=== PATIENT | female | born 1960 | race Caucasian/White ===

== ENCOUNTER 2017-06-20 10:42 | Inpatient (IN) | payer MEDICARE, MEDICAID ==
[2017-06-20] VITALS (9 sets, daily range): BP systolic 99–150; BP diastolic 26–81; PULSE 93–111; RESP 14–24; O2SAT 90–97
[~2017-06-20] VITALS: Ht 162.6 cm; Wt 256.0 kg
--- NOTE | 2017-06-20 10:43 | ED.REPORT ---
HPI-General Illness Date of Service Jun 20, 2017 ED Provider: Black Kemp DO The pt is a 57 y/o female w/ a hx of arthritis and depression presenting to the ED via EMS due to a GLF. She reports her R knee going out causing her to fall and hit her head on a cabinet. There was no LOC. She reports hitting her head twice which caused a headache that she describes as a band going from my eyes to my back of head as well as some blurry vision. She also reports intermittent SOB. She fell once at 0630 and once at 0930. The pt takes 625 MG of Tylenol every 4 hours for her arthritis. EMS reports that the pt has not left the house since March (2 months ago). Nursing Notes Stated Complaint: R KNEE PAIN Chief Complaint: R knee pain Nursing Notes Reviewed: Yes Allergies: Coded Allergies: No Known Allergies (Unverified Allergy, Unknown, 06/20/17) Scheduled Acetaminophen/Diphenhydramine (Tylenol Pm Ex-Strength Caplet) 500 Mg-25 Mg Tablet 2 EACH PO HS Scheduled PRN Acetaminophen (Tylenol Arthritis) 650 Mg Tablet.er 650 MG PO Q4H PRN PRN For Pain Loperamide HCl (Imodium A-D) 2 Mg Capsule 8 MG PO DAILY PRN PRN For Diarrhea or Loose Stool General Time Seen by MD: 10:43 Chief Complaint Other (R knee pain ) Hx Obtained From: Patient Sudden in Onset?: Yes Onset Occurred: Just prior to arrival Symptom Duration: Since onset Recent Healthcare: No recent doctor visit, No recent hospitalization Similar Sx Previous: No Past Medical History Past Medical History Arthritis IBS Depression Past Surgical History Adjustable Lap band surgery in 2006 Tubal ligation Tonsillectomy Head Cyst surgery Social History Alcohol Use: Denies alcohol use Drug Use: Denies drug use Other Social History: Good social support Ambulatory Status Independent Review of Systems Full Review of Systems Respiratory: Reports: Shortness of breath Musculoskeletal: Reports: Joint pain (R knee ) Neurologic: Reports: Headache Complete sys rev & neg: except as marked. Physical Exam Vital Signs Vital Signs Date Time Temp Pulse Resp B/P Pulse Ox O2 Delivery O2 Flow Rate FiO2 06/20/17 10:42 37.6 111 20 99/26 90 Nasal Cannula 5 Initial VS: Reviewed Head / Eyes: Atraumatic, Normocephalic, PERRL ENT: Mucous membranes moist, Conjunctiva normal, No scleral icterus Neck: Supple, Non-tender, Full range of motion Abdomen / GI: Soft, Non-tender, No guarding, No rebound, No distention Extremities: Vascular intact, Neuro intact Skin: Warm, Dry, No cyanosis Neurologic: Alert, Oriented, Nonfocal Psychiatric: Mood/affect normal, Behavior normal, Normal thought content General/Constitutional: Awake, Alert Appearance / Presentation: Positive: Obese, morbidly Respiratory / Chest: Breath sounds NL, Breath sounds = bilat Hypoxic Cardiovascular: Regular rhythm, Heart sounds NL Heart Rate / Rhythm: Positive: Tachycardia Hypotensive Interpretation & Diagnostics Lab Results Interpretation Result Diagram: 06/20/17 1155 06/20/17 1155 Test 06/20/17 11:55 White Blood Count 8.0th/mm3 (3.8-10.1) Red Blood Count 4.52mil/mm3 (3.90-5.20) Hemoglobin 13.6g/dL (12.0-15.6) Hematocrit 42.6% (35.0-46.0) Mean Corpuscular Volume 94.2fL (81-100) Mean Corpuscular Hemoglobin 30.1pg (27.0-35.0) Mean Corpuscular Hemoglobin Concent 31.9% (32.0-37.0) Red Cell Distribution Width 16.0% (12.3-15.4) Platelet Count 215bil/L (150-400) Neutrophils (%) (Auto) 81.8% (40-74) Lymphocytes (%) (Auto) 8.3% (14-46) Monocytes (%) (Auto) 9.4% (4-12) Eosinophils (%) (Auto) 0% (0-5) Basophils (%) (Auto) 0.1% (0-3) Prothrombin Time 11.9sec (8.1-12.5) Prothromb Time International Ratio 1.11ratio Activated Partial Thromboplast Time 26.1sec (22.8-33.0) D-Dimer 8.07mg/L FEU (<0.50) Sodium Level 137mEq/L (134-144) Potassium Level 4.2mEq/L (3.5-5.2) Chloride Level 97mEq/L (97-108) Carbon Dioxide Level 28mmol/L (18-29) Blood Urea Nitrogen 14mg/dL (6-24) Creatinine 0.66mg/dL (0.57-1.00) Estimat Glomerular Filtration Rate 133mL/min (>59) Glucose Level 113mg/dL (60-99) Calcium Level 8.8mg/dL (8.5-10.1) Magnesium Level 1.7mg/dL (1.6-2.6) Total Bilirubin 0.8mg/dL (0.0-1.2) Aspartate Amino Transf (AST/SGOT) 35U/L (0-50) Alanine Aminotransferase (ALT/SGPT) 23U/L (0-32) Alkaline Phosphatase 83U/L (25-150) Troponin T 0.010ug/L (0.0-0.011) Pro-B-Type Natriuretic Peptide 806.4pg/mL (0-287) Total Protein 7.3g/dL (6.4-8.4) Albumin 3.6g/dL (3.4-5.0) Hold Rose Top Tube Received (Received) ECG Interpretation ECG Interpretation: Rate 107 Sinus tachycardia Low voltage, precordial leads Time: 11:16 Interpreted by: ED physician X-Ray Chest Interpretation Chest Xray Interpretation: IMPRESSION: 1. Pulmonary vascular prominence suggesting mild edema. Dictated by: Christopher Stephen M.D. on 06/20/2017 at 12:16 Approved by: Christopher Stephen M.D. on 06/20/2017 at 12:17 View: Portable, 1 view Interpretation / Wet Read by: Interpret - Radiologist X-Ray Interpretation Xray Interpretation: 1. Limited study demonstrates no definite fracture or dislocation. If clinical concern persists, consider further evaluation with CT. Dictated by: Christopher Stephen M.D. on 06/20/2017 at 12:15 Approved by: Christopher Stephen M.D. on 06/20/2017 at 12:16 X-Ray Ordered: Knee right Re-Eval/Medical Decision Med Decision/Clinical Course Patient presents with hypoxic respiratory failure, oxygen saturation as low as 70% on room air, confirmed via arterial blood gas. Oxygen is rapidly titrated up to stabilize her oxygen saturation over 93%. She was initially hypoxic, she is tachycardic. Her blood pressure was low however has stabilized. Her EKG shows nonspecific changes. Her d-dimer is elevated however given limitations of imaging due to body habitus we are unable to fully confirm diagnosis of pulmonary embolism. She will be admitted. IV heparin is initiated in the ER. Additionally, she did injure her right knee, she has limited range of motion, x-rays were negative for acute fracture. Again given limitations due to body habitus and knee immobilizer was not placed however her knee has been placed in position of comfort. Time of Eval: 11:11 Re-Evaluation/Progress Note: Pt rechecked. Pt states that her vision is blurry again and can only breathe shallowly. Time of Eval: 11:30 Re-Evaluation/Progress Note: Discussed low oxygen saturation levels. Time of Eval: 12:27 Re-Evaluation/Progress Note: Pt rechecked. Informed pt of need for admission. Pt understands and agrees with plan for admission. All questions addressed. Consultation : Referral / Consult Name: Sonny Silva MD Consulted With: Hospitalist Call Returned at: 12:55 Nuclear Design Engineer: Will see patient, Agrees with eval, Agrees with plan, Accepts admit Counseled Regarding: Diagnosis, Lab results, Need for admission Discharge & Departure Primary Impression: Hypoxic Additional Impressions: Respiratory failure Chronicity: unspecified Respiratory failure complication: unspecified whether with hypoxia or hypercapnia Qualified Code: J96.90 - Respiratory failure, unspecified, unspecified whether with hypoxia or hypercapnia Obesity Obesity type: unspecified obesity type Obesity severity: unspecified obesity severity Qualified Code: E66.9 - Obesity, unspecified Disposition: ADMITTED TO HOSPITAL Discharge Condition All VS Reviewed: Yes Condition: Stable Referrals: [facility] Crit Care Except Billable Proc Time Spent: 30-74 minutes Services Performed: Patient management by me, Time spent at bedside, Reviewing test results, Reviewing imaging, Discussing patient care, Documentation in record, Time with fam/surrogate Critical Care Notes: See MDM Scribe Attestation Portions of this note were transcribed by Kapil Cifuentes. I, Dr. Kemp personally performed the history, physical exam and medical decision-making; I reviewed and confirmed the accuracy of the information in the transcribed note. Signed by : Juan Diego Mancia. copies to: [facility] Black Calixto DO Jun 20, 2017 10:43 Kapil Cifuentes Jun 20, 2017 11:01
--- NOTE | 2017-06-20 11:19 | ABG ---
DateTimeAnalyzed 11:12:00 -_ pH ____7.371 - 7.350 7.450 pCO2 ___50.6__ -mmHg 35.0 45.0 pO2 ___35.7__ -mmHg 70.0 100 HCO3- ___28.6__ -mmol/L 22.0 26.0 ABE ____2.9__ -mmol/L -2.0 2.0 tHb ___13.7__ -g/dL 12.0 18.0 O2Hb ___65.2__ -% 95.0 COHb ____1.4__ -% 1.5 MetHb ____0.9__ -% 0.4 1.5 sO2 ___66.7__ -% FIO2 ___21.0__ -% Drawn By lw - Date/Time Notified____ 11:19:00 -_ Oxygen Device 1 RA - Notified By lw - Notified Whom ___Dr. Okelley - B 760 -mmHg tO2 ___12.5__ -Vol% Regis test _Positive -
--- NOTE | 2017-06-20 12:18 | DRSVH ---
PROCEDURE: X-RAY RIGHT KNEE, ONE OR TWO VIEWS ([id number]) INDICATIONS: FALL TECHNIQUE: 3 views of the knee were acquired. COMPARISON: None. FINDINGS: Bones: Evaluation is limited due to body habitus and suboptimal positioning. No definite fracture o r dislocation. There is moderate joint space narrowing in the medial compartment with subchondral sc lerosis and osteophytosis. There is also osteophytosis in the patellofemoral compartment which is in completely evaluated. Soft tissues: Evaluation for joint effusion and of the soft tissues is limited due to body habitus. IMPRESSION: 1. Limited study demonstrates no definite fracture or dislocation. If clinical concern persists, co nsider further evaluation with CT. Dictated by: Christopher Stephen M.D. on 06/20/2017 at 12:15 Approved by: Christopher Stephen M.D. on 06/20/2017 at 12:16
--- NOTE | 2017-06-20 12:19 | DRSVH ---
PROCEDURE: X-RAY CHEST ONE VIEW, PORTABLE ([id number]) INDICATIONS: hypoxia, TECHNIQUE: One view of the chest was acquired. COMPARISON: [facility], CR, CHEST 2VW, 03/26/2014, 20:04. FINDINGS: Surgical changes and devices: None. Lungs and pleura: No pleural effusions or pneumothorax. There is pulmonary vascular prominence sugg esting mild edema. Mediastinum: Mediastinal contours appear normal. Heart size is normal. Bones and chest wall: No suspicious bony lesions. Overlying soft tissues appear unremarkable. IMPRESSION: 1. Pulmonary vascular prominence suggesting mild edema. Dictated by: Christopher Stephen M.D. on 06/20/2017 at 12:16 Approved by: Christopher Stephen M.D. on 06/20/2017 at 12:17
[2017-06-20] MEDS: fentaNYL-PF 50 mCg/mL 2 mL Inj IVPUSH PRN ×2 (12:25→16:08)
[2017-06-20] MEDS: Ondansetron 2 mg/mL 2 mL Inj IVPUSH PRN ×3 (12:25→14:26)
[2017-06-20 12:28] LABS: Mean Corpuscular Volume 94.2 fL (81-100)
[2017-06-20 12:29] LABS: BASOPHILS % (AUTO) 0.1 % (0-3); EOSINOPHILS % (AUTO) 0 % (0-5); MONOCYTES % (AUTO) 9.4 % (4-12); Mean Corpuscular Hemoglobin 30.1 pg (27.0-35.0); NEUTROPHILS % (AUTO) 81.8 % (40-74); Platelet Count 215 bil/L (150-400)
[2017-06-20 13:00] LABS: TROPONIN T 0.01 ug/L (0.0-0.011)
[2017-06-20] MEDS ORDERED: Polyethylene Glycol (PEG) 17 Gm Powder PO PRN (13:00)
[2017-06-20] MEDS ORDERED: Ondansetron 2 mg/mL 2 mL Inj IVPUSH PRN (13:00)
[2017-06-20] MEDS ORDERED: Alum-Mag Hydrox-Simeth 30 mL Suspension PO PRN (13:00)
[2017-06-20] MEDS ORDERED: ACET-2766 PO (13:12)
[2017-06-20] MEDS ORDERED: LOPE-147 PO (13:12)
[2017-06-20] MEDS ORDERED: ACET-2605 PO (13:12)
[2017-06-20 13:27] LABS: INR 1.11 ratio
[2017-06-20] MEDS ORDERED: Heparin 5,000 Unit/mL Inj IVPUSH ONE (14:15)
[2017-06-20] MEDS ORDERED: Heparin 25K Unit/500mL 0.45 NS 25,000 UNIT in IV Premix 1 EACH IV ONE (14:15)
--- NOTE | 2017-06-20 15:13 | DRSVH ---
PROCEDURE: US VENOUS LEG DUPLEX BILATERAL INDICATIONS: hypoxia TECHNIQUE: Real-time imaging, as well as color and pulse Doppler interrogation, were performed of the deep veins of both legs from the inguinal ligament to the popliteal fossa. COMPARISON: None. FINDINGS: The deep veins are normally compressible, and free of intraluminal thrombus. Color and pu lse Doppler demonstrate normal phasic intravascular flow. There is normal augmentation response to d istal compression maneuver. IMPRESSION: Limited quality of visualization of the lower extremity venous vasculature due to body moe bitus. No DVT found. Dictated by: Emigdio King M.D. on 06/20/2017 at 15:10 Approved by: Emigdio King M.D. on 06/20/2017 at 15:11
[2017-06-20] MEDS: Sodium Chloride LOK Flush 10 mL Syringe IVFLUSH SCH ×2 (16:30→23:59)
--- NOTE | 2017-06-20 16:41 | PCM.HPMED ---
Subjective Date of Service Jun 20, 2017 Primary Provider: Admitting Physician: Sonny Silva MD Primary Care Physician: Nopcp Attending Physician: Sonny Silva MD Chief Complaint: Ground level fall. History of Present Illness: Ms. Negrita Morales is a 57 year old lady with arthritis, sleep apnea, and depression presenting to the ED after two ground level falls with minor head trauma at 630 and 930 AM and a 5 day history of "breathing just not right." She reports the fall was due to her Right knee locking and buckling. She also reports some musculoskeletal type pain in her left shoulder and left elbow. Over the last 5 days her "breathing troubles" were associated with change in vision from "color to fair", dizziness and feelings of "head floating", and decreased energy. She is a super-super morbidly obese lady who has been disabled for 5 years due to weight and difficulty with mobility. She sleeps and spends most of the day in the lift chair, only getting up to use the bathroom. She does not use oxygen at home. She has not visited a PCP in 7 years. She denies every smoking. She denies Etoh, illicit/recreational drugs. She is not on any home prescription medications. She reports multiple slow healing wounds on her buttocks and lower extremities. She sleeps with a CPAP machine every night. She denies Chest pain, cough, nausea, vomiting, fever, abdominal pain, constipation, diarrhea, dysuria. She reports chills, headache, left shoulder/ elbow pain, right knee pain, shortness of breath. Review of Systems: A comprehensive review of systems was conducted with the patient and found to be negative except as above in the History of Present Illness. Allergies Coded Allergies: No Known Allergies (Unverified Allergy, Unknown, 06/20/17) Home Medications NONE. PMH Arthritis Depression Obesity Surgical History Tubal ligation in 1984 Lab band surgery 2006 Family History Mother Pacemaker Brother has a hx of DVTs and PE's Social History Occupation: Disability for 5 years Hx Alcohol Use: No Hx Substance Use: No Hx Tobacco Use: No Smoking Status: Never Smoker Living Arrangement: with Family (Lives with in [place]) Exam Vital Signs Vital Sign - Last Date Time Temp Pulse Resp B/P Pulse Ox O2 Delivery O2 Flow Rate FiO2 06/20/17 14:50 99 22 140/51 96 Venturi Mask 06/20/17 12:20 6 7/26/17 10:42 37.6 Exam General: No acute distress, Very obese, well-developed, well-nourished, appropriately interactive HEENT: Normocephalic, atraumatic. External ears without defect. Pupils equal, round, and reactive to light and accommodation. Anicteric sclerae, moist conjunctivae, and no lid lag. Oropharynx free of erythema and cobble stoning with moist mucosa. Neck: Supple with full range of motion. Jugular venous distension was very difficult to determine due to girth of neck. No bruits. No lymphadenopathy or thyromegaly. Cardiovascular: Tachycardic rate and regular rhythm with no murmurs, rubs, or gallops appreciated Pulmonary: Very decreased lung sounds due to body habitus. Non rebreather oxy mask in place with 5L flow rate. Abdomen: Bowel tones present. Soft, Very obese, nontender, nondistended. No hepatosplenomegaly or masses appreciated. Extremities: No clubbing, cyanosis, Large lower extremities with multiple slow healing wounds on medial portions bilaterally, or lymphadenopathy appreciated. Skin: Normal temperature, turgor, and texture; no rash, ulcers, or subcutaneous nodules appreciated. Neurological: Cranial nerves grossly intact. Normal muscle strength, tone, and bulk. Reflexes, coordination, and sensory function within normal limits. No known gait impairment. Psychiatric: Normal mood and affect. Alert and oriented to person, place, and time. Lab and Diagnostics Result Diagram: 06/20/17 1155 06/20/17 1155 X-Rays, CTs and MRIs ABG DateTimeAnalyzed 11:12:00 -_ pH ____7.371 - 7.350 7.450 pCO2 ___50.6__ -mmHg 35.0 45.0 pO2 ___35.7__ -mmHg 70.0 100 HCO3- ___28.6__ -mmol/L 22.0 26.0 X-RAY CHEST ONE VIEW, PORTABLE IMPRESSION: 1. Pulmonary vascular prominence suggesting mild edema. Approved by: Christopher Stephen M.D. on 06/20/2017 at 12:17 X-RAY RIGHT KNEE, ONE OR TWO VIEWS IMPRESSION: 1. Limited study demonstrates no definite fracture or dislocation. If clinical concern persists, consider further evaluation with CT. Dictated by: Christopher Stephen M.D. on 06/20/2017 at 12:15 Additional Diagnostics: US VENOUS LEG DUPLEX BILATERAL FINDINGS: The deep veins are normally compressible, and free of intraluminal thrombus. Color and pulse Doppler demonstrate normal phasic intravascular flow. There is normal augmentation response to distal compression maneuver. IMPRESSION: Limited quality of visualization of the lower extremity venous vasculature due to body habitus. No DVT found. Approved by: Emigdio King M.D. on 06/20/2017 at 15:11 Assessment & Plan Ms. Negrita Morales is a 57 year old lady with arthritis, sleep apnea, and depression presenting to the ED after two ground level falls with minor head trauma at 630 and 930 AM and a 5 day history of "breathing just not right." She reports the fall was due to her Right knee locking and buckling. She also reports some musculoskeletal type pain in her left shoulder and left elbow. Over the last 5 days her "breathing troubles" were associated with change in vision from "color to afir", dizziness and feelings of "head floating", and decreased energy. Acute Hypoxemic respiratory failure, present on admission. Active. - Likely 2nd to PE with D-Dimer 8, too large to do Chest CT PE scan. - ABG per above. - D-Dimer 8.07, Too large to CT scan. - Echo ordered. - Heparin PE ggt. - Cardiology consulted, appreciate recommendations regarding pulmonary angiography under fluoroscopy and localized treatment of possible PE. - Continue O2 supplementation as needed. to keep O2 sats > 92%. Super-Super Morbid obesity. - BMI 86.5 Multiple pressure ulcers, present on admission. Active. - Reported to have several on buttocks and several on inner lower legs bilaterally. - Wound care consulted. Obstructive sleep apnea - CPAP at night with supplemental Acetaminophen for mild pain when necessary. Bowel regimen Senna and MiraLAX scheduled and PRN. Zofran when necessary for nausea and vomiting. SubQ heparin held for now. SCDs in place. High-risk medications: Heparin ggt. Patient Status: Patient is admitted under inpatient status with expected length of stay greater than 2 midnights due to severity of presenting symptoms, risk of adverse event, and complexity of treatment plan. Pain Evaluation: Adequate Pain Control Resuscitation Status: CPR: Attempt Resuscitation Attending Statement I interviewed and examined the patient at time of admission. High probability pulmonary embolism. I agree with the assessment and plan as stated above. PENNY CABA DO Jun 20, 2017 16:41 Sonny Silva MD Jun 22, 2017 07:08
--- NOTE | 2017-06-20 18:05 | DRSVH ---
Located Within [facility] [address] [place] [address] Echocardiogram Report Name: DEANA ALEX KStudy Date : 06/20/2017 Height: 64 in Hospital Exam Location: [facility] Weight: 504 lb Gender: Female BSA: 2.9 m2 : 1960 Age: 57 yrs BP: 99/26 m mHg Reason For Study: Hypoxia Performed By: Madan Ruiz Referring Physician: CAIT LARSEN Interpretation Summary This was a technically difficult study. 1. Grossly normal left ventricular size with grossly normal systolic function. 2. The right ventricle was not visualized. The estimated RVSP is 47 mm plus CVP 3. Valves were not optimally visualized Procedure: A two-dimensional transthoracic echocardiogram with color flow and Doppler was performed. The study quality was technically difficult. A contrast injection of Definity was performed to improve assessment of LV function. There is no prior echocardiogram noted for this patient. The patient was in normal sinus rhythm during the exam. Left Ventricle: The left ventricle is grossly normal size. The left ventricular ejection fraction is grossly normal. Right Ventricle: The right ventricle is not well visualized. Atria: The left atrium grossly appears normal in size. Right atrium not well visualized. Mitral Valve: The mitral valve is not well visualized. Aortic Valve: The aortic valve is not well visualized. No doppler evidence for hemodynamically significant valvular stenosis. Tricuspid Valve: The tricuspid valve is not well visualized. There is moderate tricuspid regurgitation. Right ventricular systolic pressure is estimated to be 47 mmHg plus the clinically estimated CVP which cannot be estimated on this exam. Pulmonic Valve: The pulmonic valve is not well seen, but is grossly normal. Great Vessels: The aortic root is not well visualized. The ascending aorta is normal in size. The aortic arch could not be visualized. The inferior vena cava was not visualized. MMode/2D Measurements & Calculations asc Aorta Diam: 3.2 cm LA A4 area: 18.7 cm LA length (vol): 5.5 cm Doppler Measurements & Calculations Ao V2 max MV E max wade MV E/A: 1.5 TR max wade : 185.8 cm/sec : 97.5 cm/sec Med Peak E' Wade : 342.5 cm/sec Ao max PG MV A max wade TR max PG : 14.0 mmHg : 65.0 cm/sec E/E' med: 10.6 : 47.0 mmHg Ao mean PG Lat Peak E' Wade PA V2 max : 99.2 cm/sec LVOT Max Wade E/E' lat: 10.9 PA mean PG : 153.8 cm/sec E/e' average: 10.8 sev ratio: 0.84 PA Accel Time : 0.06 sec MV dec time Ao V2 mean LV V1 max PG PA V2 mean : 0.14 sec : 138.7 cm/sec : 67.7 cm/sec Ao V2 VTI: 32.6 cm LV V1 VTI: 27.3 cm Reading Physician:06:04 PM
[2017-06-20] MEDS ORDERED: [UNRECOGNIZED DRUG - OTHER] IVPUSH PRN (19:00)
--- NOTE | 2017-06-20 19:14 | NUR ---
Admit: Patient arrived to PCC room 2030 from ER via stretcher @ 1710 and was transferred to bariatric striker bed with use of slide sheet and assistance from 6-7 people (took about 45 minutes to transfer patient to new bed). Pt is A&O X3. Tele: Sinus 90's. VSS. SpO2: mid 90's on 6L NC. Patient states she feels urge to urinate, but is unable to. ER staff attempted to place kern catheter X2 attempts without success. Patient denies CP, or SOB at this time. at bedside. Report given to NOC shift RN.
[2017-06-21] VITALS (10 sets, daily range): BP systolic 118–141; BP diastolic 55–81; PULSE 94–107; RESP 20–30; O2SAT 92–99
--- NOTE | 2017-06-21 06:13 | ABG ---
DateTimeAnalyzed 06:05:00 -_ pH ____7.251 - 7.350 7.450 pCO2 ___74.6__ -mmHg 35.0 45.0 pO2 ___93.9__ -mmHg 69.0 116 HCO3- ___31.6__ -mmol/L 22.0 26.0 ABE ____2.5__ -mmol/L -2.0 2.0 tHb ___13.4__ -g/dL O2Hb ___94.4__ -% COHb ____1.2__ -% MetHb ____0.8__ -% sO2 ___96.3__ -% FIO2 ___21.0__ -% Drawn By TLA - Date/Time Notified____ 06:13:00 -_ Liter_Flow ____4.0__ -L/min Oxygen Device 1 SIMP MASK - Notified By TLA - Notified Whom Liam W.-RN - B 761 -mmHg tO2 ___17.8__ -Vol% Regis test _Positive -
--- NOTE | 2017-06-21 06:17 | ABG ---
DateTimeAnalyzed 06:05:00 -_ pH ____7.251 - 7.350 7.450 pCO2 ___74.6__ -mmHg 35.0 45.0 pO2 ___93.9__ -mmHg 69.0 116 HCO3- ___31.6__ -mmol/L 22.0 26.0 ABE ____2.5__ -mmol/L tHb ___13.4__ -g/dL O2Hb ___94.4__ -% COHb ____1.2__ -% MetHb ____0.8__ -% sO2 ___96.3__ -% FIO2 ___32.0__ -% Drawn By TLA - Date/Time Notified____ 06:13:00 -_ Notified By TLA - Notified Whom Liam W.-RN - B 761 -mmHg tO2 ___17.8__ -Vol% Regis test _Positive -
--- NOTE | 2017-06-21 06:23 | NUR ---
Salcedo/Respiratory/Skin/Critical PTT Salcedo placed with assistance from multiple nurses to protect skin integrity and patient unable to tolerate bedpan or get to BSC. Over 1 Liter of urine output upon placement. Increased respiratory difficulty noted throughout shift despite SpO2 high 90's on 5L NC while awake and 5L Oxymask while asleep. RT and MD consulted and patient being placed on VPAP. ABG's also obtained prior to initiating treatment. Family member updated regarding patient status. Multiple red yeasty areas noted in skin folds throughout body. Unable to tolerate turning to side for significant amount of time r/t respiratory distress. Skin breakdown vs abnormal skin growth noted on buttock/coccyx area. Wound care to evaluate. Bed bath and skin care provided as much as patient could tolerate. Critical PTT 215 from lab. Heparin gtt placed on standby, STAT PTT ordered and MD notified per protocol. Awaiting response. No active s/s bleeding noted.
[2017-06-21] MEDS: Sodium Chloride LOK Flush 10 mL Syringe IVFLUSH SCH ×2 (08:30→16:30)
--- NOTE | 2017-06-21 14:35 | NUR ---
Social Work: Initial Assessment/Multidisciplinary Rounds D: Per EMR review, pt is a 57 year old female admitted for Hypoxic, Respiratory Failure, Obesity. Pt is Medicare with HS supplement; pt has no LTC or VA benefits. BITAK is is Dino Moralse, spouse, . Advanced directives not completed. Information provided. Readmit score not entered at this time. Pt discussed in am rounds. Pt is on day 1 of stay. Pt to likely require transfer to a higher level of care for further diagnostic testing; this cannot be completed at [facility] due to pt's morbid obesity. FAMILY CENTERED SPECIALIST met with the patient's spouse at bedside. Sw role explained, sw role and dcp checklist provided. Pt previously was living at home in [place] with her spouse. Pt has been primarily homebound and confined to her bed except for brief transfers to the toilet with assistance from her spouse. The pt has a w/c for use and has ramp access to the home. The spouse states that they are currently working with HCS Worker Evelin Zhoujuanita [phone] to complete a FR[facility]ERICK assessment. They were originally planning for in home [facility] however the spouse states that he no longer can support this plan based on the condition of the patient's wounds. He would like to explore SNF options for RN and PT. He hopes that the patient may possibly be able to come home at some point but also states that he is being "realistic" and knows that she may require supervisor blood donor recruiters placement under [facility]. FAMILY CENTERED SPECIALIST provided him with the SNF CHOICE LIST and requested that he pick several facilities that he might want the patient placed at if the MD orders for SNF placement. He agrees and will discuss this with the patient. A: Pt who will likely require skilled rehab and RN care at time of discharge P: [facility]; FAMILY CENTERED SPECIALIST to continue to follow to assess for d/c needs and coordinate possible discharge to SNF if ordered by MD team. BRENDA Ledbetter Addendum: 06/21/17 at 1450 by CHERRIE GOOD SS Amended: Links added.
--- NOTE | 2017-06-21 15:03 | NUR ---
Inpatient Wound Nurse Wound assessment ordered for multiple skin issues. Patient seen by CWON and multiple open areas observed in BLE, panniculus, under breasts, and buttocks. Patient has extensive and severe intertrigous dermatitis with fibrotic skin changes noted to BLE and abdomen; Wounds inside skin folds bleed easily and cleansing elicited complaints of pain. Severe shred-type wounds over intergluteal fold, 6 cm L x 6 cm W, bleed easily, erythemic, and painful to touch. Wounds were cleansed and dried, then covered with non-bordered Mepilex sheet foam dressing placed into folds. Mepilex sheet foam dressing was placed over intergluteal fold. Patient is clearly unable to care for herself at home and it would appear that 's efforts are inadequate. Patient stated that she is aware that "something has to change," but insinuated that she is powerless to make changes. Conversation was completed regarding controlled environment of SNF-type setting in which patient's exposure to food would be limited, a team would be available to assist with skin care, hygiene, and mobility, all of which without patient will continue to deteriorate. Patient agreeable to further exploration of change to current living environment. Nursing staff to keep wounds clean and dry. Mepilex sheet foam dressing to skin folds with draining wounds to be changed PRN.
--- NOTE | 2017-06-21 18:17 | NUR ---
respiratory/Heparin drip Pt sustaining SpO2 above 94% on bibap with 45% FiO2. pt able to transition to oxymask at 4L for meal, Tolerating well through the day. Family in room all day helping with care. Heparin now at 17unit/kg/hr per DVT/PE protocol. awaiting next PTT for adjustment. Pharmacist consulted about dosing. Awaiting feedback. Will report to oncoming RN.
[2017-06-21] MEDS: Heparin 25K Unit/500mL 0.45 NS 25,000 UNIT in IV Premix 1 EACH IV SCH (21:24)
[2017-06-22] VITALS (10 sets, daily range): BP systolic 125–162; BP diastolic 67–84; PULSE 64–111; RESP 5–28; O2SAT 87–98
[2017-06-22] MEDS: Sodium Chloride LOK Flush 10 mL Syringe IVFLUSH SCH ×3 (00:30→16:30)
[2017-06-22] MEDS: Nystatin 100,000 Unit/Gm 15 Gm Powder TOPICAL SCH ×3 (00:51→23:07)
--- NOTE | 2017-06-22 01:51 | NUR ---
PTT/GTT/Pain Ptt heparin 127, stopped Gtt for 1 hour, decreased Gtt by 4 to 13 U/Kg/hr. pt is resting comfortably , asked for tylenol for pain , Gave 975. Is on BIPap for sleeping , was able to maintain Sat w 4 L Oxy while awake. Has yeast in the many skin folds , ordered Nystatin Powder. Very edematous, , good pulses . A&O x3 using call light appropriately. Tele: [phone]
--- NOTE | 2017-06-22 05:57 | PCM.PNMED ---
Subjective Date of Service Jun 21, 2017 Subjective Ms. Negrita Morales is a 57 year old lady with arthritis, sleep apnea, and depression presenting to the ED after two ground level falls with minor head trauma at 630 and 930 AM and a 5 day history of "breathing just not right." She reports the fall was due to her Right knee locking and buckling. She also reports some musculoskeletal type pain in her left shoulder and left elbow. Over the last 5 days her "breathing troubles" were associated with change in vision from "color to fair", dizziness and feelings of "head floating", and decreased energy. No Overnight events. She tolerated BiPAP with O2 throughout the night. Today she was sleeping quite deeply, with some effort she awoke and was drowsy. She reported feeling okay however her vocal strength was weak. She denies Chest pain, cough, nausea, vomiting, fever, abdominal pain, constipation, diarrhea, dysuria. She reports chills, headache, left shoulder/ elbow pain, right knee pain, shortness of breath. Exam Vital Signs Vital Sign - Last Date Time Temp Pulse Resp B/P Pulse Ox O2 Delivery O2 Flow Rate FiO2 06/22/17 04:27 37.9 111 24 162/84 96 BiPAP 45 06/21/17 21:33 6.00 Intake and Output 06/21/17 06/21/17 06/22/17 Cumulative From/Thru 15:00 23:00 07:00 06/20/17 10:42 - 06/22/17 04:27 Intake Total 1717 ml 1717 ml Output Total 650 ml 2760 ml Balance 1067 ml -1043 ml Intake Oral 300 ml 300 ml IV Total 1417 ml 1417 ml Output Urine Total 650 ml 2760 ml # Bowel Movements 0 0 Exam General: No acute distress, Very obese, well-developed, well-nourished, appropriately interactive HEENT: Normocephalic, atraumatic. External ears without defect. Pupils equal, round, and reactive to light and accommodation. Anicteric sclerae, moist conjunctivae, and no lid lag. Oropharynx free of erythema and cobble stoning with moist mucosa. Neck: Supple with full range of motion. Jugular venous distension was very difficult to determine due to girth of neck. No bruits. No lymphadenopathy or thyromegaly. Cardiovascular: Tachycardic rate and regular rhythm with no murmurs, rubs, or gallops appreciated Pulmonary: Very decreased lung sounds due to body habitus. Non rebreather oxy mask in place with 5L flow rate. Abdomen: Bowel tones present. Soft, Very obese, nontender, nondistended. No hepatosplenomegaly or masses appreciated. Extremities: No clubbing, cyanosis, Large lower extremities with multiple slow healing wounds on medial portions bilaterally, or lymphadenopathy appreciated. Skin: Normal temperature, turgor, and texture; no rash, ulcers, or subcutaneous nodules appreciated. Neurological: Cranial nerves grossly intact. Normal muscle strength, tone, and bulk. Reflexes, coordination, and sensory function within normal limits. No known gait impairment. Psychiatric: Normal mood and affect. Alert and oriented to person, place, and time. IVs and Medications Medications Reviewed: Medications were reviewed in detail Lab and Diagnostics Result Diagram: 06/20/17 1155 06/20/17 1155 X-Rays, CTs and MRIs ABG DateTimeAnalyzed 11:12:00 -_ pH ____7.371 - 7.350 7.450 pCO2 ___50.6__ -mmHg 35.0 45.0 pO2 ___35.7__ -mmHg 70.0 100 HCO3- ___28.6__ -mmol/L 22.0 26.0 X-RAY CHEST ONE VIEW, PORTABLE IMPRESSION: 1. Pulmonary vascular prominence suggesting mild edema. Approved by: Christopher Stephen M.D. on 06/20/2017 at 12:17 X-RAY RIGHT KNEE, ONE OR TWO VIEWS IMPRESSION: 1. Limited study demonstrates no definite fracture or dislocation. If clinical concern persists, consider further evaluation with CT. Dictated by: Christopher Stephen M.D. on 06/20/2017 at 12:15 Additional Diagnostics US VENOUS LEG DUPLEX BILATERAL FINDINGS: The deep veins are normally compressible, and free of intraluminal thrombus. Color and pulse Doppler demonstrate normal phasic intravascular flow. There is normal augmentation response to distal compression maneuver. IMPRESSION: Limited quality of visualization of the lower extremity venous vasculature due to body habitus. No DVT found. Approved by: Emigdio King M.D. on 06/20/2017 at 15:11 Assessment & Plan Ms. Negrita Morales is a 57 year old lady with arthritis, sleep apnea, and depression presenting to the ED after two ground level falls with minor head trauma at 630 and 930 AM and a 5 day history of "breathing just not right." She reports the fall was due to her Right knee locking and buckling. She also reports some musculoskeletal type pain in her left shoulder and left elbow. Over the last 5 days her "breathing troubles" were associated with change in vision from "color to fair", dizziness and feelings of "head floating", and decreased energy. Acute Hypoxemic respiratory failure, present on admission. Active. - Likely 2nd to PE with D-Dimer 8, too large to do Chest CT PE scan. - ABG per above. - D-Dimer 8.07, Too large to CT scan. - Echo ordered. - Heparin PE ggt. - Cardiology consulted, appreciate recommendations regarding pulmonary angiography under fluoroscopy and localized treatment of possible PE. The table will not tolerate the patients dimensions or weight. - Continue O2 supplementation as needed. to keep O2 sats > 92%. - Attempted transfer today to [facility] and [facility] both of which could not accept due to the patients width being larger than their 70 cm limit, hers was 97cm. Super-Super Morbid obesity. - BMI 86.5 Multiple pressure ulcers, present on admission. Active. - Reported to have several on buttocks and several on inner lower legs bilaterally. - Wound care consulted. Obstructive sleep apnea - CPAP/BiPAP at night with supplemental O2 Acetaminophen for mild pain when necessary. Bowel regimen Senna and MiraLAX scheduled and PRN. Zofran when necessary for nausea and vomiting. SubQ heparin held for now. SCDs in place. High-risk medications: Heparin ggt. Patient Status: Patient is admitted under inpatient status with expected length of stay greater than 2 midnights due to severity of presenting symptoms, risk of adverse event, and complexity of treatment plan. Pain Evaluation: Adequate Pain Control Resuscitation Status: CPR: Attempt Resuscitation Time spent 65 minutes Attending Statement I interviewed and examined the patient on rounds today. Counseled family at bedside. Considerable effort in care coordination to identify CT scanner capable of confirming her diagnosis, unsuccessfully. I agree with the assessment and plan as stated above. PENNY CABA DO Jun 22, 2017 05:56 Sonny Silva MD Jun 22, 2017 07:17
[2017-06-22 07:08] LABS: Mean Corpuscular Hemoglobin 30.1 pg (27.0-35.0); Mean Corpuscular Volume 99.8 fL (81-100)
[2017-06-22] MEDS: Heparin 25K Unit/500mL 0.45 NS 25,000 UNIT in IV Premix 1 EACH IV SCH ×2 (07:26→18:19)
[2017-06-22 07:40] LABS: Phosphorus 3.4 mg/dL (2.5-4.9)
--- NOTE | 2017-06-22 10:51 | NUR ---
Social Work: Continued Discharge Planning/Multidisciplinary Rounds D: Pt discussed in am rounds. Pt will likely be discharge to a skilled rehab tomorrow. Pt is not a candidate for transfer to a high level of care for further diagnostic due to her morbid obesity. HISTOLOGICAL ILLUSTRATOR met with the patient and spouse to discuss discharge planning. Spouse and patient both agree that a discharge home is not safe. HISTOLOGICAL ILLUSTRATOR explained that the patient's medical complexities and her obese size make placement somewhat challenging. They would like for HISTOLOGICAL ILLUSTRATOR to make referrals to all the local facilities so that they can have a better idea who can meet her needs. Once they know what facilities can accept her, they will pick their preference. MD has placed a SNF Placement referral order. Manager Lab is aware and is placing referrals. A: Pt who will require skilled care for RN and Rehab. P: [facility]; [facility] providing referrals to local facilities. BRENDA Ledbetter Addendum: 06/22/17 at 1333 by CHERRIE GOOD HISTOLOGICAL ILLUSTRATOR received notification from Morena Thomson at [facility]. They are considering accepting the patient but having the DNS review. They would like to know what specific DME the patient has at home. They also need to know what specific bariatric bed size the patient is currently using. HISTOLOGICAL ILLUSTRATOR met with the patient and spouse at bedside. The pt owns a Bariatric Cane and Wheelchair. Pt would likely require a bariatric BSC and FWW along with bariatric bed. SILK SCREEN PRINTER HELPER is attempting to find the specific size of bariatric bed the pt is currently using.
--- NOTE | 2017-06-22 11:35 | NUR ---
Gave access to [facility], [facility] and [facility]. Per TOOL AND DIE TECHNICIAN and MD orders. Addendum: 06/22/17 at 1506 by SHERMAN VARELA CM Jail[facility] Nolan is not able to accommodate patient due to patient's size. [facility] is reviewing and will need to have their account development executive review as well. [facility] is still reviewing and they are working on what the costs will be for specialized equipment. Updated TOOL AND DIE TECHNICIAN Addendum: 06/22/17 at 1554 by SHERMAN VARELA [facility] is not able to accept patient due to weight and can not meet needs. Updated TOOL AND DIE TECHNICIAN
--- NOTE | 2017-06-22 11:54 | NUR ---
Inpatient Wound Nurse Patient seen by [facility] for wound care to gluteal wound. Wound appears slightly dryer than at yesterday's assessment and did not bleed with cleansing. Patient has indwelling Salcedo which will promote dryness to entire perineum. Patient is menstruating and so this is a contributing moisture factor although temporary. Wound was cleansed and blotted dry, then covered with Mepilex foam sheet. Wounds under panniculus were cleansed and dry Medline lift sheet was placed within folds. Care staff to replace Mepilex foam sheets in folds along BLE PRN.
--- NOTE | 2017-06-22 15:56 | NUR ---
APS Report Made [employer] CONSULTANT spoke with Resident and Attending MD about pt's medical condition and possible self neglect. They are both in agreement that pt meets criteria for self-neglect. [employer] CONSULTANT has made an online report: Reference code# [id number]. BRENDA Ledbetter
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
--- NOTE | 2017-06-22 17:35 | ABG ---
DateTimeAnalyzed 17:27:00 -_ pH ____7.260 - 7.350 7.450 pCO2 ___76.3__ -mmHg 35.0 45.0 pO2 ___93.8__ -mmHg 69.0 116 HCO3- ___33.1__ -mmol/L 22.0 26.0 ABE ____4.0__ -mmol/L -2.0 2.0 tHb ___13.1__ -g/dL O2Hb ___95.4__ -% COHb ____1.3__ -% MetHb ____0.4__ -% sO2 ___97.1__ -% FIO2 ___45.0__ -% CPAP ___16.0__ -cmH2O PEEP ____8.0__ -cmH2O Vt __350.0__ -L Drawn By NB - Date/Time Notified____ 17:34:00 -_ Spontaneous_RR ___24.0__ -b/min Oxygen Device 1 ____BIPAP - Notified By nb - Notified Whom DR Silva - B 759 -mmHg tO2 ___17.6__ -Vol% Regis test _Positive -
[2017-06-22 18:06] LABS: APPEARANCE,URINE CLEAR (CLEAR,HAZY); COLOR,URINE YELLOW (YELLOW); OCCULT BLOOD,URINE LARGE (NEGATIVE)
--- NOTE | 2017-06-22 18:09 | PCM.CONPHA ---
Subjective Requesting Provider: PENNY CABA DO Ground level fall. Reason for Pharmacy Consult: Anticoagulation Management Assessment/Plan Assessment/Plan Pharmacy to Dose Warfarin for presumed PE, with goal INR 2-3: Patient currently on heparin bridging to warfarin. INR 06/20/17 was 1.11 HCT 45 PLT 186 Will give warfarin 10mg today and order serial INRs. Pharmacy will continue to monitor and dose daily. Kaci Kulkarni [facility] Jun 22, 2017 18:09
--- NOTE | 2017-06-22 18:33 | DRSVH ---
PROCEDURE: X-RAY CHEST ONE VIEW, PORTABLE ([id number]) INDICATIONS: 57 year-old female with shortness of breath and fevers. TECHNIQUE: One view of the chest was acquired. COMPARISON: [facility], CR, XR CHEST 1VW (PORTABLE), 06/20/2017, 11:11. [facility], CR, CHEST 2VW, 03/26/2014, 20:04. FINDINGS: Patient is mildly rotated on the film. Surgical changes and devices: None. Lungs and pleura: No pleural effusions or pneumothorax. Lungs are clear. Mediastinum: Mediastinal contours appear normal. Heart size is normal. Bones and chest wall: No suspicious bony lesions. Overlying soft tissues appear unremarkable. IMPRESSION: No acute cardiopulmonary disease. Dictated by: Yohan Hung M.D. on 06/22/2017 at 18:29 Approved by: Yohan Hung M.D. on 06/22/2017 at 18:30
--- NOTE | 2017-06-22 19:39 | NUR ---
Mentation/Respiratory pt getting very drowsy through the day, made aware. New order for ABGs. See blood gas report. RT decreased pt Bipap FiO2 from 45 to 35%. Report given to oncoming RN.
[2017-06-23] VITALS (13 sets, daily range): BP systolic 131–163; BP diastolic 69–81; PULSE 94–103; RESP 12–32; O2SAT 95–97
[2017-06-23] MEDS: Sodium Chloride LOK Flush 10 mL Syringe IVFLUSH SCH ×3 (00:30→16:30)
--- NOTE | 2017-06-23 00:39 | NUR ---
BiPap/fever Spiked fever, 38.4, gave 975 tylenol, very warm slightly diaphoretic , applied nystatin to skin folds, A&O x3 easily aroused , Heparin gtt @ 10u/kg/hr BiPap- 35% FiO2, 20/10 Tele SR-S-Tach
[2017-06-23 05:08] LABS: Mean Corpuscular Volume 97.9 fL (81-100)
[2017-06-23 05:28] LABS: INR 1.25 ratio
[2017-06-23] MEDS: Heparin 25K Unit/500mL 0.45 NS 25,000 UNIT in IV Premix 1 EACH IV SCH (06:07)
[2017-06-23] MEDS: Nystatin 100,000 Unit/Gm 15 Gm Powder TOPICAL SCH ×2 (08:24→21:27)
[2017-06-23] MEDS ORDERED: Tetrahydrozoline 0.05% 15 mL Ophthalmic Solution BOTH_EYES PRN (11:10)
[2017-06-23] MEDS ORDERED: Vancomycin Dose per Pharmacist XX SCH (11:10)
--- NOTE | 2017-06-23 12:43 | NUR ---
NUTRITION ASSESSMENT: ASSESS:57 YO female admitted with hypoxemia, advanced respiratory failure, presumed PE. This patient has Class III obesity, weighing approx. 613 pounds. Per Bias Binding Folder, there are multiple open areas observed in BLE, panniculus, under breasts, and buttocks. Patient has extensive and severe intertrigous dermatitis with fibrotic skin changes noted to BLE and abdomen. Wounds inside skin folds bleed easily and cleansing elicited complaints of pain. Severe shred-type wounds over intergluteal fold, 6 cm L x 6 cm W, bleed easily, erythemic, and painful to touch. Patient is clearly unable to care for herself at home, and it would appear that 's efforts are inadequate. Patient stated that she is aware that "something has to change," but insinuated that she is powerless to make changes. Conversation was completed regarding controlled environment of SNF-type setting in which patient's exposure to food would be limited, a team would be available to assist with skin care, hygiene, and mobility, all of which without patient will continue to deteriorate. Patient agreeable to further exploration of change to current living environment. Per case management rounds this morning, it was discussed that [place] might possibly be an appropriate initial sub-acute care environment for wound healing. PMHx:Arthritis, FRANK, depression, advanced respiratory failure, class III obesity. DIET:Heart healthy. PO intake 0 - 100% trays. LABS: Reviewed. Cr 0.49, Ca 8.4, Procalcitonin 0.10. MEDICATIONS: Reviewed. Coumadin initiated for presumed PE. NUTRITION FOCUSED PHYSICAL ASSESSMENT: GI symptoms / stool: No stool reported.Patel: 14. Skin Integrity: See assessment. ANTHROPOMETRICS: Current Wt: 280.5 kg BMI: 106.0 kg/mw.Admit weight: 278.2 kg IBW: 54.5 kg (510% IBW) ESTIMATED NEEDS (CLASS III OBESITY, WOUNDS): Calories: 1636 - 1909 kcal (30 - 35 kcal / kg IBW) Protein: 98 - 109 g protein (1.8 - 2.0 g / kg IBW) NUTRITION DIAGNOSIS: 1)Increased nutrient needs related to increased demand for nutrients, as evidenced by multiple wound issues noted by Bias Binding Folder. 2)Knowledge deficit related to Class III obesity, as evidenced by patient's statement that she feels powerless to make changes. INTERVENTION: 1) Change of living situation is adam to this patient's survival. 2) Will monitor for wound healing and recommend Francis be consumed in diet soda two times per day. 3)Will provide Coumadin education prior to discharge. MONITOR/EVALUATE: Wound status, PO intake, labs. Follow up per moderate nutrition risk guidelines. Addendum: 06/23/17 at [address] Pt[address] willing to take Francis two times per day with diet soda; will be sent on her trays. Coumadin education provided.
--- NOTE | 2017-06-23 15:56 | NUR ---
KAILEY signed by pt
[2017-06-23] MEDS ORDERED: PIPERACILLIN TAZO IV SCH (16:30)
[2017-06-23] MEDS ORDERED: DEXTROSE 5% IV SCH (16:30)
--- NOTE | 2017-06-23 17:14 | PCM.PNMED ---
Subjective Date of Service Jun 23, 2017 Subjective 57 year old woman with super morbid obesity, arthritis, hypoventilation, and depression presenting after two ground level falls with minor head trauma and found to have acute hypoxic respiratory failure and likely pulmonary embolism. No recurrence of episodes of encephalopathy and diplopia now that she is on a AVAP respiratory support. She feels some general malaise but no focal check symptoms. Exam Vital Signs Vital Sign - Last Date Time Temp Pulse Resp B/P Pulse Ox O2 Delivery O2 Flow Rate FiO2 06/23/17 16:00 95 26 96 35 06/23/17 15:45 36.9 163/81 BiPAP 06/22/17 08:05 5.50 Intake and Output 06/22/17 06/22/17 06/23/17 Cumulative From/Thru 15:00 23:00 07:00 06/20/17 10:42 - 06/23/17 06:58 Intake Total 1727 ml 518 ml 4452 ml Output Total 400 ml 1300 ml 4960 ml Balance 1327 ml -782 ml -508 ml Intake Oral 1100 ml 50 ml 1650 ml IV Total 627 ml 468 ml 2802 ml Output Urine Total 400 ml 1300 ml 4960 ml # Bowel Movements 0 0 Exam General: Obese immobilized in supine bedrest, no acute distress HEENT: sclerae anicteric, oral mucosa moist Chest: clear to auscultation anterolaterally Cardiac: S1S2, regular, no apparent murmur Abdomen: BS present, non-tender Extremities: Obese legs with stasis dermatitis and mild pitting edema; right forearm ecchymosis Neuro: A&O, cranial nerves symmetric, motor strength 5/5 IVs and Medications Medications Reviewed: Medications were reviewed in detail Lab and Diagnostics Result Diagram: 06/23/17 0455 06/23/17 0455 X-Rays, CTs and MRIs ABG DateTimeAnalyzed 11:12:00 -_ pH ____7.371 - 7.350 7.450 pCO2 ___50.6__ -mmHg 35.0 45.0 pO2 ___35.7__ -mmHg 70.0 100 HCO3- ___28.6__ -mmol/L 22.0 26.0\ FIO2 ___21.0__ -% DateTimeAnalyzed 06:05:00 -_ pH ____7.251 - 7.350 7.450 pCO2 ___74.6__ -mmHg 35.0 45.0 pO2 ___93.9__ -mmHg 69.0 116 HCO3- ___31.6__ -mmol/L 22.0 26.0 X-RAY CHEST ONE VIEW, PORTABLE IMPRESSION: 1. Pulmonary vascular prominence suggesting mild edema. Approved by: Christopher Stephen M.D. on 06/20/2017 at 12:17 X-RAY RIGHT KNEE, ONE OR TWO VIEWS IMPRESSION: 1. Limited study demonstrates no definite fracture or dislocation. If clinical concern persists, consider further evaluation with CT. Dictated by: Christopher Stephen M.D. on 06/20/2017 at 12:15 Cardiac Echo Impressions Echocardiogram Report Interpretation Summary This was a technically difficult study. 1. Grossly normal left ventricular size with grossly normal systolic function. 2. The right ventricle was not visualized. The estimated RVSP is 47 mm plus CVP 3. Valves were not optimally visualized Reading Physician:06:04 PM Additional Diagnostics US VENOUS LEG DUPLEX BILATERAL FINDINGS: The deep veins are normally compressible, and free of intraluminal thrombus. Color and pulse Doppler demonstrate normal phasic intravascular flow. There is normal augmentation response to distal compression maneuver. IMPRESSION: Limited quality of visualization of the lower extremity venous vasculature due to body habitus. No DVT found. Approved by: Emigdio King M.D. on 06/20/2017 at 15:11 Assessment & Plan Acute Hypoxemic respiratory failure, present on admission. Active. Initial ABG revealed severe hypoxic deficit despite compensated chronic hypercarbia. Acute hypoxia is deemed likely 2nd to PE, the absence of other respiratory traction or pathology. D-Dimer 8, albeit with bruise on right forearm. She is too large to do Chest CT PE scan. Decision was made to institute empiric or fertilization, probably to continue chronically. She is at high risk for chronic thromboembolic pulmonary hypertension. Attempts were made to transfer patient to facility with suitable CT or angiography features but no such facilities identified. Maximum width at [facility] CT scanner is 78 cm , patient is 90 cm wide. - [facility] residency clinic referral. Acute on chronic Hypercapnic respiratory failure, present on admission. Active. Likely obesity hypoventilation syndrome. Appears to have had worsening hypercarbic respiratory failure following oxygen supplementation in hospital, despite BP AP. - Home trilogy due to failure of BPAP. - Target O2 saturation is 88%; avoid excess oxygenation Pulmonary embolism, present on admission. Unable to obtain confirmatory diagnostic testing. Treating empirically. - Heparin PE ggt bridging to warfarin. Fever, Bacteremia, not present on admission. MAXIMUM TEMPERATURE 38.7 on 06/22. No clinical localizing signs of infection. Chest x-ray and urinalysis are unremarkable. One blood culture bottle showing gram-positive cocci with strep morphology, unclear whether this is pathogenic or contaminated present. Sacral decubiti are mild but likely the source of bacterial translocation. Pharmacy is unable to dose vancomycin in this patient due to obesity. - Unasyn IV - Await further culture data - Wound care consult Sacral decubitus ulcers, present on admission. Active. Likely staged II-III. These were inspected by nurses on 06/23 and found to have blanchable erythema and excoriation but no stage IV decubiti. - Wound care consulted. Super-Super Morbid obesity. - BMI 86.5 - Patient of family counseled on importance of calorie restriction and weight loss Acetaminophen for mild pain when necessary. Bowel regimen Senna and MiraLAX scheduled and PRN. Zofran when necessary for nausea and vomiting. SubQ heparin held for now. SCDs in place. High-risk medications: Heparin ggt. Warfarin. Patient Status: Patient is admitted under inpatient status with expected length of stay greater than 2 midnights due to severity of presenting symptoms, risk of adverse event, and complexity of treatment plan. Awaiting acceptance to LTAC or SNF. Resuscitation Status: CPR: Attempt Resuscitation Time spent 35 minutes Sonny Silva MD Jun 23, 2017 17:14
[2017-06-23] MEDS: Ampicillin-Sulbactam Inj 3,000 MG in 0.9% Sodium Chloride 100 ML IV SCH ×2 (17:34→23:31)
--- NOTE | 2017-06-23 18:24 | NUR ---
Headache/BiPAP Patient c/o 8/ headache, PRN Tylenol given with good effect. Patient stated pain /10 on reassessment. Patient on BiPAP most of shift, when not on the BiPAP oxymask 8L NC. Patient Maintains SPO2 with oxymask but fatigues quickly and shows signs of increased work of breathing. SpO2 drops quickly when on RA.
[2017-06-23] MEDS ORDERED: 0.9% Sodium Chloride 250 ML ONE (22:53)
[2017-06-24] VITALS (16 sets, daily range): BP systolic 125–177; BP diastolic 71–81; PULSE 97–105; RESP 18–25; O2SAT 90–98
[2017-06-24] MEDS: Sodium Chloride LOK Flush 10 mL Syringe IVFLUSH SCH ×3 (00:30→14:28)
[2017-06-24 04:43] LABS: Mean Corpuscular Hemoglobin 30.5 pg (27.0-35.0); Mean Corpuscular Volume 96.9 fL (81-100)
[2017-06-24 04:59] LABS: INR 1.88 ratio
[2017-06-24] MEDS: Ampicillin-Sulbactam Inj 3,000 MG in 0.9% Sodium Chloride 100 ML IV SCH ×4 (06:11→21:07)
[2017-06-24] MEDS: Heparin 25K Unit/500mL 0.45 NS 25,000 UNIT in IV Premix 1 EACH IV SCH ×2 (06:13→18:20)
--- NOTE | 2017-06-24 06:44 | NUR ---
BiPap Settings/Heparin Drip/Febrile/BMs Pt does have SOB when off the BiPAP for extended periods of time. SpO2 in upper-90s when on BiPAP with FiO2 35%. Talked with RT and titrated pt down to 30% as a trial and see if SpO2 can get closer to the desired range of 88%. At 0000 pt was titrated down to 30% FiO2 on BiPap and pt's SpO2 has remained 90-94% for the past hour at this setting. At 0644 this AM pt continues with SpO2 88-94% on FiO2 30%. Pt's PTT is currently 60.4 and pt's Heparin drip is currently running at 11Units/Kg/Hr. Pt has been febrile throughout the shift with a low-grade temp of 100.2 F. Pt did receive one dose of Tylenol for headache 07/05 and for fever of 100.3 F. Pt's headache pain decreased to the pt's tolerable stated 04/04 but pt continues to have a low-grade temp. Pt denies N/V/D but has said that her appetite is decreased and that she has not eaten much. Pt said that she normally suffers from IBS but that since she has not eaten much as of late that she has not had a BM since 06/19/2017. Pt does not want any meds for constipation at this time.
[2017-06-24] MEDS: Nystatin 100,000 Unit/Gm 15 Gm Powder TOPICAL SCH ×2 (08:30→23:51)
--- NOTE | 2017-06-24 13:34 | PCM.PNMED ---
Subjective Date of Service Jun 24, 2017 Subjective Ms. Negrita Morales is a 57 year old lady with arthritis, sleep apnea, and depression presenting to the ED after two ground level falls with minor head trauma at 630 and 930 AM and a 5 day history of "breathing just not right." She reports the fall was due to her Right knee locking and buckling. She also reports some musculoskeletal type pain in her left shoulder and left elbow. Over the last 5 days her "breathing troubles" were associated with change in vision from "color to fair", dizziness and feelings of "head floating", and decreased energy. No Overnight events. She tolerated BiPAP with O2 throughout the night. Today she was much more awake than the day before. She denies Chest pain, shortness of breath, cough, nausea, vomiting, fever, abdominal pain, constipation, diarrhea, dysuria. She reports sore muscles after working with PT the day before. Exam Vital Signs Vital Sign - Last Date Time Temp Pulse Resp B/P Pulse Ox O2 Delivery O2 Flow Rate FiO2 06/24/17 12:18 36.8 97 125/71 90 OxyMask 2.00 06/24/17 12:15 20 06/24/17 04:52 30 Intake and Output 06/23/17 06/23/17 06/24/17 Cumulative From/Thru 14:59 22:59 06:59 06/20/17 10:42 - 06/24/17 06:42 Intake Total 2103 ml 1302 ml 7857 ml Output Total 950 ml 500 ml 6410 ml Balance 1153 ml 802 ml 1447 ml Intake Oral 1450 ml 600 ml 3700 ml IV Total 653 ml 702 ml 4157 ml Output Urine Total 950 ml 500 ml 6410 ml # Bowel Movements 0 Exam General: No acute distress, Very obese, well-developed, well-nourished, appropriately interactive HEENT: Normocephalic, atraumatic. External ears without defect. Pupils equal, round, and reactive to light and accommodation. Anicteric sclerae, moist conjunctivae, and no lid lag. Oropharynx free of erythema and cobble stoning with moist mucosa. Neck: Supple with full range of motion. Jugular venous distension was very difficult to determine due to girth of neck. No bruits. No lymphadenopathy or thyromegaly. Cardiovascular: Tachycardic rate and regular rhythm with no murmurs, rubs, or gallops appreciated Pulmonary: Very decreased lung sounds due to body habitus. Non rebreather oxy mask in place with 5L flow rate. Abdomen: Bowel tones present. Soft, Very obese, nontender, nondistended. No hepatosplenomegaly or masses appreciated. Extremities: No clubbing, cyanosis, Large lower extremities with multiple slow healing wounds on medial portions bilaterally, or lymphadenopathy appreciated. Skin: Normal temperature, turgor, and texture; no rash, ulcers, or subcutaneous nodules appreciated. Neurological: Cranial nerves grossly intact. Normal muscle strength, tone, and bulk. Reflexes, coordination, and sensory function within normal limits. No known gait impairment. Psychiatric: Normal mood and affect. Alert and oriented to person, place, and time. IVs and Medications Medications Reviewed: Medications were reviewed in detail Lab and Diagnostics Result Diagram: 06/24/17 0405 06/23/17 0455 X-Rays, CTs and MRIs ABG DateTimeAnalyzed 11:12:00 -_ pH ____7.371 - 7.350 7.450 pCO2 ___50.6__ -mmHg 35.0 45.0 pO2 ___35.7__ -mmHg 70.0 100 HCO3- ___28.6__ -mmol/L 22.0 26.0\\ FIO2 ___21.0__ -% DateTimeAnalyzed 06:05:00 -_ pH ____7.251 - 7.350 7.450 pCO2 ___74.6__ -mmHg 35.0 45.0 pO2 ___93.9__ -mmHg 69.0 116 HCO3- ___31.6__ -mmol/L 22.0 26.0 X-RAY CHEST ONE VIEW, PORTABLE IMPRESSION: 1. Pulmonary vascular prominence suggesting mild edema. Approved by: Christopher Stephen M.D. on 06/20/2017 at 12:17 X-RAY RIGHT KNEE, ONE OR TWO VIEWS IMPRESSION: 1. Limited study demonstrates no definite fracture or dislocation. If clinical concern persists, consider further evaluation with CT. Dictated by: Christopher Stephen M.D. on 06/20/2017 at 12:15 Cardiac Echo Impressions Echocardiogram Report Interpretation Summary This was a technically difficult study. 1. Grossly normal left ventricular size with grossly normal systolic function. 2. The right ventricle was not visualized. The estimated RVSP is 47 mm plus CVP 3. Valves were not optimally visualized Reading Physician:06:04 PM Additional Diagnostics US VENOUS LEG DUPLEX BILATERAL FINDINGS: The deep veins are normally compressible, and free of intraluminal thrombus. Color and pulse Doppler demonstrate normal phasic intravascular flow. There is normal augmentation response to distal compression maneuver. IMPRESSION: Limited quality of visualization of the lower extremity venous vasculature due to body habitus. No DVT found. Approved by: Emigdio King M.D. on 06/20/2017 at 15:11 Assessment & Plan Acute Hypoxemic respiratory failure, present on admission. Active. Initial ABG revealed severe hypoxic deficit despite compensated chronic hypercarbia. Acute hypoxia is deemed likely 2nd to PE, the absence of other respiratory traction or pathology. D-Dimer 8, albeit with bruise on right forearm. She is too large to do Chest CT PE scan. Decision was made to institute empiric antiocoagulation, probably to continue chronically. She is at high risk for chronic thromboembolic pulmonary hypertension. Attempts were made to transfer patient to facility with suitable CT or angiography features but no such facilities identified. Maximum width at [facility] CT scanner is 78 cm, patient is 90 cm wide. - [facility] residency clinic referral. Acute on chronic Hypercapnic respiratory failure, present on admission. Active. Likely obesity hypoventilation syndrome. Appears to have had worsening hypercarbic respiratory failure following oxygen supplementation in hospital, despite BP AP. - Home trilogy due to failure of BPAP. - Target O2 saturation is 88% - 92%; avoid excess oxygenation Pulmonary embolism, present on admission. Unable to obtain confirmatory diagnostic testing. Treating empirically. - Heparin PE ggt bridging to warfarin. Fever, Bacteremia, not present on admission. MAXIMUM TEMPERATURE 38.7 on 06/22. No clinical localizing signs of infection. Chest x-ray and urinalysis are unremarkable. One blood culture bottle showing gram-positive cocci with strep morphology, unclear whether this is pathogenic or contaminated present. Sacral decubiti are mild but likely the source of bacterial translocation. Pharmacy is unable to dose vancomycin in this patient due to obesity. - Unasyn IV, will plan to transition to PO amoxicillin when appropriate. - Await further culture data - Wound care consult Sacral decubitus ulcers, present on admission. Active. Likely staged II-III. These were inspected by nurses on 06/23 and found to have blanchable erythema and excoriation but no stage IV decubiti. - Wound care consulted. Super-Super Morbid obesity. - BMI 86.5 - Patient of family counseled on importance of calorie restriction and weight loss Acute urinary tract infection, present on admission. Active. - continue abx as above. Acetaminophen for mild pain when necessary. Bowel regimen Senna and MiraLAX scheduled and PRN. Zofran when necessary for nausea and vomiting. SubQ heparin held for now. SCDs in place. High-risk medications: Heparin ggt. Warfarin. Patient Status: Patient is admitted under inpatient status with expected length of stay greater than 2 midnights due to severity of presenting symptoms, risk of adverse event, and complexity of treatment plan. Awaiting acceptance to LTAC or SNF. Pain Evaluation: Adequate Pain Control Resuscitation Status: CPR: Attempt Resuscitation Time spent 30 minutes Attending Statement I interviewed and examined the patient on rounds today. I agree with the assessment and plan as stated above. PENNY CABA DO Jun 24, 2017 13:34 Sonny Silva MD Jun 24, 2017 17:43
[2017-06-24] MEDS ORDERED: Nystatin 100,000 Unit/mL 5 mL Suspension PO ONE (13:45)
[2017-06-24] MEDS: 0.9% Sodium Chloride 1,000 ML IV SCH (14:27)
--- NOTE | 2017-06-24 17:14 | NUR ---
BiPAP/O2 Patient tolerated being off BiPAP for most of the day, maintained SPO2 88-92 on 2L oxymask. Patient more alert and talkative. States felling a little better.
[2017-06-24] MEDS: Nystatin 100,000 Unit/mL 5 mL Suspension PO SCH ×2 (18:31→21:22)
[2017-06-25] VITALS (12 sets, daily range): BP systolic 137–162; BP diastolic 73–95; PULSE 95–112; RESP 15–28; O2SAT 90–97
[2017-06-25] MEDS: Sodium Chloride LOK Flush 10 mL Syringe IVFLUSH SCH ×4 (00:30→20:22)
[2017-06-25 04:29] LABS: Mean Corpuscular Hemoglobin 30.1 pg (27.0-35.0); Mean Corpuscular Volume 95.3 fL (81-100)
[2017-06-25 04:49] LABS: INR 2.22 ratio
[2017-06-25] MEDS: 0.9% Sodium Chloride 1,000 ML IV SCH (05:15)
[2017-06-25] MEDS: Ampicillin-Sulbactam Inj 3,000 MG in 0.9% Sodium Chloride 100 ML IV SCH (05:15)
[2017-06-25] MEDS: Heparin 25K Unit/500mL 0.45 NS 25,000 UNIT in IV Premix 1 EACH IV SCH (05:19)
[2017-06-25] MEDS: Nystatin 100,000 Unit/Gm 15 Gm Powder TOPICAL SCH ×2 (08:42→20:21)
[2017-06-25] MEDS: Nystatin 100,000 Unit/mL 5 mL Suspension PO SCH ×4 (08:42→20:36)
--- NOTE | 2017-06-25 09:18 | NUR ---
[facility] is unable to accept patient due to cost of extra equipment and medication, also concerned with ability to meet all of patients needs. Updated INFORMATION TECHNOLOGY SECURITY MANAGER
--- NOTE | 2017-06-25 10:34 | NUR ---
Spoke with Suly Gordon at [facility] [phone] and let her know I would be faxing new referral, this is being sent per MD orders and verbal communication in multidisciplinary rounds. Updated STITCHING MACHINE SETTER
[2017-06-25] MEDS: cefTRIAXone Inj 2,000 MG in Dextrose 5% Minibag Plus 50 ML IV SCH ×2 (10:35→20:37)
--- NOTE | 2017-06-25 12:32 | NUR ---
Received TC from Silvio at [facility], pt's case has been assigned Lior Koehler, . DELIVERY ROOM CLERK aware.
--- NOTE | 2017-06-25 13:50 | NUR ---
Faxed H&P to [facility] [phone] phone # per FASHION DIRECTOR
--- NOTE | 2017-06-25 14:19 | PCM.PNMED ---
Subjective Date of Service Jun 25, 2017 Subjective Ms. Negrita Morales is a 57 year old lady with arthritis, sleep apnea, and depression presenting to the ED after two ground level falls with minor head trauma at 630 and 930 AM and a 5 day history of "breathing just not right." She reports the fall was due to her Right knee locking and buckling. She also reports some musculoskeletal type pain in her left shoulder and left elbow. Over the last 5 days her "breathing troubles" were associated with change in vision from "color to fair", dizziness and feelings of "head floating", and decreased energy. No Overnight events. She tolerated BiPAP with O2 throughout the night. Today she continues to improve daily in regards to her mentation. She is showing active improvement with daily physical therapy. Today she reports continued headache and diaphoresis after physical therapy. She is also expressing extreme anxiety before physical therapy sessions due to fears of accidentally injuring the staff. She denies Chest pain, shortness of breath, cough, nausea, vomiting, fever, abdominal pain, constipation, diarrhea, dysuria. Exam Vital Signs Vital Sign - Last Date Time Temp Pulse Resp B/P Pulse Ox O2 Delivery O2 Flow Rate FiO2 06/25/17 12:57 36.2 100 23 137/78 92 OxyMask 5.00 06/25/17 07:28 30 Intake and Output 06/24/17 06/24/17 06/25/17 Cumulative From/Thru 15:00 23:00 07:00 06/20/17 10:42 - 06/25/17 06:44 Intake Total 1838 ml 1791 ml 47953 ml Output Total 850 ml 2050 ml 9310 ml Balance 988 ml -259 ml 2176 ml Intake Oral 760 ml 400 ml 4860 ml IV Total 1078 ml 1391 ml 6626 ml Output Urine Total 850 ml 2050 ml 9310 ml # Bowel Movements 0 Exam General: No acute distress, Very obese, well-developed, well-nourished, appropriately interactive HEENT: Normocephalic, atraumatic. External ears without defect. Pupils equal, round, and reactive to light and accommodation. Anicteric sclerae, moist conjunctivae, and no lid lag. Oropharynx free of erythema and cobble stoning with moist mucosa. Neck: Supple with full range of motion. Jugular venous distension was very difficult to determine due to girth of neck. No bruits. No lymphadenopathy or thyromegaly. Cardiovascular: Tachycardic rate and regular rhythm with no murmurs, rubs, or gallops appreciated Pulmonary: Very decreased lung sounds due to body habitus. Non rebreather oxy mask in place with 5L flow rate. Abdomen: Bowel tones present. Soft, Very obese, nontender, nondistended. No hepatosplenomegaly or masses appreciated. Extremities: No clubbing, cyanosis, Large lower extremities with multiple slow healing wounds on medial portions bilaterally, or lymphadenopathy appreciated. Right olecranon ecchymotic region 2nd to fall. Skin: Normal temperature, turgor, and texture; no rash, ulcers, or subcutaneous nodules appreciated. Large Left-sided flank edema / excoriation. Neurological: Cranial nerves grossly intact. Normal muscle strength, tone, and bulk. Reflexes, coordination, and sensory function within normal limits. No known gait impairment. Psychiatric: Normal mood and affect. Alert and oriented to person, place, and time. IVs and Medications Medications Reviewed: Medications were reviewed in detail Lab and Diagnostics Result Diagram: 06/25/17 0350 06/23/17 0455 X-Rays, CTs and MRIs ABG DateTimeAnalyzed 11:12:00 -_ pH ____7.371 - 7.350 7.450 pCO2 ___50.6__ -mmHg 35.0 45.0 pO2 ___35.7__ -mmHg 70.0 100 HCO3- ___28.6__ -mmol/L 22.0 26.0\\ FIO2 ___21.0__ -% DateTimeAnalyzed 06:05:00 -_ pH ____7.251 - 7.350 7.450 pCO2 ___74.6__ -mmHg 35.0 45.0 pO2 ___93.9__ -mmHg 69.0 116 HCO3- ___31.6__ -mmol/L 22.0 26.0 X-RAY CHEST ONE VIEW, PORTABLE IMPRESSION: 1. Pulmonary vascular prominence suggesting mild edema. Approved by: Christopher Stephen M.D. on 06/20/2017 at 12:17 X-RAY RIGHT KNEE, ONE OR TWO VIEWS IMPRESSION: 1. Limited study demonstrates no definite fracture or dislocation. If clinical concern persists, consider further evaluation with CT. Dictated by: Christopher Stephen M.D. on 06/20/2017 at 12:15 Cardiac Echo Impressions Echocardiogram Report Interpretation Summary This was a technically difficult study. 1. Grossly normal left ventricular size with grossly normal systolic function. 2. The right ventricle was not visualized. The estimated RVSP is 47 mm plus CVP 3. Valves were not optimally visualized Reading Physician:06:04 PM Additional Diagnostics US VENOUS LEG DUPLEX BILATERAL FINDINGS: The deep veins are normally compressible, and free of intraluminal thrombus. Color and pulse Doppler demonstrate normal phasic intravascular flow. There is normal augmentation response to distal compression maneuver. IMPRESSION: Limited quality of visualization of the lower extremity venous vasculature due to body habitus. No DVT found. Approved by: Emigdio King M.D. on 06/20/2017 at 15:11 Assessment & Plan Acute Hypoxemic respiratory failure, present on admission. Active. Initial ABG revealed severe hypoxic deficit despite compensated chronic hypercarbia. Acute hypoxia is deemed likely 2nd to PE, the absence of other respiratory traction or pathology. D-Dimer 8, albeit with bruise on right forearm. She is too large to do Chest CT PE scan. Decision was made to institute empiric antiocoagulation, probably to continue chronically. She is at high risk for chronic thromboembolic pulmonary hypertension. Attempts were made to transfer patient to facility with suitable CT or angiography features but no such facilities identified. Maximum width at [facility] CT scanner is 78 cm, patient is 90 cm wide. - [facility] residency clinic referral. Acute on chronic Hypercapnic respiratory failure, present on admission. Active. Likely 2nd to obesity hypoventilation syndrome. Appears to have had worsening hypercarbic respiratory failure following oxygen supplementation in hospital, despite BiPAP. - Home trilogy due to failure of BPAP. - Target O2 saturation is 88% - 92%; avoid excess oxygenation Anxiety, not present on admission. Active. - Small dose PO Ativan before PT sessions. Pulmonary embolism, present on admission. Improving. Unable to obtain confirmatory diagnostic testing. Treating empirically. - Heparin PE ggt bridging to warfarin. - INR therapeutic 2.33. will d/c heparin ggt. Obesity hypoventilation syndrome, present on admission. Active. - Will require PM and Daytime Volume ventilation. BIPAP not sufficient. Fever, Bacteremia, not present on admission. MAXIMUM TEMPERATURE 38.7 on 06/22. No clinical localizing signs of infection. Chest x-ray and urinalysis are unremarkable. One blood culture bottle showing gram-positive cocci with strep morphology, unclear whether this is pathogenic or contaminated present. Sacral decubiti are mild but likely the source of bacterial translocation. Pharmacy is unable to dose vancomycin in this patient due to obesity. - Strep Agalactiae positive in 1 bottle. - Wound care consult. - Unasyn IV switch to Ceftriaxone IV. Sacral decubitus ulcers, present on admission. Active. Likely staged II-III. These were inspected by nurses on 06/23 and found to have blanchable erythema and excoriation but no stage IV decubiti. - Wound care consulted. Super-Super Morbid obesity. - BMI 86.5 - Patient of family counseled on importance of calorie restriction and weight loss Acute urinary tract infection, present on admission. Active. - Ecoli in urine cx. - continue abx as above. Acetaminophen for mild pain when necessary. Bowel regimen Senna and MiraLAX scheduled and PRN. Zofran when necessary for nausea and vomiting. SubQ heparin held for now. SCDs in place. High-risk medications: Heparin ggt. Warfarin. Patient Status: Patient is admitted under inpatient status with expected length of stay greater than 2 midnights due to severity of presenting symptoms, risk of adverse event, and complexity of treatment plan. Awaiting acceptance to LTAC or SNF. Resuscitation Status: CPR: Attempt Resuscitation Time spent 35 minutes Attending Statement I interviewed and examined the patient on rounds today. I agree with the assessment and plan as stated above. PENNY CABA DO Jun 25, 2017 14:19 Sonny Silva MD Jun 25, 2017 19:25
--- NOTE | 2017-06-25 17:57 | NUR ---
Mobility/Skin The pt was able to mildly assist with a bed turn today, but was only able to assist in turning one direction. Pre-medicating with IV ativan was successful. Extensive skin breakdown and irritation was noted on the pt's back and sacrum - cleaned and applied a foam mepilex dressing. Further treatment and assessment was not possible due to the pt's inability to stay turned for more than a couple of minutes.
--- NOTE | 2017-06-25 22:09 | NUR ---
Hygiene Pt given full bed bath, hair cleansed with shower cap, new gown, nystatin power and cream where appropriate. Pt had a very large bowel formed bowel movement. Difficulty cleansing back as pt is not tolerant of being on her side.
[2017-06-26] VITALS (9 sets, daily range): BP systolic 107–149; BP diastolic 58–80; PULSE 93–107; RESP 17–28; O2SAT 88–99
[2017-06-26 04:20] LABS: INR 3.06 ratio
[2017-06-26 08:50] LABS: Mean Corpuscular Hemoglobin 30.1 pg (27.0-35.0); Mean Corpuscular Volume 95.4 fL (81-100)
[2017-06-26] MEDS: cefTRIAXone Inj 2,000 MG in Dextrose 5% Minibag Plus 50 ML IV SCH ×2 (10:10→21:33)
[2017-06-26] MEDS: Sodium Chloride LOK Flush 10 mL Syringe IVFLUSH SCH ×2 (10:12→16:30)
[2017-06-26] MEDS: Nystatin 100,000 Unit/mL 5 mL Suspension PO SCH ×4 (10:13→22:00)
--- NOTE | 2017-06-26 11:02 | NUR ---
[facility] UPDATE: Currently [facility] location has no libby beds, patient meets criteria clinically and has been accepted. [facility] has specifically asked for next libby bed opening and will be in contact with us for status updates. Updated BRENDA and
[2017-06-26] MEDS: Nystatin 100,000 Unit/Gm 15 Gm Powder TOPICAL SCH ×2 (12:30→21:34)
--- NOTE | 2017-06-26 18:08 | PCM.PNMED ---
Subjective Date of Service Jun 26, 2017 Subjective Ms. Negrita Morales is a 57 year old lady with arthritis, sleep apnea, and depression presenting to the ED after two ground level falls with minor head trauma at 630 and 930 AM and a 5 day history of "breathing just not right." She reports the fall was due to her Right knee locking and buckling. She also reports some musculoskeletal type pain in her left shoulder and left elbow. Over the last 5 days her "breathing troubles" were associated with change in vision from "color to fair", dizziness and feelings of "head floating", and decreased energy. No Overnight events. She tolerated BiPAP with O2 throughout the night. Today she continues to improve daily in regards to her mentation. She is showing active improvement with daily physical therapy. She denies Chest pain, shortness of breath, cough, nausea, vomiting, fever, abdominal pain, constipation, diarrhea, dysuria. Exam Vital Signs Vital Sign - Last Date Time Temp Pulse Resp B/P Pulse Ox O2 Delivery O2 Flow Rate FiO2 06/26/17 17:44 37.0 103 20 139/75 98 OxyMask 3.00 06/26/17 04:41 30 Intake and Output 06/25/17 06/25/17 06/26/17 Cumulative From/Thru 15:00 23:00 07:00 06/20/17 10:42 - 06/26/17 06:51 Intake Total 550 ml 1790 ml 50131 ml Output Total 1150 ml 700 ml 25874 ml Balance -600 ml 1090 ml 2666 ml Intake Oral 550 ml 400 ml 5810 ml IV Total 1390 ml 8016 ml Output Urine Total 1150 ml 700 ml 75185 ml # Bowel Movements 2 2 Exam General: No acute distress, Very obese, well-developed, well-nourished, appropriately interactive HEENT: Normocephalic, atraumatic. External ears without defect. Pupils equal, round, and reactive to light and accommodation. Anicteric sclerae, moist conjunctivae, and no lid lag. Oropharynx free of erythema and cobble stoning with moist mucosa. Neck: Supple with full range of motion. Jugular venous distension was very difficult to determine due to girth of neck. No bruits. No lymphadenopathy or thyromegaly. Cardiovascular: Tachycardic rate and regular rhythm with no murmurs, rubs, or gallops appreciated Pulmonary: Very decreased lung sounds due to body habitus. Non rebreather oxy mask in place with 5L flow rate. Abdomen: Bowel tones present. Soft, Very obese, nontender, nondistended. No hepatosplenomegaly or masses appreciated. Extremities: No clubbing, cyanosis, Large lower extremities with multiple slow healing wounds on medial portions bilaterally, or lymphadenopathy appreciated. Right olecranon ecchymotic region 2nd to fall. Skin: Normal temperature, turgor, and texture; no rash, ulcers, or subcutaneous nodules appreciated. Large Left-sided flank edema / excoriation. Neurological: Cranial nerves grossly intact. Normal muscle strength, tone, and bulk. Reflexes, coordination, and sensory function within normal limits. No known gait impairment. Psychiatric: Normal mood and affect. Alert and oriented to person, place, and time. IVs and Medications Medications Reviewed: Medications were reviewed in detail Lab and Diagnostics Result Diagram: 06/26/17 0830 06/26/17 0830 X-Rays, CTs and MRIs ABG DateTimeAnalyzed 11:12:00 -_ pH ____7.371 - 7.350 7.450 pCO2 ___50.6__ -mmHg 35.0 45.0 pO2 ___35.7__ -mmHg 70.0 100 HCO3- ___28.6__ -mmol/L 22.0 26.0\\ FIO2 ___21.0__ -% DateTimeAnalyzed 06:05:00 -_ pH ____7.251 - 7.350 7.450 pCO2 ___74.6__ -mmHg 35.0 45.0 pO2 ___93.9__ -mmHg 69.0 116 HCO3- ___31.6__ -mmol/L 22.0 26.0 X-RAY CHEST ONE VIEW, PORTABLE IMPRESSION: 1. Pulmonary vascular prominence suggesting mild edema. Approved by: Christopher Stephen M.D. on 06/20/2017 at 12:17 X-RAY RIGHT KNEE, ONE OR TWO VIEWS IMPRESSION: 1. Limited study demonstrates no definite fracture or dislocation. If clinical concern persists, consider further evaluation with CT. Dictated by: Christopher Stephen M.D. on 06/20/2017 at 12:15 Cardiac Echo Impressions Echocardiogram Report Interpretation Summary This was a technically difficult study. 1. Grossly normal left ventricular size with grossly normal systolic function. 2. The right ventricle was not visualized. The estimated RVSP is 47 mm plus CVP 3. Valves were not optimally visualized Reading Physician:06:04 PM Additional Diagnostics US VENOUS LEG DUPLEX BILATERAL FINDINGS: The deep veins are normally compressible, and free of intraluminal thrombus. Color and pulse Doppler demonstrate normal phasic intravascular flow. There is normal augmentation response to distal compression maneuver. IMPRESSION: Limited quality of visualization of the lower extremity venous vasculature due to body habitus. No DVT found. Approved by: Emigdio King M.D. on 06/20/2017 at 15:11 Assessment & Plan Obesity hypoventilation syndrome, present on admission. Active. - Will require PM and Daytime Volume ventilation. BIPAP not sufficient. Pulmonary embolism, present on admission. Treated, INR therapeutic. Unable to obtain confirmatory diagnostic testing. Treating empirically. - Heparin PE ggt bridging to warfarin. - INR therapeutic. Acute Hypoxemic respiratory failure, present on admission. Improving. Initial ABG revealed severe hypoxic deficit despite compensated chronic hypercarbia. Acute hypoxia is deemed likely 2nd to PE, the absence of other respiratory traction or pathology. D-Dimer 8, albeit with bruise on right forearm. She is too large to do Chest CT PE scan. Decision was made to institute empiric antiocoagulation, probably to continue chronically. She is at high risk for chronic thromboembolic pulmonary hypertension. Attempts were made to transfer patient to facility with suitable CT or angiography features but no such facilities identified. Maximum width at [facility] CT scanner is 78 cm, patient is 90 cm wide. - [facility] residency clinic referral. Acute on chronic Hypercapnic respiratory failure, present on admission. Improving. Likely 2nd to obesity hypoventilation syndrome. Appears to have had worsening hypercarbic respiratory failure following oxygen supplementation in hospital, despite BiPAP. - Home trilogy due to failure of BPAP. - Target O2 saturation is 88% - 92%; avoid excess oxygenation Anxiety, not present on admission. Active. - Small dose PO Ativan before PT sessions. Super-Super Morbid obesity. - BMI 86.5 - Patient of family counseled on importance of calorie restriction and weight loss Fever, Bacteremia, not present on admission. Treated. MAXIMUM TEMPERATURE 38.7 on 06/22. No clinical localizing signs of infection. Chest x-ray and urinalysis are unremarkable. One blood culture bottle showing gram-positive cocci with strep morphology, unclear whether this is pathogenic or contaminated present. Sacral decubiti are mild but likely the source of bacterial translocation. Pharmacy is unable to dose vancomycin in this patient due to obesity. - Strep Agalactiae positive in 1 bottle. - Wound care consult. - Unasyn IV switch to Ceftriaxone IV. Sacral decubitus ulcers, present on admission. Active. Likely staged II-III. These were inspected by nurses on 06/23 and found to have blanchable erythema and excoriation but no stage IV decubiti. - Wound care consulted. Acute urinary tract infection, present on admission. Active. - Ecoli in urine cx. - continue abx as above. Acetaminophen for mild pain when necessary. Bowel regimen Senna and MiraLAX scheduled and PRN. Zofran when necessary for nausea and vomiting. SubQ heparin held for now. SCDs in place. High-risk medications: Warfarin. Patient Status: Patient is admitted under inpatient status with expected length of stay greater than 2 midnights due to severity of presenting symptoms, risk of adverse event, and complexity of treatment plan. Awaiting acceptance to LTAC placement with [facility], however they currently do not have a bariatric bed. Resuscitation Status: CPR: Attempt Resuscitation Time spent 30 minutes Attending Statement I interviewed and examined the patient today. I agree with the assessment and plan as stated above. PENNY CABA DO Jun 26, 2017 18:08 Sonny Silva MD Jun 27, 2017 07:12
[2017-06-27] VITALS (8 sets, daily range): BP systolic 120–158; BP diastolic 74–86; PULSE 93–100; RESP 20–22; O2SAT 92–95
[2017-06-27] MEDS: Sodium Chloride LOK Flush 10 mL Syringe IVFLUSH SCH ×3 (01:20→17:24)
--- NOTE | 2017-06-27 01:34 | NUR ---
BI-Pap/Tele/No Tele ON 3 L Oxy mask while awake, BiPap 30% FiO2 HS, Saline locked unless receiving scheduled ABX, A&O x3 , engaging in conversation w care givers, Skin, folds many and varied, yeast and redness where ever skin touches skin, Nystatin powder and cream applied, Gave 975 Mg Tylenol for pain HS. Left side , from ribs to hip is red and hot to touch, applied Ice pack for comfort. Feet bilaterally edematous +2 . Peripheral pulses easily palpable. Rt arm has extensive bruising . Salcedo catheter draining pale yellow urine to gravity. Telemetry discontinued , VS unremarkable.
[2017-06-27 02:53] LABS: INR 2.82 ratio
[2017-06-27] MEDS: Nystatin 100,000 Unit/Gm 15 Gm Powder TOPICAL SCH ×2 (10:11→20:30)
[2017-06-27] MEDS: cefTRIAXone Inj 2,000 MG in Dextrose 5% Minibag Plus 50 ML IV SCH ×3 (10:11→22:47)
[2017-06-27] MEDS: Nystatin 100,000 Unit/mL 5 mL Suspension PO SCH ×4 (10:12→22:47)
--- NOTE | 2017-06-27 12:38 | NUR ---
Patient seen by CWON for changes in skin condition. 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 These shear and shred-type wounds are mirrored on each buttock where contact causes pressure at ridge of gluteal fold. Wounds were cleansed and clean Mepilex sheet foam applied. This should allow body moisture to pass through dressing into draw sheet and decrease maceration and intertriginous dermatitis. All skin folds with yeast growth pattern of red rash and satellite pustules, very yeasty odor in room. Nystatin ointment may be more effective than powder as it does not ball up. All folds should be cleansed with soap and water daily, dried very well, then nystatin ointment applied. Strips of Mepilex sheet foam should be placed between skin folds. Hospital linens, such as pillowcases, should not be used between skin folds as polyester content promotes sweating, maceration, and topical fungal growth. White, Medline paper drawsheets or blue paper chucks (not green plastic) can be used between skin folds or any fabric that is 100% cotton that is changed very frequently, as soon as wet. Rash not noted on admission now noted on L lateral abdomen extending proximally and medially to back and neck. Small, clear vesicles are scattered over this area, hot to touch, palpation of spongy tissue elicits pain response though no ooze or obvious skin breaks are found. Skin does not appear macerated other than in skin folds. Skin tension is not tighter than at adjacent tissue. Nursing staff to provide maintenance skin and wound care. CWON available for recommendations if skin conditions change.
--- NOTE | 2017-06-27 13:36 | NUR ---
Social Work-continued d/c planning: Data:EMR Reviewed. Pt is on day 7 of hospitalization for hypoxic pre H&P. Pt is medically stable awaiting a bed. pt has been accepted at [facility], pending bariatric bed. [facility] to inform SW when bed is available. SW will continue to follow. Assessment:pt who would benefit from Cristhian. Plan:Pt to discharge to [facility] when barbaric bed is available. SW will continue to follow. BRENDA Thomas
--- NOTE | 2017-06-27 13:48 | NUR ---
NUTRITION FOLLOW-UP: ASSESS: 57 YO female admitted with hypoxemia, advanced respiratory failure, presumed PE. Wound care is following. Pt has multiple gluteal wounds. Wound note 06/27, noting that wounds are yolk spray drier than admit. She is on a Heart Healthy diet with good PO of 75-100% of meals and she is receiving Francis with L and D to help with wound healing. Pt reported that she likes that Francis but it is hard to drink with the diet soda because the carbonation is hard on her stomach since she had lap band surgery. Pt was encouraged to mix the Francis with water instead. Pt reported that she had her lap band surgery 10years ago and when she first had the surgery she lost 160lbs and was down to 332lbs. But soon after she became depressed and gained the wt back. During admit she has been working hard to eat either the fish or the chicken and making sure that she eats vegetables with her meals. PMHx: Arthritis, FRANK, depression, advanced respiratory failure, class III obesity. DIET: Heart healthy. PO intake 75 - 100% trays. LABS: Reviewed. (06/26) CO2 31, calculus tutor .46, Glu 109 MEDICATIONS: Reviewed. Coumadin GI symptoms / stool: BMx1 06/26 Skin: Wound care following from multiple gluteal wounds ANTHROPOMETRICS: Current Wt: 279.4kg BMI: 105.7 kg/m2. Admit weight: 278.2 kg, adjust BW: 110kg IBW: 54.5 kg ESTIMATED NEEDS (BMI, WOUNDS): Calories: 2440-2770kcal/day (22-25kcal/kg adjbw) Protein: 110-130g/day (1.0-1.2 g / kg adjBW) NUTRITION DIAGNOSIS: 1) Increased nutrient needs related to increased demand for nutrients, as evidenced by multiple wound issues noted by Financial Services Sales Representative.--IMPROVING INTERVENTION: 1) Continue to send Francis on L and D trays to aid in wound healing. Encouraged pt to mix the francis with water if the soda is too carbonated. MONITOR/EVALUATE: PO intake, wt, GI, wounds,labs. Follow up per moderate nutrition risk guidelines.
--- NOTE | 2017-06-27 17:49 | NUR ---
BM Patient having loose stool x3 thius AM. Patient upset and tearful, repeatedly apologizing. Patient was reassured by nursing staff and cleaned up promptly. Patient has multiple areas of skin breakdown. Skin care and dressing changes provided per wound RN recommendations. Imodium ordered and given, no episodes of loose stool since.
--- NOTE | 2017-06-27 19:37 | PCM.PNMED ---
Subjective Date of Service Jun 27, 2017 Subjective Ms. Negrita Morales is a 57 year old lady with arthritis, sleep apnea, and depression presenting to the ED after two ground level falls with minor head trauma at 630 and 930 AM and a 5 day history of "breathing just not right." She reports the fall was due to her Right knee locking and buckling. She also reports some musculoskeletal type pain in her left shoulder and left elbow. Over the last 5 days her "breathing troubles" were associated with change in vision from "color to fair", dizziness and feelings of "head floating", and decreased energy. No Overnight events. Today she continues to improve daily in regards to her mentation. She is showing active improvement with daily physical therapy. She continues to deny chest pain, shortness of breath, cough, nausea, vomiting, fever, abdominal pain, constipation, diarrhea, dysuria. Exam Vital Signs Vital Sign - Last Date Time Temp Pulse Resp B/P Pulse Ox O2 Delivery O2 Flow Rate FiO2 06/27/17 10:17 Supplement Oxygen CPAP/BIPAP 06/27/17 04:55 93 21 95 30 06/27/17 02:51 36.7 120/74 06/26/17 23:14 3.00 Intake and Output 06/26/17 06/26/17 06/27/17 Cumulative From/Thru 15:00 23:00 07:00 06/20/17 10:42 - 06/27/17 05:23 Intake Total 240 ml 350 ml 11205 ml Output Total 1750 ml 600 ml 75464 ml Balance -1510 ml -250 ml 906 ml Intake Oral 240 ml 300 ml 6350 ml IV Total 50 ml 8066 ml Output Urine Total 1750 ml 600 ml 07838 ml # Bowel Movements 1 3 Exam General: No acute distress, Very obese, well-developed, well-nourished, appropriately interactive HEENT: Normocephalic, atraumatic. External ears without defect. Pupils equal, round, and reactive to light and accommodation. Anicteric sclerae, moist conjunctivae, and no lid lag. Oropharynx free of erythema and cobble stoning with moist mucosa. Neck: Supple with full range of motion. Jugular venous distension was very difficult to determine due to girth of neck. No bruits. No lymphadenopathy or thyromegaly. Cardiovascular: Tachycardic rate and regular rhythm with no murmurs, rubs, or gallops appreciated Pulmonary: Very decreased lung sounds due to body habitus. Non rebreather oxy mask in place with 5L flow rate. Abdomen: Bowel tones present. Soft, Very obese, nontender, nondistended. No hepatosplenomegaly or masses appreciated. Extremities: No clubbing, cyanosis, Large lower extremities with multiple slow healing wounds on medial portions bilaterally, or lymphadenopathy appreciated. Right olecranon ecchymotic region 2nd to fall. Skin: Normal temperature, turgor, and texture; no rash, ulcers, or subcutaneous nodules appreciated. Large Left-sided flank edema / excoriation. Neurological: Cranial nerves grossly intact. Normal muscle strength, tone, and bulk. Reflexes, coordination, and sensory function within normal limits. No known gait impairment. Psychiatric: Normal mood and affect. Alert and oriented to person, place, and time. IVs and Medications Medications Reviewed: Medications were reviewed in detail Lab and Diagnostics Result Diagram: 06/26/17 0830 06/26/17 0830 X-Rays, CTs and MRIs ABG DateTimeAnalyzed 11:12:00 -_ pH ____7.371 - 7.350 7.450 pCO2 ___50.6__ -mmHg 35.0 45.0 pO2 ___35.7__ -mmHg 70.0 100 HCO3- ___28.6__ -mmol/L 22.0 26.0\\ FIO2 ___21.0__ -% DateTimeAnalyzed 06:05:00 -_ pH ____7.251 - 7.350 7.450 pCO2 ___74.6__ -mmHg 35.0 45.0 pO2 ___93.9__ -mmHg 69.0 116 HCO3- ___31.6__ -mmol/L 22.0 26.0 X-RAY CHEST ONE VIEW, PORTABLE IMPRESSION: 1. Pulmonary vascular prominence suggesting mild edema. Approved by: Christopher Stephen M.D. on 06/20/2017 at 12:17 X-RAY RIGHT KNEE, ONE OR TWO VIEWS IMPRESSION: 1. Limited study demonstrates no definite fracture or dislocation. If clinical concern persists, consider further evaluation with CT. Dictated by: Christopher Stephen M.D. on 06/20/2017 at 12:15 Cardiac Echo Impressions Echocardiogram Report Interpretation Summary This was a technically difficult study. 1. Grossly normal left ventricular size with grossly normal systolic function. 2. The right ventricle was not visualized. The estimated RVSP is 47 mm plus CVP 3. Valves were not optimally visualized Reading Physician:06:04 PM Additional Diagnostics US VENOUS LEG DUPLEX BILATERAL FINDINGS: The deep veins are normally compressible, and free of intraluminal thrombus. Color and pulse Doppler demonstrate normal phasic intravascular flow. There is normal augmentation response to distal compression maneuver. IMPRESSION: Limited quality of visualization of the lower extremity venous vasculature due to body habitus. No DVT found. Approved by: Emigdio King M.D. on 06/20/2017 at 15:11 Assessment & Plan Obesity hypoventilation syndrome, present on admission. Active. - Will require PM and Daytime Volume ventilation. BIPAP not sufficient. Pulmonary embolism, present on admission. Treated, INR therapeutic. Unable to obtain confirmatory diagnostic testing. Treating empirically. - Warfarin. - INR therapeutic. Acute Hypoxemic respiratory failure, present on admission. Improving. Initial ABG revealed severe hypoxic deficit despite compensated chronic hypercarbia. Acute hypoxia is deemed likely 2nd to PE, the absence of other respiratory traction or pathology. D-Dimer 8, albeit with bruise on right forearm. She is too large to do Chest CT PE scan. Decision was made to institute empiric antiocoagulation, probably to continue chronically. She is at high risk for chronic thromboembolic pulmonary hypertension. Attempts were made to transfer patient to facility with suitable CT or angiography features but no such facilities identified. Maximum width at [facility] CT scanner is 78 cm, patient is 90 cm wide. - [facility] residency clinic referral. Acute on chronic Hypercapnic respiratory failure, present on admission. Improving. Likely 2nd to obesity hypoventilation syndrome. Appears to have had worsening hypercarbic respiratory failure following oxygen supplementation in hospital, despite BiPAP. - Home trilogy due to failure of BPAP. - Target O2 saturation is 88% - 92%; avoid excess oxygenation Anxiety, not present on admission. Active. - Small dose PO Ativan before PT sessions. Super-Super Morbid obesity. - BMI 86.5 - Patient of family counseled on importance of calorie restriction and weight loss Fever, Bacteremia, not present on admission. Treated. MAXIMUM TEMPERATURE 38.7 on 06/22. No clinical localizing signs of infection. Chest x-ray and urinalysis are unremarkable. One blood culture bottle showing gram-positive cocci with strep morphology, unclear whether this is pathogenic or contaminated present. Sacral decubiti are mild but likely the source of bacterial translocation. Pharmacy is unable to dose vancomycin in this patient due to obesity. - Strep Agalactiae positive in 1 bottle. Repeat Blood cx. - Wound care consult. - Ceftriaxone IV. Sacral decubitus ulcers, present on admission. Active. Likely staged II-III. These were inspected by nurses on 06/23 and found to have blanchable erythema and excoriation but no stage IV decubiti. - Wound care consulted. Acute urinary tract infection, present on admission. Active. - Ecoli in urine cx. - continue abx as above. Acetaminophen for mild pain when necessary. Bowel regimen Senna and MiraLAX scheduled and PRN. Zofran when necessary for nausea and vomiting. SubQ heparin held for now. SCDs in place. High-risk medications: Warfarin. Patient Status: Patient is admitted under inpatient status with expected length of stay greater than 2 midnights due to severity of presenting symptoms, risk of adverse event, and complexity of treatment plan. Awaiting acceptance to [facility] placement with [facility], however they currently do not have a bariatric bed. Pain Evaluation: Adequate Pain Control Resuscitation Status: CPR: Attempt Resuscitation Attending Statement I interviewed and examined the patient on rounds today. I agree with the assessment and plan as stated above. PENNY CABA DO Jun 27, 2017 11:54 Sonny Silva MD Jul 05, 2017 07:07
[2017-06-28] VITALS (9 sets, daily range): BP systolic 129–160; BP diastolic 69–83; PULSE 93–104; RESP 19–24; O2SAT 94–100
[2017-06-28] MEDS: Sodium Chloride LOK Flush 10 mL Syringe IVFLUSH SCH ×3 (00:34→15:46)
--- NOTE | 2017-06-28 03:11 | NUR ---
IV/Nystatin/Tele IV failed , tried 4 sticks to get patent IV in left forearm, Using Nystatin Cream rather than powder for skin care, was also advised by wound care that the hospital pillow cases are polyester and not cotton , and not to use as skin barriers , to use Mepilex . A&O x3 using ccal light appropriately , 5/10 generalized pain, gave 975 tylenol to affect relief . Diarrhea x 1, changed pad, repositioned in bed, gave Imodium 3 L O2 per oxy mask while awake, Bi-Pap w 30% FiO2 HS, Not on telemetry.
[2017-06-28 06:45] LABS: INR 2.34 ratio
[2017-06-28] MEDS: cefTRIAXone Inj 2,000 MG in Dextrose 5% Minibag Plus 50 ML IV SCH ×2 (08:35→21:21)
[2017-06-28] MEDS: Nystatin 100,000 Unit/Gm 15 Gm Powder TOPICAL SCH ×2 (08:36→22:23)
[2017-06-28] MEDS: Nystatin 100,000 Unit/mL 5 mL Suspension PO SCH ×4 (08:36→21:29)
[2017-06-28 11:54] LABS: APPEARANCE,URINE HAZY (CLEAR,HAZY); COLOR,URINE YELLOW (YELLOW); OCCULT BLOOD,URINE LARGE (NEGATIVE); UROBILINOGEN,URINE NORMAL (NORMAL)
--- NOTE | 2017-06-28 18:39 | PCM.PNMED ---
Subjective Date of Service Jun 28, 2017 Subjective Ms. Negrita Morales is a 57 year old lady with arthritis, sleep apnea, and depression presenting to the ED after two ground level falls with minor head trauma at 630 and 930 AM and a 5 day history of "breathing just not right." She reports the fall was due to her Right knee locking and buckling. She also reports some musculoskeletal type pain in her left shoulder and left elbow. Over the last 5 days her "breathing troubles" were associated with change in vision from "color to fair", dizziness and feelings of "head floating", and decreased energy. No Overnight events. Today she continues to improve daily in regards to her mentation. She is showing active improvement with daily physical therapy. She reports some mild pain along her left flank. She continues to deny chest pain, shortness of breath, cough, nausea, vomiting, fever, abdominal pain, constipation, diarrhea, dysuria. Exam Vital Signs Vital Sign - Last Date Time Temp Pulse Resp B/P Pulse Ox O2 Delivery O2 Flow Rate FiO2 06/28/17 17:16 36.8 104 22 129/69 95 OxyMask 3.00 06/27/17 04:55 30 Intake and Output 06/27/17 06/27/17 06/28/17 Cumulative From/Thru 15:00 23:00 07:00 06/20/17 10:42 - 06/28/17 05:08 Intake Total 800 ml 458 ml 67088 ml Output Total 1350 ml 1100 ml 49459 ml Balance -550 ml -642 ml -286 ml Intake Oral 800 ml 400 ml 7550 ml IV Total 58 ml 8124 ml Output Urine Total 1350 ml 1100 ml 84397 ml # Bowel Movements 2 1 6 Exam General: No acute distress, Very obese, well-developed, well-nourished, appropriately interactive HEENT: Normocephalic, atraumatic. External ears without defect. Pupils equal, round, and reactive to light and accommodation. Anicteric sclerae, moist conjunctivae, and no lid lag. Oropharynx free of erythema and cobble stoning with moist mucosa. Neck: Supple with full range of motion. Jugular venous distension was very difficult to determine due to girth of neck. No bruits. No lymphadenopathy or thyromegaly. Cardiovascular: Tachycardic rate and regular rhythm with no murmurs, rubs, or gallops appreciated Pulmonary: Very decreased lung sounds due to body habitus. Non rebreather oxy mask in place with 5L flow rate. Abdomen: Bowel tones present. Soft, Very obese, nontender, nondistended. No hepatosplenomegaly or masses appreciated. Erythematous and edematous region that tracts from her left flank to her mid back and accentuated with non palpable ecchymotic areas. Extremities: No clubbing, cyanosis, Large lower extremities with multiple slow healing wounds on medial portions bilaterally, or lymphadenopathy appreciated. Right olecranon ecchymotic region 2nd to fall. Skin: Normal temperature, turgor, and texture; no rash, ulcers, or subcutaneous nodules appreciated. Large Left-sided flank edema / excoriation. Neurological: Cranial nerves grossly intact. Normal muscle strength, tone, and bulk. Reflexes, coordination, and sensory function within normal limits. No known gait impairment. Psychiatric: Normal mood and affect. Alert and oriented to person, place, and time. IVs and Medications Medications Reviewed: Medications were reviewed in detail Lab and Diagnostics Result Diagram: 06/26/1782906/26/1730 X-Rays, CTs and MRIs ABG DateTimeAnalyzed 11:12:00 -_ pH ____7.371 - 7.350 7.450 pCO2 ___50.6__ -mmHg 35.0 45.0 pO2 ___35.7__ -mmHg 70.0 100 HCO3- ___28.6__ -mmol/L 22.0 26.0\\ FIO2 ___21.0__ -% DateTimeAnalyzed 06:05:00 -_ pH ____7.251 - 7.350 7.450 pCO2 ___74.6__ -mmHg 35.0 45.0 pO2 ___93.9__ -mmHg 69.0 116 HCO3- ___31.6__ -mmol/L 22.0 26.0 X-RAY CHEST ONE VIEW, PORTABLE IMPRESSION: 1. Pulmonary vascular prominence suggesting mild edema. Approved by: Christopher Stephen M.D. on 06/20/2017 at 12:17 X-RAY RIGHT KNEE, ONE OR TWO VIEWS IMPRESSION: 1. Limited study demonstrates no definite fracture or dislocation. If clinical concern persists, consider further evaluation with CT. Dictated by: Christopher Stephen M.D. on 06/20/2017 at 12:15 Cardiac Echo Impressions Echocardiogram Report Interpretation Summary This was a technically difficult study. 1. Grossly normal left ventricular size with grossly normal systolic function. 2. The right ventricle was not visualized. The estimated RVSP is 47 mm plus CVP 3. Valves were not optimally visualized Reading Physician:06:04 PM Additional Diagnostics US VENOUS LEG DUPLEX BILATERAL FINDINGS: The deep veins are normally compressible, and free of intraluminal thrombus. Color and pulse Doppler demonstrate normal phasic intravascular flow. There is normal augmentation response to distal compression maneuver. IMPRESSION: Limited quality of visualization of the lower extremity venous vasculature due to body habitus. No DVT found. Approved by: Emigdio King M.D. on 06/20/2017 at 15:11 Assessment & Plan Obesity hypoventilation syndrome, present on admission. Active. - Will require PM and Daytime Volume ventilation. BIPAP not sufficient. Pulmonary embolism, present on admission. Treated, INR therapeutic. Unable to obtain confirmatory diagnostic testing. Treating empirically. - Warfarin. - INR therapeutic. Acute Hypoxemic respiratory failure, present on admission. Improving. Initial ABG revealed severe hypoxic deficit despite compensated chronic hypercarbia. Acute hypoxia is deemed likely 2nd to PE, the absence of other respiratory traction or pathology. D-Dimer 8, albeit with bruise on right forearm. She is too large to do Chest CT PE scan. Decision was made to institute empiric antiocoagulation, probably to continue chronically. She is at high risk for chronic thromboembolic pulmonary hypertension. Attempts were made to transfer patient to facility with suitable CT or angiography features but no such facilities identified. Maximum width at [facility] CT scanner is 78 cm, patient is 90 cm wide. - [facility] residency clinic referral. Acute on chronic Hypercapnic respiratory failure, present on admission. Improving. Likely 2nd to obesity hypoventilation syndrome. Appears to have had worsening hypercarbic respiratory failure following oxygen supplementation in hospital, despite BiPAP. - Home trilogy due to failure of BPAP. - Target O2 saturation is 88% - 92%; avoid excess oxygenation Anxiety, not present on admission. Active. - Small dose PO Ativan before PT sessions. Super-Super Morbid obesity. - BMI 86.5 - Patient of family counseled on importance of calorie restriction and weight loss Fever, Bacteremia, not present on admission. Treated. MAXIMUM TEMPERATURE 38.7 on 06/22. No clinical localizing signs of infection. Chest x-ray and urinalysis are unremarkable. One blood culture bottle showing gram-positive cocci with strep morphology, unclear whether this is pathogenic or contaminated present. Sacral decubiti are mild but likely the source of bacterial translocation. Pharmacy is unable to dose vancomycin in this patient due to obesity. Possible related to erysipelas or atypical cellulitis. - Strep Agalactiae positive in 1 bottle. Repeat Blood cx. - Wound care consult. - Infectious disease consult. - Ceftriaxone IV. Sacral decubitus ulcers, present on admission. Active. Likely staged II-III. These were inspected by nurses on 06/23 and found to have blanchable erythema and excoriation but no stage IV decubiti. - Wound care consulted. Acute urinary tract infection, present on admission. Active. - Ecoli in urine cx. - continue abx as above. Acetaminophen for mild pain when necessary. Bowel regimen Senna and MiraLAX scheduled and PRN. Zofran when necessary for nausea and vomiting. SubQ heparin held for now. SCDs in place. High-risk medications: Warfarin. Patient Status: Patient is admitted under inpatient status with expected length of stay greater than 2 midnights due to severity of presenting symptoms, risk of adverse event, and complexity of treatment plan. Awaiting acceptance to [facility] placement with [facility], however they currently do not have a bariatric bed. Pain Evaluation: Adequate Pain Control Resuscitation Status: CPR: Attempt Resuscitation Attending Statement The patient was seen and examined together with on 06/29/2017 and I agree with the history, exam findings, and plan as outlined in the note above. I did participate in all aspects of the services provided today, including documentation and the plan of care. We will continue to treat her with IV antibiotics for cellulitis of left torso as well as a urine tract infection. The patient has been doing better with regards to her hypoxic respiratory failure but continues to require BiPAP at night. Her disposition plan is transfer to LTAC when a bariatric bed becomes available. PENNY CABA DO Jun 28, 2017 18:39 Regis Cardona MD Jul 01, 2017 07:46
[2017-06-29] VITALS (8 sets, daily range): BP systolic 134–154; BP diastolic 75–81; PULSE 86–99; RESP 17–30; O2SAT 91–98
[2017-06-29] MEDS: Sodium Chloride LOK Flush 10 mL Syringe IVFLUSH SCH ×4 (00:48→21:31)
[2017-06-29 02:55] LABS: INR 2.65 ratio
--- NOTE | 2017-06-29 05:58 | NUR ---
Shift Note 7p-7a Pt had BM tonight on the bed tavera. Skin care given per Wound care instructions. Pt given a bed bath, then skin dried, small amount of Nystatin cream applied to affected areas, and all of the Mepilex foam dressing were replaced. Pt c/o left shoulder pain 06/04, medicated with Oxycodone and no further c/o pain tonight. IV Antibiotics infused per MD orders. Salcedo draining cloudy, britni urine to gravity. O2 per Oxymask at 3L while awake with SpO2 sats 96%, then Pt placed on BiPap at HS by RT with 30% BsP1dtn SpO2 sats 92-98%. No c/o chest pain, no Tele, HR 80-90s overnight. VS stable and afebrile.
[2017-06-29 08:24] LABS: Mean Corpuscular Volume 94.3 fL (81-100)
[2017-06-29] MEDS: Nystatin 100,000 Unit/Gm 15 Gm Powder TOPICAL SCH ×2 (08:39→21:38)
[2017-06-29] MEDS: cefTRIAXone Inj 2,000 MG in Dextrose 5% Minibag Plus 50 ML IV SCH ×2 (08:39→21:31)
[2017-06-29] MEDS: Nystatin 100,000 Unit/mL 5 mL Suspension PO SCH ×4 (08:47→21:31)
--- NOTE | 2017-06-29 13:11 | NUR ---
Inpatient Wound Nurse No new updates or changes to patient's wounds, per her primary RN who stated that patient had thorough bath with dressing changes on NOC shift, followed by frequent spot checking of dressings throughout day today. No new wounds found, and patient had no specific requests or questions for wound nurse. [facility]ON will continue to follow PRN.
--- NOTE | 2017-06-29 13:30 | CONS ---
[address] [address] CONSULTATION REPORT PATIENT: DEANA ALEX : 1960 MR#: [id number] ADMIT: 06/20/2017 JOB ID: [id number] DATE OF SERVICE: 06/29/2017 INFECTIOUS DISEASE CONSULTATION: I thank Dr. Cardona for this timely consult. REASON FOR CONSULTATION: Bacteremic group B strep cellulitis. HISTORY OF PRESENT ILLNESS: The patient is an unfortunate 57-year-old woman whose medical history revolves around super morbid obesity. The patient has had a lifelong history of obesity and in 2006 had a lap band procedure performed. She lost 160 pounds and then requested additional surgery from a plastic surgeon, who advised her to lose at least 200 more before he would consider any procedures. This news depressed her and she returned to her previous eating habits and actually gained a lot of weight. In recent time she has weighed 600 or more pounds and has become relatively immobile. She sleeps and basically lives in a lift chair, getting out of the lift chair only for short walks to the bathroom. Recently she has been falling frequently and struck her head and other body parts while attempting to ambulate to the bathroom. This is what led to her admission some 9-1/2 days ago. She tells me though that she was actually experiencing fever and chills as well prior to admission 9-1/2 days ago. This was not noted really at the time of admission as concern focused on her unsteady gait and sleep apnea. A couple of days after admission though she started to spike fevers and for that reason blood cultures were drawn which yielded a single bottle of group B strep. A urine was also done, even though she had no urinary symptoms. The patient notes in addition to the fevers, which she states actually began prior to admission but which were first noticed here after a period of being afebrile on about the third hospital day, that she has also developed left flank pain redness and tenderness. She thinks this may have been due to some trauma incurred by coming to the hospital and moving through the hospital system given the difficulties people have in terms of moving her because of her weight and body morphology. At this point she notes that her fevers are improving. She states she has had some headaches over the last few days which she attributes to falling down and hitting her head a couple of times before admission. She denies any significant sore throat. She has no real cough and no pleuritic chest pain, but she is quite short of breath at all times, presumably on the basis of her super morbid obesity and sleep apnea. She uses a CPAP at home. She denies abdominal complaint except for the superficial cellulitis and pain on the left side. She has not had any urinary symptoms whatsoever. She also notes that she has had chronic diarrhea for about six months controlled only by Imodium. She tells me that she consulted a physician about this who told her she had irritable bowel syndrome. PAST MEDICAL HISTORY: 1. Super morbid obesity. 2. Obstructive sleep apnea. 3. Depression. 4. Lap band surgery in 2006 which was initially successful in that she lost weight, and then quite unsuccessful. SOCIAL HISTORY: The patient is housebound, and in fact lift chair bound at this point. She has not been very ambulatory for the last five years and basically not at all lately. As noted, she lives in a lift chair. She does not smoke drink or use illicit drugs. She lives with her . They recently finished raising a granddaughter, who just graduated from high school and moved out, so the two of them are living alone in a house in [place] at this point. FAMILY HISTORY: Negative for TB in first- and second-degree relatives. REVIEW OF SYSTEMS: The patient has recent onset headaches related to falling and banging her head x2. She denies focal neurologic symptoms, however, such as weakness in her arms or legs, but it is very difficult to tell as she is nonambulatory and lives in a lift chair. She has no visual complaints. She denies irritation of the eyes even though they are obviously erythematous. She denies sore throat or trouble swallowing. No stiff neck. She does not have significant cough or pleuritic chest pain but she is chronically short of breath and for that reason she sleeps basically upright. Her abdomen is painful on the left side, more along the left flank than over the abdomen per se. She has no deep or visceral abdominal pain. No nausea or vomiting, but she has had diarrhea for six months which is reportedly unexplained. The patient notes that she often has inflammation in the folds under her pannus and in her legs where there are overlying layers of adiposity. She notes this is a chronic problem for her given her size. The remainder of the review of systems is negative. PHYSICAL EXAMINATION: Reveals an amazingly obese woman. Her height is only 163 cm, her weight currently 280 kg, and BMI 106. Her current temperature is 36.5. It is notable she was afebrile for the first day in the hospital, then started to spike fevers on the , and those fevers persisted for about 36 hours, which coincides with the initiation of antibiotics. After that time she has been afebrile and has now been afebrile for about five days. Temp 36.5, pulse 95, respiratory rate 24, blood pressure 134/75. She is saturating fairly well on 2 L. When I evaluate the patient she is eating breakfast. The patient is propped up at about 30 degrees in her bed and has the food perched on her upper chest while she eats. The examination of the head reveals no trauma. The eyes are notable for some mild conjunctivitis which is bilateral. There is no exudate noticed in the eyes and her extraocular movements are normal. Pupils normal. Nose normal. Oral cavity without thrush, hairy leukoplakia, or poor dentition. Neck reasonably supple, without adenopathy, but it is a very difficult exam given her obesity. Heart sounds quite distant, as expected, without murmur. Regular rate and rhythm is noted. Lungs are clear, again very distant given the patient's body habitus. Her abdomen is truly massive and difficult to examine. I do not appreciate any organomegaly and certainly no focal tenderness. The entire left flank however is diffusely erythematous, mildly warm, and tender. The right flank has no such appearance. The patient has a Salcedo catheter. Any further examination of the inguinal area or groin is precluded by the huge overlying pannus. The lower extremities are notable for erythema in the intertriginous areas but no gross infection is seen. There are venous stasis changes. There is considerable thickness at the heels bilaterally but there is no evidence of infection in the lower extremities. Only minimal edema is noted in the lower extremities. No open lesions or skin breakdown is seen. The patient neurologically can move her four extremities but she is so encumbered by her obesity that any sort of formal testing is made very difficult. LABORATORY: Includes white count which was normal when she came in at 8000 but by the second hospital day had jumped to 14,000. It has gradually been declining now and is down to 11,000. Platelet count normal 282. Creatinine is 0.47. LFTs normal. Albumin 2.5. Procalcitonin has only been measured once; it was 0.1 back on June 23. Urinalysis had no white cells on two separate measurements. Micro studies are of interest. Urine from the , when she first started to spike fevers, grew E. coli which was pansusceptible. One of four blood cultures from that same day on the grew group B strep which was very sensitive to penicillin. Followup blood cultures have been negative, followup urine cultures also negative, and a MRSA screen negative. IMAGING: A chest x-ray was clear. An echocardiogram has been done. Obviously this was a limited study because of her size, but grossly normal left ventricle was seen. The right ventricle had elevated filling pressures which would be consistent, of course, with her sleep apnea issues as well as her obesity. The valves were very poorly visualized, not surprisingly. IMPRESSION: This is an extremely unfortunate woman who, despite her relatively young age, has a problem which is extremely morbid and will likely prove to be mortal before long. The patient has a BMI in excess of 100 which is extraordinarily rare and is basically confined to a lift chair where she sleeps and also spends her days. Lately she has been falling and it sounds as if probably part of the reason she was falling was related to infection as she reports fevers and chills prior to admission, though not having demonstrated fever for about 24 hours after admission. At the time her fever was noted she was appropriately cultured and one of her blood cultures grew group B strep. The urine grew E. coli. She was started initially on Unasyn, which she got for three days, and then switched to ceftriaxone and she is now on her 5th day of ceftriaxone for a total combined course of eight days of therapy, which would have good activity against this group B strep in the blood. The urine E. coli is of no significance as she has no urinary symptoms and no pyuria, and we can ignore that. I think the group B strep arose from her left flank where she probably had an evolving cellulitis. Given the fact she had fevers and chills before admission, I think that cellulitis was probably brewing and is not iatrogenic and was already present. The management of the skin in a patient such as this is extraordinarily difficult as she is so immobile and the pressures generated on shear forces on skin are great. Also making things difficult are the issues with trying to move, clean, and care for such a patient and the risk of skin trauma or injury. RECOMMENDATIONS: 1. I would continue with ceftriaxone to complete a total of two weeks of IV antibiotics. Note that her Unasyn started on or about June 22, so two weeks would take us until July 05 on the ceftriaxone. 2. If the patient is to go home sooner, we could consider oral therapy given that this is quite a sensitive organism but I am concerned about the very large area involved with this cellulitic process in the left flank and would be inclined to push on with IV therapy before transitioning to oral, at least for a few more days. Thank you for involving me in this most complex case. SRAVANI
--- NOTE | 2017-06-29 14:50 | PCM.PNMED ---
Subjective Date of Service Jun 29, 2017 Subjective Ms. Negrita Morales is a 57 year old lady with arthritis, sleep apnea, and depression presenting to the ED after two ground level falls with minor head trauma at 630 and 930 AM and a 5 day history of "breathing just not right." She reports the fall was due to her Right knee locking and buckling. She also reports some musculoskeletal type pain in her left shoulder and left elbow. Over the last 5 days her "breathing troubles" were associated with change in vision from "color to fair", dizziness and feelings of "head floating", and decreased energy. No Overnight events. Today she continues to improve daily in regards to her mentation. She is showing active improvement with daily physical therapy. She reports some mild pain along her left flank but is improving daily. She continues to deny chest pain, shortness of breath, cough, nausea, vomiting, fever, abdominal pain, constipation, diarrhea, dysuria. Exam Vital Signs Vital Sign - Last Date Time Temp Pulse Resp B/P Pulse Ox O2 Delivery O2 Flow Rate FiO2 06/29/17 12:00 36.0 98 24 136/76 94 OxyMask 2.00 06/29/17 04:48 30 Intake and Output 06/28/17 06/28/17 06/29/17 Cumulative From/Thru 15:00 23:00 07:00 06/20/17 10:42 - 06/29/17 05:17 Intake Total 1090 ml 462 ml 84634 ml Output Total 900 ml 700 ml 39078 ml Balance 190 ml -238 ml -334 ml Intake Oral 1090 ml 400 ml 9040 ml IV Total 62 ml 8186 ml Output Urine Total 900 ml 700 ml 79695 ml # Bowel Movements 1 1 8 Exam General: No acute distress, Very obese, well-developed, well-nourished, appropriately interactive HEENT: Normocephalic, atraumatic. External ears without defect. Pupils equal, round, and reactive to light and accommodation. Anicteric sclerae, moist conjunctivae, and no lid lag. Oropharynx free of erythema and cobble stoning with moist mucosa. Neck: Supple with full range of motion. Jugular venous distension was very difficult to determine due to girth of neck. No bruits. No lymphadenopathy or thyromegaly. Cardiovascular: Tachycardic rate and regular rhythm with no murmurs, rubs, or gallops appreciated Pulmonary: Very decreased lung sounds due to body habitus. Non rebreather oxy mask in place with 5L flow rate. Abdomen: Bowel tones present. Soft, Very obese, nontender, nondistended. No hepatosplenomegaly or masses appreciated. Erythematous and edematous region that tracts from her left flank to her mid back and accentuated with non palpable ecchymotic areas. Extremities: No clubbing, cyanosis, Large lower extremities with multiple slow healing wounds on medial portions bilaterally, or lymphadenopathy appreciated. Right olecranon ecchymotic region 2nd to fall. Skin: Normal temperature, turgor, and texture; no rash, ulcers, or subcutaneous nodules appreciated. Large Left-sided flank edema / excoriation. Neurological: Cranial nerves grossly intact. Normal muscle strength, tone, and bulk. Reflexes, coordination, and sensory function within normal limits. No known gait impairment. Psychiatric: Normal mood and affect. Alert and oriented to person, place, and time. IVs and Medications Medications Reviewed: Medications were reviewed in detail Lab and Diagnostics Result Diagram: 06/29/1720906/29/17209 X-Rays, CTs and MRIs ABG DateTimeAnalyzed 11:12:00 -_ pH ____7.371 - 7.350 7.450 pCO2 ___50.6__ -mmHg 35.0 45.0 pO2 ___35.7__ -mmHg 70.0 100 HCO3- ___28.6__ -mmol/L 22.0 26.0\\ FIO2 ___21.0__ -% DateTimeAnalyzed 06:05:00 -_ pH ____7.251 - 7.350 7.450 pCO2 ___74.6__ -mmHg 35.0 45.0 pO2 ___93.9__ -mmHg 69.0 116 HCO3- ___31.6__ -mmol/L 22.0 26.0 X-RAY CHEST ONE VIEW, PORTABLE IMPRESSION: 1. Pulmonary vascular prominence suggesting mild edema. Approved by: Christopher Stephen M.D. on 06/20/2017 at 12:17 X-RAY RIGHT KNEE, ONE OR TWO VIEWS IMPRESSION: 1. Limited study demonstrates no definite fracture or dislocation. If clinical concern persists, consider further evaluation with CT. Dictated by: Christopher Stephen M.D. on 06/20/2017 at 12:15 Cardiac Echo Impressions Echocardiogram Report Interpretation Summary This was a technically difficult study. 1. Grossly normal left ventricular size with grossly normal systolic function. 2. The right ventricle was not visualized. The estimated RVSP is 47 mm plus CVP 3. Valves were not optimally visualized Reading Physician:06:04 PM Additional Diagnostics US VENOUS LEG DUPLEX BILATERAL FINDINGS: The deep veins are normally compressible, and free of intraluminal thrombus. Color and pulse Doppler demonstrate normal phasic intravascular flow. There is normal augmentation response to distal compression maneuver. IMPRESSION: Limited quality of visualization of the lower extremity venous vasculature due to body habitus. No DVT found. Approved by: Emigdio King M.D. on 06/20/2017 at 15:11 Assessment & Plan Obesity hypoventilation syndrome, present on admission. Active. - Will require PM and Daytime Volume ventilation. BIPAP not sufficient. Fever, Bacteremia, not present on admission. Treated. MAXIMUM TEMPERATURE 38.7 on 06/22. No clinical localizing signs of infection. Chest x-ray and urinalysis are unremarkable. One blood culture bottle showing gram-positive cocci with strep morphology, unclear whether this is pathogenic or contaminated present. Sacral decubiti are mild but likely the source of bacterial translocation. Pharmacy is unable to dose vancomycin in this patient due to obesity. Possible related to erysipelas or cellulitis. - Strep Agalactiae positive in 1 bottle. Repeat Blood cx. - Wound care consult. - Infectious disease consult. - Continue Ceftriaxone IV. Pulmonary embolism, present on admission. Treated, INR therapeutic. Unable to obtain confirmatory diagnostic testing. Treating empirically. - Warfarin. - INR therapeutic. Acute Hypoxemic respiratory failure, present on admission. Improving. Initial ABG revealed severe hypoxic deficit despite compensated chronic hypercarbia. Acute hypoxia is deemed likely 2nd to PE, the absence of other respiratory traction or pathology. D-Dimer 8, albeit with bruise on right forearm. She is too large to do Chest CT PE scan. Decision was made to institute empiric antiocoagulation, probably to continue chronically. She is at high risk for chronic thromboembolic pulmonary hypertension. Attempts were made to transfer patient to facility with suitable CT or angiography features but no such facilities identified. Maximum width at [facility] CT scanner is 78 cm, patient is 90 cm wide. - [facility] residency clinic referral. Acute on chronic Hypercapnic respiratory failure, present on admission. Improving. Likely 2nd to obesity hypoventilation syndrome. Appears to have had worsening hypercarbic respiratory failure following oxygen supplementation in hospital, despite BiPAP. - Home trilogy due to failure of BPAP. - Target O2 saturation is 88% - 92%; avoid excess oxygenation Anxiety, not present on admission. Active. - Small dose PO Ativan before PT sessions. Super-Super Morbid obesity. - BMI 86.5 - Patient of family counseled on importance of calorie restriction and weight loss Sacral decubitus ulcers, present on admission. Active. Likely staged II-III. These were inspected by nurses on 06/23 and found to have blanchable erythema and excoriation but no stage IV decubiti. - Wound care consulted. Acute urinary tract infection, present on admission. Active. - Ecoli in urine cx. - continue abx as above. Acetaminophen for mild pain when necessary. Bowel regimen Senna and MiraLAX scheduled and PRN. Zofran when necessary for nausea and vomiting. SubQ heparin held for now. SCDs in place. High-risk medications: Warfarin. Patient Status: Patient is admitted under inpatient status with expected length of stay greater than 2 midnights due to severity of presenting symptoms, risk of adverse event, and complexity of treatment plan. Awaiting acceptance to LT[facility] placement with [facility], however they currently do not have a bariatric bed. Resuscitation Status: CPR: Attempt Resuscitation Attending Statement The patient was seen and examined together with on I agree with the history, exam findings, and plan as outlined in the note above. I did participate in all aspects of the services provided today, including documentation and the plan of care. We will continue ceftriaxone 2 g every 12 hours for combination of left torso cellulitis as well as urinary tract infection and bacteremia. PENNY CABA DO Jun 29, 2017 14:50 Regis Cardona MD Jul 01, 2017 07:32
--- NOTE | 2017-06-29 18:21 | NUR ---
PT/O2 Pt worked with PT today after having BM on bedpan, coordinated with PT and Pt premedicated with PRN IV ativan, Pt's dressing on buttocks changed at this time, other dressings intact and free from drainage, see PT note for details. Pt's transitioned from Bi-PAP to oxymask at 2L by RT this am, Pt tolerated well throughout shift and only needed an increase in O2 during PT, Pt returned to 2L via oxymask afterwards and maintained SPO2 sats in the mid 90s on 2L.
[2017-06-30] VITALS (9 sets, daily range): BP systolic 126–155; BP diastolic 70–85; PULSE 88–105; RESP 18–30; O2SAT 92–96
--- NOTE | 2017-06-30 05:49 | NUR ---
Pain / BiPap / VSS Pt c/o left shoulder pain 06/04. Pt medicated with 5mg Oxycodone IR, and pain resolved. Pt placed on BiPap at HS with 30% FiO2, SpO2 sats 92-96% per continuous pulse oximetry. VS stable and afebrile. Salcedo patent and draining cloudy britni urine to gravity. No Tele. Pt slept well overnight.
[2017-06-30] MEDS: cefTRIAXone Inj 2,000 MG in Dextrose 5% Minibag Plus 50 ML IV SCH ×2 (08:27→20:20)
[2017-06-30] MEDS: Nystatin 100,000 Unit/mL 5 mL Suspension PO SCH ×4 (08:27→20:20)
[2017-06-30] MEDS: Sodium Chloride LOK Flush 10 mL Syringe IVFLUSH SCH ×3 (08:33→20:21)
[2017-06-30] MEDS: Nystatin 100,000 Unit/Gm 15 Gm Powder TOPICAL SCH ×2 (08:34→20:21)
[2017-06-30 09:10] LABS: INR 3.12 ratio
--- NOTE | 2017-06-30 09:37 | PCM.PHAPRO ---
Progress Date of Service: Jun 30, 2017 Ground level fall. warfarin dosing Jun 23-Jun 24-Jun 25-May 26-Jun 27-Jun 28-Jun 29-Jun 30-Jun 1.11 1.25 1.88 2.22 3.06 2.82 2.34 2.65 3.12 0.14 0.63 0.34 0.84 -0.24 -0.48 0.31 0.47 10 10 5 5MG 1 3 4 3 Adelfo Coelho [facility] Jun 30, 2017 09:37
--- NOTE | 2017-06-30 11:46 | PCM.PNMED ---
Subjective Date of Service Jun 30, 2017 Subjective She is doing well today. She slept throughout the night. Her skin on the left side of her torso feels better. No fevers or chills. No cough. Less dyspnea. She was on BiPAP throughout the night. No diarrhea. No abdominal pain. No overnight events noted. Exam Vital Signs Vital Sign - Last Date Time Temp Pulse Resp B/P Pulse Ox O2 Delivery O2 Flow Rate FiO2 06/30/17 08:22 36.4 92 20 145/85 94 Nasal Cannula 2.00 06/30/17 04:00 30 Intake and Output 06/29/17 06/29/17 06/30/17 Cumulative From/Thru 15:00 23:00 07:00 06/20/17 10:42 - 06/30/17 06:14 Intake Total 1160 ml 300 ml 77366 ml Output Total 1200 ml 1400 ml 56575 ml Balance -40 ml -1100 ml -1474 ml Intake Oral 1100 ml 300 ml 92254 ml IV Total 60 ml 8246 ml Output Urine Total 1200 ml 1400 ml 90266 ml # Bowel Movements 1 9 Exam Alert and oriented -3, no distress. Fluent speech, she is on an oxygen mask Anicteric sclera. Lungs are clear with normal rate and effort Heart is regular without murmur gallop or rub Abdomen soft nontender, distended. She does have a large area of erythema over the left aspect of her abdomen which is less red. He continues to blanchable. Extremities are free of edema. Skin is free of rash or lesions. She is morbidly obese. IVs and Medications Medications Reviewed: Medications were reviewed in detail Lab and Diagnostics Result Diagram: 06/29/1720906/29/17209 X-Rays, CTs and MRIs ABG DateTimeAnalyzed 11:12:00 -_ pH ____7.371 - 7.350 7.450 pCO2 ___50.6__ -mmHg 35.0 45.0 pO2 ___35.7__ -mmHg 70.0 100 HCO3- ___28.6__ -mmol/L 22.0 26.0\ FIO2 ___21.0__ -% DateTimeAnalyzed 06:05:00 -_ pH ____7.251 - 7.350 7.450 pCO2 ___74.6__ -mmHg 35.0 45.0 pO2 ___93.9__ -mmHg 69.0 116 HCO3- ___31.6__ -mmol/L 22.0 26.0 X-RAY CHEST ONE VIEW, PORTABLE IMPRESSION: 1. Pulmonary vascular prominence suggesting mild edema. Approved by: Christopher Stephen M.D. on 06/20/2017 at 12:17 X-RAY RIGHT KNEE, ONE OR TWO VIEWS IMPRESSION: 1. Limited study demonstrates no definite fracture or dislocation. If clinical concern persists, consider further evaluation with CT. Dictated by: Christopher Stephen M.D. on 06/20/2017 at 12:15 Cardiac Echo Impressions Echocardiogram Report Interpretation Summary This was a technically difficult study. 1. Grossly normal left ventricular size with grossly normal systolic function. 2. The right ventricle was not visualized. The estimated RVSP is 47 mm plus CVP 3. Valves were not optimally visualized Reading Physician:06:04 PM Additional Diagnostics US VENOUS LEG DUPLEX BILATERAL FINDINGS: The deep veins are normally compressible, and free of intraluminal thrombus. Color and pulse Doppler demonstrate normal phasic intravascular flow. There is normal augmentation response to distal compression maneuver. IMPRESSION: Limited quality of visualization of the lower extremity venous vasculature due to body habitus. No DVT found. Approved by: Emigdio King M.D. on 06/20/2017 at 15:11 Assessment & Plan Obesity hypoventilation syndrome, present on admission. Active and stable. - Will require PM and Daytime Volume ventilation. No changes to current plan. Staph Bacteremia, not present on admission. Resolved MAXIMUM TEMPERATURE 38.7 on 06/22. No clinical localizing signs of infection. Chest x-ray and urinalysis are unremarkable. One blood culture bottle showing gram-positive cocci with strep morphology, unclear whether this is pathogenic or contaminated present. Sacral decubiti are mild but likely the source of bacterial translocation. Pharmacy is unable to dose vancomycin in this patient due to obesity. Possible related to erysipelas or cellulitis. - Strep Agalactiae positive in 1 bottle. Repeat Blood cx. - Wound care consult. - Infectious disease consult. - Continue Ceftriaxone IV for at least 14 days. Left torso and abdomen cellulitis, new. Improving on current antibiotics. We will continue ceftriaxone. Pulmonary embolism, present on admission. Stable with a therapeutic protime Unable to obtain confirmatory diagnostic testing. Treating empirically. - Warfarin. - INR therapeutic. Acute Hypoxemic respiratory failure, present on admission. Improving. Initial ABG revealed severe hypoxic deficit despite compensated chronic hypercarbia. Acute hypoxia is deemed likely 2nd to PE, the absence of other respiratory traction or pathology. D-Dimer 8, albeit with bruise on right forearm. She is too large to do Chest CT PE scan. Decision was made to institute empiric antiocoagulation, probably to continue chronically. She is at high risk for chronic thromboembolic pulmonary hypertension. Attempts were made to transfer patient to facility with suitable CT or angiography features but no such facilities identified. Maximum width at [facility] CT scanner is 78 cm, patient is 90 cm wide. Continue supplemental oxygen. Acute on chronic Hypercapnic respiratory failure, present on admission. Improving. Likely 2nd to obesity hypoventilation syndrome. Appears to have had worsening hypercarbic respiratory failure following oxygen supplementation in hospital, despite BiPAP. - Home trilogy due to failure of BPAP. - Target O2 saturation is 88% - 92%; avoid excess oxygenation, continue noninvasive positive pressure ventilation. Anxiety, not present on admission. Active and improving.. - Small dose PO Ativan before PT sessions. Super-Super Morbid obesity. - BMI 86.5 - Patient of family counseled on importance of calorie restriction and weight loss Sacral decubitus ulcers, present on admission. Active unstable. Likely staged II-III. These were inspected by nurses on 06/23 and found to have blanchable erythema and excoriation but no stage IV decubiti. - Wound care consulted. Acute urinary tract infection, present on admission. Resolved.. - Ecoli in urine cx. - continue abx as above. Acetaminophen for mild pain when necessary. Bowel regimen Senna and MiraLAX scheduled and PRN. Zofran when necessary for nausea and vomiting. SubQ heparin held for now. SCDs in place. High-risk medications: Warfarin. Patient Status: Patient is admitted under inpatient status with expected length of stay greater than 2 midnights due to severity of presenting symptoms, risk of adverse event, and complexity of treatment plan. Awaiting acceptance to LT[facility] placement with [facility], however they currently do not have a bariatric bed. All imaging and lab data reviewed. Dangerous medications include warfarin and IV lorazepam. Resuscitation Status: CPR: Attempt Resuscitation Regis Cardona MD Jun 30, 2017 11:46
--- NOTE | 2017-06-30 17:26 | NUR ---
Social Work Note: Continued Discharge Planning Data& Assessment: Pt still awaiting [facility] bed availability. SW met with pt and pt friends at bedside to check in and assess for any unmet needs. Pt and pt friends discussed [facility] and agreed that pt requires a higher level of care. Pt denies any needs at this time. SW to continue to follow. Plan: Anticipated discharge to [facility] pending Bariatric bed availability. Pt denies any needs at this time. SW to continue to follow. BRENDA Richardson
--- NOTE | 2017-06-30 17:30 | NUR ---
Sheila signed BRENDA Richardson
--- NOTE | 2017-06-30 18:19 | NUR ---
Activity Pt still bedrest. Pt assisted to turn for position changes, to get on bedpan, and worked with PT today, see PT note for details.
[2017-07-01 02:46] LABS: INR 2.86 ratio
[2017-07-01 02:53] VITALS: BP 156/73; PULSE 90; RESP 20; O2SAT 95
[2017-07-01 08:28] VITALS: BP 132/77; PULSE 93; RESP 20; O2SAT 94
[2017-07-01] MEDS: Nystatin 100,000 Unit/Gm 15 Gm Powder TOPICAL SCH (08:30)
[2017-07-01] MEDS: cefTRIAXone Inj 2,000 MG in Dextrose 5% Minibag Plus 50 ML IV SCH ×2 (08:34→20:56)
[2017-07-01] MEDS: Nystatin 100,000 Unit/mL 5 mL Suspension PO SCH ×4 (08:34→21:53)
[2017-07-01] MEDS: Sodium Chloride LOK Flush 10 mL Syringe IVFLUSH SCH ×2 (08:36→17:26)
[2017-07-01] MEDS ORDERED: 0.9% Sodium Chloride 250 ML ONE (08:42)
--- NOTE | 2017-07-01 10:05 | PCM.PHAPRO ---
Progress Date of Service: Jul 01, 2017 Warfarin dosing Date Jun 23-Jun 24-Jun 25-May 26-Jun 27-Jun 28-Jun 29-Jun 30-Jul 01-Jun INR 1.11 1.25 1.88 2.22 3.06 2.82 2.34 2.65 3.12 2.86 INR change 0.14 0.63 0.34 0.84 -0.24 -0.48 0.31 0.47 -0.26 Warf Dose 10 10 5 5MG 1 3 4 3 HOLD 3MG Bear Link Jul 01, 2017 10:05
--- NOTE | 2017-07-01 12:16 | PCM.PNMED ---
Subjective Date of Service Jul 01, 2017 Subjective She is doing well today. She had a good night sleep. She is breathing well. She used BiPAP throughout the night. She does have some oozing from her skin in the right aspect of her torso with light erythema but no major redness. Her left torso is getting better. No fevers or chills. She denies any chest pain no abdominal pain. Salcedo catheter is in place. No fevers or chills. No overnight events noted. Exam Vital Signs Vital Sign - Last Date Time Temp Pulse Resp B/P Pulse Ox O2 Delivery O2 Flow Rate FiO2 07/01/17 08:28 Supplement Oxygen CPAP/BIPAP 07/01/17 08:28 37.7 93 20 132/77 94 07/01/17 02:53 30 06/30/17 20:18 2.00 Intake and Output 06/30/17 06/30/17 07/01/17 Cumulative From/Thru 15:00 23:00 07:00 06/20/17 10:42 - 07/01/17 06:00 Intake Total 696 ml 480 ml 88560 ml Output Total 1500 ml 750 ml 43769 ml Balance -804 ml -270 ml -2548 ml Intake Oral 636 ml 400 ml 95631 ml IV Total 60 ml 80 ml 8386 ml Output Urine Total 1500 ml 750 ml 83868 ml # Bowel Movements 1 0 10 Exam Alert and oriented -3, no distress. Fluent speech, super obesity. Anicteric sclera. Lungs are clear with normal rate and effort Heart is regular without murmur gallop or rub Abdomen soft nontender, flat Extremities are free of edema. With the exception of the left torso which has a large area of redness and several excoriations. All areas are all improving with decreased redness. They still trudy. The right aspect of the torso has mild erythema and some bruising from edema but no angry cellulitis is noted. Skin is free of rash or lesions. Good pedal pulses and range of motion of 50. IVs and Medications Medications Reviewed: Medications were reviewed in detail Lab and Diagnostics Result Diagram: 06/29/1720906/29/17209 X-Rays, CTs and MRIs ABG DateTimeAnalyzed 11:12:00 -_ pH ____7.371 - 7.350 7.450 pCO2 ___50.6__ -mmHg 35.0 45.0 pO2 ___35.7__ -mmHg 70.0 100 HCO3- ___28.6__ -mmol/L 22.0 26.0\ FIO2 ___21.0__ -% DateTimeAnalyzed 06:05:00 -_ pH ____7.251 - 7.350 7.450 pCO2 ___74.6__ -mmHg 35.0 45.0 pO2 ___93.9__ -mmHg 69.0 116 HCO3- ___31.6__ -mmol/L 22.0 26.0 X-RAY CHEST ONE VIEW, PORTABLE IMPRESSION: 1. Pulmonary vascular prominence suggesting mild edema. Approved by: Christopher Stephen M.D. on 06/20/2017 at 12:17 X-RAY RIGHT KNEE, ONE OR TWO VIEWS IMPRESSION: 1. Limited study demonstrates no definite fracture or dislocation. If clinical concern persists, consider further evaluation with CT. Dictated by: Christopher Stephen M.D. on 06/20/2017 at 12:15 Cardiac Echo Impressions Echocardiogram Report Interpretation Summary This was a technically difficult study. 1. Grossly normal left ventricular size with grossly normal systolic function. 2. The right ventricle was not visualized. The estimated RVSP is 47 mm plus CVP 3. Valves were not optimally visualized Reading Physician:06:04 PM Additional Diagnostics US VENOUS LEG DUPLEX BILATERAL FINDINGS: The deep veins are normally compressible, and free of intraluminal thrombus. Color and pulse Doppler demonstrate normal phasic intravascular flow. There is normal augmentation response to distal compression maneuver. IMPRESSION: Limited quality of visualization of the lower extremity venous vasculature due to body habitus. No DVT found. Approved by: Emigdio King M.D. on 06/20/2017 at 15:11 Assessment & Plan Obesity hypoventilation syndrome, present on admission. Active and stable. - Will require PM and Daytime Volume ventilation. No changes to current plan. She is doing well with her current plan. Staph Bacteremia, not present on admission. Resolved No further fevers. - Continue Ceftriaxone IV for at least 14 days. Left torso and abdomen cellulitis, new. Improving on current antibiotics. We will continue ceftriaxone. Pulmonary embolism, present on admission. Stable with a therapeutic protime Unable to obtain confirmatory diagnostic testing. Treating empirically. - Warfarin. - INR therapeutic. Acute Hypoxemic respiratory failure, present on admission. Improving. Initial ABG revealed severe hypoxic deficit despite compensated chronic hypercarbia. Acute hypoxia is deemed likely 2nd to PE, the absence of other respiratory traction or pathology. D-Dimer 8, albeit with bruise on right forearm. She is too large to do Chest CT PE scan. Decision was made to institute empiric antiocoagulation, probably to continue chronically. She is at high risk for chronic thromboembolic pulmonary hypertension. Attempts were made to transfer patient to facility with suitable CT or angiography features but no such facilities identified. Maximum width at [facility] CT scanner is 78 cm, patient is 90 cm wide. Continue supplemental oxygen. Acute on chronic Hypercapnic respiratory failure, present on admission. Improving. Likely 2nd to obesity hypoventilation syndrome. Appears to have had worsening hypercarbic respiratory failure following oxygen supplementation in hospital, despite BiPAP. - Home trilogy due to failure of BPAP. - Target O2 saturation is 88% - 92%; avoid excess oxygenation, continue noninvasive positive pressure ventilation. Anxiety, not present on admission. Active and improving.. - Small dose PO Ativan before PT sessions. Super-Super Morbid obesity. - BMI 86.5 - Patient of family counseled on importance of calorie restriction and weight loss Sacral decubitus ulcers, present on admission. Active unstable. Likely staged II-III. These were inspected by nurses on 06/23 and found to have blanchable erythema and excoriation but no stage IV decubiti. - Wound care consulted. Acute urinary tract infection, present on admission. Resolved.. - Ecoli in urine cx. - continue abx as above. Acetaminophen for mild pain when necessary. Bowel regimen Senna and MiraLAX scheduled and PRN. Zofran when necessary for nausea and vomiting. SubQ heparin held for now. SCDs in place. High-risk medications: Warfarin. Patient Status: Patient is admitted under inpatient status with expected length of stay greater than 2 midnights due to severity of presenting symptoms, risk of adverse event, and complexity of treatment plan. Awaiting acceptance to LTAC placement with [facility], however they currently do not have a bariatric bed. All imaging and lab data reviewed today. Dangerous medications include warfarin and IV lorazepam. Resuscitation Status: CPR: Attempt Resuscitation Regis Cardona MD Jul 01, 2017 12:16
[2017-07-01 12:21] VITALS: BP 176/82; PULSE 94; RESP 20; O2SAT 90
[2017-07-01 16:24] VITALS: BP 163/77; PULSE 94; RESP 20; O2SAT 95
[2017-07-01 21:02] VITALS: BP 151/87; PULSE 91; RESP 24; O2SAT 94
[2017-07-02] MEDS: Sodium Chloride LOK Flush 10 mL Syringe IVFLUSH SCH ×3 (00:30→16:16)
[2017-07-02 03:45] VITALS: BP 154/81; PULSE 88; RESP 16; O2SAT 94
--- NOTE | 2017-07-02 06:10 | NUR ---
Bed Bath/Nystatin Cream/Skin/Bipap Pt was given a bed bath and all dressings were changed. Another tube of nystatin cream was ordered from pharmacy. When dressing the skinfolds you may need to order more 8in x 8in mepilex. Pt did have some weeping from both sides of pt's abdomen. The left side was red when viewed but pt had just rolled onto that side prior to viewing the skin. Pt remained on Bipap throughout the night with the same setting of FiO2 30%.
[2017-07-02 08:16] VITALS: BP 186/84; PULSE 94; O2SAT 94
[2017-07-02] MEDS: Nystatin 100,000 Unit/mL 5 mL Suspension PO SCH ×4 (09:08→22:00)
[2017-07-02] MEDS: cefTRIAXone Inj 2,000 MG in Dextrose 5% Minibag Plus 50 ML IV SCH ×2 (09:10→20:15)
--- NOTE | 2017-07-02 11:34 | NUR ---
Patient seen by CWON in follow-up of wounds and skin care. Yeast rash and and intertrigous dermatitis appears greatly improved with consistent use of Mepilex foam sheets in skin folds, Nystatin ointment/powder regimen, and bed baths. Patient states that pruritis is improved and she feels better overall. Patient's primary RN will update [facility] if intergluteal fold wound has not progressed when patient is turned with team later today. [facility]ON will continue as resource for staff and patient but will not see patient routinely unless notified of changes.
--- NOTE | 2017-07-02 11:51 | PCM.PNMED ---
Subjective Date of Service Jul 02, 2017 Subjective Patient is doing fairly well today. She denies changes with her breathing. She did use her BiPAP last night. She denies any nausea. Her left torso feels a bit better. She notes that her feet continue to have very little edema compared to normal. She continues to have a Salcedo catheter in place. No fevers or chills. No other overnight events noted. Exam Vital Signs Vital Sign - Last Date Time Temp Pulse Resp B/P Pulse Ox O2 Delivery O2 Flow Rate FiO2 07/02/17 09:15 Supplement Oxygen CPAP/BIPAP 07/02/17 08:16 36.4 94 186/84 94 2.00 07/02/17 03:45 16 30 Intake and Output 07/01/17 07/01/17 07/02/17 Cumulative From/Thru 15:00 23:00 07:00 06/20/17 10:42 - 07/02/17 06:08 Intake Total 960 ml 455 ml 32231 ml Output Total 1800 ml 800 ml 92192 ml Balance -840 ml -345 ml -3733 ml Intake Oral 900 ml 300 ml 94454 ml IV Total 60 ml 155 ml 8601 ml Output Urine Total 1800 ml 800 ml 63377 ml # Bowel Movements 1 11 Exam Alert and oriented -3, no distress. Fluent speech Anicteric sclera. Lungs are clear with normal rate and effort Heart is regular without murmur gallop or rub Abdomen soft nontender, large pannus. Her torso continues to be red and the left side. It continues to be blanchable. Extremities are with 1+ edema. Skin is total for large erythema of the right aspect of the abdomen as well. Also excoriations just on the left breast. IVs and Medications Medications Reviewed: Medications were reviewed in detail Lab and Diagnostics Result Diagram: 06/29/170 07/02/17 0225 X-Rays, CTs and MRIs ABG DateTimeAnalyzed 11:12:00 -_ pH ____7.371 - 7.350 7.450 pCO2 ___50.6__ -mmHg 35.0 45.0 pO2 ___35.7__ -mmHg 70.0 100 HCO3- ___28.6__ -mmol/L 22.0 26.0\ FIO2 ___21.0__ -% DateTimeAnalyzed 06:05:00 -_ pH ____7.251 - 7.350 7.450 pCO2 ___74.6__ -mmHg 35.0 45.0 pO2 ___93.9__ -mmHg 69.0 116 HCO3- ___31.6__ -mmol/L 22.0 26.0 X-RAY CHEST ONE VIEW, PORTABLE IMPRESSION: 1. Pulmonary vascular prominence suggesting mild edema. Approved by: Christopher Stephen M.D. on 06/20/2017 at 12:17 X-RAY RIGHT KNEE, ONE OR TWO VIEWS IMPRESSION: 1. Limited study demonstrates no definite fracture or dislocation. If clinical concern persists, consider further evaluation with CT. Dictated by: Christopher Stephen M.D. on 06/20/2017 at 12:15 Cardiac Echo Impressions Echocardiogram Report Interpretation Summary This was a technically difficult study. 1. Grossly normal left ventricular size with grossly normal systolic function. 2. The right ventricle was not visualized. The estimated RVSP is 47 mm plus CVP 3. Valves were not optimally visualized Reading Physician:06:04 PM Additional Diagnostics US VENOUS LEG DUPLEX BILATERAL FINDINGS: The deep veins are normally compressible, and free of intraluminal thrombus. Color and pulse Doppler demonstrate normal phasic intravascular flow. There is normal augmentation response to distal compression maneuver. IMPRESSION: Limited quality of visualization of the lower extremity venous vasculature due to body habitus. No DVT found. Approved by: Emigdio King M.D. on 06/20/2017 at 15:11 Assessment & Plan #. Obesity hypoventilation syndrome, present on admission. Active and stable. - Will require ongoing not internal ventilation support. #. Staph Bacteremia, not present on admission. Resolved No further fevers. - Continue Ceftriaxone IV for at least 14 days. This may be extended for her cellulitis and will be continued Clinical Improvement of That. #. Left torso and abdomen cellulitis, new. Improving on current antibiotics. We will continue ceftriaxone at 2 g every 12 hours.. #. Pulmonary embolism, present on admission. Stable with a therapeutic protime Unable to obtain confirmatory diagnostic testing. Treating empirically. - Warfarin. - INR therapeutic. #. Acute Hypoxemic respiratory failure, present on admission. Improving. Initial ABG revealed severe hypoxic deficit despite compensated chronic hypercarbia. Acute hypoxia is deemed likely 2nd to PE, the absence of other respiratory traction or pathology. D-Dimer 8, albeit with bruise on right forearm. She is too large to do Chest CT PE scan. Decision was made to institute empiric antiocoagulation, probably to continue chronically. She is at high risk for chronic thromboembolic pulmonary hypertension. Attempts were made to transfer patient to facility with suitable CT or angiography features but no such facilities identified. Maximum width at [facility] CT scanner is 78 cm, patient is 90 cm wide. Continue supplemental oxygen. Wean as able. #. Acute on chronic Hypercapnic respiratory failure, present on admission. Improving. Likely 2nd to obesity hypoventilation syndrome. Appears to have had worsening hypercarbic respiratory failure following oxygen supplementation in hospital, despite BiPAP. - Home trilogy due to failure of BPAP. - Target O2 saturation is 88% - 92%; avoid excess oxygenation, continue noninvasive positive pressure ventilation. No changes for now. #. Anxiety, not present on admission. Active and improving.. - Small dose PO Ativan before PT sessions. #. Super-Super Morbid obesity. POA and stable. - BMI 86.5 - Patient of family counseled on importance of calorie restriction and weight loss #. Sacral decubitus ulcers, present on admission. Active . Likely staged II-III. These were inspected by nurses on 06/23 and found to have blanchable erythema and excoriation but no stage IV decubiti. - Wound care consulted. We will continue the current wound plan. #. Acute urinary tract infection, present on admission. Resolved.. - Ecoli in urine cx. - continue abx as above. Acetaminophen for mild pain when necessary. Bowel regimen Senna and MiraLAX scheduled and PRN. Zofran when necessary for nausea and vomiting. SubQ heparin held for now. SCDs in place. High-risk medications: Warfarin. Patient Status: Patient is admitted under inpatient status with expected length of stay greater than 2 midnights due to severity of presenting symptoms, risk of adverse event, and complexity of treatment plan. Awaiting acceptance to LTAC placement with [facility], however they currently do not have a bariatric bed. All imaging and lab data reviewed today. Dangerous medications include warfarin and IV lorazepam. Resuscitation Status: CPR: Attempt Resuscitation Regis Cardona MD Jul 02, 2017 11:51
[2017-07-02 12:08] VITALS: BP 174/80; PULSE 92; RESP 16; O2SAT 96
--- NOTE | 2017-07-02 13:43 | NUR ---
NUTRITION FOLLOW-UP: ASSESS: 57 YO female admitted with hypoxemia, advanced respiratory failure, presumed PE. Wound care is following. Pt has multiple gluteal wounds. She is on a Heart Healthy diet with good PO with 100% of meals and she is receiving Francis with L and D to help with wound healing. PMHx: Arthritis, FRANK, depression, advanced respiratory failure, class III obesity. DIET: Heart healthy + Francis. PO intake 100% trays. LABS: Reviewed. Cr 0.41, Glu 104, Ca 8.4 MEDICATIONS: Reviewed. Florastor, Imodium, Coumadin GI: BM x 1 (07/01) SKIN: Wound care following from multiple gluteal wounds ANTHROPOMETRICS: Current Wt: 279.4 kg, BMI: 105.7 kg/m2. Admit weight: 278.2 kg, Adjust BW: 110 kg, IBW: 54.5 kg ESTIMATED NEEDS (BMI, WOUNDS): Calories: 7530-7131 kcal/day (22-25 kcal/kg adj BW) Protein: 110-130 g/day (1.0-1.2 g/kg adj BW) NUTRITION DIAGNOSIS: 1) Increased nutrient needs related to increased demand for nutrients, as evidenced by multiple wound issues noted by [employer].--IMPROVING INTERVENTION: 1) Continue current diet and Francis at lunch and dinner for wound healing as ordered. MONITOR/EVALUATE: PO intake, wt, GI, wounds, labs, nutrition status. Follow per moderate nutrition risk guidelines.
--- NOTE | 2017-07-02 14:12 | NUR ---
KO PRASAD : Spoke with Suly Morrow Liaviky [phone] and she spoke with [facility] at [facility], they will be expecting a discharge this week or next and will have the room to accommodate patient. 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
[2017-07-02 15:21] LABS: INR 2.22 ratio
--- NOTE | 2017-07-02 16:20 | PCM.PHAPRO ---
Progress Date of Service: Jul 02, 2017 Warfarin dosing Date Jun 23-Jun 24-Jun 25-May 26-Jun 27-Jun 28-Jun 29-Jun 30-Jul 01-Jul 02-Jun INR 1.11 1.25 1.88 2.22 3.06 2.82 2.34 2.65 3.12 2.86 2.22 INR change 0.14 0.63 0.34 0.84 -0.24 -0.48 0.31 0.47 -0.26 -0.64 Warf Dose 10mg 10mg 5mg 5mg 1mg 3mg 4mg 3mg HOLD 3mg 3mg Bear Link Jul 02, 2017 16:20
[2017-07-02 16:46] VITALS: BP 162/94; PULSE 88; RESP 20; O2SAT 92
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
--- NOTE | 2017-07-02 18:15 | NUR ---
Skin care Dressing (foam dressing) was changed after full bed bath assisted by 5 staff members. Pt. was cooperative and she used a overhead trapeze to assist with turning. Sacrum skin is red but intact. Pt. verbalized her skin had improved since admission. Pt. C/O generalized "not very comfortable". PRN Tylenol PO helped.
[2017-07-02 22:14] VITALS: BP 169/97; RESP 20
[2017-07-02 22:51] VITALS: RESP 26; O2SAT 96
[2017-07-03] VITALS (8 sets, daily range): BP systolic 145–180; BP diastolic 73–90; PULSE 84–101; RESP 13–20; O2SAT 94–98
[2017-07-03] MEDS: Sodium Chloride LOK Flush 10 mL Syringe IVFLUSH SCH ×4 (00:35→23:36)
--- NOTE | 2017-07-03 01:06 | NUR ---
Pain On initial assessment, patient stated pain 7/10 on pain scale. Acetaminophen administered. Patient cooperative with care. No other complaints. IV antibiotic administered. Skin evaluated . Patient slightly hypertensive. Other VSS. Call light within reach. Care continues.
[2017-07-03 03:02] LABS: INR 2.4 ratio
[2017-07-03] MEDS: Nystatin 100,000 Unit/mL 5 mL Suspension PO SCH ×4 (07:40→21:01)
[2017-07-03] MEDS: cefTRIAXone Inj 2,000 MG in Dextrose 5% Minibag Plus 50 ML IV SCH ×2 (07:41→20:51)
[2017-07-03] MEDS ORDERED: 0.9% Sodium Chloride 250 ML ONE (07:46)
--- NOTE | 2017-07-03 10:44 | PCM.PHAPRO ---
Progress Date of Service: Jul 03, 2017 Warfarin dosing Date Jun 23-Jun 24-Jun 25-May 26-Jun 27-Jun 28-Jun 29-Jun 30-Jul 01-Jul 02-Jul 03-Jun INR 1.11 1.25 1.88 2.22 3.06 2.82 2.34 2.65 3.12 2.86 2.22 2.40 INR change 0.14 0.63 0.34 0.84 -0.24 -0.48 0.31 0.47 -0.26 -0.64 0.18 Warf Dose 10MG 10MG 5MG 5MG 1MG 3MG 4MG 3MG HOLD 3MG 3MG 2MG Bear Link Jul 03, 2017 10:44
--- NOTE | 2017-07-03 12:40 | PCM.PNMED ---
Subjective Date of Service Jul 03, 2017 Subjective She is a little bit anxious today. This is in regards to her discharge planning going to [place]. She is still short of breath but about the same as last several days. No cough. No chest pain or abdominal pain. Her skin does feel a bit better. There is less redness of the left flank and right flank. Her feet continue to be improved with regards to less edema. No abdominal pain. No overnight events Exam Vital Signs Vital Sign - Last Date Time Temp Pulse Resp B/P Pulse Ox O2 Delivery O2 Flow Rate FiO2 07/03/17 11:35 94 20 95 07/03/17 11:00 36.2 151/90 OxyMask 2.00 07/03/17 04:51 30 Intake and Output 07/02/17 07/02/17 07/03/17 Cumulative From/Thru 15:00 23:00 07:00 06/20/17 10:42 - 07/03/17 06:05 Intake Total 1512 ml 800 ml 02453 ml Output Total 1950 ml 1200 ml 50149 ml Balance -438 ml -400 ml -4571 ml Intake Oral 1437 ml 700 ml 53679 ml IV Total 75 ml 100 ml 8776 ml Output Urine Total 1950 ml 1200 ml 45530 ml # Bowel Movements 1 12 Exam Alert and oriented -3, no distress. Fluent speech Anicteric sclera. Lungs are clear with normal rate and effort Heart is regular without murmur gallop or rub Abdomen soft nontender, flat Extremities are free of edema. Skin is free of rash or lesions. She has large pannus The left flank is slightly less red today. The right flank is also less red. IVs and Medications Medications Reviewed: Medications were reviewed in detail Lab and Diagnostics Result Diagram: 06/29/170 07/02/17 0225 X-Rays, CTs and MRIs ABG DateTimeAnalyzed 11:12:00 -_ pH ____7.371 - 7.350 7.450 pCO2 ___50.6__ -mmHg 35.0 45.0 pO2 ___35.7__ -mmHg 70.0 100 HCO3- ___28.6__ -mmol/L 22.0 26.0\ FIO2 ___21.0__ -% DateTimeAnalyzed 06:05:00 -_ pH ____7.251 - 7.350 7.450 pCO2 ___74.6__ -mmHg 35.0 45.0 pO2 ___93.9__ -mmHg 69.0 116 HCO3- ___31.6__ -mmol/L 22.0 26.0 X-RAY CHEST ONE VIEW, PORTABLE IMPRESSION: 1. Pulmonary vascular prominence suggesting mild edema. Approved by: Christopher Stephen M.D. on 06/20/2017 at 12:17 X-RAY RIGHT KNEE, ONE OR TWO VIEWS IMPRESSION: 1. Limited study demonstrates no definite fracture or dislocation. If clinical concern persists, consider further evaluation with CT. Dictated by: Christopher Stephen M.D. on 06/20/2017 at 12:15 Cardiac Echo Impressions Echocardiogram Report Interpretation Summary This was a technically difficult study. 1. Grossly normal left ventricular size with grossly normal systolic function. 2. The right ventricle was not visualized. The estimated RVSP is 47 mm plus CVP 3. Valves were not optimally visualized Reading Physician:06:04 PM Additional Diagnostics US VENOUS LEG DUPLEX BILATERAL FINDINGS: The deep veins are normally compressible, and free of intraluminal thrombus. Color and pulse Doppler demonstrate normal phasic intravascular flow. There is normal augmentation response to distal compression maneuver. IMPRESSION: Limited quality of visualization of the lower extremity venous vasculature due to body habitus. No DVT found. Approved by: Emigdio King M.D. on 06/20/2017 at 15:11 Assessment & Plan #. Obesity hypoventilation syndrome, present on admission. Active and stable. - Will require ongoing not internal ventilation support. This is stable no changes to plan. #. Staph Bacteremia, not present on admission. Resolved No further fevers. - Continue Ceftriaxone IV for at least 14 days. This may be extended for her cellulitis and will be continued Clinical Improvement of That. This remained stable no changes from plan. #. Left torso and abdomen cellulitis, new. Improving on current antibiotics. We will continue ceftriaxone at 2 g every 12 hours. This abated antibiotics for several more days.. #. Pulmonary embolism, present on admission. Stable with a therapeutic protime Unable to obtain confirmatory diagnostic testing. Treating empirically. - Warfarin. - INR therapeutic. This is stable. #. Acute Hypoxemic respiratory failure, present on admission. Improving. Initial ABG revealed severe hypoxic deficit despite compensated chronic hypercarbia. Acute hypoxia is deemed likely 2nd to PE, the absence of other respiratory traction or pathology. D-Dimer 8, albeit with bruise on right forearm. She is too large to do Chest CT PE scan. Decision was made to institute empiric antiocoagulation, probably to continue chronically. She is at high risk for chronic thromboembolic pulmonary hypertension. Attempts were made to transfer patient to facility with suitable CT or angiography features but no such facilities identified. Maximum width at [facility] CT scanner is 78 cm, patient is 90 cm wide. Continue supplemental oxygen. Wean as able. This is stable. #. Acute on chronic Hypercapnic respiratory failure, present on admission. Improving. Likely 2nd to obesity hypoventilation syndrome. Appears to have had worsening hypercarbic respiratory failure following oxygen supplementation in hospital, despite BiPAP. - Home trilogy due to failure of BPAP. - Target O2 saturation is 88% - 92%; avoid excess oxygenation, continue noninvasive positive pressure ventilation. No changes for now. This is stable. #. Anxiety, not present on admission. Active and improving.. - Small dose PO Ativan before PT sessions. We will expand her Ativan to 3 times a day when necessary anxiety. #. Super-Super Morbid obesity. POA and stable. - BMI 86.5 - Patient of family counseled on importance of calorie restriction and weight loss. This remained stable. #. Sacral decubitus ulcers, present on admission. Active . Likely staged II-III. These were inspected by nurses on 06/23 and found to have blanchable erythema and excoriation but no stage IV decubiti. - Wound care consulted. We will continue the current wound plan. Continue wound care. #. Acute urinary tract infection, present on admission. Resolved. - Ecoli in urine cx. - continue abx as above. Acetaminophen for mild pain when necessary. Bowel regimen Senna and MiraLAX scheduled and PRN. Zofran when necessary for nausea and vomiting. SubQ heparin held for now. SCDs in place. High-risk medications: Warfarin. Patient Status: Patient is admitted under inpatient status with expected length of stay greater than 2 midnights due to severity of presenting symptoms, risk of adverse event, and complexity of treatment plan. Awaiting acceptance to [facility] placement with [facility], however they currently do not have a bariatric bed. All imaging and lab data reviewed today. Dangerous medications include warfarin. Resuscitation Status: CPR: Attempt Resuscitation Regis Cardona MD Jul 03, 2017 12:40
--- NOTE | 2017-07-03 12:46 | NUR ---
Inpatient Wound Nurse Patient seen for complaint of increased drainage over L thorax. Multiple vesicles and bulla noted, approximately 1 cm L x 2 cm W, filled with clear, serosanguinous fluid, some have opened and drained into bedding, some are intact. Surrounding tissue edematous and spongy, erythemic and moist. Area was lightly cleansed and blotted dry, then covered with a sheet of Mepilex foam which should allow drainage to pass through and keep skin clean and dry, prevent MASD and further infection of tissue through skin breaks (open blisters). Nursing staff may change Mepilex sheet foam to this area PRN saturation.
[2017-07-03] MEDS: LORazepam 0.5 mg Tablet PO PRN (13:14)
--- NOTE | 2017-07-03 15:37 | NUR ---
Social Work: Readiness for Discharge/Multidisciplinary Rounds D: Pt discussed in multidisciplinary rounds. Pt is medically stable for transfer to [facility] pending bed availability. At this time there are not beds available. Ophthalmic Surgical Assistant is checking in with Cristhian and the admissions worker, Suly, will contact case management as soon as a bed is available. ROTARY FURNACE OPERATOR met with the patient at bedside to review discharge planning. Pt states that she continues to agree with the plan to go to [facility]. ROTARY FURNACE OPERATOR reminded her that this facility is in [place] and that this was the only facility who had agreed that they could manage her care. pt states that she understands this and is willing to go. Pt expressed concern about how she will transport. ROTARY FURNACE OPERATOR informed her that she would require BLS transport and that there is always the possible financial risk that she could get billed. She states that she understands and identifies that she has no other option but to transfer via stretcher. At this time, she has no other questions or concerns. A: Pt who will require LTAC for ongoing rehab and care. P: Anticipate pt to discharge to [facility] once a bed is available; ROTARY FURNACE OPERATOR to continue to follow to coordinate discharge/transfer. BRENDA Ledbetter
--- NOTE | 2017-07-03 18:10 | NUR ---
Anxiety Pt reported this afternoon that anxiety was increased r/t uncertainty over when discharge was going to occur, TID PRN PO ativan had been added to Pt's eMAR earlier in the shift, Pt given PRN PO ativan at that time. Pt also received PRN IV ativan prior to PT which Pt tolerated well. Pt reports that she is still anxious during PT, but that she doesn't panic with ativan present in her system.
[2017-07-04 03:30] VITALS: BP 143/75; PULSE 89; RESP 18; O2SAT 95
[2017-07-04 03:40] LABS: BASOPHILS % (AUTO) 0.3 % (0-3); EOSINOPHILS % (AUTO) 2.8 % (0-5); MONOCYTES % (AUTO) 7.5 % (4-12); Mean Corpuscular Hemoglobin 30.4 pg (27.0-35.0); Mean Corpuscular Volume 92.9 fL (81-100); NEUTROPHILS % (AUTO) 69.5 % (40-74); Platelet Count 288 bil/L (150-400)
[2017-07-04 03:55] LABS: INR 2.34 ratio
--- NOTE | 2017-07-04 04:21 | NUR ---
Pain Pt c/o general pain 06/04. "It hurts all over." Oxycodone 5mg given, which was helpful per pt. Care ongoing.
[2017-07-04 04:59] VITALS: RESP 15; O2SAT 94
[2017-07-04 07:49] VITALS: BP 156/79; PULSE 91; RESP 20; O2SAT 92
[2017-07-04] MEDS: Nystatin 100,000 Unit/mL 5 mL Suspension PO SCH ×4 (07:51→21:24)
[2017-07-04] MEDS: cefTRIAXone Inj 2,000 MG in Dextrose 5% Minibag Plus 50 ML IV SCH ×2 (07:51→21:23)
[2017-07-04] MEDS: Sodium Chloride LOK Flush 10 mL Syringe IVFLUSH SCH ×2 (07:52→17:16)
--- NOTE | 2017-07-04 09:10 | PCM.PHAPRO ---
Progress Date of Service: Jul 04, 2017 Warfarin dosing Date Jun 23-Jun 24-Jun 25-May 26-Jun 27-Jun 28-Jun 29-Jun 30-Jul 01-Jul 02-Jul 03- Jul 04-Jun INR 1.11 1.25 1.88 2.22 3.06 2.82 2.34 2.65 3.12 2.86 2.22 2.40 2.34 INR change 0.14 0.63 0.34 0.84 -0.24 -0.48 0.31 0.47 -0.26 -0.64 0.18 -0.06 Warf Dose 10MG 10MG 5MG 5MG 1MG 3MG 4MG 3MG HOLD 3MG 3MG 2MG 2MG Bear Link Jul 04, 2017 09:10
--- NOTE | 2017-07-04 11:18 | PCM.PNMED ---
Subjective Date of Service Jul 04, 2017 Subjective She is doing pretty well today. She is maybe a little more short of breath but still is only on 1 L of oxygen. No cough. She denies any nausea. She is having some loose stools. She denies any abdominal pain. Her skin is still red and weeping on the left flank. Right flank is weeping but is not nearly as red. No overnight events Exam Vital Signs Vital Sign - Last Date Time Temp Pulse Resp B/P Pulse Ox O2 Delivery O2 Flow Rate FiO2 07/04/17 07:49 36.5 91 20 156/79 92 Nasal Cannula 2.00 07/04/17 04:59 30 Intake and Output 07/03/17 07/03/17 07/04/17 Cumulative From/Thru 15:00 23:00 07:00 06/20/17 10:42 - 07/04/17 05:16 Intake Total 960 ml 400 ml 92306 ml Output Total 2000 ml 1050 ml 59679 ml Balance -1040 ml -650 ml -6261 ml Intake Oral 900 ml 400 ml 38048 ml IV Total 60 ml 8836 ml Output Urine Total 2000 ml 1050 ml 27515 ml # Bowel Movements 1 0 13 Exam Alert and oriented -3, no distress. Fluent speech. Oximeter is on. She is morbidly obese. Anicteric sclera. Lungs are clear with normal rate and effort Heart is regular without murmur gallop or rub Abdomen soft nontender, flat Extremities are free of edema. Skin normal for ongoing erythema along the left flank and some drainage. IVs and Medications Medications Reviewed: Medications were reviewed in detail Lab and Diagnostics Result Diagram: 07/04/17 0250 07/02/17 0225 X-Rays, CTs and MRIs ABG DateTimeAnalyzed 11:12:00 -_ pH ____7.371 - 7.350 7.450 pCO2 ___50.6__ -mmHg 35.0 45.0 pO2 ___35.7__ -mmHg 70.0 100 HCO3- ___28.6__ -mmol/L 22.0 26.0\ FIO2 ___21.0__ -% DateTimeAnalyzed 06:05:00 -_ pH ____7.251 - 7.350 7.450 pCO2 ___74.6__ -mmHg 35.0 45.0 pO2 ___93.9__ -mmHg 69.0 116 HCO3- ___31.6__ -mmol/L 22.0 26.0 X-RAY CHEST ONE VIEW, PORTABLE IMPRESSION: 1. Pulmonary vascular prominence suggesting mild edema. Approved by: Christopher Stephen M.D. on 06/20/2017 at 12:17 X-RAY RIGHT KNEE, ONE OR TWO VIEWS IMPRESSION: 1. Limited study demonstrates no definite fracture or dislocation. If clinical concern persists, consider further evaluation with CT. Dictated by: Christopher Stephen M.D. on 06/20/2017 at 12:15 Cardiac Echo Impressions Echocardiogram Report Interpretation Summary This was a technically difficult study. 1. Grossly normal left ventricular size with grossly normal systolic function. 2. The right ventricle was not visualized. The estimated RVSP is 47 mm plus CVP 3. Valves were not optimally visualized Reading Physician:06:04 PM Additional Diagnostics US VENOUS LEG DUPLEX BILATERAL FINDINGS: The deep veins are normally compressible, and free of intraluminal thrombus. Color and pulse Doppler demonstrate normal phasic intravascular flow. There is normal augmentation response to distal compression maneuver. IMPRESSION: Limited quality of visualization of the lower extremity venous vasculature due to body habitus. No DVT found. Approved by: Emigdio King M.D. on 06/20/2017 at 15:11 Assessment & Plan #. Obesity hypoventilation syndrome, present on admission. Active and stable. - Will require ongoing not internal ventilation support. This is stable no changes to plan. She remains using oxygen during the day and BiPAP typically at night. #. Staph Bacteremia, not present on admission. Resolved No further fevers. - Continue Ceftriaxone IV for at least 14 days (also for cellulitis). This may be extended for her cellulitis and will be continued Clinical Improvement of That. This remained stable no changes from plan. #. Left torso and abdomen cellulitis, new. Active and stable on current antibiotics. We will continue ceftriaxone at 2 g every 12 hours. We will plan on continuing antibiotics for several more days. #. Pulmonary embolism, present on admission. Stable with a therapeutic protime Unable to obtain confirmatory diagnostic testing. Treating empirically. - Warfarin. - INR therapeutic. This is stable. This is being managed by pharmacy. #. Acute Hypoxemic respiratory failure, present on admission. Improving and stable. Initial ABG revealed severe hypoxic deficit despite compensated chronic hypercarbia. Acute hypoxia is deemed likely 2nd to PE, the absence of other respiratory traction or pathology. D-Dimer 8, albeit with bruise on right forearm. She is too large to do Chest CT PE scan. Decision was made to institute empiric antiocoagulation, probably to continue chronically. She is at high risk for chronic thromboembolic pulmonary hypertension. Attempts were made to transfer patient to facility with suitable CT or angiography features but no such facilities identified. Maximum width at [facility] scanner is 78 cm, patient is 90 cm wide. Continue supplemental oxygen. Wean as able. This is stable. #. Acute on chronic Hypercapnic respiratory failure, present on admission. Improving and stable. Likely 2nd to obesity hypoventilation syndrome. Appears to have had worsening hypercarbic respiratory failure following oxygen supplementation in hospital, despite BiPAP. - The plan is for discharge to LTAC for ongoing management. She will likely need a home trilogy Ernesto 1 she is able to discharged to a home environment. - Target O2 saturation is 88% - 92%; avoid excess oxygenation, continue noninvasive positive pressure ventilation. No changes for now. This is stable. #. Anxiety, not present on admission. Active and improving.. - Small dose PO Ativan before PT sessions. We will expand her Ativan to 3 times a day when necessary anxiety. #. Super-Super Morbid obesity. POA and stable. - BMI 86.5 - Patient of family counseled on importance of calorie restriction and weight loss. This remained stable. #. Sacral decubitus ulcers, present on admission. Active . Likely staged II-III. These were inspected by nurses on 06/23 and found to have blanchable erythema and excoriation but no stage IV decubiti. - Wound care consulted. We will continue the current wound plan. Continue wound care. #. Acute urinary tract infection, present on admission. Resolved. - Ecoli in urine cx. - continue abx as above. Acetaminophen for mild pain when necessary. Bowel regimen Senna and MiraLAX scheduled and PRN. Zofran when necessary for nausea and vomiting. SubQ heparin held for now. SCDs in place. High-risk medications: Warfarin. Patient Status: Patient is admitted under inpatient status with expected length of stay greater than 2 midnights due to severity of presenting symptoms, risk of adverse event, and complexity of treatment plan. Awaiting acceptance to [facility] placement with [facility], however they currently do not have a bariatric bed. All imaging and lab data reviewed today. Dangerous medications include warfarin. Resuscitation Status: CPR: Attempt Resuscitation Regis Cardona MD Jul 04, 2017 11:18
[2017-07-04] MEDS: LORazepam 0.5 mg Tablet PO PRN (11:36)
[2017-07-04 16:14] VITALS: BP 146/81; PULSE 95; RESP 16; O2SAT 95
[2017-07-04 21:12] VITALS: BP 157/79; PULSE 94; RESP 22; O2SAT 95
[2017-07-04 23:25] VITALS: RESP 27; O2SAT 95
[2017-07-05] VITALS (7 sets, daily range): BP systolic 132–186; BP diastolic 66–78; PULSE 82–101; RESP 16–24; O2SAT 92–97
[2017-07-05] MEDS: Sodium Chloride LOK Flush 10 mL Syringe IVFLUSH SCH ×4 (00:17→22:12)
[2017-07-05 03:06] LABS: INR 2.27 ratio
--- NOTE | 2017-07-05 05:55 | NUR ---
Skin/Pain At start of shift, Mepilexes intact where applied, Nystatin cream used during skin assessment, additional mepilex used on left flank area where it was noted to weep more. Pt tolerating turns for the most part w/ 4 PA to turn fully for assessment. Mepilex on sacrum taken off d/t some incontinence but later reapplied as pt had no further incontinence. Pt given Tylenol per request for generalized achy pain, stated this brought pain down to tolerable level. Pt appeared to sleep comfortably overnight between care interventions, BiPAP used and pt monitored on STEAM FRAME OPERATOR.
[2017-07-05] MEDS: Nystatin 100,000 Unit/mL 5 mL Suspension PO SCH ×4 (08:16→22:11)
[2017-07-05] MEDS: cefTRIAXone Inj 2,000 MG in Dextrose 5% Minibag Plus 50 ML IV SCH ×2 (08:17→20:41)
--- NOTE | 2017-07-05 10:00 | NUR ---
Isolation Per MD, pt can come off isolation. Pt may also stop zosyn. Addendum: 07/05/17 at 1031 by ERNESTO PARRA RN disregard wrong pt
[2017-07-05] MEDS: LORazepam 1 mg Tablet PO PRN (13:25)
--- NOTE | 2017-07-05 14:53 | PCM.PNMED ---
Subjective Date of Service Jul 05, 2017 Subjective 57-year-old woman with super morbid obesity presented with acute on chronic respiratory failure with hypoxia, likely pulmonary embolism, subsequently with strep bacteremia and cellulitis. No new symptoms overnight. Still bothered by anxiety at times physical therapy and repositioning. No fevers or chills. No dyspnea. Exam Vital Signs Vital Sign - Last Date Time Temp Pulse Resp B/P Pulse Ox O2 Delivery O2 Flow Rate FiO2 07/05/17 08:16 90 20 95 07/05/17 08:13 36.3 140/76 OxyMask 2.00 07/04/17 23:25 30 Intake and Output 07/04/17 07/04/17 07/05/17 Cumulative From/Thru 15:00 23:00 07:00 06/20/17 10:42 - 07/05/17 05:50 Intake Total 1450 ml 380 ml 88155 ml Output Total 1800 ml 1100 ml 70870 ml Balance -350 ml -720 ml -7331 ml Intake Oral 1390 ml 300 ml 17976 ml IV Total 60 ml 80 ml 8976 ml Output Urine Total 1800 ml 1100 ml 49585 ml # Bowel Movements 1 14 Exam General: Very obese woman lying in bed, alert and communicative, no acute distress HEENT: sclerae anicteric, oral mucosa moist Neck: Supple Chest: Generally clear to auscultation Cardiac: S1S2, regular no audible murmur Abdomen: BS normal, non-tender; left lateral abdominal wall with erythema, induration and blistering Extremities: edema Neuro: A&O, cranial nerves symmetric, motor strength and coordination normal IVs and Medications Medications Reviewed: Medications were reviewed in detail Lab and Diagnostics Result Diagram: 07/04/170 07/02/17 0225 X-Rays, CTs and MRIs AB DateTimeAnalyzed 11:12:00 -_ pH ____7.371 - 7.350 7.450 pCO2 ___50.6__ -mmHg 35.0 45.0 pO2 ___35.7__ -mmHg 70.0 100 HCO3- ___28.6__ -mmol/L 22.0 26.0\ FIO2 ___21.0__ -% DateTimeAnalyzed 06:05:00 -_ pH ____7.251 - 7.350 7.450 pCO2 ___74.6__ -mmHg 35.0 45.0 pO2 ___93.9__ -mmHg 69.0 116 HCO3- ___31.6__ -mmol/L 22.0 26.0 X-RAY CHEST ONE VIEW, PORTABLE IMPRESSION: 1. Pulmonary vascular prominence suggesting mild edema. Approved by: Christopher Stephen M.D. on 06/20/2017 at 12:17 X-RAY RIGHT KNEE, ONE OR TWO VIEWS IMPRESSION: 1. Limited study demonstrates no definite fracture or dislocation. If clinical concern persists, consider further evaluation with CT. Dictated by: Christopher Stephen M.D. on 06/20/2017 at 12:15 Cardiac Echo Impressions Echocardiogram Report Interpretation Summary This was a technically difficult study. 1. Grossly normal left ventricular size with grossly normal systolic function. 2. The right ventricle was not visualized. The estimated RVSP is 47 mm plus CVP 3. Valves were not optimally visualized Reading Physician:06:04 PM Additional Diagnostics US VENOUS LEG DUPLEX BILATERAL FINDINGS: The deep veins are normally compressible, and free of intraluminal thrombus. Color and pulse Doppler demonstrate normal phasic intravascular flow. There is normal augmentation response to distal compression maneuver. IMPRESSION: Limited quality of visualization of the lower extremity venous vasculature due to body habitus. No DVT found. Approved by: Emigdio King M.D. on 06/20/2017 at 15:11 Assessment & Plan #. Obesity hypoventilation syndrome, present on admission. Active and stable. - Will require ongoing not internal ventilation support. This is stable no changes to plan. She remains using oxygen during the day and BiPAP typically at night. #. Group B strep Bacteremia, not present on admission. Resolved No further fevers. - Continue Ceftriaxone IV for at least 14 days (also for cellulitis). This may be extended for her cellulitis and will be continued Clinical Improvement of That. This remained stable no changes from plan. #. Left torso and abdomen cellulitis, new. Active and stable on current antibiotics. We will continue ceftriaxone at 2 g every 12 hours. We will plan on continuing antibiotics for several more days. #. Pulmonary embolism, present on admission. Stable with a therapeutic protime. Initial ABG revealed severe hypoxic deficit despite compensated chronic hypercarbia. . D-Dimer 8, albeit with bruise on right forearm. She is too large to do Chest CT PE scan. Decision was made to institute empiric antiocoagulation, probably to continue chronically. She is at high risk for chronic thromboembolic pulmonary hypertension. Attempts were made to transfer patient to facility with suitable CT or angiography features but no such facilities identified. Maximum width at [facility] CT scanner is 78 cm , patient is 90 cm wide. Unable to obtain confirmatory diagnostic testing. Treating empirically. - Warfarin. - INR therapeutic. This is stable. This is being managed by pharmacy. #. Acute Hypoxemic respiratory failure, present on admission. Improving and stable. Acute hypoxia is deemed likely 2nd to PE, the absence of other respiratory traction or pathology. Continue supplemental oxygen. Wean as able. This is stable. #. Acute on chronic Hypercapnic respiratory failure, present on admission. Improving and stable. Likely 2nd to obesity hypoventilation syndrome. Appears to have had worsening hypercarbic respiratory failure following oxygen supplementation in hospital, despite BiPAP. - The plan is for discharge to LTAC for ongoing management. She will likely need a home trilogy when she is able to discharged to a home environment. - Target O2 saturation is 88% - 92%; avoid excess oxygenation, continue noninvasive positive pressure ventilation. No changes for now. This is stable. #. Anxiety, not present on admission. Active and improving.. - Small dose PO Ativan before PT sessions. - Discontinue IV Ativan; patient was counseled on need to minimize dependence on benzodiazepines #. Super-Super Morbid obesity. POA and stable. - BMI 86.5 - Patient of family counseled on importance of calorie restriction and weight loss. This remained stable. #. Sacral decubitus ulcers, present on admission. Active . Likely staged II. These were inspected by nurses on 06/23 and found to have blanchable erythema and excoriation but no stage IV decubiti. - Wound care consulted. We will continue the current wound plan. Continue wound care. #. Acute urinary tract infection, present on admission. Resolved. - Asymptomatic bacteriuria Ecoli in urine at time of admission - Covered by cellulitis antibiotics Acetaminophen for mild pain when necessary. Bowel regimen Senna and MiraLAX scheduled and PRN. Zofran when necessary for nausea and vomiting. SubQ heparin held for now. SCDs in place. High-risk medications: Warfarin. Patient Status: Patient is admitted under inpatient status with expected length of stay greater than 2 midnights due to severity of presenting symptoms, risk of adverse event, and complexity of treatment plan. Awaiting acceptance to LT[facility] placement with [facility], however they currently do not have a bariatric bed. All imaging and lab data reviewed today. Dangerous medications include warfarin. Resuscitation Status: CPR: Attempt Resuscitation Time spent 15 minutes Sonny Silva MD Jul 05, 2017 14:53
--- NOTE | 2017-07-05 18:00 | NUR ---
sTATUS Pt stable today and up with PTx1. VSS. Pain controlled. Anxiety managed.
[2017-07-06] VITALS (7 sets, daily range): BP systolic 134–156; BP diastolic 70–80; PULSE 91–97; RESP 18–20; O2SAT 92–96
--- NOTE | 2017-07-06 05:45 | NUR ---
Skin: Nystatin cream and Mepilex foam was applied and placed to pt's folds after initial assessment last evening. Pt refused to turn stating that she had just turned prior to shift change for a bowel movement. Pt denied further requests to turn her during the night, thus denying staff the ability to assess her posterior side.
--- NOTE | 2017-07-06 07:47 | NUR ---
NUTRITION FOLLOW-UP: ASSESS: 57 YO female admitted with hypoxemia, advanced respiratory failure, presumed PE. Wound care is following. Pt has multiple gluteal wounds. She is on a Heart Healthy diet with good PO with 100% of meals and she is receiving Francis with L and D to assist with wound healing. She remains admitted, pending discharge to [place], once a bariatric bed becomes available. PMHx: Arthritis, FRANK, depression, advanced respiratory failure, class III obesity. DIET: Heart healthy + Francis. PO intake 100% trays. LABS: Reviewed. Cr 0.41, Glu 104, Ca 8.4. MEDICATIONS: Reviewed. Florastor, Imodium, Coumadin. GI: BM x 1 today. SKIN: Wound care following from multiple gluteal wounds. Patient seen 07/03 for complaint of increased drainage over L thorax. Multiple vesicles and bulla noted, filled with clear, serosanguinous fluid. Some have opened and drained into bedding, some are intact. Surrounding tissue edematous and spongy, erythemic and moist. ANTHROPOMETRICS: Current Wt: 279.4 kg, BMI: 105.7 kg/m2. Admit weight: 278.2 kg, Adjust BW: 110 kg, IBW: 54.5 kg ESTIMATED NEEDS (BMI, WOUNDS): Calories: 1512-7912 kcal/day (22-25 kcal/kg adj BW) Protein: 110-130 g/day (1.0-1.2 g/kg adj BW) NUTRITION DIAGNOSIS: 1) Increased nutrient needs related to increased demand for nutrients, as evidenced by multiple wound issues noted by Information Security Consultant - IMPROVING. INTERVENTION: 1) Continue current diet and Francis at lunch and dinner for wound healing as ordered. MONITOR/EVALUATE: PO intake, wt, GI, wounds, labs, nutrition status. Follow per moderate nutrition risk guidelines. Addendum: 07/09/17 at [address] 2 DAY CALORIE COUNT ORDERED TODAY. Will put envelope for nursing to saved menu slips with instructions and inform nutrition and dietetics instructor.
[2017-07-06] MEDS ORDERED: 0.9% Sodium Chloride 250 ML ONE (08:59)
[2017-07-06] MEDS: cefTRIAXone Inj 2,000 MG in Dextrose 5% Minibag Plus 50 ML IV SCH ×2 (09:09→21:01)
[2017-07-06] MEDS: Sodium Chloride LOK Flush 10 mL Syringe IVFLUSH SCH ×2 (09:10→18:08)
[2017-07-06] MEDS: Nystatin 100,000 Unit/mL 5 mL Suspension PO SCH ×4 (09:10→22:59)
--- NOTE | 2017-07-06 10:25 | NUR ---
Social Work Note: Continued Discharge Planning Data& Assessment: Pt was discussed in multidisciplinary rounds, per MD pt is medically improving but still in need of LTAC level of care and is not medically ready to discharge home. Pt awaiting for bed availability at [facility]. Pt ambulated a few steps with PT yesterday and is doing well. No other discharge needs or MD orders identified at this time. SW to continue to follow. Plan: Anticipated transfer to [facility] for continued care pending bed availability at their [facility] location. No other discharge needs or MD orders identified at this time. SW to continue to follow. BRENDA Richardson
--- NOTE | 2017-07-06 11:50 | NUR ---
Inpatient Wound Nurse Conversation completed with patient's primary nurse who stated that patient was provided with bed bath on noc shift and Mepilex foam was changed in skin folds at that time. Nurse has spot-checked dressings and will change PRN. Patient's skin is progressively improving although skin breakdown over gluteals will likely not improve quickly until she side-lies and sweat is decreased. Patient denied pruritis or pain to skin folds or gluteals.
[2017-07-06] MEDS: LORazepam 1 mg Tablet PO PRN (12:08)
--- NOTE | 2017-07-06 12:21 | PCM.PHAPRO ---
Progress Warfarin dosing O/ INR therapeutic a/ Likely stable dose will be ~ 2.5mg/day p/ Continue 2.5mg/day and follow. Consider reducing INR to every 2 days. Gagandeep Valladares Pharm D Jul 06, 2017 12:21
--- NOTE | 2017-07-06 16:31 | PCM.PNMED ---
Subjective Date of Service Jul 06, 2017 Subjective 57-year-old woman with super morbid obesity presented with acute on chronic respiratory failure with hypoxia, likely pulmonary embolism, subsequently with strep bacteremia and cellulitis. No new symptoms. She enjoyed visit from [facility] this morning. Still bothered by anxiety at times physical therapy and repositioning. Exam Vital Signs Vital Sign - Last Date Time Temp Pulse Resp B/P Pulse Ox O2 Delivery O2 Flow Rate FiO2 07/06/17 16:22 36.8 97 18 145/70 95 Nasal Cannula 2.00 07/06/17 03:23 30 Intake and Output 07/05/17 07/05/17 07/06/17 Cumulative From/Thru 15:00 23:00 07:00 06/20/17 10:42 - 07/06/17 06:22 Intake Total 1380 ml 400 ml 75347 ml Output Total 2100 ml 600 ml 04674 ml Balance -720 ml -200 ml -8251 ml Intake Oral 1320 ml 400 ml 20451 ml IV Total 60 ml 9036 ml Output Urine Total 2100 ml 600 ml 23598 ml # Bowel Movements 1 1 16 Exam General: Very obese woman, no acute distress HEENT: sclerae anicteric, oral mucosa moist Chest: Clear to auscultation Cardiac: S1S2, regular no audible murmur Abdomen: BS normal, non-tender; left lateral abdominal wall with erythema, induration and blistering Extremities: Moderate edema, mostly nonpitting Neuro: A&O, cranial nerves symmetric, motor strength and coordination normal IVs and Medications Medications Reviewed: Medications were reviewed in detail Lab and Diagnostics Result Diagram: 07/04/17 0250 07/02/17 0225 X-Rays, CTs and MRIs ABG DateTimeAnalyzed 11:12:00 -_ pH ____7.371 - 7.350 7.450 pCO2 ___50.6__ -mmHg 35.0 45.0 pO2 ___35.7__ -mmHg 70.0 100 HCO3- ___28.6__ -mmol/L 22.0 26.0\ FIO2 ___21.0__ -% DateTimeAnalyzed 06:05:00 -_ pH ____7.251 - 7.350 7.450 pCO2 ___74.6__ -mmHg 35.0 45.0 pO2 ___93.9__ -mmHg 69.0 116 HCO3- ___31.6__ -mmol/L 22.0 26.0 X-RAY CHEST ONE VIEW, PORTABLE IMPRESSION: 1. Pulmonary vascular prominence suggesting mild edema. Approved by: Christopher Stephen M.D. on 06/20/2017 at 12:17 X-RAY RIGHT KNEE, ONE OR TWO VIEWS IMPRESSION: 1. Limited study demonstrates no definite fracture or dislocation. If clinical concern persists, consider further evaluation with CT. Dictated by: Christopher Stephen M.D. on 06/20/2017 at 12:15 Cardiac Echo Impressions Echocardiogram Report Interpretation Summary This was a technically difficult study. 1. Grossly normal left ventricular size with grossly normal systolic function. 2. The right ventricle was not visualized. The estimated RVSP is 47 mm plus CVP 3. Valves were not optimally visualized Reading Physician:06:04 PM Additional Diagnostics US VENOUS LEG DUPLEX BILATERAL FINDINGS: The deep veins are normally compressible, and free of intraluminal thrombus. Color and pulse Doppler demonstrate normal phasic intravascular flow. There is normal augmentation response to distal compression maneuver. IMPRESSION: Limited quality of visualization of the lower extremity venous vasculature due to body habitus. No DVT found. Approved by: Emigdio King M.D. on 06/20/2017 at 15:11 Assessment & Plan #. Obesity hypoventilation syndrome, present on admission. Active and stable. - Will require ongoing bilevel volume directed ventilation support. This is stable no changes to plan. She remains using oxygen during the day and MOTOR EXPERT at night. #. Group B strep Bacteremia, not present on admission. Resolved - Continue Ceftriaxone IV for at least 14 days (also for cellulitis). #. Left torso and abdomen cellulitis, new. Active and stable on current antibiotics. - continue ceftriaxone at 2 g every 12 hours. We will plan on continuing antibiotics for several more days. #. Pulmonary embolism, present on admission. Stable with a therapeutic protime. Initial ABG revealed severe hypoxic deficit despite compensated chronic hypercarbia. . D-Dimer 8, albeit with bruise on right forearm. She is too large to do Chest CT PE scan. Decision was made to institute empiric antiocoagulation, probably to continue chronically. She is at high risk for chronic thromboembolic pulmonary hypertension. Attempts were made to transfer patient to facility with suitable CT or angiography features but no such facilities identified. Maximum width at [facility] CT scanner is 78 cm , patient is 90 cm wide. Unable to obtain confirmatory diagnostic testing. Treating empirically. - Warfarin. - INR therapeutic. This is stable. This is being managed by pharmacy. #. Acute Hypoxemic respiratory failure, present on admission. Improving and stable. Acute hypoxia is deemed likely 2nd to PE, the absence of other respiratory traction or pathology. Continue supplemental oxygen. Wean as able. This is stable. #. Acute on chronic Hypercapnic respiratory failure, present on admission. Improving and stable. Likely 2nd to obesity hypoventilation syndrome. Appears to have had worsening hypercarbic respiratory failure following oxygen supplementation in hospital, despite BiPAP. - The plan is for discharge to LTAC for ongoing management. She will likely need a home trilogy when she is able to discharged to a home environment. - Target O2 saturation is 88% - 92%; avoid excess oxygenation, continue noninvasive positive pressure ventilation. No changes for now. This is stable. #. Anxiety, not present on admission. Active and improving.. - Small dose PO Ativan before PT sessions. - Discontinue IV Ativan; patient was counseled on need to minimize dependence on benzodiazepines #. Super-Super Morbid obesity. POA and stable. - BMI 86.5 - Patient of family counseled on importance of calorie restriction and weight loss. - Recommend 800-1000 calorie diet with appropriate protein, fiber and vitamin supplement. #. Sacral decubitus ulcers, present on admission. Active . Likely stage II. These were inspected by nurses on 06/23 and found to have blanchable erythema and excoriation but no stage IV decubiti. - Wound care consulted. We will continue the current wound plan. Continue wound care. #. Acute urinary tract infection, present on admission. Resolved. - Asymptomatic bacteriuria Ecoli in urine at time of admission - Covered by cellulitis antibiotics Acetaminophen for mild pain when necessary. Bowel regimen Senna and MiraLAX scheduled and PRN. Zofran when necessary for nausea and vomiting. SubQ heparin held for now. SCDs in place. High-risk medications: Warfarin. Patient Status: Patient is admitted under inpatient status with expected length of stay greater than 2 midnights due to severity of presenting symptoms, risk of adverse event, and complexity of treatment plan. Awaiting acceptance to LT[facility] placement with [facility], however they currently do not have a bariatric bed. Resuscitation Status: CPR: Attempt Resuscitation Time spent 20 minutes Sonny Silva MD Jul 06, 2017 16:31
--- NOTE | 2017-07-06 19:38 | NUR ---
Anxiety/PT Pt remains anxious when working with PT, Pt on venlafaxine and PRN lorazepam available, Pt given dose of lorazepam at lunchtime in preparation of PT this afternoon, Pt continues to make progress with PT, see PT notes for details.
[2017-07-07] VITALS (8 sets, daily range): BP systolic 130–172; BP diastolic 70–88; PULSE 85–99; RESP 15–22; O2SAT 93–96
[2017-07-07] MEDS: Sodium Chloride LOK Flush 10 mL Syringe IVFLUSH SCH ×3 (00:33→17:39)
--- NOTE | 2017-07-07 04:07 | NUR ---
O2/ABX/Pain 2 Liters O2 per NC while awake, BiPap 30% FiO2 asleep. Not on telemetry. Ceftriaxone IV, Nystatin Cream PRN for skin folds , Up W PT only. 2 person Max assist [employer] Healthy diet. Waiting placement @ [facility] . A&O x 3 using call light appropriately .
[2017-07-07] MEDS: cefTRIAXone Inj 2,000 MG in Dextrose 5% Minibag Plus 50 ML IV SCH ×2 (08:49→20:50)
[2017-07-07] MEDS: Nystatin 100,000 Unit/mL 5 mL Suspension PO SCH ×4 (08:53→22:26)
--- NOTE | 2017-07-07 09:30 | NUR ---
Multidisciplinary Communication [id number] - Discussed her care with Dr. Silva and the rest of the multidisciplinary care team during morning rounds. Was told that we are just waiting on a bariatric bed at the [facility] [place] for discharge. Care continues.
[2017-07-07 11:16] LABS: INR 2.29 ratio
[2017-07-07] MEDS: LORazepam 1 mg Tablet PO PRN (12:26)
--- NOTE | 2017-07-07 14:28 | PCM.PNMED ---
Subjective Date of Service Jul 07, 2017 Subjective 57-year-old woman with super morbid obesity presented with acute on chronic respiratory failure with hypoxia, likely pulmonary embolism, subsequently with strep bacteremia and cellulitis. Complains of mild diarrhea. She is concerned about 2 episodes of menses after 6 months of amenorrhea. Anxiety seems well controlled. She is tolerating her current diet. We discussed importance of her adhering to a 800-1000 calorie per day diet with appropriate nutritional quality. She seems to understand and is motivated. Exam Vital Signs Vital Sign - Last Date Time Temp Pulse Resp B/P Pulse Ox O2 Delivery O2 Flow Rate FiO2 07/07/17 09:35 95 18 95 07/07/17 08:41 Supplement Oxygen 07/07/17 08:41 36.6 139/79 2.00 07/07/17 04:18 30 Intake and Output 07/06/17 07/06/17 07/07/17 Cumulative From/Thru 15:00 23:00 07:00 06/20/17 10:42 - 07/07/17 06:30 Intake Total 1740 ml 870 ml 93392 ml Output Total 550 ml 400 ml 55942 ml Balance 1190 ml 470 ml -6591 ml Intake Oral 1680 ml 800 ml 17050 ml IV Total 60 ml 70 ml 9166 ml Output Urine Total 550 ml 400 ml 98362 ml # Bowel Movements 1 1 18 Exam General: Very obese woman, alert and talkative HEENT: sclerae anicteric, oral mucosa moist Chest: Clear to auscultation Cardiac: S1S2, regular Abdomen: BS normal, non-tender; left lateral abdominal wall with erythema, induration and blistering but minimal warmth Extremities: nonpitting Neuro: A&O, cranial nerves symmetric, motor strength and coordination normal IVs and Medications Medications Reviewed: Medications were reviewed in detail Lab and Diagnostics Result Diagram: 07/04/17 0250 07/02/17 0225 X-Rays, CTs and MRIs ABG DateTimeAnalyzed 11:12:00 -_ pH ____7.371 - 7.350 7.450 pCO2 ___50.6__ -mmHg 35.0 45.0 pO2 ___35.7__ -mmHg 70.0 100 HCO3- ___28.6__ -mmol/L 22.0 26.0\ FIO2 ___21.0__ -% DateTimeAnalyzed 06:05:00 -_ pH ____7.251 - 7.350 7.450 pCO2 ___74.6__ -mmHg 35.0 45.0 pO2 ___93.9__ -mmHg 69.0 116 HCO3- ___31.6__ -mmol/L 22.0 26.0 X-RAY CHEST ONE VIEW, PORTABLE IMPRESSION: 1. Pulmonary vascular prominence suggesting mild edema. Approved by: Christopher Stephen M.D. on 06/20/2017 at 12:17 X-RAY RIGHT KNEE, ONE OR TWO VIEWS IMPRESSION: 1. Limited study demonstrates no definite fracture or dislocation. If clinical concern persists, consider further evaluation with CT. Dictated by: Christopher Stephen M.D. on 06/20/2017 at 12:15 Cardiac Echo Impressions Echocardiogram Report Interpretation Summary This was a technically difficult study. 1. Grossly normal left ventricular size with grossly normal systolic function. 2. The right ventricle was not visualized. The estimated RVSP is 47 mm plus CVP 3. Valves were not optimally visualized Reading Physician:06:04 PM Additional Diagnostics US VENOUS LEG DUPLEX BILATERAL FINDINGS: The deep veins are normally compressible, and free of intraluminal thrombus. Color and pulse Doppler demonstrate normal phasic intravascular flow. There is normal augmentation response to distal compression maneuver. IMPRESSION: Limited quality of visualization of the lower extremity venous vasculature due to body habitus. No DVT found. Approved by: Emigdio King M.D. on 06/20/2017 at 15:11 Assessment & Plan #. Obesity hypoventilation syndrome, present on admission. Active and stable. - Will require ongoing bilevel volume directed ventilation support. This is stable no changes to plan. She remains using oxygen during the day and BENDING ROLL HAND at night. #. Group B strep Bacteremia, not present on admission. Resolved -Completed Ceftriaxone IV for 14 days (also for cellulitis). #. Left torso and abdomen cellulitis, new. Active and stable. Probable some component chronic panniculitis. - Okay to discontinue antibiotics - completed two-week course with minimal change in her left abdominal erythema #. Pulmonary embolism, present on admission. Stable with a therapeutic protime. Initial ABG revealed severe hypoxic deficit despite compensated chronic hypercarbia. . D-Dimer 8, albeit with bruise on right forearm. She is too large to do Chest CT PE scan. Decision was made to institute empiric anticoagulation, probably to continue chronically. She is at high risk for chronic thromboembolic pulmonary hypertension. Attempts were made to transfer patient to facility with suitable CT or angiography features but no such facilities identified. Maximum width at [facility] CT scanner is 78 cm , patient is 90 cm wide. Unable to obtain confirmatory diagnostic testing. Treating empirically. - Warfarin. - INR therapeutic. This is stable. This is being managed by pharmacy. #. Acute Hypoxemic respiratory failure, present on admission. Improving and stable. Acute hypoxia is deemed likely 2nd to PE, the absence of other respiratory traction or pathology. Continue supplemental oxygen. Wean as able. This is stable. #. Acute on chronic Hypercapnic respiratory failure, present on admission. Improving and stable. Likely 2nd to obesity hypoventilation syndrome. Appears to have had worsening hypercarbic respiratory failure following oxygen supplementation in hospital, despite BiPAP. - The plan is for discharge to LTAC for ongoing management. She will likely need a home trilogy when she is able to discharged to a home environment. - Target O2 saturation is 88% - 92%; avoid excess oxygenation, continue noninvasive positive pressure ventilation. No changes for now. This is stable. #. Anxiety, not present on admission. Active and improving.. - Small dose PO Ativan before PT sessions. - Discontinue IV Ativan; patient was counseled on need to minimize dependence on benzodiazepines #. Super-Super Morbid obesity. POA and stable. - BMI 86.5 - Patient of family counseled on importance of calorie restriction and weight loss. - Recommend 800-1000 calorie diet with appropriate protein, fiber and vitamin supplement. #. Sacral decubitus ulcers, present on admission. Active . Likely stage II. These were inspected by nurses on 06/23 and found to have blanchable erythema and excoriation but no stage IV decubiti. - Wound care consulted. We will continue the current wound plan. Continue wound care. #. Acute urinary tract infection, present on admission. Resolved. Asymptomatic bacteriuria Ecoli in urine at time of admission - Covered by cellulitis antibiotics Acetaminophen for mild pain when necessary. Bowel regimen Senna and MiraLAX scheduled and PRN. Zofran when necessary for nausea and vomiting. SubQ heparin held for now. SCDs in place. High-risk medications: Warfarin. Patient Status: Patient is admitted under inpatient status with expected length of stay greater than 2 midnights due to severity of presenting symptoms, risk of adverse event, and complexity of treatment plan. Awaiting acceptance to LT[facility] placement with [facility], however they currently do not have a bariatric bed. Resuscitation Status: CPR: Attempt Resuscitation Time spent 20 minutes Sonny Silva MD Jul 07, 2017 14:28
[2017-07-08] MEDS: Sodium Chloride LOK Flush 10 mL Syringe IVFLUSH SCH ×3 (00:53→15:19)
--- NOTE | 2017-07-08 02:44 | NUR ---
Care Not on telemetry, VS within base for pt, Pain management with Tylenol this shift, Skin care per wound care instructions, A&O x3 using call light appropriately, BI-Pap to sleep FiO2 30% 14/09. Oxy mask while awake. Saline locked while not infusing ABX. Pt spirits good.
[2017-07-08 03:14] VITALS: BP 113/65; PULSE 87; RESP 18; O2SAT 95
[2017-07-08 04:15] VITALS: RESP 22; O2SAT 93
--- NOTE | 2017-07-08 07:38 | PCM.PHAPRO ---
Progress Warfarin dosing RDM RWP RWP RWP RWP GSF DFF -Jul 01-Jul 02-Jul 03-Jul 04-Jul 05-Jul 06-Jul 07-Jun 3.12 2.86 2.22 2.40 2.34 2.27 2.29 0.47 -0.26 -0.64 0.18 -0.06 -0.07 2.29 HOLD 3MG 3MG 2MG 2MG 2.5 2.5 2.5 Therapeutic INR. Will continue with warfatin 2.5 mg. INR every other day. Marciano Naqvi, PharmD Marciano Naqvi Jul 08, 2017 07:38
[2017-07-08 07:55] VITALS: RESP 18; O2SAT 95
[2017-07-08 09:14] VITALS: BP 141/78; PULSE 86; RESP 16; O2SAT 96
[2017-07-08] MEDS: Nystatin 100,000 Unit/mL 5 mL Suspension PO SCH ×4 (09:17→20:26)
[2017-07-08] MEDS: cefTRIAXone Inj 2,000 MG in Dextrose 5% Minibag Plus 50 ML IV SCH ×2 (09:18→20:25)
[2017-07-08] MEDS: LORazepam 1 mg Tablet PO PRN (11:11)
--- NOTE | 2017-07-08 15:16 | PCM.PNMED ---
Subjective Date of Service Jul 08, 2017 Subjective 57-year-old woman with super morbid obesity presented with acute on chronic respiratory failure with hypoxia, likely pulmonary embolism, subsequently with strep bacteremia and cellulitis. Anxiety seems well controlled. She is tolerating her current diet. No new complaints today. Exam Vital Signs Vital Sign - Last Date Time Temp Pulse Resp B/P Pulse Ox O2 Delivery O2 Flow Rate FiO2 07/08/17 09:36 Supplement Oxygen 07/08/17 09:14 36.8 86 16 141/78 96 2.00 07/07/17 04:18 30 Intake and Output 07/07/17 07/07/17 07/08/17 Cumulative From/Thru 15:00 23:00 07:00 06/20/17 10:42 - 07/08/17 05:33 Intake Total 45 ml 600 ml 461 ml 18977 ml Output Total 700 ml 1000 ml 57784 ml Balance 45 ml -100 ml -539 ml -7185 ml Intake Oral 600 ml 400 ml 30787 ml IV Total 45 ml 61 ml 9272 ml Output Urine Total 700 ml 1000 ml 22773 ml # Bowel Movements 2 0 20 Exam General: Very obese woman, alert and talkative HEENT: sclerae anicteric, oral mucosa moist Chest: Clear to auscultation Cardiac: S1S2, regular Abdomen: BS normal, non-tender; left lateral abdominal wall with erythema, induration and blistering but minimal warmth Extremities: nonpitting Neuro: A&O, cranial nerves symmetric, motor strength and coordination normal Lab and Diagnostics Result Diagram: 07/04/17 0250 07/02/17 0225 X-Rays, CTs and MRIs ABG DateTimeAnalyzed 11:12:00 -_ pH ____7.371 - 7.350 7.450 pCO2 ___50.6__ -mmHg 35.0 45.0 pO2 ___35.7__ -mmHg 70.0 100 HCO3- ___28.6__ -mmol/L 22.0 26.0\ FIO2 ___21.0__ -% DateTimeAnalyzed 06:05:00 -_ pH ____7.251 - 7.350 7.450 pCO2 ___74.6__ -mmHg 35.0 45.0 pO2 ___93.9__ -mmHg 69.0 116 HCO3- ___31.6__ -mmol/L 22.0 26.0 X-RAY CHEST ONE VIEW, PORTABLE IMPRESSION: 1. Pulmonary vascular prominence suggesting mild edema. Approved by: Christopher Stephen M.D. on 06/20/2017 at 12:17 X-RAY RIGHT KNEE, ONE OR TWO VIEWS IMPRESSION: 1. Limited study demonstrates no definite fracture or dislocation. If clinical concern persists, consider further evaluation with CT. Dictated by: Christopher Stephen M.D. on 06/20/2017 at 12:15 Cardiac Echo Impressions Echocardiogram Report Interpretation Summary This was a technically difficult study. 1. Grossly normal left ventricular size with grossly normal systolic function. 2. The right ventricle was not visualized. The estimated RVSP is 47 mm plus CVP 3. Valves were not optimally visualized Reading Physician:06:04 PM Additional Diagnostics US VENOUS LEG DUPLEX BILATERAL FINDINGS: The deep veins are normally compressible, and free of intraluminal thrombus. Color and pulse Doppler demonstrate normal phasic intravascular flow. There is normal augmentation response to distal compression maneuver. IMPRESSION: Limited quality of visualization of the lower extremity venous vasculature due to body habitus. No DVT found. Approved by: Emigdio King M.D. on 06/20/2017 at 15:11 Assessment & Plan #. Obesity hypoventilation syndrome, present on admission. Active and stable. - Will require ongoing bilevel volume-directed ventilation support when sleeping. This is stable no changes to plan. 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 #. Group B strep Bacteremia, not present on admission. Resolved -Completed Ceftriaxone IV for 14 days (also for cellulitis). #. Left torso and abdomen cellulitis, new. Active and stable. Probable some component chronic panniculitis. - Okay to discontinue antibiotics - completed two-week course with minimal change in her left abdominal erythema #. Pulmonary embolism, present on admission. Stable with a therapeutic protime. Initial ABG revealed severe hypoxic deficit despite compensated chronic hypercarbia. . D-Dimer 8, albeit with bruise on right forearm. She is too large to do Chest CT PE scan. Decision was made to institute empiric anticoagulation, probably to continue chronically. She is at high risk for chronic thromboembolic pulmonary hypertension. Attempts were made to transfer patient to facility with suitable CT or angiography features but no such facilities identified. Maximum width at [facility] CT scanner is 78 cm , patient is 90 cm wide. Unable to obtain confirmatory diagnostic testing. Treating empirically. - Warfarin. - INR therapeutic. This is stable. This is being managed by pharmacy. #. Acute Hypoxemic respiratory failure, present on admission. Improving and stable. Acute hypoxia is deemed likely 2nd to PE, the absence of other respiratory traction or pathology. Continue supplemental oxygen. Wean as able. This is stable. #. Acute on chronic Hypercapnic respiratory failure, present on admission. Improving and stable. Likely 2nd to obesity hypoventilation syndrome. Appears to have had worsening hypercarbic respiratory failure following oxygen supplementation in hospital, despite BiPAP. - The plan is for discharge to LTAC for ongoing management. She will likely need a home trilogy when she is able to discharged to a home environment. - Target O2 saturation is 88% - 92%; avoid excess oxygenation, continue noninvasive positive pressure ventilation. No changes for now. This is stable. #. Anxiety, not present on admission. Active and improving.. - Small dose PO Ativan before PT sessions. - Discontinue IV Ativan; patient was counseled on need to minimize dependence on benzodiazepines #. Super-Super Morbid obesity. POA and stable. - BMI 86.5 - Continue bariatric nursing care procedures - Patient of family counseled on importance of calorie restriction and weight loss. - Recommend 800-1000 calorie diet with appropriate protein, fiber and vitamin supplement. #. Sacral decubitus ulcers, present on admission. Active . Likely stage II. These were inspected by nurses on 06/23 and found to have blanchable erythema and excoriation but no stage IV decubiti. - Wound care consulted. We will continue the current wound plan. Continue wound care. #. Acute urinary tract infection, present on admission. Resolved. Asymptomatic bacteriuria Ecoli in urine at time of admission - Covered by cellulitis antibiotics Acetaminophen for mild pain when necessary. Bowel regimen Senna and MiraLAX scheduled and PRN. Zofran when necessary for nausea and vomiting. SubQ heparin held for now. SCDs in place. High-risk medications: Warfarin. Patient Status: Patient is admitted under inpatient status with expected length of stay greater than 2 midnights due to severity of presenting symptoms, risk of adverse event, and complexity of treatment plan. Awaiting acceptance to LT[facility] placement with [facility], however they currently do not have a bariatric bed. Resuscitation Status: CPR: Attempt Resuscitation Time spent 20 minutes Sonny Silva MD Jul 08, 2017 15:16
[2017-07-08 17:00] VITALS: BP 133/79; PULSE 98; RESP 20; O2SAT 93
--- NOTE | 2017-07-08 17:25 | NUR ---
Activity PAtietn A&Ox3, VSS. Patient able to assist with turns, getting on/off bedpan. Stood with PT and was able to get standing weight with PT assistance. Patient maintaining SpO2 low-mid 90s on 2L NC. Patient c/o generalized pain, PRN tylenol effective in relieving pain. Salcedo patent and draining britni urine. Mepilex to skin folds and pannus C/D/I. Patient visiting with , call light within reach.
--- NOTE | 2017-07-08 17:32 | NUR ---
[facility] Signed
[2017-07-08 20:44] VITALS: BP 137/85; PULSE 92; RESP 18; O2SAT 95
[2017-07-09] VITALS (9 sets, daily range): BP systolic 151–158; BP diastolic 76–88; PULSE 82–95; RESP 14–24; O2SAT 90–99
[2017-07-09] MEDS: Sodium Chloride LOK Flush 10 mL Syringe IVFLUSH SCH ×3 (00:37→17:25)
--- NOTE | 2017-07-09 06:33 | NUR ---
ACTIVITY/CARE A/O, LIMITED MOBILITY; HOWEVER, ASSISTS TO TURN FOR USE OF BEDPAN. USES OXY MASK (2L), WITH SPO2 IN UPPER 90'S. CIPAP FOR NIGHTTIME REST, RT S/U. RESTED FOR EXTENDED PERIOD, COOPERATIVE WITH CARE AND VERBALIZES NEEDS APPROPRIATELY. INDICATES GENERALIZED PAIN, TYLENOL GIVEN. VSS FOR PT BASELINE, NO TELE. REPORT GIVEN TO ON COMING RN.
[2017-07-09] MEDS: cefTRIAXone Inj 2,000 MG in Dextrose 5% Minibag Plus 50 ML IV SCH ×2 (09:07→21:16)
[2017-07-09] MEDS: Nystatin 100,000 Unit/mL 5 mL Suspension PO SCH ×4 (09:08→21:18)
--- NOTE | 2017-07-09 10:38 | NUR ---
INDEPENDENCE FOLLOW UP: Called and left message with Jenniffer at [facility] and asked for bed status and update on patient's likely transfer date. Updated POKER MACHINE ATTENDANT
--- NOTE | 2017-07-09 12:10 | PCM.PNMED ---
Subjective Date of Service Jul 09, 2017 Subjective 57-year-old woman with super morbid obesity presented with acute on chronic respiratory failure with hypoxia, likely pulmonary embolism treated empirically with warfarin, subsequently with strep bacteremia and cellulitis and completed full course of antibiotics. Now awaiting placement due to her mobility limitations. Anxiety seems well controlled. She is tolerating her current diet. No new complaints today. Calorie count ordered. Exam Vital Signs Vital Sign - Last Date Time Temp Pulse Resp B/P Pulse Ox O2 Delivery O2 Flow Rate FiO2 07/09/17 09:05 Supplement Oxygen CPAP/BIPAP 07/09/17 08:51 88 22 99 07/09/17 07:52 36.8 151/88 07/09/17 04:38 30 07/08/17 20:44 2.00 Intake and Output 07/08/17 07/08/17 07/09/17 Cumulative From/Thru 15:00 23:00 07:00 06/20/17 10:42 - 07/09/17 06:00 Intake Total 650 ml 400 ml 17434 ml Output Total 1125 ml 800 ml 06547 ml Balance -475 ml -400 ml -8060 ml Intake Oral 600 ml 400 ml 69078 ml IV Total 50 ml 9322 ml Output Urine Total 1125 ml 800 ml 14823 ml # Bowel Movements 1 1 22 Exam General: Very obese woman, alert and talkative HEENT: sclerae anicteric, Chest: Breathing comfortably Abdomen: Left lateral abdominal wall with erythema, induration and blistering but minimal warmth Extremities: Substantial but nonpitting Neuro: A&O, cranial nerves symmetric, motor strength and coordination normal with physical therapy Lab and Diagnostics Result Diagram: 07/04/17 0250 X-Rays, CTs and MRIs ABG DateTimeAnalyzed 11:12:00 -_ pH ____7.371 - 7.350 7.450 pCO2 ___50.6__ -mmHg 35.0 45.0 pO2 ___35.7__ -mmHg 70.0 100 HCO3- ___28.6__ -mmol/L 22.0 26.0\ FIO2 ___21.0__ -% DateTimeAnalyzed 06:05:00 -_ pH ____7.251 - 7.350 7.450 pCO2 ___74.6__ -mmHg 35.0 45.0 pO2 ___93.9__ -mmHg 69.0 116 HCO3- ___31.6__ -mmol/L 22.0 26.0 X-RAY CHEST ONE VIEW, PORTABLE IMPRESSION: 1. Pulmonary vascular prominence suggesting mild edema. Approved by: Christopher Stephen M.D. on 06/20/2017 at 12:17 X-RAY RIGHT KNEE, ONE OR TWO VIEWS IMPRESSION: 1. Limited study demonstrates no definite fracture or dislocation. If clinical concern persists, consider further evaluation with CT. Dictated by: Christopher Stephen M.D. on 06/20/2017 at 12:15 Cardiac Echo Impressions Echocardiogram Report Interpretation Summary This was a technically difficult study. 1. Grossly normal left ventricular size with grossly normal systolic function. 2. The right ventricle was not visualized. The estimated RVSP is 47 mm plus CVP 3. Valves were not optimally visualized Reading Physician:06:04 PM Additional Diagnostics US VENOUS LEG DUPLEX BILATERAL FINDINGS: The deep veins are normally compressible, and free of intraluminal thrombus. Color and pulse Doppler demonstrate normal phasic intravascular flow. There is normal augmentation response to distal compression maneuver. IMPRESSION: Limited quality of visualization of the lower extremity venous vasculature due to body habitus. No DVT found. Approved by: Emigdio King M.D. on 06/20/2017 at 15:11 Assessment & Plan #. Super-Super Morbid obesity. POA and stable. Patient counseled by Kwame that aggressive calorie reduction is needed to expedite her return to mobility and her ability to live outside of an institutional setting. She concurs and is supportive of aggressive dieting goals. She seemed to tolerate her diet at current levels. - BMI 86.5 - Continue bariatric nursing care procedures - Patient of family counseled on importance of calorie restriction and weight loss. - Recommend 800-1000 calorie diet with appropriate protein, fiber and vitamin supplement. - Calorie count to assess compliance with 800-calorie target #. Sacral decubitus ulcers, present on admission. Active . Likely stage II. These were inspected by nurses on 06/23 and found to have blanchable erythema and excoriation but no stage IV decubiti. - Wound care consulted. We will continue the current wound plan. Continue wound care. Resolving, stable and/or chronic problems: #. Obesity hypoventilation syndrome, present on admission. Active and stable. - Will require ongoing bilevel volume-directed ventilation support when sleeping. This is stable no changes to plan. She remains using oxygen during the day and STABLEHAND at night. #. Pulmonary embolism, present on admission. Stable with a therapeutic protime. Initial ABG revealed severe hypoxic deficit despite compensated chronic hypercarbia. . D-Dimer 8, albeit with bruise on right forearm. She is too large to do Chest CT PE scan. Decision was made to institute empiric anticoagulation, probably to continue chronically. She is at high risk for chronic thromboembolic pulmonary hypertension. Attempts were made to transfer patient to facility with suitable CT or angiography features but no such facilities identified. Maximum width at [facility] scanner is 78 cm , patient is 90 cm wide. Unable to obtain confirmatory diagnostic testing. Treating empirically. - Warfarin. - INR therapeutic. This is stable. This is being managed by pharmacy. #. Acute Hypoxemic respiratory failure, present on admission. Improving and stable. Acute hypoxia is deemed likely 2nd to PE, the absence of other respiratory traction or pathology. Continue supplemental oxygen. Wean as able. This is stable. #. Acute on chronic Hypercapnic respiratory failure, present on admission. Improving and stable. Likely 2nd to obesity hypoventilation syndrome. Appears to have had worsening hypercarbic respiratory failure following oxygen supplementation in hospital, despite BiPAP. - The plan is for discharge to LTAC for ongoing management. She will likely need a home trilogy when she is able to discharged to a home environment. - Target O2 saturation is 88% - 92%; avoid excess oxygenation, continue noninvasive positive pressure ventilation. No changes for now. This is stable. #. Group B strep Bacteremia, not present on admission. Resolved -Completed Ceftriaxone IV for 14 days (also for cellulitis). #. Anxiety, not present on admission. Active and improving.. - Small dose PO Ativan before PT sessions. - Discontinue IV Ativan; patient was counseled on need to minimize dependence on benzodiazepines #. Left torso and abdomen cellulitis, new. Active and stable. Probable some component chronic panniculitis. - Discontinued antibiotics on 07/06 - completed two-week course with minimal change in her left abdominal erythema #. Acute urinary tract infection, present on admission. Resolved. Asymptomatic bacteriuria E.coli in urine at time of admission - Covered by cellulitis antibiotics Acetaminophen for mild pain when necessary. Bowel regimen Senna and MiraLAX scheduled and PRN. Zofran when necessary for nausea and vomiting. SubQ heparin held for now. SCDs in place. High-risk medications: Warfarin. Patient Status: Patient is admitted under inpatient status with expected length of stay greater than 2 midnights due to severity of presenting symptoms, risk of adverse event, and complexity of treatment plan. Awaiting acceptance to [facility] placement with [facility], however they currently do not have a bariatric bed. Resuscitation Status: CPR: Attempt Resuscitation Time spent 15 minutes Sonny Silva MD Jul 09, 2017 12:10
[2017-07-09] MEDS: LORazepam 1 mg Tablet PO PRN (13:25)
[2017-07-09 14:43] LABS: INR 2.29 ratio
--- NOTE | 2017-07-09 16:17 | NUR ---
Inpatient Wound Nurse Patient's primary RN stated that skin folds have improved with no active drainage or new breakdown over gluteals. Covidien XXL underpad left at patient's room for staff to place under her at next repositioning. If these larger underpads are helpful, [facility] will obtain more.
--- NOTE | 2017-07-09 19:13 | NUR ---
Dressing and activity Dressing changed today. Skin folds have improved significantly. PRN PO Ativan was given prior to PT session. Pt. was able to stand up briefly PT (with a lot of encouragement). PT to return tomorrow.
[2017-07-10] VITALS (8 sets, daily range): BP systolic 136–167; BP diastolic 53–79; PULSE 85–100; RESP 13–22; O2SAT 95–98
[2017-07-10] MEDS: Sodium Chloride LOK Flush 10 mL Syringe IVFLUSH SCH ×3 (00:59→17:01)
--- NOTE | 2017-07-10 06:42 | NUR ---
CARE/PAIN A/O, pleasant, and verbalizes needs appropriately. Reports feeling especially tired this oscar, r/t extra visiting with family today. Coordinated request for pain management with nighttime rest period, and placement on Cipap. Indicated pain remains 7/10 and Tylenol manages to help take edge off. VSS. O2 via oxy mask. No Tele. Report given to on coming RN.
--- NOTE | 2017-07-10 08:33 | NUR ---
KO FOLLOW UP: Called and left message for [facility]ia[facility] regarding bed availability and an expected date when we may be able to transfer patient to them. Updated SPORTS DEVELOPMENT OFFICER
[2017-07-10] MEDS: Nystatin 100,000 Unit/mL 5 mL Suspension PO SCH ×4 (09:50→21:21)
[2017-07-10] MEDS: cefTRIAXone Inj 2,000 MG in Dextrose 5% Minibag Plus 50 ML IV SCH ×2 (09:50→21:21)
[2017-07-10] MEDS: LORazepam 1 mg Tablet PO PRN (12:58)
--- NOTE | 2017-07-10 14:11 | NUR ---
NUTRITION FOLLOW-UP/CALORIE COUNT: ASSESS: 57 YO female admitted with hypoxemia, advanced respiratory failure, presumed PE. A calorie count was ordered yesterday for 2 days. Wound care is following. Pt has multiple gluteal wounds. She is on a Heart Healthy diet with good PO and she is receiving Francis BID to assist with wound healing. Pt awaiting discharge to [facility], once a bariatric bed becomes available. Per notes, pt is supposed to adhere to a 800-1000 calorie diet to assist with weight loss. PMHx: Arthritis, FRANK, depression, advanced respiratory failure, class III obesity. DIET: Heart healthy + Francis. PO intake 75-100% trays. CALORIE COUNT: Only 2 slips saved by nursing so far, none from yesterday. Today's calorie count will be incomplete until tomorrow. DAY 1: (07/10) Breakfast: 192 kcal, 14 g protein, Lunch: 327 kcal, 27 g protein, Total so far today: 519 kcal, 41 g protein. LABS: Reviewed. No new labs. MEDICATIONS: Reviewed. Imodium, Coumadin. GI: BM x 2 (07/09). SKIN: Wound care following from multiple gluteal wounds. ANTHROPOMETRICS: Current Wt: 261.8 kg, BMI: 99.1 kg/m2. Admit weight: 278.2 kg, Adjust BW: 110 kg, IBW: 54.5 kg. Pt has lost 16.4 kg since admit. ESTIMATED NEEDS (BMI, WOUNDS): Calories: 5326-6065 kcal/day (22-25 kcal/kg adj BW) Protein: 110-130 g/day (1.0-1.2 g/kg adj BW) NUTRITION DIAGNOSIS: 1) Increased nutrient needs related to increased demand for nutrients, as evidenced by multiple wound issues noted by Crusher And Blender Operator - IMPROVING. INTERVENTION: 1) Continue current diet and Francis at lunch and dinner for wound healing as ordered. 2) Continue calorie count until 2 days have been recorded. MONITOR/EVALUATE: PO intake, wt, GI, wounds, labs, nutrition status. Follow per moderate nutrition risk guidelines.
--- NOTE | 2017-07-10 15:07 | NUR ---
Social Work: Readiness for Discharge/Multidisciplinary Rounds D: Pt discussed in multidisciplinary rounds. Pt continues to be ready for discharge/transfer to [facility]. Pt has been accepted however a bariatric bed is not available at this time. Case Management continues to call requesting updates about bed status without return phone calls. The patient is on the waitlist and the [facility] previously had stated that it may take some time for a bed to come available. JEWELRY MECHANIC met with the patient at bedside. She was in good spirits working on arm exercises with her therapy band. JEWELRY MECHANIC provided her with an update on her transfer. She continues to work with PT and is progressing. Pt able to stand CGA for approximately 1 min. A: Pt who will require [facility] at discharge P: Pt is medically stable; awaiting bariatric bed availability at [facility]. JEWELRY MECHANIC to continue to follow to update and coordinate pt's transfer once a bed is available. BRENDA Ledbetter
--- NOTE | 2017-07-10 15:33 | PCM.PNMED ---
Subjective Date of Service Jul 10, 2017 Subjective 57-year-old woman with super morbid obesity presented with acute on chronic respiratory failure with hypoxia, likely pulmonary embolism treated empirically with warfarin, subsequently with strep bacteremia and cellulitis and completed full course of antibiotics. Now awaiting placement due to her mobility limitations. Anxiety seems well controlled. Working well with physical therapy. No new complaints today. Calorie count under way. Stools slightly loose today. Exam Vital Signs Vital Sign - Last Date Time Temp Pulse Resp B/P Pulse Ox O2 Delivery O2 Flow Rate FiO2 07/10/17 11:51 37.2 98 21 167/75 96 OxyMask 2.00 07/10/17 07:47 30 Intake and Output 07/09/17 07/09/17 07/10/17 Cumulative From/Thru 15:00 23:00 07:00 06/20/17 10:42 - 07/10/17 06:04 Intake Total 50 ml 675 ml 300 ml 72579 ml Output Total 1000 ml 1000 ml 25466 ml Balance 50 ml -325 ml -700 ml -9035 ml Intake Oral 600 ml 300 ml 30859 ml IV Total 50 ml 75 ml 9447 ml Output Urine Total 1000 ml 1000 ml 55712 ml # Bowel Movements 1 23 Exam General: Very obese woman, alert and talkative HEENT: sclerae anicteric, Chest: Breathing comfortably Abdomen: Left lateral abdominal wall with erythema, induration and scaling, but minimal warmth Extremities: Substantial but nonpitting Neuro: A&O, cranial nerves symmetric, motor strength and coordination normal IVs and Medications Medications Reviewed: Medications were reviewed in detail Lab and Diagnostics Result Diagram: 07/04/17 0250 X-Rays, CTs and MRIs ABG DateTimeAnalyzed 11:12:00 -_ pH ____7.371 - 7.350 7.450 pCO2 ___50.6__ -mmHg 35.0 45.0 pO2 ___35.7__ -mmHg 70.0 100 HCO3- ___28.6__ -mmol/L 22.0 26.0\ FIO2 ___21.0__ -% DateTimeAnalyzed 06:05:00 -_ pH ____7.251 - 7.350 7.450 pCO2 ___74.6__ -mmHg 35.0 45.0 pO2 ___93.9__ -mmHg 69.0 116 HCO3- ___31.6__ -mmol/L 22.0 26.0 X-RAY CHEST ONE VIEW, PORTABLE IMPRESSION: 1. Pulmonary vascular prominence suggesting mild edema. Approved by: Christopher Stephen M.D. on 06/20/2017 at 12:17 X-RAY RIGHT KNEE, ONE OR TWO VIEWS IMPRESSION: 1. Limited study demonstrates no definite fracture or dislocation. If clinical concern persists, consider further evaluation with CT. Dictated by: Christopher Stephen M.D. on 06/20/2017 at 12:15 Cardiac Echo Impressions Echocardiogram Report Interpretation Summary This was a technically difficult study. 1. Grossly normal left ventricular size with grossly normal systolic function. 2. The right ventricle was not visualized. The estimated RVSP is 47 mm plus CVP 3. Valves were not optimally visualized Reading Physician:06:04 PM Additional Diagnostics US VENOUS LEG DUPLEX BILATERAL FINDINGS: The deep veins are normally compressible, and free of intraluminal thrombus. Color and pulse Doppler demonstrate normal phasic intravascular flow. There is normal augmentation response to distal compression maneuver. IMPRESSION: Limited quality of visualization of the lower extremity venous vasculature due to body habitus. No DVT found. Approved by: Emigdio King M.D. on 06/20/2017 at 15:11 Assessment & Plan #. Super-Super Morbid obesity. POA and stable. Patient counseled by Kwame that aggressive calorie reduction is needed to expedite her return to mobility and her ability to live outside of an institutional setting. She concurs and is supportive of aggressive dieting goals. She seemed to tolerate her diet at current levels. - BMI 86.5 - Continue bariatric nursing care procedures - Patient of family counseled on importance of calorie restriction and weight loss. - Recommend 800 calorie VLCD diet with appropriate protein, fiber and vitamin supplement. - Calorie count to assess compliance with 800-calorie target #. Sacral decubitus ulcers, present on admission. Active . Likely stage II. These were inspected by nurses on 06/23 and found to have blanchable erythema and excoriation but no stage IV decubiti. - Wound care consulted. We will continue the current wound plan. Continue wound care. Resolving, stable and/or chronic problems: #. Obesity hypoventilation syndrome, present on admission. Active and stable. - Will require ongoing bilevel volume-directed ventilation support when sleeping. This is stable no changes to plan. 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 #. Pulmonary embolism, present on admission. Stable with a therapeutic protime. Initial ABG revealed severe hypoxic deficit despite compensated chronic hypercarbia. . D-Dimer 8, albeit with bruise on right forearm. She is too large to do Chest CT PE scan. Decision was made to institute empiric anticoagulation, probably to continue chronically. She is at high risk for chronic thromboembolic pulmonary hypertension. Attempts were made to transfer patient to facility with suitable CT or angiography features but no such facilities identified. Maximum width at [facility] CT scanner is 78 cm , patient is 90 cm wide. Unable to obtain confirmatory diagnostic testing. Treating empirically. - Warfarin. - INR therapeutic. This is stable. This is being managed by pharmacy. #. Acute Hypoxemic respiratory failure, present on admission. Improving and stable. Acute hypoxia is deemed likely 2nd to PE, the absence of other respiratory traction or pathology. Continue supplemental oxygen. Wean as able. This is stable. #. Acute on chronic Hypercapnic respiratory failure, present on admission. Improving and stable. Likely 2nd to obesity hypoventilation syndrome. Appears to have had worsening hypercarbic respiratory failure following oxygen supplementation in hospital, despite BiPAP. - The plan is for discharge to LTAC for ongoing management. She will likely need a home trilogy when she is able to discharged to a home environment. - Target O2 saturation is 88% - 92%; avoid excess oxygenation, continue noninvasive positive pressure ventilation. No changes for now. This is stable. #. Group B strep Bacteremia, not present on admission. Resolved -Completed Ceftriaxone IV for 14 days (also for cellulitis). #. Anxiety, not present on admission. Active and improving.. - Small dose PO Ativan before PT sessions. - Discontinue IV Ativan; patient was counseled on need to minimize dependence on benzodiazepines #. Left torso and abdomen cellulitis, new. Active and stable. Probable some component chronic panniculitis. - Discontinued antibiotics on 07/06 - completed two-week course with minimal change in her left abdominal erythema #. Acute urinary tract infection, present on admission. Resolved. Asymptomatic bacteriuria E.coli in urine at time of admission - Covered by cellulitis antibiotics Acetaminophen for mild pain when necessary. Bowel regimen Senna and MiraLAX scheduled and PRN. Zofran when necessary for nausea and vomiting. SubQ heparin held for now. SCDs in place. High-risk medications: Warfarin. Patient Status: Patient is admitted under inpatient status with expected length of stay greater than 2 midnights due to severity of presenting symptoms, risk of adverse event, and complexity of treatment plan. Awaiting acceptance to [facility] placement with [facility], however they currently do not have a bariatric bed. Resuscitation Status: CPR: Attempt Resuscitation Time spent 20 minutes Sonny Silva MD Jul 10, 2017 15:33
--- NOTE | 2017-07-10 15:53 | NUR ---
DIARRHEA/PT Patient has had loose stool x2 so far this shift, Imodium and probiotics given. Per PT patient able to roll to left side contact guard with trapeze. Right side roll 3-4 person assist. Skin is improving per aids who have had patient several days running. Plan -SW looking for placement at [facility] in [place]. Calorie count and strict reduction 1000 siomara, dietary following.
[2017-07-11] MEDS: Sodium Chloride LOK Flush 10 mL Syringe IVFLUSH SCH ×3 (00:30→17:24)
--- NOTE | 2017-07-11 03:09 | NUR ---
PAIN Patient complained of generalized pain, relieved with tylenol. Presents in good spirits and reported feeling overall, "well." Requested immodium for diarrhea. No bowel movement this shift. Has been sleeping without issue most of the night.
[2017-07-11 05:53] VITALS: RESP 14; O2SAT 94
[2017-07-11 08:00] VITALS: O2SAT 94
[2017-07-11 08:04] VITALS: BP 136/80; PULSE 82; RESP 17; O2SAT 95
[2017-07-11] MEDS: cefTRIAXone Inj 2,000 MG in Dextrose 5% Minibag Plus 50 ML IV SCH ×2 (08:17→22:42)
[2017-07-11] MEDS: Nystatin 100,000 Unit/mL 5 mL Suspension PO SCH ×4 (08:18→22:43)
--- NOTE | 2017-07-11 08:39 | NUR ---
DURANGO FOLLOW UP : Spoke with Suly Gordon at [facility] and there is no bed today but patient is still on top of waitlist. Faxed all updated clinicals as patient is progressing with PT and this may be easier in terms of staffing ratio. Updated MANUFACTURING PROJECT ENGINEER
[2017-07-11 10:56] LABS: INR 2.11 ratio
--- NOTE | 2017-07-11 12:03 | NUR ---
Inpatient Wound Nurse Patient seen by CWON for update of skin folds and wound care. Patient's primary RN stated that no new wounds have been identified and skin folds and gluteal wound are progressing without complication. Patient stated that she feels her skin is much healthier, denied pruritis or irritation. Patient identified daily bed baths as most helpful intervention, "there's just so much I cannot reach." Patient shared concern that when transferred to next facility, bath team and "hygiene specialists" will not be as effective as this current team. Patient was encouraged to know her hygiene routine so that she could self-advocate and skin cleansing, health, and treatments were reviewed. Patient was instructed that all skin folds must be cleansed daily and dried very well. Once active yeast was resolved with Nystatin ointment, Nystatin powder may be beneficial. She was encouraged to decrease use of cornstarch which is a sugar that encourages yeast growth in dark, moist environments. Ideas were explored for strategies to keep skin folds dry, such as wicking fabrics (Coloplast Interdry) which she can purchase and instruct staff or caregivers to use and use of disposable chucks that do not have plastic content. Patient was instructed to avoid polyester blend fabrics unless they are specifically woven to wick moisture. She stated that she understood all information provided but in the past had tended not to make suggestions in effort not to appear pushy. Patient was instructed on importance of self-advocacy and how skin health and hygiene will impact self-concept and self-esteem. Patient had no specific questions or concerns for CWON.
[2017-07-11] MEDS: LORazepam 1 mg Tablet PO PRN (12:36)
[2017-07-11 13:45] VITALS: BP 145/83; PULSE 90; RESP 22; O2SAT 96
--- NOTE | 2017-07-11 14:07 | NUR ---
NUTRITION FOLLOW-UP/CALORIE COUNT: ASSESS: 57 YO female admitted with hypoxemia, advanced respiratory failure, presumed PE. A calorie count was ordered yesterday for 2 days. Wound care is following. Pt has multiple gluteal wounds, which have improved, per Home Energy Auditor. She is on a Heart Healthy diet with good PO and she is receiving Francis BID to assist with wound healing. Pt awaiting discharge to [facility], once a bariatric bed becomes available. Per notes, pt is supposed to adhere to a 800-1000 calorie diet to assist with weight loss. PMHx: Arthritis, FRANK, depression, advanced respiratory failure, class III obesity. DIET: Heart healthy + Francis. PO intake 50-100% trays. CALORIE COUNT: DAY 1: (07/10) Breakfast: 192 kcal, 14 g protein, Lunch: 327 kcal, 27 g protein, Total so far today: 519 kcal, 41 g protein. DAY 1: (07/10) Dinner: 269 kcal, 32 g protein, 8 g carb, 188 mg sodium. DAY 2: (07/11) Breakfast: 210 kcal, 18 g protein, 4 g carb, 385 mg sodium. (07/11) Lunch: 620 kcal, 31 g protein, 56 g carb, 644 mg sodium. LABS: Reviewed. No new labs. MEDICATIONS: Reviewed. Imodium, Coumadin, Florastor. GI: BM x 2 (07/10). SKIN: Wound care following from multiple gluteal wounds that are improving. ANTHROPOMETRICS: Current Wt: 261.8 kg, BMI: 99.1 kg/m2. Admit weight: 278.2 kg, Adjust BW: 110 kg, IBW: 54.5 kg. Pt has lost 16.4 kg since admit. ESTIMATED NEEDS (BMI, WOUNDS): Calories: 5108-7965 kcal/day (22-25 kcal/kg adj BW) Protein: 110-130 g/day (1.0-1.2 g/kg adj BW) NUTRITION DIAGNOSIS: 1) Increased nutrient needs related to increased demand for nutrients, as evidenced by multiple wound issues noted by Home Energy Auditor - IMPROVING. INTERVENTION: 1) Continue current diet and Francis at lunch and dinner for wound healing as ordered. 2) Will discontinue 2-day calorie count at this time. MONITOR/EVALUATE: PO intake, wt, GI, wounds, labs, nutrition status. Follow per moderate nutrition risk guidelines.
[2017-07-11 15:12] LABS: INR 2.09 ratio
--- NOTE | 2017-07-11 15:33 | NUR ---
Multidisciplinary Communication 0914 - Spoke to Pharmacy for the second time as her by mouth Floraster AM medication was missing. It was sent up and given later (see eMAR for details). 0930 - Discussed her care with Dr. Cardona and the rest of the multidisciplinary care team during morning rounds. Was informed by Social Work that she is at the top of the waiting list for a bariatric bed at [facility]. 1035 - Spoke to [facility] from Wound Care who spoke to the patient. Her dressings were clean, dry, and intact and did not need to be changed today. Care continues.
--- NOTE | 2017-07-11 15:54 | PCM.PNMED ---
Subjective Date of Service Jul 11, 2017 Subjective She is doing well. She continues to use her BiPAP at night. She is on an oxygen mask during the day. She feels like her breathing is stable. Minimal cough. No chest pain or abdominal pain. No nausea, positive soft stools. Some diarrhea. Her skin feels better on both sides of her flank. No overnight events noted. Exam Vital Signs Vital Sign - Last Date Time Temp Pulse Resp B/P Pulse Ox O2 Delivery O2 Flow Rate FiO2 07/11/17 08:04 Supplement Oxygen 07/11/17 08:04 36.4 82 17 136/80 95 2.00 07/11/17 05:53 30 Intake and Output 07/10/17 07/10/17 07/11/17 Cumulative From/Thru 15:00 23:00 07:00 06/20/17 10:42 - 07/11/17 05:29 Intake Total 2250 ml 400 ml 84654 ml Output Total 1300 ml 800 ml 20104 ml Balance 950 ml -400 ml -8485 ml Intake Oral 2100 ml 400 ml 37275 ml IV Total 150 ml 9597 ml Output Urine Total 1300 ml 800 ml 15793 ml # Bowel Movements 2 0 25 Exam Alert and oriented -3, no distress. Fluent speech Anicteric sclera. Lungs are clear with normal rate and effort Heart is regular without murmur gallop or rub Abdomen soft nontender, flat Extremities are free of edema. She does have some chronic changes in her right ankle region but no obvious fluctuance or erythema. Skin is notable for decreased erythema over both flanks. No obvious fluctuance , or drainage. She has multiple ecchymosis over the back sides of both hands and wrists. IVs and Medications Medications Reviewed: Medications were reviewed in detail Lab and Diagnostics X-Rays, CTs and MRIs ABG DateTimeAnalyzed 11:12:00 -_ pH ____7.371 - 7.350 7.450 pCO2 ___50.6__ -mmHg 35.0 45.0 pO2 ___35.7__ -mmHg 70.0 100 HCO3- ___28.6__ -mmol/L 22.0 26.0\ FIO2 ___21.0__ -% DateTimeAnalyzed 06:05:00 -_ pH ____7.251 - 7.350 7.450 pCO2 ___74.6__ -mmHg 35.0 45.0 pO2 ___93.9__ -mmHg 69.0 116 HCO3- ___31.6__ -mmol/L 22.0 26.0 X-RAY CHEST ONE VIEW, PORTABLE IMPRESSION: 1. Pulmonary vascular prominence suggesting mild edema. Approved by: Christopher Stephen M.D. on 06/20/2017 at 12:17 X-RAY RIGHT KNEE, ONE OR TWO VIEWS IMPRESSION: 1. Limited study demonstrates no definite fracture or dislocation. If clinical concern persists, consider further evaluation with CT. Dictated by: Christopher Stephen M.D. on 06/20/2017 at 12:15 Cardiac Echo Impressions Echocardiogram Report Interpretation Summary This was a technically difficult study. 1. Grossly normal left ventricular size with grossly normal systolic function. 2. The right ventricle was not visualized. The estimated RVSP is 47 mm plus CVP 3. Valves were not optimally visualized Reading Physician:06:04 PM Additional Diagnostics US VENOUS LEG DUPLEX BILATERAL FINDINGS: The deep veins are normally compressible, and free of intraluminal thrombus. Color and pulse Doppler demonstrate normal phasic intravascular flow. There is normal augmentation response to distal compression maneuver. IMPRESSION: Limited quality of visualization of the lower extremity venous vasculature due to body habitus. No DVT found. Approved by: Emigdio King M.D. on 06/20/2017 at 15:11 Assessment & Plan #. Super-Super Morbid obesity. POA and stable. Patient counseled by Kwame that aggressive calorie reduction is needed to expedite her return to mobility and her ability to live outside of an institutional setting. She concurs and is supportive of aggressive dieting goals. She seemed to tolerate her diet at current levels. - BMI 86.5 - Continue bariatric nursing care procedures - Patient of family counseled on importance of calorie restriction and weight loss. - Recommend 800 calorie VLCD diet with appropriate protein, fiber and vitamin supplement. - Calorie count to assess compliance with 800-calorie target No change to current medical plan. #. Sacral decubitus ulcers, present on admission. Active and stable. Likely stage II. These were inspected by nurses on 06/23 and found to have blanchable erythema and excoriation but no stage IV decubiti. - Wound care consulted. We will continue the current wound plan. Continue wound care. No change in current medical plan. #. Obesity hypoventilation syndrome, present on admission. Active and stable. - Will require ongoing bilevel volume-directed ventilation support when sleeping. This is stable no changes to plan. 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 No change in current medical plan. #. Pulmonary embolism, present on admission. Stable with a therapeutic protime. Initial ABG revealed severe hypoxic deficit despite compensated chronic hypercarbia. . D-Dimer 8, albeit with bruise on right forearm. She is too large to do Chest CT PE scan. Decision was made to institute empiric anticoagulation, probably to continue chronically. She is at high risk for chronic thromboembolic pulmonary hypertension. Attempts were made to transfer patient to facility with suitable CT or angiography features but no such facilities identified. Maximum width at [facility] CT scanner is 78 cm , patient is 90 cm wide. Unable to obtain confirmatory diagnostic testing. Treating empirically. - Warfarin. - INR therapeutic. This is stable. This is being managed by pharmacy. Continue warfarin. #. Acute Hypoxemic respiratory failure, present on admission. Improving and stable. Acute hypoxia is deemed likely 2nd to PE, the absence of other respiratory traction or pathology. Continue supplemental oxygen. Wean as able. This is stable. Oxygen mask by day and BiPAP at night. #. Acute on chronic Hypercapnic respiratory failure, present on admission. Improving and stable. Likely 2nd to obesity hypoventilation syndrome. Appears to have had worsening hypercarbic respiratory failure following oxygen supplementation in hospital, despite BiPAP. - The plan is for discharge to LTAC for ongoing management. She will likely need a home trilogy when she is able to discharged to a home environment. - Target O2 saturation is 88% - 92%; avoid excess oxygenation, continue noninvasive positive pressure ventilation. No changes for now. This is stable. Oxygen mask by date, BiPAP at night. #. Group B strep Bacteremia, not present on admission. Resolved -Completed Ceftriaxone IV for 14 days (also for cellulitis). #. Anxiety, not present on admission. Active and improving.. - Small dose PO Ativan before PT sessions. - Discontinue IV Ativan; patient was counseled on need to minimize dependence on benzodiazepines #. Left torso and abdomen cellulitis, active and stable. Probable some component chronic panniculitis. - Discontinued antibiotics on 07/06 - completed two-week course with minimal change in her left abdominal erythema #. Acute urinary tract infection, present on admission. Resolved. Asymptomatic bacteriuria E.coli in urine at time of admission - Covered by cellulitis antibiotics Acetaminophen for mild pain when necessary. Bowel regimen Senna and MiraLAX scheduled and PRN. Zofran when necessary for nausea and vomiting. SubQ heparin held for now. SCDs in place. High-risk medications: Warfarin. Patient Status: Patient is admitted under inpatient status with expected length of stay greater than 2 midnights due to severity of presenting symptoms, risk of adverse event, and complexity of treatment plan. Awaiting acceptance to [facility] placement with [facility], however they currently do not have a bariatric bed. Resuscitation Status: CPR: Attempt Resuscitation Regis Cardona MD Jul 11, 2017 15:54
[2017-07-11 17:18] VITALS: BP 164/92; PULSE 98; RESP 22; O2SAT 90
[2017-07-12] VITALS (11 sets, daily range): BP systolic 115–138; BP diastolic 63–83; PULSE 66–99; RESP 14–30; O2SAT 92–99
[2017-07-12] MEDS: Sodium Chloride LOK Flush 10 mL Syringe IVFLUSH SCH ×3 (00:30→18:53)
--- NOTE | 2017-07-12 04:12 | NUR ---
Transfer of Care Patient care transferred to Sushil Arenas RN, at approx. 2200.
--- NOTE | 2017-07-12 06:20 | NUR ---
Assumed care of patient at 2200. VSS, dressings CDI. C/O some generalized pain after working with PT this afternoon, resolved to pt satisfaction with APAP 975 mg. Imodium 2 mg given at bedtime per pt request for bowel care. Trilogy applied 30 min after evening meds, pt slept quietly rest of shift.
[2017-07-12] MEDS: cefTRIAXone Inj 2,000 MG in Dextrose 5% Minibag Plus 50 ML IV SCH ×2 (09:07→20:15)
[2017-07-12] MEDS: Nystatin 100,000 Unit/mL 5 mL Suspension PO SCH ×4 (09:07→22:00)
[2017-07-12] MEDS: LORazepam 1 mg Tablet PO PRN (12:31)
--- NOTE | 2017-07-12 14:20 | NUR ---
Social Work: Continued Discharge Planning/Multidisciplinary Rounds D: Pt discussed in multidisciplinary rounds. Pt making a lot of progress with PT but still requiring a higher level of care for safe discharge. The patient has lost some weight and may now be able to utilize equipment with a lower weight restriction. The patient is still on the waitlist at [facility]. Per PT, pt may be a candidate for inpatient rehab- the patient is highly motivated, completes an hour of PT daily at [facility] and has a good support system. A second therapy evaluation/recommendation would need to be completed from either OT or ST. has placed a case management order to explore this option. CHEF CONCIERGE acknowledges order and rn utilization management um will fax referrals to . [place] and [place] to determine if pt could be an appropriate candidate and if they have the equipment needed to accept the patient. A: Pt who continues to await placement for rehab P: Pt has been accepted at [facility] pending a bariatric bed. Double Back Operator is faxing referrals to [place] and [facility] inpatient rehab. BRENDA Ledbetter
--- NOTE | 2017-07-12 15:27 | PCM.PNMED ---
Subjective Date of Service Jul 12, 2017 Subjective She is doing well today. No nausea. She denies any shortness of breath of them when she is up and moving around. No abdominal pain. Her skin is a little less sensitive today. No nausea. She is having some treatment vaginal bleeding now for 4 days. She had this several months ago as well. Her pro time is been in the therapeutic range only. No overnight events Exam Vital Signs Vital Sign - Last Date Time Temp Pulse Resp B/P Pulse Ox O2 Delivery O2 Flow Rate FiO2 07/12/17 08:28 36.7 66 16 115/76 92 BiPAP 2.00 07/11/17 05:53 30 Intake and Output 07/11/17 07/11/17 07/12/17 Cumulative From/Thru 15:00 23:00 07:00 06/20/17 10:42 - 07/12/17 06:17 Intake Total 70 ml 2210 ml 500 ml 40626 ml Output Total 1700 ml 400 ml 76889 ml Balance 70 ml 510 ml 100 ml -7805 ml Intake Oral 2210 ml 500 ml 77115 ml IV Total 70 ml 9667 ml Output Urine Total 1700 ml 400 ml 26917 ml # Bowel Movements 1 1 27 Exam Alert and oriented -3, no distress. Fluent speech Anicteric sclera. Lungs are clear with normal rate and effort Heart is regular without murmur gallop or rub Abdomen soft nontender, flat. Denies any flank is less red. Extremities are free of edema., Skin is free of rash or lesions. IVs and Medications Medications Reviewed: Medications were reviewed in detail Lab and Diagnostics X-Rays, CTs and MRIs Cardiac Echo Impressions Echocardiogram Report Interpretation Summary This was a technically difficult study. 1. Grossly normal left ventricular size with grossly normal systolic function. 2. The right ventricle was not visualized. The estimated RVSP is 47 mm plus CVP 3. Valves were not optimally visualized Reading Physician:06:04 PM Additional Diagnostics Assessment & Plan #. Super-Super Morbid obesity. POA and stable. Patient counseled by Kwame that aggressive calorie reduction is needed to expedite her return to mobility and her ability to live outside of an institutional setting. She concurs and is supportive of aggressive dieting goals. She seemed to tolerate her diet at current levels. - BMI 86.5 - Continue bariatric nursing care procedures - Patient of family counseled on importance of calorie restriction and weight loss. - Recommend 800 calorie VLCD diet with appropriate protein, fiber and vitamin supplement. - Calorie count to assess compliance with 800-calorie target No change to current medical plan. She continues to lose weight and is now on approximately 575 pounds. We will readdress potential discharge side effects including local skilled facilities as well as approach inpatient rehabilitation facilities. #. Sacral decubitus ulcers, present on admission. Active and stable. Likely stage II. These were inspected by nurses on 06/23 and found to have blanchable erythema and excoriation but no stage IV decubiti. - Wound care consulted. We will continue the current wound plan. No change in current medical plan. Continue wound care. #. Obesity hypoventilation syndrome, present on admission. Active and stable. - Will require ongoing bilevel volume-directed ventilation support when sleeping. This is stable no changes to plan. She remains using oxygen during the day and [employer] at night. No change in current medical plan. BiPAP at night. #. Pulmonary embolism, present on admission. Stable with a therapeutic protime. Initial ABG revealed severe hypoxic deficit despite compensated chronic hypercarbia. . D-Dimer 8, albeit with bruise on right forearm. She is too large to do Chest CT PE scan. Decision was made to institute empiric anticoagulation, probably to continue chronically. She is at high risk for chronic thromboembolic pulmonary hypertension. Attempts were made to transfer patient to facility with suitable CT or angiography features but no such facilities identified. Maximum width at [facility] CT scanner is 78 cm , patient is 90 cm wide. Unable to obtain confirmatory diagnostic testing. Treating empirically. - Warfarin. - INR therapeutic. This is stable. This is being managed by pharmacy. Continue warfarin. This has been therapeutic. #. Acute Hypoxemic respiratory failure, present on admission. Improving and stable. Acute hypoxia is deemed likely 2nd to PE, the absence of other respiratory traction or pathology. Continue supplemental oxygen. Wean as able. This is stable. Oxygen mask by day and BiPAP at night. #. Acute on chronic Hypercapnic respiratory failure, present on admission. Improving and stable. Likely 2nd to obesity hypoventilation syndrome. Appears to have had worsening hypercarbic respiratory failure following oxygen supplementation in hospital, despite BiPAP. - The plan is for discharge to LTAC for ongoing management. She will likely need a home trilogy when she is able to discharged to a home environment. - Target O2 saturation is 88% - 92%; avoid excess oxygenation, continue noninvasive positive pressure ventilation. No changes for now. This is stable. Oxygen mask by date, BiPAP at night. #. Group B strep Bacteremia, not present on admission. Resolved -Completed Ceftriaxone IV for 14 days (also for cellulitis). #. Anxiety, not present on admission. Active and improving.. - Small dose PO Ativan before PT sessions. - Discontinue IV Ativan; patient was counseled on need to minimize dependence on benzodiazepines #. Left torso and abdomen cellulitis, active and stable. Probable some component chronic panniculitis. - Discontinued antibiotics on 07/06 - completed two-week course with minimal change in her left abdominal erythema #. Acute urinary tract infection, present on admission. Resolved. Asymptomatic bacteriuria E.coli in urine at time of admission - Covered by cellulitis antibiotics Acetaminophen for mild pain when necessary. Bowel regimen Senna and MiraLAX scheduled and PRN. Zofran when necessary for nausea and vomiting. SubQ heparin held for now. SCDs in place. High-risk medications: Warfarin. Patient Status: Patient is admitted under inpatient status with expected length of stay greater than 2 midnights due to severity of presenting symptoms, risk of adverse event, and complexity of treatment plan. Awaiting acceptance to LTAC placement, versus looking at potential discharge to local correction facilities or inpatient rehabilitation units. Resuscitation Status: CPR: Attempt Resuscitation Regis Cardona MD Jul 12, 2017 15:27
--- NOTE | 2017-07-12 16:27 | NUR ---
POST HOSPITAL FOLLOW UP: Faxed referral to [facility] rehab and [facility] Spoke with Suly Gordon at [facility] and there is no bed. [facility] has a weight limit of 417LBS Spoke with Kadi at [facility] and they max out at 500LBS without renting special equipment. [facility] due to weight loss and mobility improvement. Updated GRAY MIXING OPERATOR
--- NOTE | 2017-07-12 17:30 | NUR ---
Activity Physical Therapy unable to see pt today. Pt made aware, pt verbalized understanding. Pt able to help with turns in bed. ongoing care.
[2017-07-13] MEDS: Sodium Chloride LOK Flush 10 mL Syringe IVFLUSH SCH ×4 (00:07→23:31)
[2017-07-13 03:12] VITALS: RESP 15; O2SAT 96
--- NOTE | 2017-07-13 05:57 | NUR ---
Pain Pt alert and oriented x3. C/o generalized ache and reports Tylenol effective for it. Bipap on all night during sleep with 02sat in mid 90s. Able to help with staff in turning and moving in bed using the trapeze.
[2017-07-13 09:09] VITALS: BP 138/80; PULSE 94; RESP 16; O2SAT 96
--- NOTE | 2017-07-13 09:12 | NUR ---
INPATIENT REHAB REFERRAL : Spoke with Nanci at [facility] inpatient rehab and faxed her facesheet, she is also needing to talk to the about LTC plan. She would like us to request a OT evaluation and see if she can work with multiple disciplines. Updated RIG SUPERINTENDENT
[2017-07-13] MEDS: cefTRIAXone Inj 2,000 MG in Dextrose 5% Minibag Plus 50 ML IV SCH ×2 (09:15→20:08)
[2017-07-13] MEDS: Nystatin 100,000 Unit/mL 5 mL Suspension PO SCH ×4 (09:15→22:17)
[2017-07-13 12:05] VITALS: BP 178/81; PULSE 100; RESP 18; O2SAT 93
--- NOTE | 2017-07-13 13:11 | PCM.PNMED ---
Subjective Date of Service Jul 13, 2017 Subjective She is doing well today. She denies any dyspnea other than one moving. No cough. No chest pain. No nausea, or abdominal pain. She is having some loose stools. Light intermittent vaginal bleeding does continue. Her skin does feel better. No overnight events noted Exam Vital Signs Vital Sign - Last Date Time Temp Pulse Resp B/P Pulse Ox O2 Delivery O2 Flow Rate FiO2 07/13/17 12:05 36.7 100 18 178/81 93 OxyMask 2.00 07/11/17 05:53 30 Intake and Output 07/12/17 07/12/17 07/13/17 Cumulative From/Thru 15:00 23:00 07:00 06/20/17 10:42 - 07/13/17 06:43 Intake Total 1580 ml 710 ml 19690 ml Output Total 1050 ml 600 ml 63908 ml Balance 530 ml 110 ml -7165 ml Intake Oral 1410 ml 250 ml 41681 ml IV Total 170 ml 460 ml 56180 ml Output Urine Total 1050 ml 600 ml 41841 ml # Bowel Movements 1 28 Exam Alert and oriented -3, no distress. Fluent speech Anicteric sclera. Lungs are clear with normal rate and effort Heart is regular without murmur gallop or rub Abdomen soft nontender, flat Extremities are free of edema. Legs have no edema, chronic venous stasis changes. The erythema around the right flank is much improved. The left flank is much less red there is no fluctuance.. IVs and Medications Medications Reviewed: Medications were reviewed in detail Lab and Diagnostics X-Rays, CTs and MRIs Cardiac Echo Impressions Echocardiogram Report Interpretation Summary This was a technically difficult study. 1. Grossly normal left ventricular size with grossly normal systolic function. 2. The right ventricle was not visualized. The estimated RVSP is 47 mm plus CVP 3. Valves were not optimally visualized Reading Physician:06:04 PM Additional Diagnostics Assessment & Plan #. Super-Super Morbid obesity. POA and stable. Patient counseled by Kwame that aggressive calorie reduction is needed to expedite her return to mobility and her ability to live outside of an institutional setting. She concurs and is supportive of aggressive dieting goals. She seemed to tolerate her diet at current levels. - BMI 86.5 - Continue bariatric nursing care procedures - Patient of family counseled on importance of calorie restriction and weight loss. - Recommend 800 calorie VLCD diet with appropriate protein, fiber and vitamin supplement. - Calorie count to assess compliance with 800-calorie target No change to current medical plan. She continues to lose weight and is now on approximately 575 pounds. We will readdress potential discharge side effects including local skilled facilities as well as approach inpatient rehabilitation facilities. #. Sacral decubitus ulcers, present on admission. Active and stable. Likely stage II. These were inspected by nurses on 06/23 and found to have blanchable erythema and excoriation but no stage IV decubiti. - Wound care consulted. We will continue the current wound plan. No change in current medical plan. Continue wound care. #. Obesity hypoventilation syndrome, present on admission. Active and stable. - Will require ongoing bilevel volume-directed ventilation support when sleeping. This is stable no changes to plan. She remains using oxygen during the day and HIDE D[employer]ER at night. No change in current medical plan. BiPAP at night. #. Pulmonary embolism, present on admission. Stable with a therapeutic protime. Initial ABG revealed severe hypoxic deficit despite compensated chronic hypercarbia. . D-Dimer 8, albeit with bruise on right forearm. She is too large to do Chest CT PE scan. Decision was made to institute empiric anticoagulation, probably to continue chronically. She is at high risk for chronic thromboembolic pulmonary hypertension. Attempts were made to transfer patient to facility with suitable CT or angiography features but no such facilities identified. Maximum width at [facility] CT scanner is 78 cm , patient is 90 cm wide. Unable to obtain confirmatory diagnostic testing. Treating empirically. - Warfarin. - INR therapeutic. This is stable. This is being managed by pharmacy. Continue warfarin. This has been therapeutic. No changes. #. Acute Hypoxemic respiratory failure, present on admission. Improving and stable. Acute hypoxia is deemed likely 2nd to PE, the absence of other respiratory traction or pathology. Continue supplemental oxygen. Wean as able. This is stable. Oxygen mask by day and BiPAP at night. No changes. #. Acute on chronic Hypercapnic respiratory failure, present on admission. Improving and stable. Likely 2nd to obesity hypoventilation syndrome. Appears to have had worsening hypercarbic respiratory failure following oxygen supplementation in hospital, despite BiPAP. - The plan is for discharge to LTAC for ongoing management. She will likely need a home trilogy when she is able to discharged to a home environment. - Target O2 saturation is 88% - 92%; avoid excess oxygenation, continue noninvasive positive pressure ventilation. No changes for now. This is stable. Oxygen mask by date, BiPAP at night. #. Group B strep Bacteremia, not present on admission. Resolved -Completed Ceftriaxone IV for 14 days (also for cellulitis). Stop antibiotics. #. Anxiety, not present on admission. Active and improving.. - Small dose PO Ativan before PT sessions. - Discontinue IV Ativan; patient was counseled on need to minimize dependence on benzodiazepines #. Left torso and abdomen cellulitis, active and stable. Probable some component chronic panniculitis. - Discontinued antibiotics on 07/06 - completed two-week course with minimal change in her left abdominal erythema, stop antibiotics at this time. #. Acute urinary tract infection, present on admission. Resolved. Asymptomatic bacteriuria E.coli in urine at time of admission - Covered by cellulitis antibiotics, stop antibiotics. Acetaminophen for mild pain when necessary. Bowel regimen Senna and MiraLAX scheduled and PRN. Zofran when necessary for nausea and vomiting. SubQ heparin held for now. SCDs in place. High-risk medications: Warfarin. Patient Status: Patient is admitted under inpatient status with expected length of stay greater than 2 midnights due to severity of presenting symptoms, risk of adverse event, and complexity of treatment plan. Awaiting acceptance to LTAC placement, versus looking at potential discharge to local detention facilities or inpatient rehabilitation units. Resuscitation Status: CPR: Attempt Resuscitation Regis Cardona MD Jul 13, 2017 13:11
[2017-07-13] MEDS: LORazepam 1 mg Tablet PO PRN (13:19)
[2017-07-13 14:36] LABS: INR 2.14 ratio
--- NOTE | 2017-07-13 15:09 | PCM.PHAPRO ---
Progress Warfarin dosing WARFARIN: o/ Remains therapeutic a/ Dose looking stable at 2.5mg alternating with 3mg. Gagandeep Valladares S Pharm D Jul 13, 2017 15:09
[2017-07-13 16:37] VITALS: BP 129/70; PULSE 99; RESP 18; O2SAT 92
--- NOTE | 2017-07-13 17:45 | NUR ---
Shift note Care continues pending Pt's placement, given PRN tylenol for pain which Pt reports as effective, premedicated with PRN ativan ~1hour prior to PT which Pt reports as "very helpful". Addendum: 07/13/17 at 1749 by LOIS OSHEA RN Pt refused bed bath today r/t having company, dressings c/d/i when assessed.
[2017-07-13] MEDS ORDERED: 0.9% Sodium Chloride 250 ML ONE (18:12)
[2017-07-13 20:15] VITALS: BP 126/71; PULSE 93; RESP 24; O2SAT 93
[2017-07-14 03:15] VITALS: BP 187/84; PULSE 87; RESP 24; O2SAT 95
[2017-07-14 03:33] VITALS: BP 114/71
--- NOTE | 2017-07-14 06:20 | NUR ---
Pain c/o generalized pain x1 this shift. Prn APAP administered and effective. No further complaints noted.
[2017-07-14 08:04] VITALS: BP 133/71; PULSE 86; RESP 16; O2SAT 94
[2017-07-14] MEDS: cefTRIAXone Inj 2,000 MG in Dextrose 5% Minibag Plus 50 ML IV SCH (08:10)
[2017-07-14] MEDS: Sodium Chloride LOK Flush 10 mL Syringe IVFLUSH SCH ×2 (08:11→17:07)
[2017-07-14] MEDS: Nystatin 100,000 Unit/mL 5 mL Suspension PO SCH ×4 (08:11→19:33)
[2017-07-14] MEDS: LORazepam 1 mg Tablet PO PRN (10:15)
--- NOTE | 2017-07-14 12:15 | NUR ---
NUTRITION FOLLOW-UP: ASSESS: 57 YO female admitted with hypoxemia, advanced respiratory failure, presumed PE. Wound care is following. Pt has multiple gluteal wounds, which have improved, per Customer Relations Coordinator. She is on a Heart Healthy diet with good PO and she is receiving Francis BID to assist with wound healing. Pt awaiting discharge to [facility], once a bariatric bed becomes available. Per notes, pt is ordered a 800-1000 calorie diet to assist with weight loss. The patient is stellar in her enthusiasm to achieve and maintain her weight loss and lifestyle goals. I encouraged her to discuss her meal selections daily with the physical therapy aide, to ascertain appropriate calorie and carbohydrate choices. She reports she is unable to tolerate al dente vegetables and choices like peas, due to their difficult digestion. Vegetable choices will be accommodated to the extent possible. PMHx: Arthritis, FRANK, depression, advanced respiratory failure, class III obesity. DIET: Heart healthy + Francis. PO intake 75-100% trays. CALORIE COUNT: DAY 1: (07/10) Breakfast: 192 kcal, 14 g protein, Lunch: 327 kcal, 27 g protein, Total so far today: 519 kcal, 41 g protein. DAY 1: (07/10) Dinner: 269 kcal, 32 g protein, 8 g carb, 188 mg sodium. DAY 2: (07/11) Breakfast: 210 kcal, 18 g protein, 4 g carb, 385 mg sodium. (07/11) Lunch: 620 kcal, 31 g protein, 56 g carb, 644 mg sodium. Although the calorie count was discontinued 07/11, menu records indicate she is nearly consistently maintaining her 800 - 1000 calorie goals daily. LABS: Reviewed. No recent labs ordered. MEDICATIONS: Reviewed. Imodium, Coumadin, Florastor. GI: BM x 1 today. SKIN: Wound care following from multiple gluteal wounds that are improving. ANTHROPOMETRICS: Current Wt: 261.8 kg, BMI: 99.1 kg/m2. Admit weight: 278.2 kg, Adjust BW: 110 kg, IBW: 54.5 kg. Pt has lost 16.4 kg since admit. ESTIMATED NEEDS (BMI, WOUNDS): Calories: 2132-1259 kcal/day (22-25 kcal/kg adj BW) Protein: 110-130 g/day (1.0-1.2 g/kg adj BW) NUTRITION DIAGNOSIS: 1) Increased nutrient needs related to increased demand for nutrients, as evidenced by multiple wound issues noted by Customer Relations Coordinator - IMPROVING. INTERVENTION: 1) Continue current diet and Francis at lunch and dinner for wound healing as ordered. 2) Will continue to monitor calorie and carbohydrate intake. MONITOR/EVALUATE: PO intake, wt, GI, wounds, labs, nutrition status. Follow per moderate nutrition risk guidelines.
--- NOTE | 2017-07-14 15:27 | PCM.PNMED ---
Subjective Date of Service Jul 14, 2017 Subjective She is doing Well today. No nausea. Her skin feels better. No abdominal pain. Less diarrhea. She denies any pain in her legs. She is able to stand up with a walker again today. Her breathing is about the same. No cough. No fevers or chills. No overnight events noted. Exam Vital Signs Vital Sign - Last Date Time Temp Pulse Resp B/P Pulse Ox O2 Delivery O2 Flow Rate FiO2 07/14/17 08:04 36.4 86 16 133/71 94 OxyMask 2.00 07/14/17 03:15 30 Intake and Output 07/13/17 07/13/17 07/14/17 Cumulative From/Thru 15:00 23:00 07:00 06/20/17 10:42 - 07/14/17 06:11 Intake Total 554 ml 300 ml 50197 ml Output Total 550 ml 600 ml 63707 ml Balance 4 ml -300 ml -7461 ml Intake Oral 400 ml 300 ml 55481 ml IV Total 154 ml 08872 ml Output Urine Total 550 ml 600 ml 80926 ml # Bowel Movements 1 29 Exam Alert and oriented -3, no distress. Fluent speech Anicteric sclera. Lungs are clear with normal rate and effort Heart is regular without murmur gallop or rub Abdomen soft nontender, flat Extremities are free of edema. Skin notable for the erythema in the left flank which is stable to improved. She also has some venous stasis changes of both lower extremities. IVs and Medications Medications Reviewed: Medications were reviewed in detail Lab and Diagnostics X-Rays, CTs and MRIs Cardiac Echo Impressions Echocardiogram Report Interpretation Summary This was a technically difficult study. 1. Grossly normal left ventricular size with grossly normal systolic function. 2. The right ventricle was not visualized. The estimated RVSP is 47 mm plus CVP 3. Valves were not optimally visualized Reading Physician:06:04 PM Additional Diagnostics Assessment & Plan #. Super-Super Morbid obesity. POA and stable. Patient counseled by Kwame that aggressive calorie reduction is needed to expedite her return to mobility and her ability to live outside of an institutional setting. She concurs and is supportive of aggressive dieting goals. She seemed to tolerate her diet at current levels. - BMI 86.5 - Continue bariatric nursing care procedures - Patient of family counseled on importance of calorie restriction and weight loss. - Recommend 800 calorie VLCD diet with appropriate protein, fiber and vitamin supplement. - Calorie count to assess compliance with 800-calorie target No change to current medical plan. She continues to lose weight and is now on approximately 575 pounds. We will readdress potential discharge side effects including local skilled facilities as well as approach inpatient rehabilitation facilities. #. Sacral decubitus ulcers, present on admission. Active and stable. Likely stage II. These were inspected by nurses on 06/23 and found to have blanchable erythema and excoriation but no stage IV decubiti. - Wound care consulted. We will continue the current wound plan. No change in current medical plan. Continue wound care. #. Obesity hypoventilation syndrome, present on admission. Active and stable. - Will require ongoing bilevel volume-directed ventilation support when sleeping. This is stable no changes to plan. 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 No change in current medical plan. BiPAP at night. #. Pulmonary embolism, present on admission. Stable with a therapeutic protime. Initial ABG revealed severe hypoxic deficit despite compensated chronic hypercarbia. . D-Dimer 8, albeit with bruise on right forearm. She is too large to do Chest CT PE scan. Decision was made to institute empiric anticoagulation, probably to continue chronically. She is at high risk for chronic thromboembolic pulmonary hypertension. Attempts were made to transfer patient to facility with suitable CT or angiography features but no such facilities identified. Maximum width at [facility] CT scanner is 78 cm , patient is 90 cm wide. Unable to obtain confirmatory diagnostic testing. Treating empirically. - Warfarin. - INR therapeutic. This is stable. This is being managed by pharmacy. Continue warfarin. This has been therapeutic. No changes. #. Acute Hypoxemic respiratory failure, present on admission. Improving and stable. Acute hypoxia is deemed likely 2nd to PE, the absence of other respiratory traction or pathology. Continue supplemental oxygen. Wean as able. This is stable. Oxygen mask by day and BiPAP at night. No changes. #. Acute on chronic Hypercapnic respiratory failure, present on admission. Improving and stable. Likely 2nd to obesity hypoventilation syndrome. Appears to have had worsening hypercarbic respiratory failure following oxygen supplementation in hospital, despite BiPAP. - The plan is for discharge to LTAC for ongoing management. She will likely need a home trilogy when she is able to discharged to a home environment. - Target O2 saturation is 88% - 92%; avoid excess oxygenation, continue noninvasive positive pressure ventilation. No changes for now. This is stable. Oxygen mask by date, BiPAP at night. #. Group B strep Bacteremia, not present on admission. Resolved -Completed Ceftriaxone IV for 14 days (also for cellulitis). Stop antibiotics. #. Anxiety, not present on admission. Active and improving.. - Small dose PO Ativan before PT sessions. - Discontinue IV Ativan; patient was counseled on need to minimize dependence on benzodiazepines #. Left torso and abdomen cellulitis, active and stable. Probable some component chronic panniculitis. - Discontinued antibiotics on 07/06 - completed two-week course with minimal change in her left abdominal erythema, stop antibiotics at this time. #. Acute urinary tract infection, present on admission. Resolved. Asymptomatic bacteriuria E.coli in urine at time of admission - Covered by cellulitis antibiotics, stop antibiotics. Acetaminophen for mild pain when necessary. Bowel regimen Senna and MiraLAX scheduled and PRN. Zofran when necessary for nausea and vomiting. SubQ heparin held for now. SCDs in place. High-risk medications: Warfarin. Patient Status: Patient is admitted under inpatient status with expected length of stay greater than 2 midnights due to severity of presenting symptoms, risk of adverse event, and complexity of treatment plan. Awaiting acceptance to LTAC placement, versus looking at potential discharge to local care home facilities or inpatient rehabilitation units. Periods [facility] in [place] will be reviewing her clinicals. Resuscitation Status: CPR: Attempt Resuscitation Regis Cardona MD Jul 14, 2017 15:27
[2017-07-14 16:40] VITALS: BP 169/77; PULSE 101; RESP 22; O2SAT 92
--- NOTE | 2017-07-14 18:35 | NUR ---
Menses Pt has been on her menses per Pt and report, pads/extra chucks in place. This evening, Pt reported gushing feel and nursing assistants reported needing to change all pads on bed. MD made aware who instructed to hold evenings warfarin dose, verbalized that he would hold Pt's warfarin for a couple days, and speak with a product safety consultant about coming by tomorrow to see the Pt.
[2017-07-14 19:52] VITALS: BP 148/84; PULSE 92; RESP 18; O2SAT 97
[2017-07-14 22:09] VITALS: RESP 26; O2SAT 93
[2017-07-15] MEDS: Sodium Chloride LOK Flush 10 mL Syringe IVFLUSH SCH ×4 (00:28→21:29)
[2017-07-15 03:40] LABS: INR 2.04 ratio
[2017-07-15 03:56] VITALS: BP 133/76; PULSE 85; RESP 18; O2SAT 96
--- NOTE | 2017-07-15 05:41 | NUR ---
Chucks/pads changed x1 r/t menses, moderate amount of bloody output observed. VSS, pt slept quietly all night. Plan for gyno consult this AM.
[2017-07-15 08:56] VITALS: BP 140/88; PULSE 87; RESP 20; O2SAT 94
[2017-07-15] MEDS: Nystatin 100,000 Unit/mL 5 mL Suspension PO SCH ×4 (08:59→21:29)
[2017-07-15] MEDS: LORazepam 1 mg Tablet PO PRN (10:39)
--- NOTE | 2017-07-15 13:33 | PCM.PNMED ---
Subjective Date of Service Jul 15, 2017 Subjective She is doing well. Diarrhea has resolved. Still with vaginal bleeding. Less skin irritation. No leg edema. She denies weakness. She is doing better with physical therapy was able to sit up twice with minimal assist and sip on the edge of the bed with only one person assisting. No overnight events Exam Vital Signs Vital Sign - Last Date Time Temp Pulse Resp B/P Pulse Ox O2 Delivery O2 Flow Rate FiO2 07/15/17 08:56 36.4 87 20 140/88 94 OxyMask 2.00 07/14/17 03:15 30 Intake and Output 07/14/17 07/14/17 07/15/17 Cumulative From/Thru 15:00 23:00 07:00 06/20/17 10:42 - 07/15/17 04:53 Intake Total 565 ml 200 ml 51121 ml Output Total 600 ml 700 ml 41644 ml Balance -35 ml -500 ml -7996 ml Intake Oral 500 ml 200 ml 29503 ml IV Total 65 ml 61417 ml Output Urine Total 600 ml 700 ml 17585 ml # Bowel Movements 1 0 30 Exam Alert and oriented -3, no distress. Fluent speech Anicteric sclera. Lungs are clear with normal rate and effort Heart is regular without murmur gallop or rub Abdomen soft nontender, flat. Less skin redness. Extremities are free of edema. Skin is free of rash or lesions. IVs and Medications Medications Reviewed: Medications were reviewed in detail Lab and Diagnostics Result Diagram: 07/15/17 1305 X-Rays, CTs and MRIs Cardiac Echo Impressions Echocardiogram Report Interpretation Summary This was a technically difficult study. 1. Grossly normal left ventricular size with grossly normal systolic function. 2. The right ventricle was not visualized. The estimated RVSP is 47 mm plus CVP 3. Valves were not optimally visualized Reading Physician:06:04 PM Additional Diagnostics Assessment & Plan #. Intermittent vaginal bleeding, active. We will hold Coumadin on Sunday and Sunday. We will then consult with on Sunday to see if they have any recommendations. The patient is contraindicated for estrogen given her history of DVT. #. Super-Super Morbid obesity. POA and stable. Patient counseled by Kwame that aggressive calorie reduction is needed to expedite her return to mobility and her ability to live outside of an institutional setting. She concurs and is supportive of aggressive dieting goals. She seemed to tolerate her diet at current levels. - BMI 86.5 - Continue bariatric nursing care procedures - Patient of family counseled on importance of calorie restriction and weight loss. - Recommend 800 calorie VLCD diet with appropriate protein, fiber and vitamin supplement. - Calorie count to assess compliance with 800-calorie target No change to current medical plan. She continues to lose weight and is now on approximately 575 pounds. #. Sacral decubitus ulcers, present on admission. Active and stable. Likely stage II. These were inspected by nurses on 06/23 and found to have blanchable erythema and excoriation but no stage IV decubiti. - Wound care consulted. We will continue the current wound plan. No change in current medical plan. Continue wound care. #. Obesity hypoventilation syndrome, present on admission. Active and stable. - Will require ongoing bilevel volume-directed ventilation support when sleeping. This is stable no changes to plan. 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 No change in current medical plan. BiPAP at night. #. Pulmonary embolism, present on admission. Stable with a therapeutic protime. Initial ABG revealed severe hypoxic deficit despite compensated chronic hypercarbia. . D-Dimer 8, albeit with bruise on right forearm. She is too large to do Chest CT PE scan. Decision was made to institute empiric anticoagulation, probably to continue chronically. She is at high risk for chronic thromboembolic pulmonary hypertension. Attempts were made to transfer patient to facility with suitable CT or angiography features but no such facilities identified. Maximum width at [facility] CT scanner is 78 cm , patient is 90 cm wide. Unable to obtain confirmatory diagnostic testing. Treating empirically. - Warfarin. - INR therapeutic. This is stable. This is being managed by pharmacy. Continue warfarin, after Sunday and Sunday hold. This has been therapeutic. No changes. #. Acute Hypoxemic respiratory failure, present on admission. Improving and stable. Acute hypoxia is deemed likely 2nd to PE, the absence of other respiratory traction or pathology. Continue supplemental oxygen. Wean as able. This is stable. Oxygen mask by day and BiPAP at night. No changes. #. Acute on chronic Hypercapnic respiratory failure, present on admission. Improving and stable. Likely 2nd to obesity hypoventilation syndrome. Appears to have had worsening hypercarbic respiratory failure following oxygen supplementation in hospital, despite BiPAP. - The plan is for discharge to LTAC for ongoing management. She will likely need a home trilogy when she is able to discharged to a home environment. - Target O2 saturation is 88% - 92%; avoid excess oxygenation, continue noninvasive positive pressure ventilation. No changes for now. This is stable. Oxygen mask by date, BiPAP at night. #. Group B strep Bacteremia, not present on admission. Resolved -Completed Ceftriaxone IV for 14 days (also for cellulitis). Stop antibiotics. #. Anxiety, not present on admission. Active and improving.. - Small dose PO Ativan before PT sessions. - Discontinue IV Ativan; patient was counseled on need to minimize dependence on benzodiazepines #. Left torso and abdomen cellulitis, active and stable. Probable some component chronic panniculitis. - Discontinued antibiotics on 07/06 - completed two-week course with minimal change in her left abdominal erythema, stop antibiotics at this time. #. Acute urinary tract infection, present on admission. Resolved. Asymptomatic bacteriuria E.coli in urine at time of admission - Covered by cellulitis antibiotics, stop antibiotics. Acetaminophen for mild pain when necessary. Bowel regimen Senna and MiraLAX scheduled and PRN. Zofran when necessary for nausea and vomiting. SubQ heparin held for now. SCDs in place. High-risk medications: Warfarin. Patient Status: Patient is admitted under inpatient status with expected length of stay greater than 2 midnights due to severity of presenting symptoms, risk of adverse event, and complexity of treatment plan. Awaiting acceptance to LTAC placement, versus looking at potential discharge to local detention facilities or inpatient rehabilitation units. Periods [facility] in [place] will be reviewing her clinicals. Resuscitation Status: CPR: Attempt Resuscitation Regis Cardona MD Jul 15, 2017 13:33
[2017-07-15 16:45] VITALS: BP 167/85; PULSE 96; RESP 24; O2SAT 92
--- NOTE | 2017-07-15 18:28 | NUR ---
Social Work: Continued Discharge Planning/Multidisciplinary Rounds D: Pt discussed in multidisciplinary rounds. Pt making a lot of progress with PT but still requiring a higher level of care for safe discharge. The patient is still on the waitlist at [facility]. Per PT, pt is a candidate for inpatient rehab- the patient is highly motivated, completes an hour of PT daily at [facility] and has a good support system. OT has seen patient, also recommending inpatient rehab for similar reasons. Since multiple therapies have been ordered, updated clinicals will be faxed to [facility] rehab on Sunday. SW will continue to follow. A: Pt who continues to await placement for rehab P: Pt has been accepted at [facility] pending a bariatric bed. OT has been completed, recommending inpt rehab. Updated clinicals will be faxed to [facility] rehab on Sunday. BRENDA Lopez
--- NOTE | 2017-07-15 19:33 | NUR ---
Menses Pt continues to have vaginal bleeding soiling ~2 continence pads per shift, spoke with , H/H ordered which came back at ., warfarin dosing on hold until tomorrow.
[2017-07-15 21:49] VITALS: BP 158/82; PULSE 90; RESP 20; O2SAT 94
[2017-07-16 03:00] VITALS: BP 126/72; PULSE 83; RESP 22; O2SAT 94
--- NOTE | 2017-07-16 05:13 | NUR ---
Pain Patient reports pain at 7/10 to knees and shoulders at HS; requested Tylenol but dose not available for approx. 2 hours from time of request. Patient agreeable to oxycodone instead, able to sleep throughout shift without further c/o pain. VSS, no telemetry. Pt denied dressing changes at HS.
[2017-07-16 08:05] VITALS: BP 153/81; PULSE 86; RESP 16; O2SAT 96
[2017-07-16] MEDS: Sodium Chloride LOK Flush 10 mL Syringe IVFLUSH SCH ×3 (08:10→21:41)
[2017-07-16] MEDS: Nystatin 100,000 Unit/mL 5 mL Suspension PO SCH (08:10)
--- NOTE | 2017-07-16 11:52 | NUR ---
Inpatient Wound Nurse Patient seen in follow up of skin care and gluteal wounds. Multiple areas of erythema and peeling are noted, in variably states of healing. No aris cellulitis or infection noted. Friction wounds in gluteal cleft are improved, steam drier tender, much less erythemic, and no ooze or drainage noted on removed dressing. Patient was encouraged to be out of bed and or side-lie as much as possible. She stated that overall, her skin feels improved. [facility] is available as resource, nursing staff following hygiene recommendations, patient is compliant.
--- NOTE | 2017-07-16 13:11 | PCM.PNMED ---
Subjective Date of Service Jul 16, 2017 Subjective She is doing well except for ongoing vaginal bleeding. No abdominal pain. No nausea. No cough, or dyspnea. She continues to require 5 L of oxygen nasal cannula. No diarrhea. No overnight events Exam Vital Signs Vital Sign - Last Date Time Temp Pulse Resp B/P Pulse Ox O2 Delivery O2 Flow Rate FiO2 07/16/17 10:04 Supplement Oxygen CPAP/BIPAP 07/16/17 08:05 36.6 86 16 153/81 96 2.00 07/16/17 03:00 30 Intake and Output 07/15/17 07/15/17 07/16/17 Cumulative From/Thru 15:00 23:00 07:00 06/20/17 10:42 - 07/16/17 06:23 Intake Total 900 ml 300 ml 21131 ml Output Total 1350 ml 800 ml 93678 ml Balance -450 ml -500 ml -8946 ml Intake Oral 900 ml 300 ml 09293 ml IV Total 98485 ml Output Urine Total 1350 ml 800 ml 97415 ml # Bowel Movements 1 31 Exam Alert and oriented -3, no distress. Fluent speech Anicteric sclera. Lungs are clear with normal rate and effort Heart is regular without murmur gallop or rub Abdomen soft nontender, flanks are again less red and continued to improve. Extremities are free of edema. Some venous stasis changes are noted Skin is free of rash or lesions. IVs and Medications Medications Reviewed: Medications were reviewed in detail Lab and Diagnostics Result Diagram: 07/15/17 1305 X-Rays, CTs and MRIs Cardiac Echo Impressions Echocardiogram Report Interpretation Summary This was a technically difficult study. 1. Grossly normal left ventricular size with grossly normal systolic function. 2. The right ventricle was not visualized. The estimated RVSP is 47 mm plus CVP 3. Valves were not optimally visualized Reading Physician:06:04 PM Additional Diagnostics Assessment & Plan #. Intermittent vaginal bleeding, active. This continues. We will consult with gynecology today to see if they have anything that could improve the situation. We will hold Coumadin on Sunday and Sunday. We will then consult with gynecology on Sunday to see if they have any recommendations. The patient is contraindicated for estrogen given her history of DVT. #. Super-Super Morbid obesity. POA and stable. Patient counseled by Kwame that aggressive calorie reduction is needed to expedite her return to mobility and her ability to live outside of an institutional setting. She concurs and is supportive of aggressive dieting goals. She seemed to tolerate her diet at current levels. - BMI 86.5 - Continue bariatric nursing care procedures - Patient of family counseled on importance of calorie restriction and weight loss. - Recommend 800 calorie VLCD diet with appropriate protein, fiber and vitamin supplement. - Calorie count to assess compliance with 800-calorie target No change to current medical plan. She continues to lose weight and is now on approximately 575 pounds. #. Sacral decubitus ulcers, present on admission. Active and stable. Likely stage II. These were inspected by nurses on 06/23 and found to have blanchable erythema and excoriation but no stage IV decubiti. - Wound care consulted. We will continue the current wound plan. No change in current medical plan. Continue wound care. #. Obesity hypoventilation syndrome, present on admission. Active and stable. - Will require ongoing bilevel volume-directed ventilation support when sleeping. This is stable no changes to plan. 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 No change in current medical plan. BiPAP at night. #. Pulmonary embolism, present on admission. Stable with a therapeutic protime. Initial ABG revealed severe hypoxic deficit despite compensated chronic hypercarbia. . D-Dimer 8, albeit with bruise on right forearm. She is too large to do Chest CT PE scan. Decision was made to institute empiric anticoagulation, probably to continue chronically. She is at high risk for chronic thromboembolic pulmonary hypertension. Attempts were made to transfer patient to facility with suitable CT or angiography features but no such facilities identified. Maximum width at [facility] CT scanner is 78 cm , patient is 90 cm wide. Unable to obtain confirmatory diagnostic testing. Treating empirically. - Warfarin. - INR therapeutic. This is stable. This is being managed by pharmacy. Continue warfarin, after Sunday and Sunday hold. This has been therapeutic. No changes. #. Acute Hypoxemic respiratory failure, present on admission. Improving and stable. Acute hypoxia is deemed likely 2nd to PE, the absence of other respiratory traction or pathology. Continue supplemental oxygen. Wean as able. This is stable. Oxygen mask by day and BiPAP at night. No changes. #. Acute on chronic Hypercapnic respiratory failure, present on admission. Improving and stable. Likely 2nd to obesity hypoventilation syndrome. Appears to have had worsening hypercarbic respiratory failure following oxygen supplementation in hospital, despite BiPAP. - The plan is for discharge to LTAC for ongoing management. She will likely need a home trilogy when she is able to discharged to a home environment. - Target O2 saturation is 88% - 92%; avoid excess oxygenation, continue noninvasive positive pressure ventilation. No changes for now. This is stable. Oxygen mask by date, BiPAP at night. #. Group B strep Bacteremia, not present on admission. Resolved -Completed Ceftriaxone IV for 14 days (also for cellulitis). Stop antibiotics. #. Anxiety, not present on admission. Active and improving.. - Small dose PO Ativan before PT sessions. - Discontinue IV Ativan; patient was counseled on need to minimize dependence on benzodiazepines #. Left torso and abdomen cellulitis, active and stable. Probable some component chronic panniculitis. - Discontinued antibiotics on 07/06 - completed two-week course with minimal change in her left abdominal erythema, stop antibiotics at this time. #. Acute urinary tract infection, present on admission. Resolved. Asymptomatic bacteriuria E.coli in urine at time of admission - Covered by cellulitis antibiotics, stop antibiotics. Acetaminophen for mild pain when necessary. Bowel regimen Senna and MiraLAX scheduled and PRN. Zofran when necessary for nausea and vomiting. SubQ heparin held for now. SCDs in place. High-risk medications: Warfarin. Patient Status: Patient is admitted under inpatient status with expected length of stay greater than 2 midnights due to severity of presenting symptoms, risk of adverse event, and complexity of treatment plan. Awaiting acceptance to LTAC placement, versus looking at potential discharge to local half-way facilities or inpatient rehabilitation units. Periods [facility] in [place] will be reviewing her clinicals. Resuscitation Status: CPR: Attempt Resuscitation Regis Cardona MD Jul 16, 2017 13:11
[2017-07-16] MEDS: LORazepam 1 mg Tablet PO PRN (13:43)
[2017-07-16 13:44] LABS: INR 1.47 ratio
--- NOTE | 2017-07-16 13:48 | NUR ---
INPATIENT REHAB REFERRAL FOLLOW UP : [facility] and [facility] and she is wanting to see patient's OT Evaluation and is needing to know if patient was seen by speech and if patient is really going to tolerate three hours of rehab. Faxed updated clinicals including the OT evaluation. Called and left message for [facility] to see if they could consider the referral and if there were any additional questions they had. Updated GARNETT ROOM WORKER Addendum: 07/16/17 at 1413 by SHERMAN VARELA CM Spoke with Dottie at [facility] and she is looking at the updated clinicals and sending this to her Founder President And Ceo for Review and acceptance or denial. Updated GARNETT ROOM WORKER
[2017-07-16 17:25] VITALS: BP 138/84; PULSE 93; RESP 18; O2SAT 93
--- NOTE | 2017-07-16 17:49 | NUR ---
Bleeding Patient continues to have large amount vaginal bleeding, changed soiled chucks pad every 2-3 hours this shift. H/H remain stable. MD aware. Will continue to monitor.
[2017-07-16 21:33] VITALS: BP 154/88; PULSE 91; RESP 18; O2SAT 92
[2017-07-16 23:14] VITALS: RESP 32; O2SAT 95
[2017-07-17 03:09] VITALS: BP 141/74; PULSE 78; RESP 16; O2SAT 95
[2017-07-17 03:20] LABS: INR 1.6 ratio
[2017-07-17 03:46] VITALS: RESP 14; O2SAT 93
--- NOTE | 2017-07-17 06:03 | NUR ---
Vaginal Bleeding Ongoing vaginal bleeding this shift, waxing and waning in quantity. Pt reports generalized arthritic pain at HS; Tylenol administered with relief reported on reassessment. BiPAP at HS, VSS. No other complaints this shift.
[2017-07-17 08:16] VITALS: BP 166/92; PULSE 88; RESP 16; O2SAT 98
[2017-07-17] MEDS: Sodium Chloride LOK Flush 10 mL Syringe IVFLUSH SCH ×3 (08:26→22:03)
[2017-07-17] MEDS: LORazepam 1 mg Tablet PO PRN (08:40)
--- NOTE | 2017-07-17 13:39 | NUR ---
NUTRITION FOLLOW-UP: ASSESS: 57 YO female admitted with hypoxemia, advanced respiratory failure, presumed PE. Wound care is following. Pt has multiple gluteal wounds, which continue to improve per Ssds Mk 2 Advanced Operator. She is on a Heart Healthy diet with good PO and she is receiving Francis BID to assist with wound healing. Pt awaiting discharge to [facility], once a bariatric bed becomes available. Per notes, pt is ordered a 800-1000 calorie diet to assist with weight loss. The patient is stellar in her enthusiasm to achieve and maintain her weight loss and lifestyle goals. Pt's highest recorded wt during admit was 280kg. She is now recorded at 257kg. Total wt loss is ~23kg. PMHx: Arthritis, FRANK, depression, advanced respiratory failure, class III obesity. DIET: Heart healthy + Francis. PO intake 75-100% trays. LABS: Reviewed. Last labs 07/02 MEDICATIONS: Reviewed. Imodium, Coumadin, Florastor. GI: BMx1 07/16 SKIN: Wound care following from multiple gluteal wounds that are improving. ANTHROPOMETRICS: Current Wt: 257 kg, BMI: 97.3 kg/m2. Admit weight: 278.2 kg, Adjust BW: 105 kg, IBW: 54.5 kg. Pt has lost 23 kg since admit. ESTIMATED NEEDS (BMI, WOUNDS): Calories: 3571-9151 kcal/day (22-25 kcal/kg adj BW) Protein: 105-125 g/day (1.0-1.2 g/kg adj BW) NUTRITION DIAGNOSIS: 1) Increased nutrient needs related to increased demand for nutrients, as evidenced by multiple wound issues noted by Ssds Mk 2 Advanced Operator - IMPROVING. INTERVENTION: 1) Continue current diet and Francis at lunch and dinner for wound healing as ordered. 2) Will continue to monitor calorie and carbohydrate intake. MONITOR/EVALUATE: PO intake, wt, GI, wounds, labs, nutrition status. Follow per moderate nutrition risk guidelines.
--- NOTE | 2017-07-17 13:55 | PCM.PHAPRO ---
Progress Warfarin dosing WARFARIN: Recent INR/dosin-Jul 06-Jul 07-Jul 08-Jul 09-Jul 10-Jul 11-Jul 12-Jul 13-Jul 14-Jul 15-Jul 16- Jul 17-Jul 18-Jul 19-Jun 2.27 2.29 2.29 2.09 2.14 2.14 2.04 1.6 2.5 2.5 2.5 2.5 2.5 2.5 2.5 3 2.5 3 2.5 3 5mg x1 a/ Setting aside low value on 07/17, therapeutic dose fairly well discovered to be about 2.5mg MWF and 3mg all other days. p/ Small bump dose today (5mg), anticipate resuming 2.5/3mg dosing Gagandeep Valladares S Pharm D Jul 17, 2017 13:54
[2017-07-17 16:21] VITALS: BP 148/80; PULSE 98; RESP 22; O2SAT 95
--- NOTE | 2017-07-17 16:24 | PCM.PNMED ---
Subjective Date of Service Jul 17, 2017 Subjective She is doing relatively well. She is having ongoing vaginal bleeding. I did discuss the case with gynecology superintendent stations 2 days ago Nothing that we can do here at this time other than continue to monitor. Her body habitus prohibits vaginal examination. She would likely require outpatient evaluation at [facility] given her size. She is also not a good candidate for estrogen given her history of concurrent pulmonary embolism. We did hold her Coumadin for 2 days to see if this would decrease the bleeding. She is now subtherapeutic and we will resume this tonight and should for having a lower end of the 2-3 INR window. She is having less skin sensitivity. No diarrhea. No overnight events noted. Exam Vital Signs Vital Sign - Last Date Time Temp Pulse Resp B/P Pulse Ox O2 Delivery O2 Flow Rate FiO2 07/17/17 10:00 Supplement Oxygen 07/17/17 08:16 36.5 88 16 166/92 98 2.00 07/17/17 03:09 30 Intake and Output 07/16/17 07/16/17 07/17/17 Cumulative From/Thru 15:00 23:00 07:00 06/20/17 10:42 - 07/17/17 06:17 Intake Total 900 ml 400 ml 88841 ml Output Total 2475 ml 500 ml 19183 ml Balance -1575 ml -100 ml -24948 ml Intake Oral 900 ml 400 ml 06461 ml IV Total 02388 ml Output Urine Total 2475 ml 500 ml 50504 ml # Bowel Movements 1 32 Exam Alert and oriented -3, no distress. Fluent speech Anicteric sclera. Lungs are clear with normal rate and effort Heart is regular without murmur gallop or rub Abdomen soft nontender, distended. Her flanks are less erythematous. Extremities are free of edema. Skin is free of rash or lesions. IVs and Medications Medications Reviewed: Medications were reviewed in detail Lab and Diagnostics Result Diagram: 07/15/17 1305 X-Rays, CTs and MRIs Cardiac Echo Impressions Echocardiogram Report Interpretation Summary This was a technically difficult study. 1. Grossly normal left ventricular size with grossly normal systolic function. 2. The right ventricle was not visualized. The estimated RVSP is 47 mm plus CVP 3. Valves were not optimally visualized Reading Physician:06:04 PM Additional Diagnostics Assessment & Plan #. Intermittent vaginal bleeding, active. We discussed this case with gynecology and her physical size prohibits a vaginal examination here or even really a transvaginal ultrasound. The patient also has concurrent DVT and is not a candidate for estrogen therapy to attempt to stop bleeding. At this point we will continue to watch and follow hematocrit. We held Coumadin on Sunday and Sunday. We will resume Coumadin tonight and then shoot for just about to run INR. #. Super-Super Morbid obesity. POA and stable. Patient counseled by Kwame that aggressive calorie reduction is needed to expedite her return to mobility and her ability to live outside of an institutional setting. She concurs and is supportive of aggressive dieting goals. She seemed to tolerate her diet at current levels. - BMI 86.5 - Continue bariatric nursing care procedures - Patient of family counseled on importance of calorie restriction and weight loss. - Recommend 800 calorie VLCD diet with appropriate protein, fiber and vitamin supplement. - Calorie count to assess compliance with 800-calorie target No change to current medical plan. She continues to lose weight and is now on approximately 550 pounds. #. Sacral decubitus ulcers, present on admission. Active and stable. Likely stage II. These were inspected by nurses on 06/23 and found to have blanchable erythema and excoriation but no stage IV decubiti. - Wound care consulted. We will continue the current wound plan. No change in current medical plan. Continue wound care. #. Obesity hypoventilation syndrome, present on admission. Active and stable. - Will require ongoing bilevel volume-directed ventilation support when sleeping. This is stable no changes to plan. 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 No change in current medical plan. BiPAP at night. #. Pulmonary embolism, present on admission. Stable with a therapeutic protime. Initial ABG revealed severe hypoxic deficit despite compensated chronic hypercarbia. . D-Dimer 8, albeit with bruise on right forearm. She is too large to do Chest CT PE scan. Decision was made to institute empiric anticoagulation, probably to continue chronically. She is at high risk for chronic thromboembolic pulmonary hypertension. Attempts were made to transfer patient to facility with suitable CT or angiography features but no such facilities identified. Maximum width at [facility] CT scanner is 78 cm , patient is 90 cm wide. Unable to obtain confirmatory diagnostic testing. Treating empirically. - Warfarin. - INR therapeutic. This is stable. This is being managed by pharmacy. Continue warfarin, after Sunday and Sunday hold. She is therapeutic. We will not use bridging Lovenox given her vaginal bleeding control except a short subtherapeutic range. #. Acute Hypoxemic respiratory failure, present on admission. Improving and stable. Acute hypoxia is deemed likely 2nd to PE, the absence of other respiratory traction or pathology. Continue supplemental oxygen. Wean as able. This is stable. Oxygen mask by day and BiPAP at night. No changes. #. Acute on chronic Hypercapnic respiratory failure, present on admission. Improving and stable. Likely 2nd to obesity hypoventilation syndrome. Appears to have had worsening hypercarbic respiratory failure following oxygen supplementation in hospital, despite BiPAP. - The plan is for discharge to LTAC for ongoing management. She will likely need a home trilogy when she is able to discharged to a home environment. - Target O2 saturation is 88% - 92%; avoid excess oxygenation, continue noninvasive positive pressure ventilation. No changes for now. This is stable. Oxygen mask by date, BiPAP at night. #. Group B strep Bacteremia, not present on admission. Resolved -Completed Ceftriaxone IV for 14 days (also for cellulitis). Stop antibiotics. #. Anxiety, not present on admission. Active and improving.. - Small dose PO Ativan before PT sessions. - Discontinue IV Ativan; patient was counseled on need to minimize dependence on benzodiazepines #. Left torso and abdomen cellulitis, active and stable. Probable some component chronic panniculitis. - Discontinued antibiotics on 07/06 - completed two-week course with minimal change in her left abdominal erythema, stop antibiotics at this time. #. Acute urinary tract infection, present on admission. Resolved. Asymptomatic bacteriuria E.coli in urine at time of admission - Covered by cellulitis antibiotics, stop antibiotics. Acetaminophen for mild pain when necessary. Bowel regimen Senna and MiraLAX scheduled and PRN. Zofran when necessary for nausea and vomiting. SubQ heparin held for now. SCDs in place. High-risk medications: Warfarin. Patient Status: Patient is admitted under inpatient status with expected length of stay greater than 2 midnights due to severity of presenting symptoms, risk of adverse event, and complexity of treatment plan. Awaiting acceptance to LTAC placement, versus looking at potential discharge to local [facility] facilities or inpatient rehabilitation units. [facility] inpatient rehabilitation is declining the patient. We will continue to look at [place] and [facility] [place] inpatient rehabilitation. Resuscitation Status: CPR: Attempt Resuscitation Regis Cardona MD Jul 17, 2017 16:24
--- NOTE | 2017-07-17 18:12 | NUR ---
bleeding pt continues to have menses, bright red blood with clots. Pad changed q3-4 hrs during shift. MD aware. Order to resume coumadin received from . PIV out this AM, order to leave out as well.
[2017-07-17 23:47] VITALS: BP 142/78; PULSE 79; RESP 20; O2SAT 97
[2017-07-18 03:12] LABS: INR 1.65 ratio
--- NOTE | 2017-07-18 06:06 | NUR ---
Activities / Bleed Able to help with turn. VSS. Continues to have vaginal bleeding. Changed pads x 2 this shift. Utilizing BiPAP at HS. No overt complications noted.
[2017-07-18] MEDS: Sodium Chloride LOK Flush 10 mL Syringe IVFLUSH SCH ×4 (09:56→22:08)
[2017-07-18 10:01] VITALS: BP 150/76; PULSE 97; RESP 20; O2SAT 97
--- NOTE | 2017-07-18 12:18 | PCM.PNMED ---
Subjective Date of Service Jul 18, 2017 Subjective Patient notes that she is slowly improving as far as her ability to stand and is working with physical therapy. She does use BiPAP overnight daily. She has lost some weight while being hospitalized here. Exam Vital Signs Vital Sign - Last Date Time Temp Pulse Resp B/P Pulse Ox O2 Delivery O2 Flow Rate FiO2 07/18/17 10:01 37.3 97 20 150/76 97 OxyMask 2.00 07/17/17 03:09 30 Intake and Output 07/17/17 07/17/17 07/18/17 Cumulative From/Thru 15:00 23:00 07:00 06/20/17 10:42 - 07/18/17 02:19 Intake Total 700 ml 58084 ml Output Total 1300 ml 36534 ml Balance -600 ml -60915 ml Intake Oral 700 ml 10119 ml IV Total 90220 ml Output Urine Total 1300 ml 26784 ml # Bowel Movements 1 33 Exam Constitutional: Morbidly obese female in no acute distress Head: Normocephalic atraumatic Chest: Clear to auscultation Cor: Regular rate and rhythm S1-S2 without murmur Abdomen: Soft nontender bowel sounds present Extremities: Trace bilateral pedal edema Psych: Mood and affect are appropriate Neuro: Alert and oriented 3, motor strength is intact bilaterally IVs and Medications Medications Reviewed: Medications were reviewed in detail Lab and Diagnostics Laboratory Tests 72 Hours Test 07/15/17 13:05 07/16/17 13:15 07/17/17 02:25 07/18/17 02:20 Hemoglobin 13.5g/dL (12.0-15.6) 12.9g/dL (12.0-15.6) Hematocrit 42.0% (35.0-46.0) 39.9% (35.0-46.0) Prothrombin Time 15.9sec (8.1-12.5) 17.3sec (8.1-12.5) 17.8sec (8.1-12.5) Prothromb Time International Ratio 1.47ratio 1.60ratio 1.65ratio Result Diagram: 07/18/17 0220 X-Rays, CTs and MRIs Cardiac Echo Impressions Echocardiogram Report Interpretation Summary This was a technically difficult study. 1. Grossly normal left ventricular size with grossly normal systolic function. 2. The right ventricle was not visualized. The estimated RVSP is 47 mm plus CVP 3. Valves were not optimally visualized Reading Physician:06:04 PM Additional Diagnostics Assessment & Plan #. Intermittent vaginal bleeding, active. We discussed this case with gynecology and her physical size prohibits a vaginal examination here or even really a transvaginal ultrasound. The patient also has concurrent DVT and is not a candidate for estrogen therapy to attempt to stop bleeding. At this point we will continue to watch and follow hematocrit. We held Coumadin on Sunday and Sunday. We will resume Coumadin tonight and then shoot for 2.0-2.5 INR. #. Super-Super Morbid obesity. POA and stable. Patient counseled by Kwame that aggressive calorie reduction is needed to expedite her return to mobility and her ability to live outside of an institutional setting. She concurs and is supportive of aggressive dieting goals. She seemed to tolerate her diet at current levels. - BMI 86.5 - Continue bariatric nursing care procedures - Patient of family counseled on importance of calorie restriction and weight loss. - Recommend 800 calorie VLCD diet with appropriate protein, fiber and vitamin supplement. - Calorie count to assess compliance with 800-calorie target No change to current medical plan. She continues to lose weight and is now on approximately 550 pounds. #. Sacral decubitus ulcers, present on admission. Active and stable. Likely stage II. These were inspected by nurses on 06/23 and found to have blanchable erythema and excoriation but no stage IV decubiti. - Wound care consulted. We will continue the current wound plan. No change in current medical plan. Continue wound care. #. Obesity hypoventilation syndrome, present on admission. Active and stable. - Will require ongoing bilevel volume-directed ventilation support when sleeping. This is stable no changes to plan. 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 No change in current medical plan. BiPAP at night. #. Pulmonary embolism, present on admission. Stable with a therapeutic protime. Initial ABG revealed severe hypoxic deficit despite compensated chronic hypercarbia. . D-Dimer 8, albeit with bruise on right forearm. She is too large to do Chest CT PE scan. Decision was made to institute empiric anticoagulation, probably to continue chronically. She is at high risk for chronic thromboembolic pulmonary hypertension. Attempts were made to transfer patient to facility with suitable CT or angiography features but no such facilities identified. Maximum width at [facility] CT scanner is 78 cm , patient is 90 cm wide. Unable to obtain confirmatory diagnostic testing. Treating empirically. - Warfarin. - INR therapeutic. This is stable. This is being managed by pharmacy. Continue warfarin, after Sunday and Sunday hold. She is therapeutic. We will not use bridging Lovenox given her vaginal bleeding control except a short subtherapeutic range. #. Acute Hypoxemic respiratory failure, present on admission. Improving and stable. Acute hypoxia is deemed likely 2nd to PE, the absence of other respiratory traction or pathology. Continue supplemental oxygen. Wean as able. This is stable. Oxygen mask by day and BiPAP at night. No changes. #. Acute on chronic Hypercapnic respiratory failure, present on admission. Improving and stable. Likely 2nd to obesity hypoventilation syndrome. Appears to have had worsening hypercarbic respiratory failure following oxygen supplementation in hospital, despite BiPAP. - The plan is for discharge to LTAC for ongoing management. She will likely need a home trilogy when she is able to discharged to a home environment. - Target O2 saturation is 88% - 92%; avoid excess oxygenation, continue noninvasive positive pressure ventilation. No changes for now. This is stable. Oxygen mask by date, BiPAP at night. #. Group B strep Bacteremia, not present on admission. Resolved -Completed Ceftriaxone IV for 14 days (also for cellulitis). Stop antibiotics. #. Anxiety, not present on admission. Active and improving.. - Small dose PO Ativan before PT sessions. - Discontinue IV Ativan; patient was counseled on need to minimize dependence on benzodiazepines #. Left torso and abdomen cellulitis, active and stable. Probable some component chronic panniculitis. - Discontinued antibiotics on 07/06 - completed two-week course with minimal change in her left abdominal erythema, stop antibiotics at this time. #. Acute urinary tract infection, present on admission. Resolved. Asymptomatic bacteriuria E.coli in urine at time of admission - Covered by cellulitis antibiotics, stop antibiotics. Acetaminophen for mild pain when necessary. Bowel regimen Senna and MiraLAX scheduled and PRN. Zofran when necessary for nausea and vomiting. SubQ heparin held for now. SCDs in place. High-risk medications: Warfarin. Patient Status: Patient is admitted under inpatient status with expected length of stay greater than 2 midnights due to severity of presenting symptoms, risk of adverse event, and complexity of treatment plan. Awaiting acceptance to LTAC placement, versus looking at potential discharge to local halfway facilities or inpatient rehabilitation units. [facility] inpatient rehabilitation is declining the patient. We will continue to look at [place] and [facility] inpatient rehabilitation. Resuscitation Status: CPR: Attempt Resuscitation Time spent 30 minutes La Kat MD Jul 18, 2017 12:18
[2017-07-18 12:28] VITALS: BP 164/90; PULSE 93; RESP 20; O2SAT 94
[2017-07-18] MEDS: LORazepam 1 mg Tablet PO PRN (12:48)
--- NOTE | 2017-07-18 14:08 | NUR ---
Trilogy Update Spoke with Danielle Godfrey from [employer]. Updated her with the new plan of care for patient at either [facility] or [facility]. At this time pt has been approved through insurance for in home trilogy. [employer] will set this up once she is discharged from the next facility to home.
[2017-07-18 16:11] VITALS: BP 136/79; PULSE 94; RESP 18; O2SAT 93
--- NOTE | 2017-07-18 17:59 | NUR ---
Activity/Menses/skin care Pt up with PT today. Pt tolerated standing at bedside x3 for 2 minutes. Pt tolerated fair but c/o feet becoming numb. Pt continues to have vaginal bleeding/menses. 2 pads used during shift. Panus and skin folds cleaned with barrier wipes and powder applied.
[2017-07-18 23:16] VITALS: BP 175/80; PULSE 89; RESP 18; O2SAT 97
[2017-07-19 04:35] LABS: INR 1.63 ratio
--- NOTE | 2017-07-19 07:06 | NUR ---
Bleeding Pt continues to have vaginal bleed. It seems less than the NOC before. Pt prefers to sleep on her back and not turn. Risks and benefits discussed. She verbalizes understanding and continues to lay on her back. VSS. No overt complications noted.
[2017-07-19] MEDS: Sodium Chloride LOK Flush 10 mL Syringe IVFLUSH SCH ×2 (08:30→16:30)
[2017-07-19 08:44] VITALS: BP 152/87; PULSE 98; RESP 24; O2SAT 94
--- NOTE | 2017-07-19 12:22 | PCM.PNMED ---
Subjective Date of Service Jul 19, 2017 Subjective Patient noticed some loose stools since yesterday. She had been earlier in the hospital stay and it resolved. Denies any fevers or chills denies any abdominal pain. Exam Vital Signs Vital Sign - Last Date Time Temp Pulse Resp B/P Pulse Ox O2 Delivery O2 Flow Rate FiO2 07/19/17 09:01 Supplement Oxygen CPAP/BIPAP 07/19/17 08:44 36.3 98 24 152/87 94 2.00 07/17/17 03:09 30 Intake and Output 07/18/17 07/18/17 07/19/17 Cumulative From/Thru 15:00 23:00 07:00 06/20/17 10:42 - 07/19/17 06:24 Intake Total 400 ml 1440 ml 400 ml 98145 ml Output Total 1300 ml 1200 ml 1200 ml 98423 ml Balance -900 ml 240 ml -800 ml -47449 ml Intake Oral 400 ml 1440 ml 400 ml 47784 ml IV Total 63094 ml Output Urine Total 1300 ml 1200 ml 1200 ml 78187 ml # Bowel Movements 2 1 36 Exam Situational: Morbidly obese female in no acute distress Head: Normocephalic dramatic Chest: Clear to auscultation Cor: Regular rate and rhythm S1-S2 Abdomen: Soft nontender bowel sounds present Extremities: No pedal edema Neuro: Alert and oriented 3, motor strength is intact bilaterally Lab and Diagnostics Laboratory Tests 72 Hours Test 07/16/17 13:15 07/17/17 02:25 07/18/17 02:20 07/19/17 04:10 Prothrombin Time 15.9sec (8.1-12.5) 17.3sec (8.1-12.5) 17.8sec (8.1-12.5) 17.6sec (8.1-12.5) Prothromb Time International Ratio 1.47ratio 1.60ratio 1.65ratio 1.63ratio Hemoglobin 12.9g/dL (12.0-15.6) Hematocrit 39.9% (35.0-46.0) Result Diagram: 07/18/17 0220 X-Rays, CTs and MRIs Cardiac Echo Impressions Echocardiogram Report Interpretation Summary This was a technically difficult study. 1. Grossly normal left ventricular size with grossly normal systolic function. 2. The right ventricle was not visualized. The estimated RVSP is 47 mm plus CVP 3. Valves were not optimally visualized Reading Physician:06:04 PM Additional Diagnostics Assessment & Plan #. Intermittent vaginal bleeding, active. We discussed this case with gynecology and her physical size prohibits a vaginal examination here or even really a transvaginal ultrasound. The patient also has concurrent DVT and is not a candidate for estrogen therapy to attempt to stop bleeding. At this point we will continue to watch and follow hematocrit. We held Coumadin on Sunday and Sunday. We will resume Coumadin on Sunday, July 17 and then shoot for 2.0-2.5 INR. #Diarrhea, acute, present on admission -Check stool PCR and monitor clinically #. Super-Super Morbid obesity. POA and stable. Patient counseled by Kwame that aggressive calorie reduction is needed to expedite her return to mobility and her ability to live outside of an institutional setting. She concurs and is supportive of aggressive dieting goals. She seemed to tolerate her diet at current levels. - BMI 86.5 - Continue bariatric nursing care procedures - Patient of family counseled on importance of calorie restriction and weight loss. - Recommend 800 calorie VLCD diet with appropriate protein, fiber and vitamin supplement. - Calorie count to assess compliance with 800-calorie target No change to current medical plan. She continues to lose weight and is now on approximately 550 pounds. #. Sacral decubitus ulcers, present on admission. Active and stable. Likely stage II. These were inspected by nurses on 06/23 and found to have blanchable erythema and excoriation but no stage IV decubiti. - Wound care consulted. We will continue the current wound plan. No change in current medical plan. Continue wound care. #. Obesity hypoventilation syndrome, present on admission. Active and stable. - Will require ongoing bilevel volume-directed ventilation support when sleeping. This is stable no changes to plan. 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 No change in current medical plan. BiPAP at night. #. Pulmonary embolism, present on admission. Stable with a therapeutic protime. Initial ABG revealed severe hypoxic deficit despite compensated chronic hypercarbia. . D-Dimer 8, albeit with bruise on right forearm. She is too large to do Chest CT PE scan. Decision was made to institute empiric anticoagulation, probably to continue chronically. She is at high risk for chronic thromboembolic pulmonary hypertension. Attempts were made to transfer patient to facility with suitable CT or angiography features but no such facilities identified. Maximum width at [facility] CT scanner is 78 cm , patient is 90 cm wide. Unable to obtain confirmatory diagnostic testing. Treating empirically. - Warfarin. - Dosing per pharmacy Continue warfarin, after Sunday and Sunday hold. She is therapeutic. We will not use bridging Lovenox given her vaginal bleeding control except a short subtherapeutic range. #. Acute Hypoxemic respiratory failure, present on admission. Improving and stable. Acute hypoxia is deemed likely 2nd to PE, the absence of other respiratory traction or pathology. Continue supplemental oxygen. Wean as able. This is stable. Oxygen mask by day and BiPAP at night. No changes. #. Acute on chronic Hypercapnic respiratory failure, present on admission. Improving and stable. Likely 2nd to obesity hypoventilation syndrome. Appears to have had worsening hypercarbic respiratory failure following oxygen supplementation in hospital, despite BiPAP. - The plan is for discharge to LTAC for ongoing management. She will likely need a home trilogy when she is able to discharged to a home environment. - Target O2 saturation is 88% - 92%; avoid excess oxygenation, continue noninvasive positive pressure ventilation. No changes for now. This is stable. Oxygen mask by date, BiPAP at night. #. Group B strep Bacteremia, not present on admission. Resolved -Completed Ceftriaxone IV for 14 days (also for cellulitis). Stop antibiotics. #. Anxiety, not present on admission. Active and improving.. - Small dose PO Ativan before PT sessions. - Discontinue IV Ativan; patient was counseled on need to minimize dependence on benzodiazepines #. Left torso and abdomen cellulitis, active and stable. Probable some component chronic panniculitis. - Discontinued antibiotics on 07/06 - completed two-week course with minimal change in her left abdominal erythema, stop antibiotics at this time. #. Acute urinary tract infection, present on admission. Resolved. Asymptomatic bacteriuria E.coli in urine at time of admission - Covered by cellulitis antibiotics, stop antibiotics. Acetaminophen for mild pain when necessary. Bowel regimen Senna and MiraLAX scheduled and PRN. Zofran when necessary for nausea and vomiting. SubQ heparin held for now. SCDs in place. High-risk medications: Warfarin. Patient Status: Patient is admitted under inpatient status with expected length of stay greater than 2 midnights due to severity of presenting symptoms, risk of adverse event, and complexity of treatment plan. Awaiting acceptance to LTAC placement, versus looking at potential discharge to local detention facilities or inpatient rehabilitation units. [facility] inpatient rehabilitation is declining the patient. We will continue to look at [facility] and [facility] inpatient rehabilitation. Resuscitation Status: CPR: Attempt Resuscitation Time spent 20 minutes La Kat MD Jul 19, 2017 12:22
--- NOTE | 2017-07-19 12:33 | PCM.PHAPRO ---
Progress Warfarin dosing WARFARIN DOSING PER PHARMACY [facility] DFF -Jul 13-Jul 14-Jul 15-Jul 16-Jul 17-Jul 18-Jul 19-Jun 2.14 2.14 2.04 1.6 1.65 1.63 2.14 -0.1 1.6 0.05 -0.02 3 2.5 3 2.5 3 5X1 8 MG GIVEN 5+3 6 mg A/P -Subtherapeutic INR. Now stabilized at current level. Has received higher doses the past two doses. -Will dose warfarin at 6 mg today in anticipation of increase in next day or so. Will continue to monitor Marciano Naqvi, PharmD Marciano Naqvi Jul 19, 2017 12:33
[2017-07-19] MEDS: LORazepam 1 mg Tablet PO PRN (12:34)
--- NOTE | 2017-07-19 16:15 | NUR ---
Social Work: Continued Discharge Planning/Multidisciplinary Rounds D: Pt discussed in multidisciplinary rounds; clinically the patient is medically stable for discharge pending placement. The patient has been accepted at [facility] facility. The patient is also being reviewed by [facility] by their solutions executive security. IT PROGRAM ENGAGEMENT DIRECTOR left a message for Suly Gordon, patient intake coordinator at [facility] requesting an update on their current bed census and when they project a bed to come available. IT PROGRAM ENGAGEMENT DIRECTOR met with the patient at bedside. She continues to work with PT and make progress. She agrees with the plan for discharge to either [place] or [facility] which ever comes available first. A: Pt who is motivated to continue with therapies. P: Anticipate pt to discharge to [facility] pending bariatric bed versus [facility] pending acceptance. IT PROGRAM ENGAGEMENT DIRECTOR to continue to follow to coordinate discharge plan. BRENDA Ledbetter
[2017-07-19 16:28] VITALS: BP 158/84; PULSE 96; RESP 22; O2SAT 98
--- NOTE | 2017-07-19 18:37 | NUR ---
Skin Skin folds on legs, panus and groin were all bathed and dried. Foam dressings were changed. Mild yeasty smell noted. Skin appears red and painfull under panus. Skin folds on legs exhibited some bleeding from skin breakdown.
[2017-07-19 20:33] VITALS: BP 154/81; PULSE 91; RESP 16; O2SAT 94
[2017-07-19 23:16] VITALS: RESP 14; O2SAT 94
[2017-07-20] MEDS: Sodium Chloride LOK Flush 10 mL Syringe IVFLUSH SCH ×3 (00:30→16:30)
[2017-07-20 02:35] LABS: INR 2.01 ratio
[2017-07-20 02:38] VITALS: BP 125/72; PULSE 80; RESP 18; O2SAT 96
[2017-07-20 04:36] VITALS: RESP 20; O2SAT 94
--- NOTE | 2017-07-20 06:37 | NUR ---
Vaginal Bleeding: Vaginal bleeding continues with meet-care and pad changes. H&H stable. No complaints per pt during the night; tolerated Bipap well. Pt refused to turn during the night.
[2017-07-20 09:25] VITALS: BP 123/72; PULSE 89; O2SAT 94
--- NOTE | 2017-07-20 10:33 | NUR ---
NUTRITION FOLLOW-UP: ASSESS: 57 YO female admitted with hypoxemia, advanced respiratory failure, presumed PE. Wound care is following. Pt has multiple gluteal wounds, which continue to improve per [employer] Se[employer] Associate. She is on a Heart Healthy diet with good PO and she is receiving Francis BID to assist with wound healing. Pt awaiting discharge to [facility], once a bariatric bed becomes available. Per notes, pt is ordered a 800-1000 calorie diet to assist with weight loss. She continues to be motivated to maintain her weight loss and lifestyle goals. Pt's highest recorded wt during admit was 280kg. She is now recorded at 258kg. Total wt loss is ~22kg. PMHx: Arthritis, FRANK, depression, advanced respiratory failure, class III obesity. DIET: Heart healthy + Francis. PO intake 75-100% trays. LABS: Reviewed. Last labs 07/02 MEDICATIONS: Reviewed. Imodium, Coumadin, Florastor. GI: BMx2 07/19 SKIN: Wound care following from multiple gluteal wounds that are improving. ANTHROPOMETRICS: Current Wt: 258.7 kg, BMI: 97.9 kg/m2. Admit weight: 278.2 kg, Adjust BW: 105 kg, IBW: 54.5 kg. Pt has lost 23 kg since admit. ESTIMATED NEEDS (BMI, WOUNDS): Calories: 0449-1879 kcal/day (22-25 kcal/kg adj BW) Protein: 105-125 g/day (1.0-1.2 g/kg adj BW) NUTRITION DIAGNOSIS: 1) Increased nutrient needs related to increased demand for nutrients, as evidenced by multiple wound issues noted by [employer] Se[employer] Associate - IMPROVING. INTERVENTION: 1) Continue current diet and Francis at lunch and dinner for wound healing as ordered. 2) Will continue to monitor calorie and carbohydrate intake. MONITOR/EVALUATE: PO intake, wt, GI, wounds, labs, nutrition status. Follow per moderate nutrition risk guidelines.
--- NOTE | 2017-07-20 11:46 | NUR ---
Inpatient Wound Nurse Patient seen for reports of bleeding on BLE. No new active bleeding found but patient did complain of sensitivity to RLE medial aspect of calf where lichenification has occurred and sheet friction is now irritable. This area is erythemic, crusted, dry, and thickened. Area was cleansed, blotted dry, and covered with small piece of Mepilex sheet foam which should provide protection. When area is no longer irritated by sheet friction, no dressing is needed.
--- NOTE | 2017-07-20 11:53 | NUR ---
DISCHARGE PLANNING FOLLOW UP: Called Suly Gordon at [facility] and left message regarding bed status and patient's updated weight of 566 Called and left message for [facility] to see if official acceptance of denial has been made and also left updated weight. [facility] inpatient rehab does not think patient is appropriate for their program at this time. They think patient would be better served in SNF or acute care until she can tolerate all three hours and need short term intense rehab which is what they provide. Updated ATMOSPHERIC SCIENCES PROFESSOR
--- NOTE | 2017-07-20 11:55 | PCM.PNMED ---
Subjective Date of Service Jul 20, 2017 Subjective The patient up from sleeping this morning. She has no new complaints. Exam Vital Signs Vital Sign - Last Date Time Temp Pulse Resp B/P Pulse Ox O2 Delivery O2 Flow Rate FiO2 07/20/17 09:25 36.4 89 123/72 94 OxyMask 07/20/17 04:36 20 07/20/17 02:38 30 07/19/17 20:33 2.00 Intake and Output 07/19/17 07/19/17 07/20/17 Cumulative From/Thru 15:00 23:00 07:00 06/20/17 10:42 - 07/20/17 06:25 Intake Total 1050 ml 400 ml 89051 ml Output Total 1200 ml 700 ml 52915 ml Balance -150 ml -300 ml -78817 ml Intake Oral 1050 ml 400 ml 22412 ml IV Total 38349 ml Output Urine Total 1200 ml 700 ml 55539 ml # Bowel Movements 1 37 Exam Constitutional: Middle-aged female in no acute distress Head: Normocephalic atraumatic Chest: Clear to auscultation Cor: Regular rate and rhythm S1-S2 Abdomen: Soft nontender bowel sounds present Extremities: No pedal edema Neuro: Alert and oriented 3, motor strength is intact bilaterally IVs and Medications Medications Reviewed: Medications were reviewed in detail Lab and Diagnostics Laboratory Tests 72 Hours Test 07/18/17 02:20 07/19/17 04:10 07/20/17 01:50 Hemoglobin 12.9g/dL (12.0-15.6) 13.2g/dL (12.0-15.6) Hematocrit 39.9% (35.0-46.0) 40.3% (35.0-46.0) Prothrombin Time 17.8sec (8.1-12.5) 17.6sec (8.1-12.5) 21.8sec (8.1-12.5) Prothromb Time International Ratio 1.65ratio 1.63ratio 2.01ratio Result Diagram: 07/20/17 0150 Microbiology Laboratory Tests Test 07/20/17 01:50 Hemoglobin 13.2g/dL (12.0-15.6) Hematocrit 40.3% (35.0-46.0) Prothrombin Time 21.8sec (8.1-12.5) Prothromb Time International Ratio 2.01ratio Microbiology 06/27/17 Blood Culture - Final, Complete NO GROWTH AFTER 5 DAYS 07/19/17 Campylobacter (PCR) - Final, Complete Not Detected 07/19/17 Clostridium difficile Toxin A&B (M) - Final, Complete Not Detected 07/19/17 Plesiomonas shigelloides (PCR) - Final, Complete Not Detected 07/19/17 Salmonella (PCR)(BRANDON) - Final, Complete Not Detected 07/19/17 Yersinia enterocolitica (PCR) - Final, Complete Not Detected 07/19/17 Vibrio Species (PCR) - Final, Complete Not Detected 07/19/17 Vibrio Cholerae (PCR) - Final, Complete Not Detected 07/19/17 Enteroaggregative E. coli (PCR) - Final, Complete Not Detected 07/19/17 Enteropathogenic E. coli (PCR) - Final, Complete Not Detected 07/19/17 Enterotoxigenic E. coli (PCR) - Final, Complete Not Detected 07/19/17 E. coli Shiga-like Toxin (PCR) - Final, Complete Not Detected 07/19/17 Escherichia coli 0157 (PCR) - Final, Complete Not Detected 07/19/17 Enteroinvasive E. coli/Shigella PCR - Final, Complete Not Detected 07/19/17 Cryptosporidium (PCR) - Final, Complete Not Detected 07/19/17 Cyclospora cayetanensis (PCR) - Final, Complete Not Detected 07/19/17 Entamoeba histolytica (PCR) - Final, Complete Not Detected 07/19/17 Giardia lamblia (PCR) - Final, Complete Not Detected 07/19/17 Adenovirus Type F 40/41 (PCR) - Final, Complete Not Detected 07/19/17 Astrovirus (PCR) - Final, Complete Not Detected 07/19/17 Norovirus (PCR) - Final, Complete Not Detected 07/19/17 Rotavirus A (PCR) - Final, Complete Not Detected 07/19/17 Sapovirus I/II/IV/V (PCR) - Final, Complete 06/24/17 MRSA (PCR) - Final, Complete 06/28/17 Urine Culture - Final, Complete No growth (<1,000 organisms/mL) X-Rays, CTs and MRIs Cardiac Echo Impressions Echocardiogram Report Interpretation Summary This was a technically difficult study. 1. Grossly normal left ventricular size with grossly normal systolic function. 2. The right ventricle was not visualized. The estimated RVSP is 47 mm plus CVP 3. Valves were not optimally visualized Reading Physician:06:04 PM Additional Diagnostics Assessment & Plan #. Intermittent vaginal bleeding, active. We discussed this case with gynecology and her physical size prohibits a vaginal examination here or even really a transvaginal ultrasound. The patient also has concurrent DVT and is not a candidate for estrogen therapy to attempt to stop bleeding. At this point we will continue to watch and follow hematocrit. We held Coumadin on Sunday and Sunday. We will resume Coumadin on Sunday, July 17 and then shoot for 2.0-2.5 INR. -Hematocrit checked on July 20 and is stable #Diarrhea, acute, present on admission -Check stool PCR and monitor clinically which returned on July 20 and is negative #. Super-Super Morbid obesity. POA and stable. Patient counseled by Kwame that aggressive calorie reduction is needed to expedite her return to mobility and her ability to live outside of an institutional setting. She concurs and is supportive of aggressive dieting goals. She seemed to tolerate her diet at current levels. - BMI 86.5 - Continue bariatric nursing care procedures - Patient of family counseled on importance of calorie restriction and weight loss. - Recommend 800 calorie VLCD diet with appropriate protein, fiber and vitamin supplement. - Calorie count to assess compliance with 800-calorie target No change to current medical plan. She continues to lose weight and is now on approximately 550 pounds. #. Sacral decubitus ulcers, present on admission. Active and stable. Likely stage II. These were inspected by nurses on 06/23 and found to have blanchable erythema and excoriation but no stage IV decubiti. - Wound care consulted. We will continue the current wound plan. No change in current medical plan. Continue wound care. #. Obesity hypoventilation syndrome, present on admission. Active and stable. - Will require ongoing bilevel volume-directed ventilation support when sleeping. This is stable no changes to plan. 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 No change in current medical plan. BiPAP at night. #. Pulmonary embolism, present on admission. Stable with a therapeutic protime. Initial ABG revealed severe hypoxic deficit despite compensated chronic hypercarbia. . D-Dimer 8, albeit with bruise on right forearm. She is too large to do Chest CT PE scan. Decision was made to institute empiric anticoagulation, probably to continue chronically. She is at high risk for chronic thromboembolic pulmonary hypertension. Attempts were made to transfer patient to facility with suitable CT or angiography features but no such facilities identified. Maximum width at [facility] CT scanner is 78 cm , patient is 90 cm wide. Unable to obtain confirmatory diagnostic testing. Treating empirically. - Warfarin. - Dosing per pharmacy Continue warfarin, after Sunday and Sunday hold. She is therapeutic. We will not use bridging Lovenox given her vaginal bleeding control except a short subtherapeutic range. #. Acute Hypoxemic respiratory failure, present on admission. Improving and stable. Acute hypoxia is deemed likely 2nd to PE, the absence of other respiratory traction or pathology. Continue supplemental oxygen. Wean as able. This is stable. Oxygen mask by day and BiPAP at night. No changes. #. Acute on chronic Hypercapnic respiratory failure, present on admission. Improving and stable. Likely 2nd to obesity hypoventilation syndrome. Appears to have had worsening hypercarbic respiratory failure following oxygen supplementation in hospital, despite BiPAP. - The plan is for discharge to LTAC for ongoing management. She will likely need a home trilogy when she is able to discharged to a home environment. - Target O2 saturation is 88% - 92%; avoid excess oxygenation, continue noninvasive positive pressure ventilation. No changes for now. This is stable. Oxygen mask by date, BiPAP at night. #. Group B strep Bacteremia, not present on admission. Resolved -Completed Ceftriaxone IV for 14 days (also for cellulitis). Stop antibiotics. #. Anxiety, not present on admission. Active and improving.. - Small dose PO Ativan before PT sessions. - Discontinue IV Ativan; patient was counseled on need to minimize dependence on benzodiazepines #. Left torso and abdomen cellulitis, active and stable. Probable some component chronic panniculitis. - Discontinued antibiotics on 07/06 - completed two-week course with minimal change in her left abdominal erythema, stop antibiotics at this time. #. Acute urinary tract infection, present on admission. Resolved. Asymptomatic bacteriuria E.coli in urine at time of admission - Covered by cellulitis antibiotics, stop antibiotics. Acetaminophen for mild pain when necessary. Bowel regimen Senna and MiraLAX scheduled and PRN. Zofran when necessary for nausea and vomiting. SubQ heparin held for now. SCDs in place. High-risk medications: Warfarin. Patient Status: Patient is admitted under inpatient status with expected length of stay greater than 2 midnights due to severity of presenting symptoms, risk of adverse event, and complexity of treatment plan. Awaiting acceptance to LTAC placement, versus looking at potential discharge to local shelter facilities or inpatient rehabilitation units. [facility] inpatient rehabilitation is declining the patient. We will continue to look at [facility] inpatient rehabilitation. Resuscitation Status: CPR: Attempt Resuscitation Time spent 20 minutes La Kat MD Jul 20, 2017 11:55
--- NOTE | 2017-07-20 13:16 | NUR ---
Social Work- Continued D/C Planning Data: EMR reviewed. Pt is on day 30 of hospitalization for hypoxic, respiratory failure, obesity. Pt discussed in multidisciplinary rounds. Pt is now under 600 pounds and continues to lose weight. Pt continues to work with PT/OT, continuing to recommend d/c to IPR as pt is highly motivated and has demonstrated improved strength and bed mobility. [facility] is able to accept pts up to 1,000 pounds. They are reviewing pt's updated clinical information and are willing to accept pt when a bariatric bed becomes available. Have not provided a timeline as to when this will occur. [facility] is also reviewing pt again with updated clinicals. [facility] has contacted both facilities today- see additional SS notes. In regards to local SNF options--Pt's weight requires her to use special equipment, which SNF's will have to order. Due to the equipment and medication needed in addition to pt's weight, local SNF are not able to accept pt at this time. [facility] at [facility] requires a weight of 417 or less and [facility] felt that pt was not appropriate for their unit due to length of rehab required. [facility] and [facility] continue to work together to facilitate placement for this patient. SW continues to follow. Assessment: Pt who is motivated to continue therapies and requires placement at LTAC or IPR Plan: [facility] and [facility] continue to work together to facilitate placement for this patient. Pt is agreeable to either plan of [facility] pending bed or [facility] pending acceptance. SW continues to follow. BRENDA Lopez Addendum: 07/20/17 at 1837 by JANA CUEVAS [facility] received call from Carline at [facility] [phone] regarding pt's Trilogy. Per Carline, orders had been sent to [email or web address] but [email or web address] was not able to provide Trilogy so orders were sent to [facility]. Carline informed LIQUIFIED NATURAL GAS TECHNICIAN that if pt is going to be at a facility for longer than 90 days, no DME company will provide the Trilogy. If pt is going to be there for shorter than 90 days, Carline should be updated because then a plan can be arranged. Carline requested that LIQUIFIED NATURAL GAS TECHNICIAN update her of pt's d/c so that she can follow up with pt regarding obtaining Trilogy as an outpt depending on length of stay at facility. [facility] agreeable and will update of this information in rounds. BRENDA Lopez
[2017-07-20 16:00] VITALS: BP 148/81; PULSE 94; RESP 24; O2SAT 94
--- NOTE | 2017-07-20 17:34 | NUR ---
Activity/PT/bed weight Per PT pt knees have become increasingly painful with weight bearing. Pt did not work with PT today, but was encouraged to get herself up to edge of bed with aid of nursing staff for meals. Pt was able to move herself to edge of bed today with 1PA. Pt was also encouraged to continue her daily bed exercises as listed on white board. Pt agreed and stated that she likes to do her exercises in the evening when her grandchildren visit. Pt's bed zeroed while pt was out of bed. Please educate SOL[employer] SYSTEMS DESIGNER's to remove all blankets, pillows and lift up pt catheter from bed frame when weighing pt so as to get more accurate weight.
[2017-07-20 20:07] VITALS: BP 147/81; PULSE 91; RESP 20; O2SAT 92
[2017-07-20 23:11] VITALS: RESP 18; O2SAT 94
[2017-07-21] VITALS (8 sets, daily range): BP systolic 123–165; BP diastolic 72–97; PULSE 86–95; RESP 14–24; O2SAT 91–98
[2017-07-21] MEDS: Sodium Chloride LOK Flush 10 mL Syringe IVFLUSH SCH ×4 (00:30→16:30)
[2017-07-21 03:05] LABS: INR 2.87 ratio
--- NOTE | 2017-07-21 06:09 | NUR ---
Pain Pt c/o gen. pain at 6. Tylenol given x1, effective.
[2017-07-21] MEDS ORDERED: Tetrahydrozoline 0.05% 15 mL Ophthalmic Solution BOTH_EYES PRN (11:30)
[2017-07-21] MEDS: LORazepam 1 mg Tablet PO PRN (12:50)
--- NOTE | 2017-07-21 13:42 | PCM.PNMED ---
Subjective Date of Service Jul 21, 2017 Subjective Patient without any complaints this morning. She does know that she has had no further vaginal bleeding since yesterday. Exam Vital Signs Vital Sign - Last Date Time Temp Pulse Resp B/P Pulse Ox O2 Delivery O2 Flow Rate FiO2 07/21/17 12:16 36.7 91 24 165/97 07/21/17 08:50 91 OxyMask 2.00 07/21/17 03:23 30 Intake and Output 07/20/17 07/20/17 07/21/17 Cumulative From/Thru 15:00 23:00 07:00 06/20/17 10:42 - 07/21/17 06:28 Intake Total 1000 ml 200 ml 07746 ml Output Total 1200 ml 840 ml 23151 ml Balance -200 ml -640 ml -84211 ml Intake Oral 1000 ml 200 ml 98755 ml IV Total 30217 ml Output Urine Total 1200 ml 840 ml 85997 ml # Bowel Movements 1 38 Exam Constitutional: Middle-aged female in no acute distress morbidly obese. Head: Normocephalic atraumatic Chest: Clear to auscultation Cor: Regular rate and rhythm S1-S2 without murmur Abdomen: Soft nontender bowel sounds present Extremities: No pedal edema Neuro: Alert and oriented 3, motor strength is intact bilaterally Lab and Diagnostics Result Diagram: 07/20/17 0150 Microbiology Laboratory Tests Test 07/20/17 01:50 Hemoglobin 13.2g/dL (12.0-15.6) Hematocrit 40.3% (35.0-46.0) Prothrombin Time 21.8sec (8.1-12.5) Prothromb Time International Ratio 2.01ratio Microbiology 06/27/17 Blood Culture - Final, Complete NO GROWTH AFTER 5 DAYS 07/19/17 Campylobacter (PCR) - Final, Complete Not Detected 07/19/17 Clostridium difficile Toxin A&B (M) - Final, Complete Not Detected 07/19/17 Plesiomonas shigelloides (PCR) - Final, Complete Not Detected 07/19/17 Salmonella (PCR)(BRANDON) - Final, Complete Not Detected 07/19/17 Yersinia enterocolitica (PCR) - Final, Complete Not Detected 07/19/17 Vibrio Species (PCR) - Final, Complete Not Detected 07/19/17 Vibrio Cholerae (PCR) - Final, Complete Not Detected 07/19/17 Enteroaggregative E. coli (PCR) - Final, Complete Not Detected 07/19/17 Enteropathogenic E. coli (PCR) - Final, Complete Not Detected 07/19/17 Enterotoxigenic E. coli (PCR) - Final, Complete Not Detected 07/19/17 E. coli Shiga-like Toxin (PCR) - Final, Complete Not Detected 07/19/17 Escherichia coli 0157 (PCR) - Final, Complete Not Detected 07/19/17 Enteroinvasive E. coli/Shigella PCR - Final, Complete Not Detected 07/19/17 Cryptosporidium (PCR) - Final, Complete Not Detected 07/19/17 Cyclospora cayetanensis (PCR) - Final, Complete Not Detected 07/19/17 Entamoeba histolytica (PCR) - Final, Complete Not Detected 07/19/17 Giardia lamblia (PCR) - Final, Complete Not Detected 07/19/17 Adenovirus Type F 40/41 (PCR) - Final, Complete Not Detected 07/19/17 Astrovirus (PCR) - Final, Complete Not Detected 07/19/17 Norovirus (PCR) - Final, Complete Not Detected 07/19/17 Rotavirus A (PCR) - Final, Complete Not Detected 07/19/17 Sapovirus I/II/IV/V (PCR) - Final, Complete 06/24/17 MRSA (PCR) - Final, Complete 06/28/17 Urine Culture - Final, Complete No growth (<1,000 organisms/mL) X-Rays, CTs and MRIs Cardiac Echo Impressions Echocardiogram Report Interpretation Summary This was a technically difficult study. 1. Grossly normal left ventricular size with grossly normal systolic function. 2. The right ventricle was not visualized. The estimated RVSP is 47 mm plus CVP 3. Valves were not optimally visualized Reading Physician:06:04 PM Additional Diagnostics Assessment & Plan #. Intermittent vaginal bleeding, active. We discussed this case with gynecology and her physical size prohibits a vaginal examination here or even really a transvaginal ultrasound. The patient also has concurrent DVT and is not a candidate for estrogen therapy to attempt to stop bleeding. At this point we will continue to watch and follow hematocrit. We held Coumadin on Sunday and Sunday. We will resume Coumadin on Sunday, July 17 and then shoot for 2.0-2.5 INR. -Hematocrit checked on July 20 and is stable #Diarrhea, acute, present on admission -Check stool PCR and monitor clinically which returned on July 20 and is negative #. Super-Super Morbid obesity. POA and stable. Patient counseled by Kwame that aggressive calorie reduction is needed to expedite her return to mobility and her ability to live outside of an institutional setting. She concurs and is supportive of aggressive dieting goals. She seemed to tolerate her diet at current levels. - BMI 86.5 - Continue bariatric nursing care procedures - Patient of family counseled on importance of calorie restriction and weight loss. - Recommend 800 calorie VLCD diet with appropriate protein, fiber and vitamin supplement. - Calorie count to assess compliance with 800-calorie target No change to current medical plan. She continues to lose weight and is now on approximately 550 pounds. #. Sacral decubitus ulcers, present on admission. Active and stable. Likely stage II. These were inspected by nurses on 06/23 and found to have blanchable erythema and excoriation but no stage IV decubiti. - Wound care consulted. We will continue the current wound plan. No change in current medical plan. Continue wound care. #. Obesity hypoventilation syndrome, present on admission. Active and stable. - Will require ongoing bilevel volume-directed ventilation support when sleeping. This is stable no changes to plan. 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 No change in current medical plan. BiPAP at night. #. Pulmonary embolism, present on admission. Stable with a therapeutic protime. Initial ABG revealed severe hypoxic deficit despite compensated chronic hypercarbia. . D-Dimer 8, albeit with bruise on right forearm. She is too large to do Chest CT PE scan. Decision was made to institute empiric anticoagulation, probably to continue chronically. She is at high risk for chronic thromboembolic pulmonary hypertension. Attempts were made to transfer patient to facility with suitable CT or angiography features but no such facilities identified. Maximum width at [facility] CT scanner is 78 cm , patient is 90 cm wide. Unable to obtain confirmatory diagnostic testing. Treating empirically. - Warfarin. - Dosing per pharmacy Continue warfarin, after Sunday and Sunday hold. She is therapeutic. We will not use bridging Lovenox given her vaginal bleeding control except a short subtherapeutic range. #. Acute Hypoxemic respiratory failure, present on admission. Improving and stable. Acute hypoxia is deemed likely 2nd to PE, the absence of other respiratory traction or pathology. Continue supplemental oxygen. Wean as able. This is stable. Oxygen mask by day and BiPAP at night. No changes. #. Acute on chronic Hypercapnic respiratory failure, present on admission. Improving and stable. Likely 2nd to obesity hypoventilation syndrome. Appears to have had worsening hypercarbic respiratory failure following oxygen supplementation in hospital, despite BiPAP. - The plan is for discharge to LTAC for ongoing management. She will likely need a home trilogy when she is able to discharged to a home environment. - Target O2 saturation is 88% - 92%; avoid excess oxygenation, continue noninvasive positive pressure ventilation. No changes for now. This is stable. Oxygen mask by date, BiPAP at night. #. Group B strep Bacteremia, not present on admission. Resolved -Completed Ceftriaxone IV for 14 days (also for cellulitis). Stop antibiotics. #. Anxiety, not present on admission. Active and improving.. - Small dose PO Ativan before PT sessions. - Discontinue IV Ativan; patient was counseled on need to minimize dependence on benzodiazepines #. Left torso and abdomen cellulitis, active and stable. Probable some component chronic panniculitis. - Discontinued antibiotics on 07/06 - completed two-week course with minimal change in her left abdominal erythema, stop antibiotics at this time. #. Acute urinary tract infection, present on admission. Resolved. Asymptomatic bacteriuria E.coli in urine at time of admission - Covered by cellulitis antibiotics, stop antibiotics. Acetaminophen for mild pain when necessary. Bowel regimen Senna and MiraLAX scheduled and PRN. Zofran when necessary for nausea and vomiting. SubQ heparin held for now. SCDs in place. High-risk medications: Warfarin. Patient Status: Patient is admitted under inpatient status with expected length of stay greater than 2 midnights due to severity of presenting symptoms, risk of adverse event, and complexity of treatment plan. Awaiting acceptance to LTAC placement, versus looking at potential discharge to local long-term facilities or inpatient rehabilitation units. [facility] inpatient rehabilitation is declining the patient. We will continue to look at [facility] rehabilitation. Resuscitation Status: CPR: Attempt Resuscitation Time spent 20 minutes La Kat MD Jul 21, 2017 13:42
--- NOTE | 2017-07-21 17:04 | NUR ---
Shoulder Pain Pt stated slight shoulder pain when working with PT but also stated it hurts when having to help pull herself over from side to side. PT went over exercises again and asked the pt to stop when it started to hurt. Tylenol given for generalized aches but seemed to help shoulder pain as well. Pt also stated getting dizzy when going from a laying to a sitting position which PT said is a first for her. Will inform .
--- NOTE | 2017-07-21 23:47 | NUR ---
Pain/ Pt reports gen pain at 6/10, Tylenol given. Pt noted to have wound on L upper medial buttock.
[2017-07-22] MEDS: Sodium Chloride LOK Flush 10 mL Syringe IVFLUSH SCH ×4 (00:25→21:51)
[2017-07-22 04:04] VITALS: RESP 15; O2SAT 96
--- NOTE | 2017-07-22 04:49 | NUR ---
Pain/Rest Assumed care @ 2315. Patient indicates generalized pain, nothing more than usual. Requested daily wt to be at a more reasonable hour other than 0300, while resting. 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 RT placed on BiPap for the NOC, rested with eyes closed.
[2017-07-22 06:20] VITALS: BP 143/79; PULSE 83; RESP 20; O2SAT 98
[2017-07-22 08:58] LABS: INR 2.64 ratio
[2017-07-22 09:08] VITALS: BP 152/86; PULSE 85; RESP 16; O2SAT 96
--- NOTE | 2017-07-22 10:29 | PCM.PNMED ---
Subjective Date of Service Jul 22, 2017 Subjective Overnight: Patient still complains of generalized pain, Tylenol given. BiPAP used with good effect. She did get dizzy yesterday when moving from a laying to sitting position while working with PT. Vital signs have remained mostly stable with the exception of mild hypertension. Continues to make good urine.output Today patient states her bleeding has slowed down considerably. States right shoulder pain and bilateral knee pain secondary to physical therapy overexertion. Has no other specific complaints. On conversation with patient regarding hospital course and why she was originally admitted after explained to her about pulmonary embolism she vocalized understanding and was very thankful for our care. Exam Vital Signs Vital Sign - Last Date Time Temp Pulse Resp B/P Pulse Ox O2 Delivery O2 Flow Rate FiO2 07/22/17 06:20 36.7 83 20 143/79 98 BiPAP 07/21/17 23:18 2.00 07/21/17 03:23 30 Intake and Output 07/21/17 07/21/17 07/22/17 Cumulative From/Thru 15:00 23:00 07:00 06/20/17 10:42 - 07/22/17 06:20 Intake Total 1200 ml 200 ml 51202 ml Output Total 1000 ml 1200 ml 28319 ml Balance 200 ml -1000 ml -23433 ml Intake Oral 1200 ml 200 ml 50863 ml IV Total 28275 ml Output Urine Total 1000 ml 1200 ml 31729 ml # Bowel Movements 38 Exam General: Obese female lying in hospital bed in no acute distress, appropriately interactive HEENT: Normocephalic, atraumatic. Neck: No appreciated JVD secondary to habitus. A cantholysis nigricans Cardiovascular: Regular rate and rhythm possible soft systolic murmur heard best at left upper sternal border. Pulmonary: Clear to auscultation bilaterally with no crackles, wheezes, or rhonchi upper anterior lobes. Normal respiratory effort with no use of accessory muscles. Abdomen: Soft, nontender. Skin: Normal temperature, turgor, and texture, acanthosis nigricans Neurological: Cranial nerves grossly intact Psychiatric: Normal mood and affect. Alert and oriented to person, place, and time. IVs and Medications Medications Reviewed: Medications were reviewed in detail Lab and Diagnostics Result Diagram: 07/20/17 0150 Microbiology Laboratory Tests Test 07/20/17 01:50 Hemoglobin 13.2g/dL (12.0-15.6) Hematocrit 40.3% (35.0-46.0) Prothrombin Time 21.8sec (8.1-12.5) Prothromb Time International Ratio 2.01ratio Microbiology 06/27/17 Blood Culture - Final, Complete NO GROWTH AFTER 5 DAYS 07/19/17 Campylobacter (PCR) - Final, Complete Not Detected 07/19/17 Clostridium difficile Toxin A&B (M) - Final, Complete Not Detected 07/19/17 Plesiomonas shigelloides (PCR) - Final, Complete Not Detected 07/19/17 Salmonella (PCR)(BRANDON) - Final, Complete Not Detected 07/19/17 Yersinia enterocolitica (PCR) - Final, Complete Not Detected 07/19/17 Vibrio Species (PCR) - Final, Complete Not Detected 07/19/17 Vibrio Cholerae (PCR) - Final, Complete Not Detected 07/19/17 Enteroaggregative E. coli (PCR) - Final, Complete Not Detected 07/19/17 Enteropathogenic E. coli (PCR) - Final, Complete Not Detected 07/19/17 Enterotoxigenic E. coli (PCR) - Final, Complete Not Detected 07/19/17 E. coli Shiga-like Toxin (PCR) - Final, Complete Not Detected 07/19/17 Escherichia coli 0157 (PCR) - Final, Complete Not Detected 07/19/17 Enteroinvasive E. coli/Shigella PCR - Final, Complete Not Detected 07/19/17 Cryptosporidium (PCR) - Final, Complete Not Detected 07/19/17 Cyclospora cayetanensis (PCR) - Final, Complete Not Detected 07/19/17 Entamoeba histolytica (PCR) - Final, Complete Not Detected 07/19/17 Giardia lamblia (PCR) - Final, Complete Not Detected 07/19/17 Adenovirus Type F 40/41 (PCR) - Final, Complete Not Detected 07/19/17 Astrovirus (PCR) - Final, Complete Not Detected 07/19/17 Norovirus (PCR) - Final, Complete Not Detected 07/19/17 Rotavirus A (PCR) - Final, Complete Not Detected 07/19/17 Sapovirus I/II/IV/V (PCR) - Final, Complete 06/24/17 MRSA (PCR) - Final, Complete 06/28/17 Urine Culture - Final, Complete No growth (<1,000 organisms/mL) X-Rays, CTs and MRIs . X-RAY RIGHT KNEE, ONE OR TWO VIEWS IMPRESSION: 1. Limited study demonstrates no definite fracture or dislocation. If clinical concern persists, consider further evaluation with CT. Dictated by: Christopher Stephen M.D. on 06/20/2017 X-RAY CHEST ONE VIEW, PORTABLE IMPRESSION: 1. Pulmonary vascular prominence suggesting mild edema. Dictated by: Christopher Stephen M.D. on 06/20/2017 US VENOUS LEG DUPLEX BILATERAL IMPRESSION: Limited quality of visualization of the lower extremity venous vasculature due to body habitus. No DVT found. Dictated by: Emigdio King M.D. on 06/20/2017 X-RAY CHEST ONE VIEW, PORTABLE IMPRESSION: No acute cardiopulmonary disease. Dictated by: Yohan Hung M.D. on 06/22/2017 Cardiac Echo Impressions Echocardiogram Report Interpretation Summary This was a technically difficult study. 1. Grossly normal left ventricular size with grossly normal systolic function. 2. The right ventricle was not visualized. The estimated RVSP is 47 mm plus CVP 3. Valves were not optimally visualized Reading Physician:06:04 PM Additional Diagnostics Assessment & Plan #. Intermittent vaginal bleeding, active. We discussed this case with gynecology and her physical size prohibits a vaginal examination here or even really a transvaginal ultrasound. The patient also has concurrent DVT and is not a candidate for estrogen therapy to attempt to stop bleeding. At this point we will continue to watch and follow hematocrit. -INR 2.64 -H&H stabilized #Diarrhea, acute, present on admission -Check stool PCR and monitor clinically which returned on July 20 and is negative #. Super-Super Morbid obesity. POA and stable. Patient counseled by Kwame that aggressive calorie reduction is needed to expedite her return to mobility and her ability to live outside of an institutional setting. She concurs and is supportive of aggressive dieting goals. She seemed to tolerate her diet at current levels. - BMI 86.5 - Continue bariatric nursing care procedures - Patient of family counseled on importance of calorie restriction and weight loss. - Recommend 800 calorie VLCD diet with appropriate protein, fiber and vitamin supplement. - Calorie count to assess compliance with 800-calorie target No change to current medical plan. She continues to lose weight and is now on approximately 550 pounds. #. Sacral decubitus ulcers, present on admission. Active and stable. Likely stage II. These were inspected by nurses on 06/23 and found to have blanchable erythema and excoriation but no stage IV ulcers - Wound care consulted. We will continue the current wound plan. No change in current medical plan. Continue wound care. #. Obesity hypoventilation syndrome, present on admission. Active and stable. - Will require ongoing bilevel volume-directed ventilation support when sleeping. This is stable no changes to plan. 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 No change in current medical plan. BiPAP at night. #. Pulmonary embolism, present on admission. Stable with a therapeutic protime. Initial ABG revealed severe hypoxic deficit despite compensated chronic hypercarbia. . D-Dimer 8, albeit with bruise on right forearm. She is too large to do Chest CT PE scan. Decision was made to institute empiric anticoagulation, probably to continue chronically. She is at high risk for chronic thromboembolic pulmonary hypertension. Attempts were made to transfer patient to facility with suitable CT or angiography features but no such facilities identified. Maximum width at [facility] CT scanner is 78 cm , patient is 90 cm wide. Unable to obtain confirmatory diagnostic testing. Treating empirically. - Warfarin. - Dosing per pharmacy Continue warfarin, after Sunday and Sunday hold. She is therapeutic. We will not use bridging Lovenox given her vaginal bleeding control except a short subtherapeutic range. #. Acute Hypoxemic respiratory failure, present on admission. Improving and stable. Acute hypoxia is deemed likely 2nd to PE, the absence of other respiratory infection or pathology. Continue supplemental oxygen. Wean as able. This is stable. Oxygen mask by day and BiPAP at night. No changes. #. Acute on chronic Hypercapnic respiratory failure, present on admission. Improving and stable. Likely 2nd to obesity hypoventilation syndrome. Appears to have had worsening hypercarbic respiratory failure following oxygen supplementation in hospital, despite BiPAP. - The plan is for discharge to LTAC for ongoing management. She will likely need a home trilogy when she is able to discharged to a home environment. - Target O2 saturation is 88% - 92%; avoid excess oxygenation, continue noninvasive positive pressure ventilation. No changes for now. This is stable. Oxygen mask by day, BiPAP at night. #. Group B strep Bacteremia, not present on admission. Resolved -Completed Ceftriaxone IV for 14 days (also for cellulitis). #. Anxiety, not present on admission. Active and improving.. - Small dose PO Ativan before PT sessions. - Discontinue IV Ativan; patient was counseled on need to minimize dependence on benzodiazepines #. Left torso and abdomen cellulitis, active and stable. Probable some component chronic panniculitis. - Discontinued antibiotics on 07/06 - completed two-week course with minimal change in her left abdominal erythema, stop antibiotics at this time. #. Acute urinary tract infection, present on admission. Resolved. Asymptomatic bacteriuria E.coli in urine at time of admission - Covered by cellulitis antibiotics, stop antibiotics. Acetaminophen for mild pain when necessary. Bowel regimen Senna and MiraLAX scheduled and PRN. Zofran when necessary for nausea and vomiting. SubQ heparin held for now. SCDs in place. High-risk medications: Warfarin. Patient Status: Patient is admitted under inpatient status with expected length of stay greater than 2 midnights due to severity of presenting symptoms, risk of adverse event, and complexity of treatment plan. Awaiting acceptance to LTAC placement, versus looking at potential discharge to local intermediate facilities or inpatient rehabilitation units. [facility] inpatient rehabilitation is declining the patient. We will continue to look at [facility] inpatient rehabilitation. Reported to be placed at facility, awaiting bed availability Resuscitation Status: CPR: Attempt Resuscitation Time spent 30 minutes Attending Statement Patient has been seen and examined by myself with manager medical device and agree with above history, physical, assessment and plan. ISABELLA MEIER DO Jul 22, 2017 07:15 La Kat MD Jul 22, 2017 16:27
--- NOTE | 2017-07-22 14:35 | PCM.PHAPRO ---
Progress Warfarin dosing WARFARIN DOSING PER PHARMACY Jul 21-Jul 22-Jun 2.01 2.87 2.64 0.38 0.86 -0.23 6mg 1 2 Will give one dose of warfarin 2mg [facility] Pharmacy will continue to follow, thank you! Miryam Hou PharmD Jul 22, 2017 14:35
[2017-07-22 16:44] VITALS: BP 129/97; PULSE 96; RESP 18; O2SAT 96
--- NOTE | 2017-07-22 18:24 | NUR ---
Skin Care/Pain Cardiac: Denies chest discomfort. No tele: HR 70-80s Resp: Pt unable to lie flat but for short periods. SOB with exertion. SPO2 96% on 2L oxymask. Bipap at night. GI/: Pt denies n/v, had diarrhea last night, requested and was given immodium this AM, one small loose stool followed. Neuro: A&Ox3, BHARDWAJ in bed. BR due to weight. Up with PT only. Foam dressings changed today and nystatin cream applied
[2017-07-22 21:19] VITALS: BP 119/68; PULSE 92; RESP 18; O2SAT 92
[2017-07-22 23:42] VITALS: RESP 22; O2SAT 98
[2017-07-23 02:44] LABS: EOSINOPHILS % (AUTO) 11.1 % (0-5); MONOCYTES % (AUTO) 12.2 % (4-12); NEUTROPHILS % (AUTO) 39.3 % (40-74); Platelet Count 261 bil/L (150-400)
[2017-07-23 02:53] VITALS: BP 129/76; PULSE 85; RESP 21; O2SAT 97
[2017-07-23 03:08] LABS: INR 2.67 ratio
[2017-07-23 04:50] VITALS: RESP 22; O2SAT 97
--- NOTE | 2017-07-23 06:37 | NUR ---
Pain/rest Pt. indicates increase in pain this shift. Tylenol given. Requested time to rest, and coordination of care and times with fewer interruptions. discussed care with pt. and aide, set times to group needs. RT here to place on Bipap, rested for extended period. Noted increase redness on top of L Foot. Marked margins, report given to on coming RN. Indicates no further needs at this time. VSS. No tele.
[2017-07-23] MEDS: Sodium Chloride LOK Flush 10 mL Syringe IVFLUSH SCH ×3 (07:40→21:34)
[2017-07-23 08:04] VITALS: BP 141/72; PULSE 90; RESP 18; O2SAT 95
--- NOTE | 2017-07-23 10:23 | NUR ---
KAILEY Signed at 1020AM
[2017-07-23] MEDS: LORazepam 1 mg Tablet PO PRN (11:04)
--- NOTE | 2017-07-23 11:54 | PCM.PNMED ---
Subjective Date of Service Jul 23, 2017 Subjective Patient has no new complaints. Very minimal vaginal bleeding. She does continue to work with physical therapy. Exam Vital Signs Vital Sign - Last Date Time Temp Pulse Resp B/P Pulse Ox O2 Delivery O2 Flow Rate FiO2 07/23/17 08:04 36.6 90 18 141/72 95 OxyMask 2.00 07/23/17 02:53 30 Intake and Output 07/22/17 07/22/17 07/23/17 Cumulative From/Thru 15:00 23:00 07:00 06/20/17 10:42 - 07/23/17 06:22 Intake Total 920 ml 800 ml 67832 ml Output Total 1100 ml 900 ml 88150 ml Balance -180 ml -100 ml -15086 ml Intake Oral 920 ml 800 ml 62585 ml IV Total 87680 ml Output Urine Total 1100 ml 900 ml 28578 ml # Bowel Movements 1 39 Exam Constitutional: Middle-aged female in no acute distress, morbidly obese Head: Normocephalic atraumatic Chest: Clear to auscultation Cor: Regular rate and rhythm S1-S2 Abdomen: Soft morbid obese nontender bowel sounds present Extremities: No pedal edema Psych: Mood and affect are appropriate Neuro: Alert and oriented 3, motor strength is intact bilaterally IVs and Medications Medications Reviewed: Medications were reviewed in detail Lab and Diagnostics Laboratory Tests 72 Hours Test 07/21/17 02:10 07/22/17 08:08 07/23/17 01:52 Prothrombin Time 31.4sec (8.1-12.5) 28.8sec (8.1-12.5) 29.2sec (8.1-12.5) Prothromb Time International Ratio 2.87ratio 2.64ratio 2.67ratio White Blood Count 6.2th/mm3 (3.8-10.1) Red Blood Count 4.40mil/mm3 (3.90-5.20) Hemoglobin 13.2g/dL (12.0-15.6) Hematocrit 40.5% (35.0-46.0) Mean Corpuscular Volume 92.0fL (81-100) Mean Corpuscular Hemoglobin 30.0pg (27.0-35.0) Mean Corpuscular Hemoglobin Concent 32.6% (32.0-37.0) Red Cell Distribution Width 15.2% (12.3-15.4) Platelet Count 261bil/L (150-400) Neutrophils (%) (Auto) 39.3% (40-74) Lymphocytes (%) (Auto) 36.1% (14-46) Monocytes (%) (Auto) 12.2% (4-12) Eosinophils (%) (Auto) 11.1% (0-5) Basophils (%) (Auto) 1.0% (0-3) Sodium Level 140mEq/L (134-144) Potassium Level 4.1mEq/L (3.5-5.2) Chloride Level 102mEq/L (97-108) Carbon Dioxide Level 26mmol/L (18-29) Blood Urea Nitrogen 18mg/dL (6-24) Creatinine 0.47mg/dL (0.57-1.00) Estimat Glomerular Filtration Rate 196mL/min (>59) Glucose Level 105mg/dL (60-99) Calcium Level 8.8mg/dL (8.5-10.1) Total Bilirubin 0.3mg/dL (0.0-1.2) Aspartate Amino Transf (AST/SGOT) 44U/L (0-50) Alanine Aminotransferase (ALT/SGPT) 35U/L (0-32) Alkaline Phosphatase 65U/L (25-150) Total Protein 6.5g/dL (6.4-8.4) Albumin 3.2g/dL (3.4-5.0) Result Diagram: 07/23/172 07/23/17 0152 Microbiology Laboratory Tests Test 07/20/17 01:50 Hemoglobin 13.2g/dL (12.0-15.6) Hematocrit 40.3% (35.0-46.0) Prothrombin Time 21.8sec (8.1-12.5) Prothromb Time International Ratio 2.01ratio Microbiology 06/27/17 Blood Culture - Final, Complete NO GROWTH AFTER 5 DAYS 07/19/17 Campylobacter (PCR) - Final, Complete Not Detected 07/19/17 Clostridium difficile Toxin A&B (M) - Final, Complete Not Detected 07/19/17 Plesiomonas shigelloides (PCR) - Final, Complete Not Detected 07/19/17 Salmonella (PCR)(BRANDON) - Final, Complete Not Detected 07/19/17 Yersinia enterocolitica (PCR) - Final, Complete Not Detected 07/19/17 Vibrio Species (PCR) - Final, Complete Not Detected 07/19/17 Vibrio Cholerae (PCR) - Final, Complete Not Detected 07/19/17 Enteroaggregative E. coli (PCR) - Final, Complete Not Detected 07/19/17 Enteropathogenic E. coli (PCR) - Final, Complete Not Detected 07/19/17 Enterotoxigenic E. coli (PCR) - Final, Complete Not Detected 07/19/17 E. coli Shiga-like Toxin (PCR) - Final, Complete Not Detected 07/19/17 Escherichia coli 0157 (PCR) - Final, Complete Not Detected 07/19/17 Enteroinvasive E. coli/Shigella PCR - Final, Complete Not Detected 07/19/17 Cryptosporidium (PCR) - Final, Complete Not Detected 07/19/17 Cyclospora cayetanensis (PCR) - Final, Complete Not Detected 07/19/17 Entamoeba histolytica (PCR) - Final, Complete Not Detected 07/19/17 Giardia lamblia (PCR) - Final, Complete Not Detected 07/19/17 Adenovirus Type F 40/41 (PCR) - Final, Complete Not Detected 07/19/17 Astrovirus (PCR) - Final, Complete Not Detected 07/19/17 Norovirus (PCR) - Final, Complete Not Detected 07/19/17 Rotavirus A (PCR) - Final, Complete Not Detected 07/19/17 Sapovirus I/II/IV/V (PCR) - Final, Complete 06/24/17 MRSA (PCR) - Final, Complete 06/28/17 Urine Culture - Final, Complete No growth (<1,000 organisms/mL) X-Rays, CTs and MRIs . X-RAY RIGHT KNEE, ONE OR TWO VIEWS IMPRESSION: 1. Limited study demonstrates no definite fracture or dislocation. If clinical concern persists, consider further evaluation with CT. Dictated by: Christopher Stephen M.D. on 06/20/2017 X-RAY CHEST ONE VIEW, PORTABLE IMPRESSION: 1. Pulmonary vascular prominence suggesting mild edema. Dictated by: Christopher Stephen M.D. on 06/20/2017 US VENOUS LEG DUPLEX BILATERAL IMPRESSION: Limited quality of visualization of the lower extremity venous vasculature due to body habitus. No DVT found. Dictated by: Emigdio King M.D. on 06/20/2017 X-RAY CHEST ONE VIEW, PORTABLE IMPRESSION: No acute cardiopulmonary disease. Dictated by: Yohan Hung M.D. on 06/22/2017 Cardiac Echo Impressions Echocardiogram Report Interpretation Summary This was a technically difficult study. 1. Grossly normal left ventricular size with grossly normal systolic function. 2. The right ventricle was not visualized. The estimated RVSP is 47 mm plus CVP 3. Valves were not optimally visualized Reading Physician:06:04 PM Additional Diagnostics Assessment & Plan #. Intermittent vaginal bleeding, active. We discussed this case with gynecology and her physical size prohibits a vaginal examination here or even really a transvaginal ultrasound. The patient also has concurrent DVT and is not a candidate for estrogen therapy to attempt to stop bleeding. At this point we will continue to watch and follow hematocrit. -INR 2.64 -H&H stabilized #Diarrhea, acute, present on admission -Check stool PCR and monitor clinically which returned on July 20 and is negative #. Super-Super Morbid obesity. POA and stable. Patient counseled by Kwame that aggressive calorie reduction is needed to expedite her return to mobility and her ability to live outside of an institutional setting. She concurs and is supportive of aggressive dieting goals. She seemed to tolerate her diet at current levels. - BMI 86.5 - Continue bariatric nursing care procedures - Patient of family counseled on importance of calorie restriction and weight loss. - Recommend 800 calorie VLCD diet with appropriate protein, fiber and vitamin supplement. - Calorie count to assess compliance with 800-calorie target No change to current medical plan. She continues to lose weight and is now on approximately 550 pounds. #. Sacral decubitus ulcers, present on admission. Active and stable. Likely stage II. These were inspected by nurses on 06/23 and found to have blanchable erythema and excoriation but no stage IV ulcers - Wound care consulted. We will continue the current wound plan. No change in current medical plan. Continue wound care. #. Obesity hypoventilation syndrome, present on admission. Active and stable. - Will require ongoing bilevel volume-directed ventilation support when sleeping. This is stable no changes to plan. 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 No change in current medical plan. BiPAP at night. #. Pulmonary embolism, present on admission. Stable with a therapeutic protime. Initial ABG revealed severe hypoxic deficit despite compensated chronic hypercarbia. . D-Dimer 8, albeit with bruise on right forearm. She is too large to do Chest CT PE scan. Decision was made to institute empiric anticoagulation, probably to continue chronically. She is at high risk for chronic thromboembolic pulmonary hypertension. Attempts were made to transfer patient to facility with suitable CT or angiography features but no such facilities identified. Maximum width at [facility] CT scanner is 78 cm , patient is 90 cm wide. Unable to obtain confirmatory diagnostic testing. Treating empirically. - Warfarin. - Dosing per pharmacy Continue warfarin, after Sunday and Sunday hold. She is therapeutic. We will not use bridging Lovenox given her vaginal bleeding control except a short subtherapeutic range. #. Acute Hypoxemic respiratory failure, present on admission. Improving and stable. Acute hypoxia is deemed likely 2nd to PE, the absence of other respiratory infection or pathology. Continue supplemental oxygen. Wean as able. This is stable. Oxygen mask by day and BiPAP at night. No changes. #. Acute on chronic Hypercapnic respiratory failure, present on admission. Improving and stable. Likely 2nd to obesity hypoventilation syndrome. Appears to have had worsening hypercarbic respiratory failure following oxygen supplementation in hospital, despite BiPAP. - The plan is for discharge to LTAC for ongoing management. She will likely need a home trilogy when she is able to discharged to a home environment. - Target O2 saturation is 88% - 92%; avoid excess oxygenation, continue noninvasive positive pressure ventilation. No changes for now. This is stable. Oxygen mask by day, BiPAP at night. #. Group B strep Bacteremia, not present on admission. Resolved -Completed Ceftriaxone IV for 14 days (also for cellulitis). #. Anxiety, not present on admission. Active and improving.. - Small dose PO Ativan before PT sessions. - Discontinue IV Ativan; patient was counseled on need to minimize dependence on benzodiazepines #. Left torso and abdomen cellulitis, active and stable. Probable some component chronic panniculitis. - Discontinued antibiotics on 07/06 - completed two-week course with minimal change in her left abdominal erythema, stop antibiotics at this time. #. Acute urinary tract infection, present on admission. Resolved. Asymptomatic bacteriuria E.coli in urine at time of admission - Covered by cellulitis antibiotics, stop antibiotics. Acetaminophen for mild pain when necessary. Bowel regimen Senna and MiraLAX scheduled and PRN. Zofran when necessary for nausea and vomiting. SubQ heparin held for now. SCDs in place. High-risk medications: Warfarin. Patient Status: Patient is admitted under inpatient status with expected length of stay greater than 2 midnights due to severity of presenting symptoms, risk of adverse event, and complexity of treatment plan. Awaiting acceptance to LTAC placement, versus looking at potential discharge to local [facility] facilities or inpatient rehabilitation units. [facility] inpatient rehabilitation is declining the patient. We will continue to look at [place] and [facility] inpatient rehabilitation. Reported to be placed at facility, awaiting bed availability Resuscitation Status: CPR: Attempt Resuscitation Time spent 20 minutes La Kat MD Jul 23, 2017 11:54
--- NOTE | 2017-07-23 14:56 | NUR ---
POST HOSPITAL FOLLOW UP: Called and left message for [facility], she has reviewed updated information and they can clinically accept patient. Faxed a few additional items which she requested. She would also like to come and meet with patient prior to transfer. 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
[2017-07-23 16:48] VITALS: BP 120/80; PULSE 91; RESP 24; O2SAT 98
--- NOTE | 2017-07-23 18:20 | NUR ---
pain and skin care Pt reports pain in her shoulder and knee today, medicated with tylenol for decrease in pain. Redness noted on top of foot, did not extend past line marked by previous shift, no warmth to erythematous area. Did not change mepilex foam pads this shift, they were intact and did not need to be changed. Areas of redness on posterior side of pt, blanchable when up with PT. Hourly rounding provided, call light within reach.
[2017-07-23 21:41] VITALS: BP 133/84; PULSE 91; RESP 19; O2SAT 95
[2017-07-23 22:17] VITALS: RESP 24; O2SAT 99
[2017-07-24] VITALS (8 sets, daily range): BP systolic 107–145; BP diastolic 63–80; PULSE 78–96; RESP 18–21; O2SAT 92–99
[2017-07-24 03:00] LABS: INR 2.79 ratio
--- NOTE | 2017-07-24 05:50 | NUR ---
Pain / Vaginal Bleeding Patient reports 7/10 pain at HS; Tylenol given, BiPAP applied, and patient able to sleep throughout shift. Very minimal vaginal bleeding this shift. VSS. No telemetry. Dressings intact per assessment.
[2017-07-24] MEDS: Sodium Chloride LOK Flush 10 mL Syringe IVFLUSH SCH ×2 (08:30→16:30)
[2017-07-24] MEDS: Lidocaine Topical 5% Patch TOPICAL SCH (13:50)
--- NOTE | 2017-07-24 15:17 | PCM.PNMED ---
Subjective Date of Service Jul 24, 2017 Subjective Patient does note that she has been having some bilateral knee pain with daily PT sessions. She also does note that if she tries to sit up at the edge of the bed for anything greater than 10 minute she has problems trying eat at the edge of the bed she notes that she has problems with reflux. Exam Vital Signs Vital Sign - Last Date Time Temp Pulse Resp B/P Pulse Ox O2 Delivery O2 Flow Rate FiO2 07/24/17 11:59 36.6 92 20 129/78 92 OxyMask 2.00 07/24/17 03:12 30 Intake and Output 07/23/17 07/23/17 07/24/17 Cumulative From/Thru 15:00 23:00 07:00 06/20/17 10:42 - 07/24/17 06:18 Intake Total 700 ml 400 ml 07669 ml Output Total 1200 ml 1000 ml 07425 ml Balance -500 ml -600 ml -11743 ml Intake Oral 700 ml 400 ml 93502 ml IV Total 41471 ml Output Urine Total 1200 ml 1000 ml 41231 ml # Bowel Movements 0 39 Exam Constitutional: Morbidly obese female resting in bed Head: Normocephalic atraumatic Chest: Clear to auscultation Cor: Regular rate and rhythm S1-S2 Abdomen: Soft and pendulous bowel sounds present Extremities: No pedal edema Psych: Normal mood and affect Neuro: Alert and oriented 3, motor strength is intact bilaterally Lab and Diagnostics Laboratory Tests 72 Hours Test 07/22/17 08:08 07/23/17 01:52 07/24/17 02:15 Prothrombin Time 28.8sec (8.1-12.5) 29.2sec (8.1-12.5) 30.5sec (8.1-12.5) Prothromb Time International Ratio 2.64ratio 2.67ratio 2.79ratio White Blood Count 6.2th/mm3 (3.8-10.1) Red Blood Count 4.40mil/mm3 (3.90-5.20) Hemoglobin 13.2g/dL (12.0-15.6) Hematocrit 40.5% (35.0-46.0) Mean Corpuscular Volume 92.0fL (81-100) Mean Corpuscular Hemoglobin 30.0pg (27.0-35.0) Mean Corpuscular Hemoglobin Concent 32.6% (32.0-37.0) Red Cell Distribution Width 15.2% (12.3-15.4) Platelet Count 261bil/L (150-400) Neutrophils (%) (Auto) 39.3% (40-74) Lymphocytes (%) (Auto) 36.1% (14-46) Monocytes (%) (Auto) 12.2% (4-12) Eosinophils (%) (Auto) 11.1% (0-5) Basophils (%) (Auto) 1.0% (0-3) Sodium Level 140mEq/L (134-144) Potassium Level 4.1mEq/L (3.5-5.2) Chloride Level 102mEq/L (97-108) Carbon Dioxide Level 26mmol/L (18-29) Blood Urea Nitrogen 18mg/dL (6-24) Creatinine 0.47mg/dL (0.57-1.00) Estimat Glomerular Filtration Rate 196mL/min (>59) Glucose Level 105mg/dL (60-99) Calcium Level 8.8mg/dL (8.5-10.1) Total Bilirubin 0.3mg/dL (0.0-1.2) Aspartate Amino Transf (AST/SGOT) 44U/L (0-50) Alanine Aminotransferase (ALT/SGPT) 35U/L (0-32) Alkaline Phosphatase 65U/L (25-150) Total Protein 6.5g/dL (6.4-8.4) Albumin 3.2g/dL (3.4-5.0) Result Diagram: 07/23/1715107/23/17 0152 Microbiology Laboratory Tests Test 07/20/17 01:50 Hemoglobin 13.2g/dL (12.0-15.6) Hematocrit 40.3% (35.0-46.0) Prothrombin Time 21.8sec (8.1-12.5) Prothromb Time International Ratio 2.01ratio Microbiology 06/27/17 Blood Culture - Final, Complete NO GROWTH AFTER 5 DAYS 07/19/17 Campylobacter (PCR) - Final, Complete Not Detected 07/19/17 Clostridium difficile Toxin A&B (M) - Final, Complete Not Detected 07/19/17 Plesiomonas shigelloides (PCR) - Final, Complete Not Detected 07/19/17 Salmonella (PCR)(BRANDON) - Final, Complete Not Detected 07/19/17 Yersinia enterocolitica (PCR) - Final, Complete Not Detected 07/19/17 Vibrio Species (PCR) - Final, Complete Not Detected 07/19/17 Vibrio Cholerae (PCR) - Final, Complete Not Detected 07/19/17 Enteroaggregative E. coli (PCR) - Final, Complete Not Detected 07/19/17 Enteropathogenic E. coli (PCR) - Final, Complete Not Detected 07/19/17 Enterotoxigenic E. coli (PCR) - Final, Complete Not Detected 07/19/17 E. coli Shiga-like Toxin (PCR) - Final, Complete Not Detected 07/19/17 Escherichia coli 0157 (PCR) - Final, Complete Not Detected 07/19/17 Enteroinvasive E. coli/Shigella PCR - Final, Complete Not Detected 07/19/17 Cryptosporidium (PCR) - Final, Complete Not Detected 07/19/17 Cyclospora cayetanensis (PCR) - Final, Complete Not Detected 07/19/17 Entamoeba histolytica (PCR) - Final, Complete Not Detected 07/19/17 Giardia lamblia (PCR) - Final, Complete Not Detected 07/19/17 Adenovirus Type F 40/41 (PCR) - Final, Complete Not Detected 07/19/17 Astrovirus (PCR) - Final, Complete Not Detected 07/19/17 Norovirus (PCR) - Final, Complete Not Detected 07/19/17 Rotavirus A (PCR) - Final, Complete Not Detected 07/19/17 Sapovirus I/II/IV/V (PCR) - Final, Complete 06/24/17 MRSA (PCR) - Final, Complete 06/28/17 Urine Culture - Final, Complete No growth (<1,000 organisms/mL) X-Rays, CTs and MRIs . X-RAY RIGHT KNEE, ONE OR TWO VIEWS IMPRESSION: 1. Limited study demonstrates no definite fracture or dislocation. If clinical concern persists, consider further evaluation with CT. Dictated by: Christopher Stephen M.D. on 06/20/2017 X-RAY CHEST ONE VIEW, PORTABLE IMPRESSION: 1. Pulmonary vascular prominence suggesting mild edema. Dictated by: Christopher Stehpen M.D. on 06/20/2017 US VENOUS LEG DUPLEX BILATERAL IMPRESSION: Limited quality of visualization of the lower extremity venous vasculature due to body habitus. No DVT found. Dictated by: Emigdio King M.D. on 06/20/2017 X-RAY CHEST ONE VIEW, PORTABLE IMPRESSION: No acute cardiopulmonary disease. Dictated by: Yohan Hung M.D. on 06/22/2017 Cardiac Echo Impressions Echocardiogram Report Interpretation Summary This was a technically difficult study. 1. Grossly normal left ventricular size with grossly normal systolic function. 2. The right ventricle was not visualized. The estimated RVSP is 47 mm plus CVP 3. Valves were not optimally visualized Reading Physician:06:04 PM Additional Diagnostics Assessment & Plan #. Intermittent vaginal bleeding, active. We discussed this case with gynecology and her physical size prohibits a vaginal examination here or even really a transvaginal ultrasound. The patient also has concurrent DVT and is not a candidate for estrogen therapy to attempt to stop bleeding. At this point we will continue to watch and follow hematocrit. -INR 2.64 -H&H stabilized #Diarrhea, acute, present on admission -Check stool PCR and monitor clinically which returned on July 20 and is negative #. Super-Super Morbid obesity. POA and stable. Patient counseled by Kwame that aggressive calorie reduction is needed to expedite her return to mobility and her ability to live outside of an institutional setting. She concurs and is supportive of aggressive dieting goals. She seemed to tolerate her diet at current levels. - BMI 86.5 - Continue bariatric nursing care procedures - Patient of family counseled on importance of calorie restriction and weight loss. - Recommend 800 calorie VLCD diet with appropriate protein, fiber and vitamin supplement. - Calorie count to assess compliance with 800-calorie target No change to current medical plan. She continues to lose weight and is now on approximately 550 pounds. #. Sacral decubitus ulcers, present on admission. Active and stable. Likely stage II. These were inspected by nurses on 06/23 and found to have blanchable erythema and excoriation but no stage IV ulcers - Wound care consulted. We will continue the current wound plan. No change in current medical plan. Continue wound care. #. Obesity hypoventilation syndrome, present on admission. Active and stable. - Will require ongoing bilevel volume-directed ventilation support when sleeping. This is stable no changes to plan. 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 No change in current medical plan. BiPAP at night. #. Pulmonary embolism, present on admission. Stable with a therapeutic protime. Initial ABG revealed severe hypoxic deficit despite compensated chronic hypercarbia. . D-Dimer 8, albeit with bruise on right forearm. She is too large to do Chest CT PE scan. Decision was made to institute empiric anticoagulation, probably to continue chronically. She is at high risk for chronic thromboembolic pulmonary hypertension. Attempts were made to transfer patient to facility with suitable CT or angiography features but no such facilities identified. Maximum width at [facility] CT scanner is 78 cm , patient is 90 cm wide. Unable to obtain confirmatory diagnostic testing. Treating empirically. - Warfarin. - Dosing per pharmacy Continue warfarin, after Sunday and Sunday hold. She is therapeutic. We will not use bridging Lovenox given her vaginal bleeding control except a short subtherapeutic range. #. Acute Hypoxemic respiratory failure, present on admission. Improving and stable. Acute hypoxia is deemed likely 2nd to PE, the absence of other respiratory infection or pathology. Continue supplemental oxygen. Wean as able. This is stable. Oxygen mask by day and BiPAP at night. No changes. #. Acute on chronic Hypercapnic respiratory failure, present on admission. Improving and stable. Likely 2nd to obesity hypoventilation syndrome. Appears to have had worsening hypercarbic respiratory failure following oxygen supplementation in hospital, despite BiPAP. - The plan is for discharge to LTAC for ongoing management. She will likely need a home trilogy when she is able to discharged to a home environment. - Target O2 saturation is 88% - 92%; avoid excess oxygenation, continue noninvasive positive pressure ventilation. No changes for now. This is stable. Oxygen mask by day, BiPAP at night. #. Group B strep Bacteremia, not present on admission. Resolved -Completed Ceftriaxone IV for 14 days (also for cellulitis). #. Anxiety, not present on admission. Active and improving.. - Small dose PO Ativan before PT sessions. - Discontinue IV Ativan; patient was counseled on need to minimize dependence on benzodiazepines #. Left torso and abdomen cellulitis, active and stable. Probable some component chronic panniculitis. - Discontinued antibiotics on 07/06 - completed two-week course with minimal change in her left abdominal erythema, stop antibiotics at this time. #. Acute urinary tract infection, present on admission. Resolved. Asymptomatic bacteriuria E.coli in urine at time of admission - Covered by cellulitis antibiotics, stop antibiotics. Acetaminophen for mild pain when necessary. Bowel regimen Senna and MiraLAX scheduled and PRN. Zofran when necessary for nausea and vomiting. SubQ heparin held for now. SCDs in place. High-risk medications: Warfarin. Patient Status: Patient is admitted under inpatient status with expected length of stay greater than 2 midnights due to severity of presenting symptoms, risk of adverse event, and complexity of treatment plan. Awaiting acceptance to LTAC placement, versus looking at potential discharge to local detention facilities or inpatient rehabilitation units. [facility] inpatient rehabilitation is declining the patient. We will continue to look at [place] and [facility] inpatient rehabilitation. Reported to be placed at facility, awaiting bed availability Resuscitation Status: CPR: Attempt Resuscitation Time spent 20 minutes La Kat MD Jul 24, 2017 15:17
--- NOTE | 2017-07-24 16:15 | NUR ---
Activity/Pain Management for PT Pt agrees to get to edge of bed with CONDUCTOR PULLMAN 3 x per day for 5-10 minutes. Pt also to be pretreated with Lidocaine patch for her knees prior to working with PT. After PT she is to have her knees iced to reduce inflammation/pain. Pt agreeable to plan. Plan is written on white board.
[2017-07-25] MEDS: Sodium Chloride LOK Flush 10 mL Syringe IVFLUSH SCH ×4 (00:14→20:47)
[2017-07-25 02:19] VITALS: BP 120/70; PULSE 82; RESP 20; O2SAT 94
[2017-07-25 03:37] LABS: INR 2.73 ratio
[2017-07-25 04:47] VITALS: RESP 18; O2SAT 96
--- NOTE | 2017-07-25 05:46 | NUR ---
Bowel Movement Pt had bowel movement x1 this shift at HS on bedpan; Imodium requested and administered afterwards. Reported pain at 6/10 at HS, Tylenol administered. Patient reported "it's not so much a pain anymore as much as an ache. It's better." on reassessment. VSS, no telemetry. LLE foam pads changed at HS, other dressings intact.
--- NOTE | 2017-07-25 08:00 | NUR ---
NUTRITION FOLLOW-UP: ASSESS: 57 YO female admitted with hypoxemia, advanced respiratory failure, presumed PE. Wound care is following. Pt has multiple gluteal wounds, which continue to improve per Copy Manager. She is on a Heart Healthy diet with good PO and she is receiving Francis BID to assist with wound healing. Pt awaiting discharge to [facility], once a bariatric bed becomes available. Per notes, pt is ordered a 800-1000 calorie diet to assist with weight loss. She continues to be motivated to maintain her weight loss and lifestyle goals. Pt's highest recorded wt during admit was 280 kg. She is now recorded at 256 kg. Total wt loss is ~24 kg. PMHx: Arthritis, FRANK, depression, advanced respiratory failure, class III obesity. DIET: Heart healthy + Francis. PO intake 100% trays. LABS: Reviewed. (07/23): Cr 0.47, Glu 105, ALT 35, Alb 3.2 MEDICATIONS: Reviewed. Florastor. GI: BM x 1 (07/25) SKIN: Wound care following from multiple gluteal wounds that are improving. ANTHROPOMETRICS: Current Wt: 256 kg, BMI: 96.9 kg/m2. Admit weight: 278.2 kg, Adjust BW: 105 kg, IBW: 54.5 kg. Pt has lost 24 kg since admit. ESTIMATED NEEDS (BMI, WOUNDS): Calories: 5280-0269 kcal/day (22-25 kcal/kg adj BW) Protein: 105-125 g/day (1.0-1.2 g/kg adj BW) NUTRITION DIAGNOSIS: 1) Increased nutrient needs related to increased demand for nutrients, as evidenced by multiple wound issues noted by Copy Manager - IMPROVING. INTERVENTION: 1) Continue current diet and Francis at lunch and dinner for wound healing as ordered. . MONITOR/EVALUATE: PO intake, wt, GI, wounds, labs, nutrition status. Follow per moderate nutrition risk guidelines.
[2017-07-25] MEDS: Lidocaine Topical 5% Patch TOPICAL SCH (08:21)
--- NOTE | 2017-07-25 08:32 | PCM.PNMED ---
Subjective Date of Service Jul 25, 2017 Subjective She is doing well. She notes her breathing has been stable over the last several days. No cough or chest pain. No abdominal pain. No diarrhea. She does have some improving pain around the catheter from one and got pulled on yesterday. No hematuria. She denies any worsening of the tenderness in the left flank of her skin. No overnight events noted. Exam Vital Signs Vital Sign - Last Date Time Temp Pulse Resp B/P Pulse Ox O2 Delivery O2 Flow Rate FiO2 07/25/17 04:47 82 18 96 07/25/17 02:19 37.0 120/70 BiPAP 2.00 07/24/17 03:12 30 Intake and Output 07/24/17 07/24/17 07/25/17 Cumulative From/Thru 15:00 23:00 07:00 06/20/17 10:42 - 07/25/17 06:20 Intake Total 1800 ml 200 ml 85184 ml Output Total 1100 ml 700 ml 21994 ml Balance 700 ml -500 ml -64155 ml Intake Oral 1800 ml 200 ml 81320 ml IV Total 21268 ml Output Urine Total 1100 ml 700 ml 93158 ml # Bowel Movements 1 1 41 Exam Alert and oriented -3, no distress. Fluent speech Anicteric sclera. Lungs are clear with normal rate and effort Heart is regular without murmur gallop or rub Abdomen soft nontender, flat. The left flank is less erythematous and less tender. Extremities are free of edema. Skin is free of rash or lesions. Otherwise. IVs and Medications Medications Reviewed: Medications were reviewed in detail Lab and Diagnostics Result Diagram: 07/23/17 0152 07/23/17 0152 Microbiology Laboratory Tests Test 07/20/17 01:50 Hemoglobin 13.2g/dL (12.0-15.6) Hematocrit 40.3% (35.0-46.0) Prothrombin Time 21.8sec (8.1-12.5) Prothromb Time International Ratio 2.01ratio Microbiology 06/27/17 Blood Culture - Final, Complete NO GROWTH AFTER 5 DAYS 07/19/17 Campylobacter (PCR) - Final, Complete Not Detected 07/19/17 Clostridium difficile Toxin A&B (M) - Final, Complete Not Detected 07/19/17 Plesiomonas shigelloides (PCR) - Final, Complete Not Detected 07/19/17 Salmonella (PCR)(BRANDON) - Final, Complete Not Detected 07/19/17 Yersinia enterocolitica (PCR) - Final, Complete Not Detected 07/19/17 Vibrio Species (PCR) - Final, Complete Not Detected 07/19/17 Vibrio Cholerae (PCR) - Final, Complete Not Detected 07/19/17 Enteroaggregative E. coli (PCR) - Final, Complete Not Detected 07/19/17 Enteropathogenic E. coli (PCR) - Final, Complete Not Detected 07/19/17 Enterotoxigenic E. coli (PCR) - Final, Complete Not Detected 07/19/17 E. coli Shiga-like Toxin (PCR) - Final, Complete Not Detected 07/19/17 Escherichia coli 0157 (PCR) - Final, Complete Not Detected 07/19/17 Enteroinvasive E. coli/Shigella PCR - Final, Complete Not Detected 07/19/17 Cryptosporidium (PCR) - Final, Complete Not Detected 07/19/17 Cyclospora cayetanensis (PCR) - Final, Complete Not Detected 07/19/17 Entamoeba histolytica (PCR) - Final, Complete Not Detected 07/19/17 Giardia lamblia (PCR) - Final, Complete Not Detected 07/19/17 Adenovirus Type F 40/41 (PCR) - Final, Complete Not Detected 07/19/17 Astrovirus (PCR) - Final, Complete Not Detected 07/19/17 Norovirus (PCR) - Final, Complete Not Detected 07/19/17 Rotavirus A (PCR) - Final, Complete Not Detected 07/19/17 Sapovirus I/II/IV/V (PCR) - Final, Complete 06/24/17 MRSA (PCR) - Final, Complete 06/28/17 Urine Culture - Final, Complete No growth (<1,000 organisms/mL) X-Rays, CTs and MRIs . X-RAY RIGHT KNEE, ONE OR TWO VIEWS IMPRESSION: 1. Limited study demonstrates no definite fracture or dislocation. If clinical concern persists, consider further evaluation with CT. Dictated by: Christopher Stephen M.D. on 06/20/2017 X-RAY CHEST ONE VIEW, PORTABLE IMPRESSION: 1. Pulmonary vascular prominence suggesting mild edema. Dictated by: Christopher Stephen M.D. on 06/20/2017 US VENOUS LEG DUPLEX BILATERAL IMPRESSION: Limited quality of visualization of the lower extremity venous vasculature due to body habitus. No DVT found. Dictated by: Emigdio King M.D. on 06/20/2017 X-RAY CHEST ONE VIEW, PORTABLE IMPRESSION: No acute cardiopulmonary disease. Dictated by: Yohan Hung M.D. on 06/22/2017 Cardiac Echo Impressions Echocardiogram Report Interpretation Summary This was a technically difficult study. 1. Grossly normal left ventricular size with grossly normal systolic function. 2. The right ventricle was not visualized. The estimated RVSP is 47 mm plus CVP 3. Valves were not optimally visualized Reading Physician:06:04 PM Additional Diagnostics Assessment & Plan #. Intermittent vaginal bleeding, active and improving.. We discussed this case with gynecology and her physical size prohibits a vaginal examination here or even really a transvaginal ultrasound. The patient also has concurrent DVT and is not a candidate for estrogen therapy to attempt to stop bleeding. At this point we will continue to watch and follow hematocrit. -INR 2.64 -H&H stabilized. We will continue warfarin and watch cautiously. #Diarrhea, acute, present on admission and resolved. -Check stool PCR and monitor clinically which returned on July 20 and is negative #. Super-Super Morbid obesity. POA and stable. Patient counseled by Kwame that aggressive calorie reduction is needed to expedite her return to mobility and her ability to live outside of an institutional setting. She concurs and is supportive of aggressive dieting goals. She seemed to tolerate her diet at current levels. - BMI 86.5 - Continue bariatric nursing care procedures - Patient of family counseled on importance of calorie restriction and weight loss. - Recommend 800 calorie VLCD diet with appropriate protein, fiber and vitamin supplement. - Calorie count to assess compliance with 800-calorie target No change to current medical plan. She continues to lose weight and is now on approximately 554 pounds. #. Sacral decubitus ulcers, present on admission. Active and proving with wound care.. Likely stage II. These were inspected by nurses on 06/23 and found to have blanchable erythema and excoriation but no stage IV ulcers - Wound care consulted. We will continue the current wound plan. No change in current medical plan. Continue wound care. #. Obesity hypoventilation syndrome, present on admission. Active and stable. - Will require ongoing bilevel volume-directed ventilation support when sleeping. This is stable no changes to plan. 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 No change in current medical plan. BiPAP at night. Continue oxygen mask in 4- 5 L during the day. #. Pulmonary embolism, present on admission. Stable with a therapeutic protime. Initial ABG revealed severe hypoxic deficit despite compensated chronic hypercarbia. . D-Dimer 8, albeit with bruise on right forearm. She is too large to do Chest CT PE scan. Decision was made to institute empiric anticoagulation, probably to continue chronically. She is at high risk for chronic thromboembolic pulmonary hypertension. Attempts were made to transfer patient to facility with suitable CT or angiography features but no such facilities identified. Maximum width at [facility] CT scanner is 78 cm , patient is 90 cm wide. Unable to obtain confirmatory diagnostic testing. Treating empirically. - Warfarin. - Dosing per pharmacy Continue warfarin. #. Acute Hypoxemic respiratory failure, present on admission. Improving and stable. Acute hypoxia is deemed likely 2nd to PE, the absence of other respiratory infection or pathology. Continue supplemental oxygen. Wean as able. This is stable. Oxygen mask by day and BiPAP at night. No changes. #. Acute on chronic Hypercapnic respiratory failure, present on admission. Improving and stable. Likely 2nd to obesity hypoventilation syndrome. Appears to have had worsening hypercarbic respiratory failure following oxygen supplementation in hospital, despite BiPAP. - The plan is for discharge to LTAC for ongoing management. She will likely need a home trilogy when she is able to discharged to a home environment. - Target O2 saturation is 88% - 92%; avoid excess oxygenation, continue noninvasive positive pressure ventilation. No changes for now. This is stable. Oxygen mask by day, BiPAP at night. #. Group B strep Bacteremia, not present on admission. Resolved -Completed Ceftriaxone IV for 14 days (also for cellulitis). #. Anxiety, not present on admission. Active and improving.. - Small dose PO Ativan before PT sessions. - Discontinue IV Ativan; patient was counseled on need to minimize dependence on benzodiazepines #. Left torso and abdomen cellulitis, resolved. Probable some component chronic panniculitis. - Discontinued antibiotics on 07/06 - for further antibiotics at this time. #. Acute urinary tract infection, present on admission. Resolved. Asymptomatic bacteriuria E.coli in urine at time of admission - Covered by cellulitis antibiotics, stop antibiotics. Acetaminophen for mild pain when necessary. Bowel regimen Senna and MiraLAX scheduled and PRN. Zofran when necessary for nausea and vomiting. SubQ heparin held for now. SCDs in place. High-risk medications: Warfarin. Patient Status: Patient is admitted under inpatient status with expected length of stay greater than 2 midnights due to severity of presenting symptoms, risk of adverse event, and complexity of treatment plan. The patient has been declined for inpatient rehabilitation services. This point we will continue to await LTAC placement. Resuscitation Status: CPR: Attempt Resuscitation Regis Cardona MD Jul 25, 2017 08:32
[2017-07-25 08:37] VITALS: BP 135/77; PULSE 86; RESP 18; O2SAT 95
[2017-07-25] MEDS: LORazepam 1 mg Tablet PO PRN (12:54)
--- NOTE | 2017-07-25 14:07 | NUR ---
Social Work: Continued Discharge Planning/Multidisciplinary Rounds D: Pt discussed in multidisciplinary rounds. The patient continues to be medically stable for discharge pending placement. Frame Stylist has received a voicemail from Suly Gordon at [facility]. She states that the patient would need to have spent 3 nights in the ICU in order to qualify for a Medicare transfer to LTAC. This is apparently a new policy and one that they are just learning of. transit planning director is aware of this and will be requesting a copy of the policy to address with [facility] administration. NEWSPAPER PHOTO EDITOR requested Frame Stylist contact [facility] to obtain a definitive answer whether they can or cannot accept this patient. She confirms that she will do this. A: Pt who will require ongoing rehab P: Evolving; NEWSPAPER PHOTO EDITOR to staff pt's discharge plan with keycase assembler and will continue search for out of area SNFs able to accommodate a bariatric patient. BRENDA Ledbetter
--- NOTE | 2017-07-25 14:54 | NUR ---
Per SPRING PRODUCTION SUPERVISOR req called the below facilities to confirm if they accept bariatric pt's over 500lbs: No - [facility], No - [facility], [facility] - [facility], [facility] - Kristen Pratt [facility], Lisa GUTIERREZ. Addendum: 07/25/17 at 1507 by LAURENT ROLAND [facility]
--- NOTE | 2017-07-25 16:09 | NUR ---
POST HOSPITAL FOLLOW UP: Received call from Suly Gordon at [facility] and there is now a new [facility] guideline in place which would require the patient to have three or more midnights in the ICU in order to qualify for LTAC. Updated SITE SUPERVISING TECHNICAL OPERATOR and MD and will work on new plan. Left Message for Carolina at [facility], we have been attempting contact daily with no response. Last information from her was her MD was reviewing patient for acceptance. Her direct # is [phone], additional message left today. Updated SITE SUPERVISING TECHNICAL OPERATOR
[2017-07-25 16:33] VITALS: BP 146/77; PULSE 98; RESP 18; O2SAT 94
--- NOTE | 2017-07-25 18:08 | NUR ---
Lidocaine Patch Lidocaine patch due at 0830 this AM. Pt stated she wanted placed on knees after PT. After PT ice packs applied for comfort and pt still wanted lidocaine patch and RN applied. Pt states after application "doesnt feel pain relief but feels relaxed."
[2017-07-25 20:31] VITALS: BP 146/83; PULSE 93; RESP 18; O2SAT 94
[2017-07-25 23:04] VITALS: RESP 22; O2SAT 98
[2017-07-26 04:34] VITALS: RESP 15; O2SAT 97
--- NOTE | 2017-07-26 05:01 | NUR ---
REST Uneventful night, pt rested w/minimal complaints. Pt had Lidocaine patches to both knees throughout the night, removed in AM with good results. VSS, no other issues noted.
[2017-07-26 06:24] LABS: INR 1.96 ratio
[2017-07-26 06:26] VITALS: BP 139/83; PULSE 82; RESP 19; O2SAT 100
[2017-07-26] MEDS: Sodium Chloride LOK Flush 10 mL Syringe IVFLUSH SCH ×2 (08:17→16:24)
[2017-07-26] MEDS: Lidocaine Topical 5% Patch TOPICAL SCH (08:17)
[2017-07-26 08:45] VITALS: BP 152/84; PULSE 69; RESP 18; O2SAT 97
--- NOTE | 2017-07-26 11:38 | NUR ---
LTAC FOLLOW UP : Spoke with Suly Gordon at [facility] and they have reviewed updated notes along with codes and diagnosis, patient has been officially accepted. They are now trying to make some room changes to accommodate new female patient in bariatric bed. Updated DRIVE SHAFT AND STEERING POST REPAIRER
--- NOTE | 2017-07-26 11:51 | NUR ---
Social Work: Readiness for Discharge/Multidisciplinary Rounds D: Pt discussed in multidisciplinary rounds; the patient is medically stable for discharge/transfer. Per bibliographic services specialist, [facility] has re-reviewed and the patient has been formally accepted. They are attempting to make room for her today and believe that they will be able to transfer her today. Attending provider is aware and will await confirmation from [facility] before completing transfer/discharge ppw. FIELD RETURN REPAIRER met with the patient at bedside to check in and provide update. She is very pleased to hear that [facility] is making progress and that she might be transferred. FIELD RETURN REPAIRER will update her when final confirmation is received. Pt's son was present in the room as well. A: Pt who will require transfer to a LTAC facility for ongoing care P: [facility] FIELD RETURN REPAIRER to continue to await update on status of bed. BRENDA Ledbetter
--- NOTE | 2017-07-26 13:42 | PCM.PNMED ---
Subjective Date of Service Jul 26, 2017 Subjective She is doing well today. No problems overnight. She is on less oxygen in 1-2 L at this point. She is able to stand up 3 times a day for about 5 minutes each time. Physical therapy is seeing her every other day. She denies any chest or abdominal pain no diarrhea. Her vaginal bleeding is improving and still was somewhat intermittent. No overnight events noted. Exam Vital Signs Vital Sign - Last Date Time Temp Pulse Resp B/P Pulse Ox O2 Delivery O2 Flow Rate FiO2 07/26/17 08:45 Supplement Oxygen 07/26/17 08:45 36.4 69 18 152/84 97 2.00 07/24/17 03:12 30 Intake and Output 07/25/17 07/25/17 07/26/17 Cumulative From/Thru 15:00 23:00 07:00 06/20/17 10:42 - 07/26/17 06:26 Intake Total 2100 ml 300 ml 64008 ml Output Total 1200 ml 1800 ml 25030 ml Balance 900 ml -1500 ml -53644 ml Intake Oral 2100 ml 300 ml 63761 ml IV Total 33198 ml Output Urine Total 1200 ml 1800 ml 46786 ml # Bowel Movements 1 42 Exam Alert and oriented -3, no distress. Fluent speech. On oxygen mask. Anicteric sclera. Lungs are clear with normal rate and effort Heart is regular without murmur gallop or rub Abdomen soft nontender, flat. Less tenderness of left flank. Extremities are free of edema. Good pedal pulses. Skin is free of rash or lesions. Some chronic venous stasis changes in the pretibial region. IVs and Medications Medications Reviewed: Medications were reviewed in detail Lab and Diagnostics Result Diagram: 07/23/17 0152 07/23/17 0152 Microbiology Laboratory Tests Test 07/20/17 01:50 Hemoglobin 13.2g/dL (12.0-15.6) Hematocrit 40.3% (35.0-46.0) Prothrombin Time 21.8sec (8.1-12.5) Prothromb Time International Ratio 2.01ratio Microbiology 06/27/17 Blood Culture - Final, Complete NO GROWTH AFTER 5 DAYS 07/19/17 Campylobacter (PCR) - Final, Complete Not Detected 07/19/17 Clostridium difficile Toxin A&B (M) - Final, Complete Not Detected 07/19/17 Plesiomonas shigelloides (PCR) - Final, Complete Not Detected 07/19/17 Salmonella (PCR)(BRANDON) - Final, Complete Not Detected 07/19/17 Yersinia enterocolitica (PCR) - Final, Complete Not Detected 07/19/17 Vibrio Species (PCR) - Final, Complete Not Detected 07/19/17 Vibrio Cholerae (PCR) - Final, Complete Not Detected 07/19/17 Enteroaggregative E. coli (PCR) - Final, Complete Not Detected 07/19/17 Enteropathogenic E. coli (PCR) - Final, Complete Not Detected 07/19/17 Enterotoxigenic E. coli (PCR) - Final, Complete Not Detected 07/19/17 E. coli Shiga-like Toxin (PCR) - Final, Complete Not Detected 07/19/17 Escherichia coli 0157 (PCR) - Final, Complete Not Detected 07/19/17 Enteroinvasive E. coli/Shigella PCR - Final, Complete Not Detected 07/19/17 Cryptosporidium (PCR) - Final, Complete Not Detected 07/19/17 Cyclospora cayetanensis (PCR) - Final, Complete Not Detected 07/19/17 Entamoeba histolytica (PCR) - Final, Complete Not Detected 07/19/17 Giardia lamblia (PCR) - Final, Complete Not Detected 07/19/17 Adenovirus Type F 40/41 (PCR) - Final, Complete Not Detected 07/19/17 Astrovirus (PCR) - Final, Complete Not Detected 07/19/17 Norovirus (PCR) - Final, Complete Not Detected 07/19/17 Rotavirus A (PCR) - Final, Complete Not Detected 07/19/17 Sapovirus I/II/IV/V (PCR) - Final, Complete 06/24/17 MRSA (PCR) - Final, Complete 06/28/17 Urine Culture - Final, Complete No growth (<1,000 organisms/mL) X-Rays, CTs and MRIs . X-RAY RIGHT KNEE, ONE OR TWO VIEWS IMPRESSION: 1. Limited study demonstrates no definite fracture or dislocation. If clinical concern persists, consider further evaluation with CT. Dictated by: Christopher Stephen M.D. on 06/20/2017 X-RAY CHEST ONE VIEW, PORTABLE IMPRESSION: 1. Pulmonary vascular prominence suggesting mild edema. Dictated by: Christopher Stephen M.D. on 06/20/2017 US VENOUS LEG DUPLEX BILATERAL IMPRESSION: Limited quality of visualization of the lower extremity venous vasculature due to body habitus. No DVT found. Dictated by: Emigdio King M.D. on 06/20/2017 X-RAY CHEST ONE VIEW, PORTABLE IMPRESSION: No acute cardiopulmonary disease. Dictated by: Yohan Hung M.D. on 06/22/2017 Cardiac Echo Impressions Echocardiogram Report Interpretation Summary This was a technically difficult study. 1. Grossly normal left ventricular size with grossly normal systolic function. 2. The right ventricle was not visualized. The estimated RVSP is 47 mm plus CVP 3. Valves were not optimally visualized Reading Physician:06:04 PM Additional Diagnostics Assessment & Plan #. Intermittent vaginal bleeding, active and much better. We discussed this case with gynecology and her physical size prohibits a vaginal examination here or even really a transvaginal ultrasound. The patient also has concurrent DVT and is not a candidate for estrogen therapy to attempt to stop bleeding. At this point we will continue to watch and follow hematocrit. -INR 2.64 -H&H stabilized. We will continue warfarin and watch cautiously. No other changes to this plan. #Diarrhea, acute, present on admission and resolved. -Check stool PCR and monitor clinically which returned on July 20 and is negative #. Super-Super Morbid obesity. POA and stable. Patient counseled by Kwame that aggressive calorie reduction is needed to expedite her return to mobility and her ability to live outside of an institutional setting. She concurs and is supportive of aggressive dieting goals. She seemed to tolerate her diet at current levels. - BMI 86.5 - Continue bariatric nursing care procedures - Patient of family counseled on importance of calorie restriction and weight loss. - Recommend 800 calorie VLCD diet with appropriate protein, fiber and vitamin supplement. - Calorie count to assess compliance with 800-calorie target No change to current medical plan. Continue 800 siomara a day for weight loss. #. Sacral decubitus ulcers, present on admission. Active and proving with wound care.. Likely stage II. These were inspected by nurses on 06/23 and found to have blanchable erythema and excoriation but no stage IV ulcers - Wound care consulted. We will continue the current wound plan. No change in current medical plan. Continue wound care. #. Obesity hypoventilation syndrome, present on admission. Active and stable. - Will require ongoing bilevel volume-directed ventilation support when sleeping. This is stable no changes to plan. She remains using oxygen during the day and [employer] at night. No change in current medical plan. BiPAP at night. Continue oxygen mask in 2 L down from 4-5 L during the day. #. Pulmonary embolism, present on admission. Stable with a therapeutic protime. Initial ABG revealed severe hypoxic deficit despite compensated chronic hypercarbia. . D-Dimer 8, albeit with bruise on right forearm. She is too large to do Chest CT PE scan. Decision was made to institute empiric anticoagulation, probably to continue chronically. She is at high risk for chronic thromboembolic pulmonary hypertension. Attempts were made to transfer patient to facility with suitable CT or angiography features but no such facilities identified. Maximum width at [facility] CT scanner is 78 cm , patient is 90 cm wide. Unable to obtain confirmatory diagnostic testing. Treating empirically. - Warfarin. - Dosing per pharmacy Continue warfarin. #. Acute Hypoxemic respiratory failure, present on admission. Improving and stable. Acute hypoxia is deemed likely 2nd to PE, the absence of other respiratory infection or pathology. Continue supplemental oxygen. Wean as able. This is stable. Oxygen mask by day and BiPAP at night. No changes. #. Acute on chronic Hypercapnic respiratory failure, present on admission. Improving and stable. Likely 2nd to obesity hypoventilation syndrome. Appears to have had worsening hypercarbic respiratory failure following oxygen supplementation in hospital, despite BiPAP. - The plan is for discharge to LTAC for ongoing management. She will likely need a home trilogy when she is able to discharged to a home environment. - Target O2 saturation is 88% - 92%; avoid excess oxygenation, continue noninvasive positive pressure ventilation. No changes for now. This is stable. Oxygen mask by day, BiPAP at night. #. Group B strep Bacteremia, not present on admission. Resolved -Completed Ceftriaxone IV for 14 days (also for cellulitis). #. Anxiety, not present on admission. Active and improving.. - Small dose PO Ativan before PT sessions. - Discontinue IV Ativan; patient was counseled on need to minimize dependence on benzodiazepines #. Left torso and abdomen cellulitis, resolved. Probable some component chronic panniculitis. - Discontinued antibiotics on 07/06 - for further antibiotics at this time. #. Acute urinary tract infection, present on admission. Resolved. Asymptomatic bacteriuria E.coli in urine at time of admission - Covered by cellulitis antibiotics, stop antibiotics. Acetaminophen for mild pain when necessary. Bowel regimen Senna and MiraLAX scheduled and PRN. Zofran when necessary for nausea and vomiting. SubQ heparin held for now. SCDs in place. High-risk medications: Warfarin. Patient Status: Patient is admitted under inpatient status with expected length of stay greater than 2 midnights due to severity of presenting symptoms, risk of adverse event, and complexity of treatment plan. The patient has been declined for inpatient rehabilitation services. This point we will continue to await LTAC placement. Cristhian may build except her soon. Resuscitation Status: CPR: Attempt Resuscitation Regis Cardona MD Jul 26, 2017 13:42
--- NOTE | 2017-07-26 13:57 | NUR ---
Activity Pt up to side of bed this morning with both me and the SENIOR PORTFOLIO MANAGER for a 10 min sit. Pt able to stand at the bedside for a few seconds to fix the sheet. Pt anxious but tolerated it well. Family visiting for lunch but agreeable to do it again for dinner then ice packs and lidocaine patches.
--- NOTE | 2017-07-26 14:12 | NUR ---
KO TRANSFER : Spoke with Suly Gordon from [place] they have bed and room for patient this afternoon. Spoke with data warehouse manager and agreed on 1530 miner pick, let her know patient was [id number]. Paged MD with MD to MD phone number [phone] and also spoke with [facility] and she is working on transfer packet and took RN to RN phone number [phone]. Updated APPLICATION TESTER and she is working with MD on writing orders.
--- NOTE | 2017-07-26 14:23 | PCM.DIMED ---
Discharge Instructions Date of Service Jul 26, 2017 Dates of Hospitalization Jun 20, 2017 at 13:57 Discharge Diagnosis Discharge Diagnosis #. Intermittent vaginal bleeding, active improved. . We will continue warfarin and watch cautiously. No other changes to this plan. #Diarrhea, present on admission and resolved. Stool PCR viral far was negative. #. Super-Super Morbid obesity. POA and stable. Patient counseled by Kwame that aggressive calorie reduction is needed to expedite her return to mobility and her ability to live outside of an institutional setting. She concurs and is supportive of aggressive dieting goals. She seemed to tolerate her diet at current levels. - BMI 86.5 - Continue bariatric nursing care procedures - Patient of family counseled on importance of calorie restriction and weight loss. - Recommend 800 calorie VLCD diet with appropriate protein, fiber and vitamin supplement. - Calorie count to assess compliance with 800-calorie target Continue 800 siomara a day for weight loss. #. Sacral decubitus ulcers, present on admission and resolved. Likely stage II. These were inspected by nurses on 06/23 and found to have blanchable erythema and excoriation but no stage IV ulcers - Wound care consulted. We will continue the current wound plan. The most recent skin exams per nursing revealed no evidence of ongoing sacral ulceration. They continue to use methyl X foam pads to folds in the sacral area #. Obesity hypoventilation syndrome, present on admission. stable. - Will require ongoing bilevel volume-directed ventilation support when sleeping. This is stable no changes to plan. 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 #. Pulmonary embolism, present on admission. Stable with a therapeutic protime. #. Acute Hypoxemic respiratory failure, present on admission. Improving and stable. Oxygen mask by day and BiPAP at night. No changes. #. Acute on chronic Hypercapnic respiratory failure, present on admission. stable. #. Group B strep Bacteremia, not present on admission. Resolved -Completed Ceftriaxone IV for 14 days (also for cellulitis). #. Left torso and abdomen cellulitis, resolved. Probable some component chronic panniculitis. - Discontinued antibiotics on 07/06 - for further antibiotics at this time. #. Acute urinary tract infection, present on admission. Resolved. Diet Discharge Diet: Heart Healthy Activity Discharge Activity: Other (per PT and OT) Patient Instructions Patient Instructions Her being transferred to [facility] for ongoing rehabilitation needs as well as support for your caloric reduction of weight loss and oxygen and BiPAP needs. Regis Cardona MD Jul 26, 2017 14:23
[2017-07-26] MEDS ORDERED: LIDO700A6 TOPICAL (14:24)
[2017-07-26] MEDS ORDERED: VENL50TA3 PO (14:24)
--- NOTE | 2017-07-26 14:33 | PCM.DC.MED ---
Discharge Summary Date of Service Jul 26, 2017 Dates of Hospitalization Date of Hospital Admission Jun 20, 2017 at 13:57 Date of Discharge: Jul 26, 2017 Providers: Admitting Physician: Sonny Silva MD Primary Care Physician: Leola Attending Physician: Regis Jiang MD Diagnosis at Time of Discharge Diagnosis at Time of Discharge #. Intermittent vaginal bleeding, active improved. . We will continue warfarin and watch cautiously. No other changes to this plan. #Diarrhea, present on admission and resolved. Stool PCR viral far was negative. #. Super-Super Morbid obesity. POA and stable. Patient counseled by Kwame that aggressive calorie reduction is needed to expedite her return to mobility and her ability to live outside of an institutional setting. She concurs and is supportive of aggressive dieting goals. She seemed to tolerate her diet at current levels. - BMI 86.5 - Continue bariatric nursing care procedures - Patient of family counseled on importance of calorie restriction and weight loss. - Recommend 800 calorie VLCD diet with appropriate protein, fiber and vitamin supplement. - Calorie count to assess compliance with 800-calorie target Continue 800 siomara a day for weight loss. #. Sacral decubitus ulcers, present on admission and resolved. Likely stage II. These were inspected by nurses on 06/23 and found to have blanchable erythema and excoriation but no stage IV ulcers - Wound care consulted. We will continue the current wound plan. The most recent skin exams per nursing revealed no evidence of ongoing sacral ulceration. They continue to use methyl X foam pads to folds in the sacral area #. Obesity hypoventilation syndrome, present on admission. stable. - Will require ongoing bilevel volume-directed ventilation support when sleeping. This is stable no changes to plan. She remains using oxygen during the day and SURVEY CHIEF at night. #. Pulmonary embolism, present on admission. Stable with a therapeutic protime. #. Acute Hypoxemic respiratory failure, present on admission. Improving and stable. Oxygen mask by day and BiPAP at night. No changes. #. Acute on chronic Hypercapnic respiratory failure, present on admission. stable. #. Group B strep Bacteremia, not present on admission. Resolved -Completed Ceftriaxone IV for 14 days (also for cellulitis). #. Left torso and abdomen cellulitis, resolved. Probable some component chronic panniculitis. - Discontinued antibiotics on 07/06 - for further antibiotics at this time. #. Acute urinary tract infection, present on admission. Resolved. Consultations Dr. Story, infectious disease Procedures XRay, CTs & MRIs . X-RAY RIGHT KNEE, ONE OR TWO VIEWS IMPRESSION: 1. Limited study demonstrates no definite fracture or dislocation. If clinical concern persists, consider further evaluation with CT. Dictated by: Christopher Stephen M.D. on 06/20/2017 X-RAY CHEST ONE VIEW, PORTABLE IMPRESSION: 1. Pulmonary vascular prominence suggesting mild edema. Dictated by: Christopher Stephen M.D. on 06/20/2017 US VENOUS LEG DUPLEX BILATERAL IMPRESSION: Limited quality of visualization of the lower extremity venous vasculature due to body habitus. No DVT found. Dictated by: Emigdio King M.D. on 06/20/2017 X-RAY CHEST ONE VIEW, PORTABLE IMPRESSION: No acute cardiopulmonary disease. Dictated by: Yohan Hugn M.D. on 06/22/2017 Cardiac Echo Impression Echocardiogram Report Interpretation Summary This was a technically difficult study. 1. Grossly normal left ventricular size with grossly normal systolic function. 2. The right ventricle was not visualized. The estimated RVSP is 47 mm plus CVP 3. Valves were not optimally visualized Reading Physician:06:04 PM Invasive Procedures None Other Diagnostics Brief History Ms. Negrita Morales is a 57 year old lady with arthritis, sleep apnea, and depression presenting to the ED after two ground level falls with minor head trauma at 630 and 930 AM and a 5 day history of "breathing just not right." She reports the fall was due to her Right knee locking and buckling. She also reports some musculoskeletal type pain in her left shoulder and left elbow. Over the last 5 days her "breathing troubles" were associated with change in vision from "color to fair", dizziness and feelings of "head floating", and decreased energy. She is a super-super morbidly obese lady who has been disabled for 5 years due to weight and difficulty with mobility. She sleeps and spends most of the day in the lift chair, only getting up to use the bathroom. She does not use oxygen at home. She has not visited a PCP in 7 years. She denies every smoking. She denies Etoh, illicit/recreational drugs. She is not on any home prescription medications. She reports multiple slow healing wounds on her buttocks and lower extremities. She sleeps with a CPAP machine every night. She denies Chest pain, cough, nausea, vomiting, fever, abdominal pain, constipation, diarrhea, dysuria. She reports chills, headache, left shoulder/ elbow pain, right knee pain, shortness of breath. Hospital Course This patient has been in the hospital for a long period time. She came in with a severe degree of disc mobility limiting to her superobesity. The patient also had complications of skin care issues as well as diarrhea which has resolved, intermittent vaginal bleeding which is improved, and acute on chronic hypoxic respiratory and hypercarbic respiratory failure. She also had the initial complication of strep bacteremia as well as cellulitis of the left and right aspect of her pannus. She was treated with ceftriaxone for both of his problems for for over 2 weeks. Antibiotics were stopped and she has done well since. She has lost about 50 pounds on 800-calorie a day regimen since being in the hospital. She has had slow but incremental improvement with standing and weightbearing with physical therapy. She however did not meet criteria to be accepted to inpatient rehabilitation facility nor did she appear to be able to be cared for by a standard senior care facility. Her primary hospital issues are as follows. #. Intermittent vaginal bleeding, active and much better. We discussed this case with gynecology and her physical size prohibits a vaginal examination here or even really a transvaginal ultrasound. The patient also has concurrent DVT and is not a candidate for estrogen therapy to attempt to stop bleeding. At this point we will continue to watch and follow hematocrit. -INR 2.64 -H&H stabilized. We will continue warfarin and watch cautiously. No other changes to this plan. Curbside with gynecology indicates that this would likely need to be a complex outpatient plan which would involve [facility] as her body size makes physical exam and imaging studies very difficult. Hormone therapy is also difficult for bleeding control given her history of pulmonary embolism. She will need to be worked up for rule out uterine pathology at some point when logistically feasible. #Diarrhea, acute, present on admission and resolved. -Check stool PCR and monitor clinically which returned on July 20 and is negative #. Super-Super Morbid obesity. POA and stable. Patient counseled by Kwame that aggressive calorie reduction is needed to expedite her return to mobility and her ability to live outside of an institutional setting. She concurs and is supportive of aggressive dieting goals. She seemed to tolerate her diet at current levels. - BMI 86.5 - Continue bariatric nursing care procedures - Patient of family counseled on importance of calorie restriction and weight loss. - Recommend 800 calorie VLCD diet with appropriate protein, fiber and vitamin supplement. - Calorie count to assess compliance with 800-calorie target No change to current medical plan. Continue 800 siomara a day for weight loss. #. Sacral decubitus ulcers, present on admission. Active and proving with wound care.. Likely stage II. These were inspected by nurses on 06/23 and found to have blanchable erythema and excoriation but no stage IV ulcers - Wound care consulted. We will continue the current wound plan. No change in current medical plan. Continue optimal skin care. #. Obesity hypoventilation syndrome, present on admission. Active and stable. - Will require ongoing bilevel volume-directed ventilation support when sleeping. This is stable no changes to plan. She remains using oxygen during the day and SURVEY CHIEF at night. No change in current medical plan. BiPAP at night. Continue oxygen mask in 2 L down from 4-5 L during the day. #. Pulmonary embolism, present on admission. Stable with a therapeutic protime. Initial ABG revealed severe hypoxic deficit despite compensated chronic hypercarbia. . D-Dimer 8, albeit with bruise on right forearm. She is too large to do Chest CT PE scan. Decision was made to institute empiric anticoagulation, probably to continue chronically. She is at high risk for chronic thromboembolic pulmonary hypertension. Attempts were made to transfer patient to facility with suitable CT or angiography features but no such facilities identified. Maximum width at [facility] CT scanner is 78 cm , patient is 90 cm wide. Unable to obtain confirmatory diagnostic testing. Treating empirically. Continue warfarin. #. Acute Hypoxemic respiratory failure, present on admission. Improving and stable. Acute hypoxia is deemed likely 2nd to PE, the absence of other respiratory infection or pathology. Continue supplemental oxygen. Wean as able. This is stable. Oxygen mask by day and BiPAP at night. No changes. #. Acute on chronic Hypercapnic respiratory failure, present on admission. Improving and stable. Likely 2nd to obesity hypoventilation syndrome. Appears to have had worsening hypercarbic respiratory failure following oxygen supplementation in hospital, despite BiPAP. - The plan is for discharge to LTAC for ongoing management. She will likely need a home trilogy when she is able to discharged to a home environment. - Target O2 saturation is 88% - 92%; avoid excess oxygenation, continue noninvasive positive pressure ventilation. No changes for now. This is stable. Oxygen mask by day, BiPAP at night. #. Group B strep Bacteremia, not present on admission. Resolved -Completed Ceftriaxone IV for 14 days (also for cellulitis). #. Anxiety, not present on admission. Active and improving.. - Small dose PO Ativan before PT sessions. - Discontinue IV Ativan; patient was counseled on need to minimize dependence on benzodiazepines #. Left torso and abdomen cellulitis, resolved. Probable some component chronic panniculitis. - Discontinued antibiotics on 07/06 - for further antibiotics at this time. #. Acute urinary tract infection, present on admission. Resolved. Asymptomatic bacteriuria E.coli in urine at time of admission - Covered by cellulitis antibiotics, stop antibiotics. High-risk medications: Warfarin. Patient Status: Patient was admitted under inpatient status with expected length of stay greater than 2 midnights due to severity of presenting symptoms, risk of adverse event, and complexity of treatment plan. The patient has been declined for inpatient rehabilitation services. This point we will continue to await LTAC placement. [facility] may build except her soon. Exam Vital Signs (Last) Date Time Temp Pulse Resp B/P Pulse Ox O2 Delivery O2 Flow Rate FiO2 07/26/17 08:45 Supplement Oxygen 07/26/17 08:45 36.4 69 18 152/84 97 2.00 07/24/17 03:12 30 Exam Patient was seen and examined on the day of discharge Test 06/20/17 11:55 06/22/17 03:53 06/23/17 04:55 06/25/17 03:50 D-Dimer 8.07mg/L FEU (<0.50) Magnesium Level 1.7mg/dL (1.6-2.6) Troponin T 0.010ug/L (0.0-0.011) Pro-B-Type Natriuretic Peptide 806.4pg/mL (0-287) Hold Fair Top Tube Received (Received) Phosphorus Level 3.4mg/dL (2.5-4.9) Procalcitonin 0.10ng/mL (0.00-0.08) Activated Partial Thromboplast Time 75.1sec (22.8-33.0) Test 06/28/17 10:53 07/23/17 01:52 07/26/17 05:45 Urine Color Yellow (YELLOW) Urine Appearance Hazy (CLEAR,HAZY) Urine pH 8.0 (5.0-8.0) Urine Specific [place] 1.010 (1.003-1.035) Urine Protein Tracemg/dL (NEG,TRACE) Urine Glucose (UA) Negativemg/dL (NEGATIVE) Urine Ketones Tracemg/dL (NEGATIVE) Urine Occult Blood Large (NEGATIVE) Urine Nitrite Negative (NEGATIVE) Urine Bilirubin Negative (NEGATIVE) Urine Urobilinogen Normalmg/dL (NORMAL) Urine Leukocyte Esterase Small (NEGATIVE) Urine RBC 11-50/hpf (0-2) Urine WBC 0-5/hpf (0-5) Urine Epithelial Cells Occasional/hpf (NONE-MOD) Urine Crystals Amorphous phosphates Urine Bacteria Few/hpf (NONE-FEW) Urine Hyaline Casts None/lpf (NONE) Urine Granular Casts None seen (NONE SEEN) Urine Waxy Casts None seen (NONE SEEN) Urine Red Blood Cell Casts None seen (NONE SEEN) Urine White Blood Cell Casts None seen (NONE SEEN) Urine Mucus None seen (None Seen) Urine Trichomonas None seen (NONE SEEN) Urine Yeast None (NONE SEEN) Urinalysis Comment None Urine Culture Reflexed Indicated White Blood Count 6.2th/mm3 (3.8-10.1) Red Blood Count 4.40mil/mm3 (3.90-5.20) Hemoglobin 13.2g/dL (12.0-15.6) Hematocrit 40.5% (35.0-46.0) Mean Corpuscular Volume 92.0fL (81-100) Mean Corpuscular Hemoglobin 30.0pg (27.0-35.0) Mean Corpuscular Hemoglobin Concent 32.6% (32.0-37.0) Red Cell Distribution Width 15.2% (12.3-15.4) Platelet Count 261bil/L (150-400) Neutrophils (%) (Auto) 39.3% (40-74) Lymphocytes (%) (Auto) 36.1% (14-46) Monocytes (%) (Auto) 12.2% (4-12) Eosinophils (%) (Auto) 11.1% (0-5) Basophils (%) (Auto) 1.0% (0-3) Sodium Level 140mEq/L (134-144) Potassium Level 4.1mEq/L (3.5-5.2) Chloride Level 102mEq/L (97-108) Carbon Dioxide Level 26mmol/L (18-29) Blood Urea Nitrogen 18mg/dL (6-24) Creatinine 0.47mg/dL (0.57-1.00) Estimat Glomerular Filtration Rate 196mL/min (>59) Glucose Level 105mg/dL (60-99) Calcium Level 8.8mg/dL (8.5-10.1) Total Bilirubin 0.3mg/dL (0.0-1.2) Aspartate Amino Transf (AST/SGOT) 44U/L (0-50) Alanine Aminotransferase (ALT/SGPT) 35U/L (0-32) Alkaline Phosphatase 65U/L (25-150) Total Protein 6.5g/dL (6.4-8.4) Albumin 3.2g/dL (3.4-5.0) Prothrombin Time 21.3sec (8.1-12.5) Prothromb Time International Ratio 1.96ratio Microbiology Results Laboratory Tests Test 07/20/17 01:50 Hemoglobin 13.2g/dL (12.0-15.6) Hematocrit 40.3% (35.0-46.0) Prothrombin Time 21.8sec (8.1-12.5) Prothromb Time International Ratio 2.01ratio Microbiology 06/27/17 Blood Culture - Final, Complete NO GROWTH AFTER 5 DAYS 07/19/17 Campylobacter (PCR) - Final, Complete Not Detected 07/19/17 Clostridium difficile Toxin A&B (M) - Final, Complete Not Detected 07/19/17 Plesiomonas shigelloides (PCR) - Final, Complete Not Detected 07/19/17 Salmonella (PCR)(BRANDON) - Final, Complete Not Detected 07/19/17 Yersinia enterocolitica (PCR) - Final, Complete Not Detected 07/19/17 Vibrio Species (PCR) - Final, Complete Not Detected 07/19/17 Vibrio Cholerae (PCR) - Final, Complete Not Detected 07/19/17 Enteroaggregative E. coli (PCR) - Final, Complete Not Detected 07/19/17 Enteropathogenic E. coli (PCR) - Final, Complete Not Detected 07/19/17 Enterotoxigenic E. coli (PCR) - Final, Complete Not Detected 07/19/17 E. coli Shiga-like Toxin (PCR) - Final, Complete Not Detected 07/19/17 Escherichia coli 0157 (PCR) - Final, Complete Not Detected 07/19/17 Enteroinvasive E. coli/Shigella PCR - Final, Complete Not Detected 07/19/17 Cryptosporidium (PCR) - Final, Complete Not Detected 07/19/17 Cyclospora cayetanensis (PCR) - Final, Complete Not Detected 07/19/17 Entamoeba histolytica (PCR) - Final, Complete Not Detected 07/19/17 Giardia lamblia (PCR) - Final, Complete Not Detected 07/19/17 Adenovirus Type F 40/41 (PCR) - Final, Complete Not Detected 07/19/17 Astrovirus (PCR) - Final, Complete Not Detected 07/19/17 Norovirus (PCR) - Final, Complete Not Detected 07/19/17 Rotavirus A (PCR) - Final, Complete Not Detected 07/19/17 Sapovirus I/II/IV/V (PCR) - Final, Complete 06/24/17 MRSA (PCR) - Final, Complete 06/28/17 Urine Culture - Final, Complete No growth (<1,000 organisms/mL) Discharge Medications Discharge Medications Lidocaine (Lidoderm) 700 Mg Adh..patch 1 PATCH TOPICAL DAILY Prescribed by: REGIS JIANG MD Venlafaxine (Venlafaxine) 50 Mg Tablet 50 MG PO BIDWM Prescribed by: REGIS JIANG MD As needed Acetaminophen (Tylenol Arthritis) 650 Mg Tablet.er 650 MG PO Q4H PRN PRN For Pain (Reported) Loperamide HCl (Imodium A-D) 2 Mg Capsule 8 MG PO DAILY PRN PRN For Diarrhea or Loose Stool (Reported) Followup Plan Disposition: [facility] LTAC Discharge Diet: Heart Healthy Discharge Activity: Other (per PT and OT) Patient Instructions Her being transferred to [facility] for ongoing rehabilitation needs as well as support for your caloric reduction of weight loss and oxygen and BiPAP needs. Time spent 60 minutes Regis Jiang MD Jul 26, 2017 14:33
--- NOTE | 2017-07-26 14:54 | NUR ---
Social Work: Discharge D: [facility] has accepted the patient for admission today. hot mill supervisor has arranged for BLS transportation for the patient at 3:30pm. SOIL SPECIALIST met with the patient at bedside to inform her of the discharge. Her questions about BLS and transfer were answered. She is optimistic about her transfer. [facility] Specialist is faxing discharge ppw to [facility]. SOIL SPECIALIST left a message for patient's spouse and notified him of the patient's impending discharge. A: Pt who is being transferred to [facility] P: Pt to discharge to [facility] today via BLS at 3:30pm. BRENDA Ledbetter
[2017-07-26 16:52] VITALS: BP 150/86; PULSE 91; RESP 18; O2SAT 92
[2017-07-26] MEDS ORDERED: WARF3TAB PO (17:20)
[2017-07-26] MEDS: LORazepam 1 mg Tablet PO PRN (18:04)
--- NOTE | 2017-07-26 18:46 | NUR ---
Transfer Pt left with transport staff at 1845 to [facility]. 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 Pt left with out dinner because it was served late. I had called at 5 pm asking for it to be sent up early and they said it would be here shortly. I mentioned thta the pt was leaving at 1830. Dinner was served at 1845. Pt left A&Ox3, vitals stable. and family friend at bedside. Report already called to RN around 1700.
== END 2017-07-26 18:46 | DRG 175 ==
LOC: SED 10:42 → PCC 13:57
PROVIDERS: ADMIT Internal Medicine; ATTEND Internal Medicine
PROC: 4A033R1 Measurement of Arterial Saturation, Peripheral, Percutaneous Approach (ICD-10-PCS; principal; 2017-06-20)
DX: I26.99 Other pulmonary embolism without acute cor pulmonale (principal); J96.01 Acute respiratory failure with hypoxia; J96.22 Acute and chronic respiratory failure with hypercapnia; Z68.45 Body mass index [BMI] 70 or greater, adult; N39.0 Urinary tract infection, site not specified; R78.81 Bacteremia; E66.2 Morbid (severe) obesity with alveolar hypoventilation; L03.311 Cellulitis of abdominal wall; L89.152 Pressure ulcer of sacral region, stage 2; B95.1 Streptococcus, group B, as the cause of diseases classified elsewhere; B96.20 Unspecified Escherichia coli [E. coli] as the cause of diseases classified elsewhere; R29.6 Repeated falls